=== PATIENT | female | born 1965 | race Hispanic/Latino ===

== ENCOUNTER 2018-10-10 09:58 | Emergency (ER) | payer SELFPAY ==
--- NOTE | 2018-10-10 11:17 | RAD REPORT ---
EXAM DESCRIPTION: CT - Head Brain Wo Cont - 10/10/2018 10:55 am CLINICAL HISTORY: Slurred speech COMPARISON: None. TECHNIQUE: Computed axial tomography of the head was obtained. IV contrast was not requested. All CT scans are performed using dose optimization technique as appropriate and may include automated exposure control or mA/KV adjustment according to patient size. FINDINGS: An intracranial bleed is not seen . The ventricles are normal in caliber. No extra-axial fluid collection is noted. Fluid within the sinuses/ mastoids is not seen. IMPRESSION: No acute intracranial abnormality is seen. If patient's symptoms persist MRI of the bra in would be recommended.
[2018-10-10 11:32] LABS: Absolute Lymphocytes (CBC) 1.3 K/uL (0.7-4.9); Absolute Monocytes 0.4 K/uL (0.1-1.3); Absolute Neutrophil 4.3 K/uL (1.8-8.0); Basophils % 0.7 % (0-1.3); Eosinophils % 1.2 % (0-4.4); Hematocrit 32.3 % (36.0-45.0); Lymphocytes % 21.7 % (15.3-44.8); MPV 9.2 fL (7.6-11.3); Monocytes % 6.6 % (3.3-12.3)
[2018-10-10 11:49] LABS: Potassium 4.7 mmol/L (3.5-5.1)
[2018-10-10] MEDS ORDERED: ENALAPRILAT 1.25 MG/ML VIAL IV ONE ×2 (12:21→14:33)
--- NOTE | 2018-10-10 12:21 | RAD REPORT ---
EXAM DESCRIPTION: RAD - Chest Single View - 10/10/2018 12:15 pm CLINICAL HISTORY: MALAISE Chest pain. COMPARISON: No comparisons FINDINGS: Portable technique limits examination quality. The lungs are grossly clear. The heart is normal in size. No displaced fractures. IMPRESSION: No acute intrathoracic process suspected.
--- NOTE | 2018-10-10 13:54 | EDPHYS ---
Physician Documentation [facility] – [place], [place] Name: Angelic Appiah Age: 53 yrs Sex: Female : 1965 Arrival Date: 10/10/2018 Time: 10:01 Bed 7 Private MD: None, None ED Physician Rex Carr HPI: 10/10 13:15 This 53 yrs old Female presents to ER via Wheelchair with complaints of Facial gs Droop, Slurred Speech. 13:15 Onset: The symptoms/episode began/occurred. gs 13:22 Onset: The symptoms/episode began/occurred 1 hour(s) ago. gs 13:23 Onset: The symptoms/episode began/occurred at 09:45. Associated signs and symptoms: gs Pertinent positives: facial droop and speech difficulty seen by sister, pt states had no symptoms but came to ed anyway. Severity of symptoms: At their worst the symptoms were moderate in the emergency department the symptoms have resolved. The patient has not experienced similar symptoms in the past. Historical: - Allergies: 10:20 No Known Allergies; iw - Home Meds: 10:20 None [Active]; iw - PMHx: 10:20 None; iw - PSHx: 10:20 None; iw - Immunization history:: Adult Immunizations up to date. - Social history:: Smoking status: Patient/guardian denies using tobacco. - Ebola Screening: : No symptoms or risks identified at this time. ROS: 13:23 All other systems are negative. gs Exam: 13:23 Head/Face: Normocephalic, atraumatic. Eyes: Pupils equal round and reactive to light, gs extra-ocular motions intact. Lids and lashes normal. Conjunctiva and sclera are non-icteric and not injected. Cornea within normal limits. Periorbital areas with no swelling, redness, or edema. ENT: Nares patent. No nasal discharge, no septal abnormalities noted. Tympanic membranes are normal and external auditory canals are clear. Oropharynx with no redness, swelling, or masses, exudates, or evidence of obstruction, uvula midline. Mucous membranes moist. Neck: Trachea midline, no thyromegaly or masses palpated, and no cervical lymphadenopathy. Supple, full range of motion without nuchal rigidity, or vertebral point tenderness. No Meningismus. Chest/axilla: Normal chest wall appearance and motion. Nontender with no deformity. No lesions are appreciated. Cardiovascular: Regular rate and rhythm with a normal S1 and S2. No gallops, murmurs, or rubs. Normal PMI, no JVD. No pulse deficits. Respiratory: Lungs have equal breath sounds bilaterally, clear to auscultation and percussion. No rales, rhonchi or wheezes noted. No increased work of breathing, no retractions or nasal flaring. Abdomen/GI: Soft, non-tender, with normal bowel sounds. No distension or tympany. No guarding or rebound. No evidence of tenderness throughout. Back: No spinal tenderness. No costovertebral tenderness. Full range of motion. Skin: Warm, dry with normal turgor. Normal color with no rashes, no lesions, and no evidence of cellulitis. MS/ Extremity: Pulses equal, no cyanosis. Neurovascular intact. Full, normal range of motion. Neuro: Awake and alert, GCS 15, oriented to person, place, time, and situation. Cranial nerves II-XII grossly intact. Motor strength 5/5 in all extremities. Sensory grossly intact. Cerebellar exam normal. Normal gait. 13:23 Constitutional: The patient appears alert, awake. 13:23 ECG was reviewed by the Attending Physician. Vital Signs: 10:10 BP 205 / 94; Pulse 72; Resp 16; Temp 97.8; Pulse Ox 100% on R/A; Weight 76.2 kg; Height hb 5 ft. 4 in. (162.56 cm); Pain 0/10; 11:30 BP 243 / 101; Pulse 86; Resp 15; Pulse Ox 97% on R/A; hb 12:30 BP 195 / 98; Pulse 79; Resp 16; Pulse Ox 100% on R/A; hb 13:15 BP 174 / 107; Pulse 57; Resp 16; Pulse Ox 100% on R/A; hb 14:00 BP 196 / 77 LA (/reg); Pulse 57; Pulse Ox 100% on R/A; hb 14:15 BP 202 / 88; mg2 14:47 BP 175 / 58; Pulse 55; Resp 18; Temp 98.5; Pulse Ox 100% on R/A; Pain 0/10; mg2 10:10 Body Mass Index 28.84 (76.20 kg, 162.56 cm) hb NIH Stroke Scale Scores: 10:20 NIHSS Score: 0 iw 13:23 NIHSS Score: 0 gs MDM: 10:34 Patient medically screened. 13:46 Data reviewed: vital signs, nurses notes. Counseling: I had a detailed discussion with gs the patient and/or guardian regarding: the historical points, exam findings, and any diagnostic results supporting the discharge/admit diagnosis. Counseling: I had a detailed discussion with the patient and/or guardian regarding: the presence of at least one elevated blood pressure reading (>120/80) during this emergency department visit. Special discussion: I have referred the patient to see his PCP for further evaluation of high blood pressure. ED course: no tpa nih 0, pt doesn't want hospitalization will discharge meds htn dm. 10/10 10:14 Order name: Glucose, Ancillary Testing; Complete Time: 10:35 EDMS 10/10 10:38 Order name: CBC with Diff; Complete Time: 11:41 10/10 10:38 Order name: Basic Metabolic Panel; Complete Time: 12:49 10/10 11:46 Order name: Troponin (emerg Dept Use Only) 10/10 12:42 Order name: Troponin (Emerg Dept Use Only); Complete Time: 12:49 EDMS 10/10 14:27 Order name: Urine Dipstick--Ancillary (enter results) 10/10 10:38 Order name: CT Head Brain wo Cont; Complete Time: 11:41 10/10 11:46 Order name: XRAY CXR (1 view) 10/10 11:46 Order name: EKG; Complete Time: 11:48 10/10 12:22 Order name: RAD; Complete Time: 12:49 EDNE 10/10 14:30 Order name: Urine Dipstick-Ancillary EDNE 10/10 14:34 Order name: Glucose, Ancillary Testing EDNE 10/10 11:46 Order name: EKG - Nurse/Tech; Complete Time: 12:19 EC:23 Rate is 52 beats/min. Rhythm is regular. LA interval is normal. QRS interval is normal. gs T waves are Normal. No ST changes noted. Clinical impression: NSR w/ Non-specific ST/T Changes. Interpreted by me. Administered Medications: 12:15 Drug: Enalaprilat 1.25 mg Route: IV; Rate: 1.25 calculated rate; Site: right forearm; hb 12:22 Follow up: Response: No adverse reaction; IV Status: Completed infusion hb 14:29 Drug: Enalaprilat 1.25 mg Route: IV; Rate: calculated rate; Site: right wrist; mg2 14:35 Follow up: Response: No adverse reaction; IV Status: Completed infusion hb Point of Care Testing: Blood Glucose: 10:12 Blood Glucose: 332 mg/dL; hb 14:03 Blood Glucose: 244 mg/dL; mg2 Ranges: Critical Glucose Levels:Adult <50 mg/dl or >400 mg/dl <40 mg/dl or >180 mg/dl Disposition: 10/10/18 13:53 Discharged to Home. Impression: Transient cerebral ischemic attack, unspecified, Essential (primary) hypertension, Hyperglycemia, unspecified. - Condition is Stable. - Discharge Instructions: Hyperglycemia, Hypertension, Transient Ischemic Attack, Blood Glucose Monitoring, Adult. - Prescriptions for Metformin 500 mg Oral Tablet - take 1 tablet by ORAL route once daily for 7 days Then take 1 tablet with morning meals AND evening meals; 21 tablet. Lisinopril 5 mg Oral Tablet - take 1 tablet by ORAL route once daily; 15 tablet. - Medication Reconciliation Form, Thank You Letter, Antibiotic Education, Prescription Opioid Use form. - Follow up: Private Physician; When: 1 - 2 days; Reason: Re-evaluation by your physician. Follow up: Harris Guadalupe DO; When: 2 - 3 days; Reason: Re-evaluation by your physician. Follow up: Jesus Velazco MD; When: 2 - 3 days; Reason: Re-evaluation by your physician. NIH Stroke Scale - NIH Stroke Score Date: 10/10/2018 Time: 10:20 Total Score = 0 1a. Level of Consciousness (LOC) - 0(Alert) 1b. Level of Consciousness (LOC) (Year \T\ Age) - 0(Both) 1c. LOC Commands (Open \T\ Closes Eyes/Interdisciplinary Professor) - 0(Both) 2. Best Gaze (Lateral Gaze Paresis) - 0(Normal) 3. Visual Field Loss - 0(No visual loss) 4. Facial Palsy - 0(Normal) 5a. Left Arm: Motor (10-second hold) - 0(No drift) 5b. Right Arm: Motor (10-second hold) - 0(No drift) 6a. Left Leg: Motor (5-second hold - always test supine) - 0(No drift) 6b. Right Leg: Motor (5-second hold - always test supine) - 0(No drift) 7. Limb Ataxia (finger/nose \T\ heel/ureña - test with eyes open) - 0(Absent) 8. Sensory Loss (pinprick arms/legs/face) - 0(Normal) 9. Best Language: Aphasia (description/naming/reading) - 0(No aphasia) 10. Dysarthria (speech clarity - read or repeat words) - 0(Normal) 11. Extinction and Inattention (visual/tactile/auditory/spatial/personal) - 0(No abnormality) Initials: NIH Stroke Scale - NIH Stroke Score Date: 10/10/2018 Time: 13:23 Total Score = 0 1a. Level of Consciousness (LOC) - 0(Alert) 1b. Level of Consciousness (LOC) (Year \T\ Age) - 0(Both) 1c. LOC Commands (Open \T\ Closes Eyes/Interdisciplinary Professor) - 0(Both) 2. Best Gaze (Lateral Gaze Paresis) - 0(Normal) 3. Visual Field Loss - 0(No visual loss) 4. Facial Palsy - 0(Normal) 5a. Left Arm: Motor (10-second hold) - 0(No drift) 5b. Right Arm: Motor (10-second hold) - 0(No drift) 6a. Left Leg: Motor (5-second hold - always test supine) - 0(No drift) 6b. Right Leg: Motor (5-second hold - always test supine) - 0(No drift) 7. Limb Ataxia (finger/nose \T\ heel/ureña - test with eyes open) - 0(Absent) 8. Sensory Loss (pinprick arms/legs/face) - 0(Normal) 9. Best Language: Aphasia (description/naming/reading) - 0(No aphasia) 10. Dysarthria (speech clarity - read or repeat words) - 0(Normal) 11. Extinction and Inattention (visual/tactile/auditory/spatial/personal) - 0(No abnormality) Initials: Signatures: Dispatcher [employer] Viji Rodríguez RN RN Sharlene Shah RN RN hb Starr, Gregory, MD MD Lopez Douglas RN RN mg2 Corrections: (The following items were deleted from the chart) 13:58 13:53 10/10/2018 13:53 Discharged to Home. Impression: Transient cerebral gs ischemic attack, unspecified; Essential (primary) hypertension; Hyperglycemia, unspecified. Condition is Stable. Forms are Medication Reconciliation Form, Thank You Letter, Antibiotic Education, Prescription Opioid Use. Follow up: Private Physician; When: 1 - 2 days; Reason: Re-evaluation by your physician. Follow up: Harris Guadalupe; When: 2 - 3 days; Reason: Re-evaluation by your physician. gs 15:02 13:58 10/10/2018 13:53 Discharged to Home. Impression: Transient cerebral iw ischemic attack, unspecified; Essential (primary) hypertension; Hyperglycemia, unspecified. Condition is Stable. Discharge Instructions: Hyperglycemia, Hypertension, Transient Ischemic Attack, Blood Glucose Monitoring, Adult. Prescriptions for Metformin 500 mg Oral Tablet - take 1 tablet by ORAL route once daily for 7 days Then take 1 tablet with morning meals AND evening meals; 21 tablet, Lisinopril 5 mg Oral Tablet - take 1 tablet by ORAL route once daily; 15 tablet. and Forms are Medication Reconciliation Form, Thank You Letter, Antibiotic Education, Prescription Opioid Use. Follow up: Private Physician; When: 1 - 2 days; Reason: Re-evaluation by your physician. Follow up: Harris Guadalupe; When: 2 - 3 days; Reason: Re-evaluation by your physician. Follow up: Jesus Velazco; When: 2 - 3 days; Reason: Re-evaluation by your physician. gs
--- NOTE | 2018-10-10 13:54 | ER ---
Nurse's Notes [facility] Name: Angelic Appiah Age: 53 yrs Sex: Female : 1965 Arrival Date: 10/10/2018 Time: 10:01 Bed 7 Private MD: None, None Diagnosis: Transient cerebral ischemic attack, unspecified;Essential (primary) hypertension;Hyperglycemia, unspecified Presentation: 10/10 10:06 Presenting complaint: sister reports pt had an episode of left sided facial drooping iw that started around and lasted til about 0945, pt also was slurring her words, sister told pt to smile and the left side of her face did not move, pt denies weakness or numbness/tingling. symptoms have completely resolved, pt states she did not feel any difference in her face during the episode. Transition of care: patient was not received from another setting of care. No acute neurological deficit is noted. Pre-hospital glucose is not applicable to this patient. Onset of symptoms was October 10, 2018. Risk Assessment: Do you want to hurt yourself or someone else? Patient reports no desire to harm self or others. Initial Sepsis Screen: Does the patient meet any 2 criteria? No. Patient's initial sepsis screen is negative. Does the patient have a suspected source of infection? No. Patient's initial sepsis screen is negative. Care prior to arrival: None. 10:06 Method Of Arrival: Wheelchair iw 10:06 Acuity: SOLITARIO 2 iw Historical: - Allergies: 10:20 No Known Allergies; iw - Home Meds: 10:20 None [Active]; iw - PMHx: 10:20 None; iw - PSHx: 10:20 None; iw - Immunization history:: Adult Immunizations up to date. - Social history:: Smoking status: Patient/guardian denies using tobacco. - Ebola Screening: : No symptoms or risks identified at this time. Screenin:15 Abuse screen: Denies threats or abuse. Denies injuries from another. Nutritional hb screening: No deficits noted. Tuberculosis screening: No symptoms or risk factors identified. Fall Risk None identified. Assessment: 10:20 VAN Scoring: Arm Drift: Patients demonstrates NO arm weakness. Patient is VAN Negative. iw 10:25 General: Appears in no apparent distress. Behavior is calm, cooperative. Pain: Denies hb pain. Neuro: Level of Consciousness is awake, alert, obeys commands, Oriented to person, place, time, situation. Cardiovascular: Capillary refill < 3 seconds Patient's skin is warm and dry. Respiratory: Airway is patent Respiratory effort is even, unlabored, Respiratory pattern is regular, symmetrical, Breath sounds are clear bilaterally. GI: No signs and/or symptoms were reported involving the gastrointestinal system. : No signs and/or symptoms were reported regarding the genitourinary system. EENT: No signs and/or symptoms were reported regarding the EENT system. Derm: Skin is intact, is healthy with good turgor, Skin is pink, warm \T\ dry. Musculoskeletal: No signs and/or symptoms reported regarding the musculoskeletal system. 11:30 Reassessment: Patient appears in no apparent distress at this time. Patient and/or hb family updated on plan of care and expected duration. Pain level reassessed. Patient is alert, oriented x 3, equal unlabored respirations, skin warm/dry/pink. 12:30 Reassessment: Patient appears in no apparent distress at this time. Patient and/or hb family updated on plan of care and expected duration. Pain level reassessed. Patient is alert, oriented x 3, equal unlabored respirations, skin warm/dry/pink. Patient denies pain at this time. 13:30 Reassessment: Patient appears in no apparent distress at this time. No changes from hb previously documented assessment. Patient and/or family updated on plan of care and expected duration. Pain level reassessed. Patient is alert, oriented x 3, equal unlabored respirations, skin warm/dry/pink. 14:30 Reassessment: Patient appears in no apparent distress at this time. No changes from hb previously documented assessment. Patient and/or family updated on plan of care and expected duration. Pain level reassessed. Patient is alert, oriented x 3, equal unlabored respirations, skin warm/dry/pink. Vital Signs: 10:10 BP 205 / 94; Pulse 72; Resp 16; Temp 97.8; Pulse Ox 100% on R/A; Weight 76.2 kg; Height hb 5 ft. 4 in. (162.56 cm); Pain 0/10; 11:30 BP 243 / 101; Pulse 86; Resp 15; Pulse Ox 97% on R/A; hb 12:30 BP 195 / 98; Pulse 79; Resp 16; Pulse Ox 100% on R/A; hb 13:15 BP 174 / 107; Pulse 57; Resp 16; Pulse Ox 100% on R/A; hb 14:00 BP 196 / 77 LA (/reg); Pulse 57; Pulse Ox 100% on R/A; hb 14:15 BP 202 / 88; mg2 14:47 BP 175 / 58; Pulse 55; Resp 18; Temp 98.5; Pulse Ox 100% on R/A; Pain 0/10; mg2 10:10 Body Mass Index 28.84 (76.20 kg, 162.56 cm) hb NIH Stroke Scale Scores: 10:20 NIHSS Score: 0 iw 13:23 NIHSS Score: 0 gs ED Course: 10:01 Patient arrived in ED. mr 10:01 None, None is Private Physician. mr 10:08 Rex Carr MD is Attending Physician. gs 10:14 Arm band placed on. hb 10:15 Patient has correct armband on for positive identification. Placed in gown. Bed in low hb position. Call light in reach. Side rails up X 1. 10:20 Triage completed. iw 10:51 Sharlene Shah, RN is Primary Nurse. hb 10:55 CT Head Brain wo Cont In Process Unspecified. EDMS 11:15 Initial lab(s) drawn, by me, sent to lab. Inserted saline lock: 22 gauge in right dh3 wrist, using aseptic technique. Blood collected. 12:15 X-ray completed. Portable x-ray completed in exam room. Patient tolerated procedure mh1 well. 12:28 EKG done, by emergency medical tech. reviewed by Rex Carr MD. sm3 13:52 Harris Guadalupe DO is Referral Physician. gs 13:58 Jesus Velazco MD is Referral Physician. gs 14:45 No provider procedures requiring assistance completed. IV discontinued, intact, hb bleeding controlled, No redness/swelling at site. Pressure dressing applied. Administered Medications: 12:15 Drug: Enalaprilat 1.25 mg Route: IV; Rate: 1.25 calculated rate; Site: right forearm; hb 12:22 Follow up: Response: No adverse reaction; IV Status: Completed infusion hb 14:29 Drug: Enalaprilat 1.25 mg Route: IV; Rate: calculated rate; Site: right wrist; mg2 14:35 Follow up: Response: No adverse reaction; IV Status: Completed infusion hb Point of Care Testing: Blood Glucose: 10:12 Blood Glucose: 332 mg/dL; hb 14:03 Blood Glucose: 244 mg/dL; mg2 Ranges: Outcome: 13:53 Discharge ordered by . gs 14:45 Discharged to home ambulatory, with family. hb 14:45 Condition: stable 14:45 Discharge instructions given to patient, Instructed on discharge instructions, follow up and referral plans. medication usage, Demonstrated understanding of instructions, follow-up care, medications. 15:02 Patient left the ED. NIH Stroke Scale - NIH Stroke Score Date: 10/10/2018 Time: 10:20 Total Score = 0 1a. Level of Consciousness (LOC) - 0(Alert) 1b. Level of Consciousness (LOC) (Year \T\ Age) - 0(Both) 1c. LOC Commands (Open \T\ Closes Eyes/Doughmaker) - 0(Both) 2. Best Gaze (Lateral Gaze Paresis) - 0(Normal) 3. Visual Field Loss - 0(No visual loss) 4. Facial Palsy - 0(Normal) 5a. Left Arm: Motor (10-second hold) - 0(No drift) 5b. Right Arm: Motor (10-second hold) - 0(No drift) 6a. Left Leg: Motor (5-second hold - always test supine) - 0(No drift) 6b. Right Leg: Motor (5-second hold - always test supine) - 0(No drift) 7. Limb Ataxia (finger/nose \T\ heel/ureña - test with eyes open) - 0(Absent) 8. Sensory Loss (pinprick arms/legs/face) - 0(Normal) 9. Best Language: Aphasia (description/naming/reading) - 0(No aphasia) 10. Dysarthria (speech clarity - read or repeat words) - 0(Normal) 11. Extinction and Inattention (visual/tactile/auditory/spatial/personal) - 0(No abnormality) Initials: NIH Stroke Scale - NIH Stroke Score Date: 10/10/2018 Time: 13:23 Total Score = 0 1a. Level of Consciousness (LOC) - 0(Alert) 1b. Level of Consciousness (LOC) (Year \T\ Age) - 0(Both) 1c. LOC Commands (Open \T\ Closes Eyes/Doughmaker) - 0(Both) 2. Best Gaze (Lateral Gaze Paresis) - 0(Normal) 3. Visual Field Loss - 0(No visual loss) 4. Facial Palsy - 0(Normal) 5a. Left Arm: Motor (10-second hold) - 0(No drift) 5b. Right Arm: Motor (10-second hold) - 0(No drift) 6a. Left Leg: Motor (5-second hold - always test supine) - 0(No drift) 6b. Right Leg: Motor (5-second hold - always test supine) - 0(No drift) 7. Limb Ataxia (finger/nose \T\ heel/ureña - test with eyes open) - 0(Absent) 8. Sensory Loss (pinprick arms/legs/face) - 0(Normal) 9. Best Language: Aphasia (description/naming/reading) - 0(No aphasia) 10. Dysarthria (speech clarity - read or repeat words) - 0(Normal) 11. Extinction and Inattention (visual/tactile/auditory/spatial/personal) - 0(No abnormality) Initials: Signatures: Dispatcher [employer] [facility] Sheila Thomas Martha 1 Viji Montero RN RN Sharlene Shah RN RN hb Herrera, Deanna 3 Rex Carr MD MD Lopez Douglas RN RN [facility] [place] Sima Jennings 3
[2018-10-10 14:30] LABS: Urine Blood 1+ (NEG); Urine Glucose 2+ (NEG); Urine Protein 3+ (NEG)
--- NOTE | 2018-10-10 15:02 | EKG ---
Test Date: 2018-10-10 Test Time: 12:11:31 Aircraft Motor Mechanic: BENJI MEASUREMENT RESULTS: Intervals: Rate: 52 KS: 158 QRSD: 82 QT: 438 QTc: 407 [place]: P: 36 KS: 158 QRS: 0 T: 58 INTERPRETIVE STATEMENTS: Sinus bradycardia Otherwise normal ECG No previous ECG available for comparison Electronically Signed On 10-10-18 15:01:45 CDT by Vijay Moore
== END 2018-10-10 15:02 | disposition home or self-care (01) ==
LOC: ER 09:58
DX: G45.9 Transient cerebral ischemic attack, unspecified (principal); I10 Essential (primary) hypertension; E78.5 Hyperlipidemia, unspecified
CPT/HCPCS: 36415; 70450; 71045; 80048; 81003; 82962; 84484; 85025; 93005; 99284

== ENCOUNTER 2018-10-11 16:39 | Emergency (ER) | payer SELFPAY ==
[2018-10-11 17:16] LABS: Protime INR 1.03
--- NOTE | 2018-10-11 17:16 | EDPHYS ---
Physician Documentation [facility] Name: Angelic Appiah Age: 53 yrs Sex: Female : 1965 Arrival Date: 10/11/2018 Time: 16:40 Bed 7 Private MD: None, None ED Physician Hudson Ha HPI: 10/11 17:09 This 53 yrs old Female presents to ER via Wheelchair with complaints of mitch Slurred Speech. 17:09 The patient presents to the emergency department with weakness of the left upper mitch extremity, left lower extremity, left side of the face, that is moderate. Onset: The symptoms/episode began/occurred today, between 10am and 1pm , unknown. Context: occurred at home, occurred while the patient was at rest. Associated signs and symptoms: The patient has no apparent associated signs or symptoms. Severity of symptoms: At their worst the symptoms were mild moderate in the emergency department the symptoms are unchanged. Patient's baseline: Neuro: alert and fully oriented. Current symptoms: dysphasia, paralysis or paresis, of the face, left arm and left leg, that is mild. The patient has experienced a previous episode, yesterday. EMS MANAGER: 16:44 LMP N/A - Post-menopause tw2 Historical: - Allergies: 16:46 No Known Allergies; tw2 - Home Meds: 17:47 None [Active]; sg - PMHx: 17:47 None; sg - PSHx: 16:46 None; tw2 - Immunization history:: Adult Immunizations. - Social history:: Smoking status: . - Ebola Screening: : Patient denies travel to an Ebola-affected area in the 21 days before illness onset. - Family history:: not pertinent. ROS: 17:09 Constitutional: Negative for fever, chills, and weight loss, Eyes: Negative for injury, mitch pain, redness, and discharge, ENT: Negative for injury, pain, and discharge, Neck: Negative for injury, pain, and swelling, Cardiovascular: Negative for chest pain, palpitations, and edema, Respiratory: Negative for shortness of breath, cough, wheezing, and pleuritic chest pain, Abdomen/GI: Negative for abdominal pain, nausea, vomiting, diarrhea, and constipation, Back: Negative for injury and pain, : Negative for injury, bleeding, discharge, and swelling, MS/Extremity: Negative for injury and deformity, Skin: Negative for injury, rash, and discoloration, Psych: Negative for depression, anxiety, suicide ideation, homicidal ideation, and hallucinations, Allergy/Immunology: Negative for hives, rash, and allergies, Endocrine: Negative for neck swelling, polydipsia, polyuria, polyphagia, and marked weight changes, Hematologic/Lymphatic: Negative for swollen nodes, abnormal bleeding, and unusual bruising. 17:09 Neuro: Positive for gait disturbance, speech changes, weakness, of the face, left arm and left leg. Exam: 17:09 Constitutional: This is a well developed, well nourished patient who is awake, alert, mitch and in no acute distress. Eyes: Pupils equal round and reactive to light, extra-ocular motions intact. Lids and lashes normal. Conjunctiva and sclera are non-icteric and not injected. Cornea within normal limits. Periorbital areas with no swelling, redness, or edema. ENT: Nares patent. No nasal discharge, no septal abnormalities noted. Tympanic membranes are normal and external auditory canals are clear. Oropharynx with no redness, swelling, or masses, exudates, or evidence of obstruction, uvula midline. Mucous membranes moist. Neck: Trachea midline, no thyromegaly or masses palpated, and no cervical lymphadenopathy. Supple, full range of motion without nuchal rigidity, or vertebral point tenderness. No Meningismus. Chest/axilla: Normal chest wall appearance and motion. Nontender with no deformity. No lesions are appreciated. Cardiovascular: Regular rate and rhythm with a normal S1 and S2. No gallops, murmurs, or rubs. Normal PMI, no JVD. No pulse deficits. Respiratory: Lungs have equal breath sounds bilaterally, clear to auscultation and percussion. No rales, rhonchi or wheezes noted. No increased work of breathing, no retractions or nasal flaring. Abdomen/GI: Soft, non-tender, with normal bowel sounds. No distension or tympany. No guarding or rebound. No evidence of tenderness throughout. Back: No spinal tenderness. No costovertebral tenderness. Full range of motion. Skin: Warm, dry with normal turgor. Normal color with no rashes, no lesions, and no evidence of cellulitis. MS/ Extremity: Pulses equal, no cyanosis. Neurovascular intact. Full, normal range of motion. 17:09 Head/face: Noted is left face weak, forehead spared. 17:09 Musculoskeletal/extremity: ROM: limited active range of motion, in the left arm and left leg, Circulation is intact in all extremities. Pulses: the left arm and left leg numbness, DVT Exam: No signs of deep vein thrombosis. no pain, no swelling, no tenderness, negative Homans' sign noted on exam, no appreciated bluish discoloration, no erythema, no increased warmth. Vital Signs: 16:44 BP 150 / 70; Pulse 77; Resp 17; Temp 97.9(TE); Pulse Ox 99% on R/A; Weight 70.31 kg tw2 (R); Pain 0/10; 20:10 BP 176 / 81; Pulse 71; Resp 18; Pulse Ox 98% on R/A; ea 21:45 BP 159 / 71; Pulse 63; Resp 18; Temp 98; Pulse Ox 98% ; ea NIH Stroke Scale Scores: 17:19 NIHSS Score: 5 iw 17:35 NIHSS Score: 9 mitch 20:10 NIHSS Score: 7 ea 21:45 NIHSS Score: 7 ea MDM: 17:00 Patient medically screened. mitch 17:38 Data reviewed: vital signs, nurses notes, lab test result(s), EKG, radiologic studies, mitch CT scan, MRI, plain films. 18:34 ED course: no a tpa candidate, greater marissa 4.5 hours, large infarct on ct, sub acute, mitch symptoms began day prior. 10/11 16:53 Order name: Basic Metabolic Panel; Complete Time: 17:44 10/11 16:53 Order name: CBC with Diff; Complete Time: 17:44 10/11 16:53 Order name: LFT's; Complete Time: 17:44 10/11 16:53 Order name: Magnesium; Complete Time: 17:44 10/11 16:53 Order name: NT PRO-BNP; Complete Time: 17:44 10/11 16:53 Order name: PT-INR; Complete Time: 17:44 10/11 16:53 Order name: Troponin (emerg Dept Use Only); Complete Time: 17:44 10/11 16:53 Order name: XRAY Chest (1 view) 10/11 16:53 Order name: CT Stroke Brain w/o Contrast; Complete Time: 17:44 iw 10/11 17:02 Order name: Sed Rate; Complete Time: 18:33 mitch 10/11 17:02 Order name: CRP; Complete Time: 17:44 mitch 10/11 18:22 Order name: Brain Wo Cont EDMS 10/11 16:53 Order name: EKG; Complete Time: 16:55 10/11 16:53 Order name: Cardiac monitoring; Complete Time: 17:09 10/11 16:53 Order name: EKG - Nurse/Tech; Complete Time: 19:57 iw 10/11 16:53 Order name: IV Saline Lock; Complete Time: 17:09 iw 10/11 16:53 Order name: Labs collected and sent; Complete Time: 17:09 10/11 16:53 Order name: O2 Per Protocol; Complete Time: 17:55 iw 10/11 16:53 Order name: O2 Sat Monitoring; Complete Time: 17:55 iw Administered Medications: 19:12 Not Given (failed swallow screening): Aspirin Chewable Tablet 324 mg PO once; 81 mg sg tablets x 4 19:45 Drug: NS 0.9% 1000 ml Route: IV; Rate: 1 bolus; Site: right antecubital; ea 21:55 Follow up: Response: No adverse reaction; IV Status: Completed infusion; IV Intake: ea 1000ml 19:45 Drug: foLIC Acid 1 mg Route: IVPB; Site: right antecubital; ea 20:22 Follow up: Response: No adverse reaction; IV Status: Completed infusion ea Disposition: 10/11/18 17:[address] [facility]. Diagnosis are Cerebral infarction - acute,subacute, Essential (primary) hypertension, Type 2 diabetes mellitus. - Reason for transfer: Higher level of care. - Accepting physician is to [facility], neuro icu. - Condition is Serious. - Problem is new. - Symptoms are unchanged. NIH Stroke Scale - NIH Stroke Score Date: 10/11/2018 Time: 17:19 Total Score = 5 1a. Level of Consciousness (LOC) - 0(Alert) 1b. Level of Consciousness (LOC) (Year \T\ Age) - 0(Both) 1c. LOC Commands (Open \T\ Closes Eyes/Information Systems Consultant) - 0(Both) 2. Best Gaze (Lateral Gaze Paresis) - 0(Normal) 3. Visual Field Loss - 0(No visual loss) 4. Facial Palsy - 1(Minor Paralysis) 5a. Left Arm: Motor (10-second hold) - 1(Drift) 5b. Right Arm: Motor (10-second hold) - 0(No drift) 6a. Left Leg: Motor (5-second hold - always test supine) - 1(Drift) 6b. Right Leg: Motor (5-second hold - always test supine) - 0(No drift) 7. Limb Ataxia (finger/nose \T\ heel/ureña - test with eyes open) - 0(Absent) 8. Sensory Loss (pinprick arms/legs/face) - 1(Mild to moderate loss) 9. Best Language: Aphasia (description/naming/reading) - 0(No aphasia) 10. Dysarthria (speech clarity - read or repeat words) - 1(Mild to Moderate) 11. Extinction and Inattention (visual/tactile/auditory/spatial/personal) - 0(No abnormality) Initials: NIH Stroke Scale - NIH Stroke Score Date: 10/11/2018 Time: 17:35 Total Score = 9 1a. Level of Consciousness (LOC) - 0(Alert) 1b. Level of Consciousness (LOC) (Year \T\ Age) - 0(Both) 1c. LOC Commands (Open \T\ Closes Eyes/Information Systems Consultant) - 0(Both) 2. Best Gaze (Lateral Gaze Paresis) - 0(Normal) 3. Visual Field Loss - 0(No visual loss) 4. Facial Palsy - 1(Minor Paralysis) 5a. Left Arm: Motor (10-second hold) - 2(Drift, some effort against gravity) 5b. Right Arm: Motor (10-second hold) - 0(No drift) 6a. Left Leg: Motor (5-second hold - always test supine) - 1(Drift) 6b. Right Leg: Motor (5-second hold - always test supine) - 0(No drift) 7. Limb Ataxia (finger/nose \T\ heel/ureña - test with eyes open) - 2(Present in two limbs) 8. Sensory Loss (pinprick arms/legs/face) - 1(Mild to moderate loss) 9. Best Language: Aphasia (description/naming/reading) - 1(Mild to moderate aphasia) 10. Dysarthria (speech clarity - read or repeat words) - 1(Mild to Moderate) 11. Extinction and Inattention (visual/tactile/auditory/spatial/personal) - 0(No abnormality) Initials: mitch NIH Stroke Scale - NIH Stroke Score Date: 10/11/2018 Time: 20:10 Total Score = 7 1a. Level of Consciousness (LOC) - 0(Alert) 1b. Level of Consciousness (LOC) (Year \T\ Age) - 0(Both) 1c. LOC Commands (Open \T\ Closes Eyes/Information Systems Consultant) - 0(Both) 2. Best Gaze (Lateral Gaze Paresis) - 0(Normal) 3. Visual Field Loss - 0(No visual loss) 4. Facial Palsy - 0(Normal) 5a. Left Arm: Motor (10-second hold) - 2(Drift, some effort against gravity) 5b. Right Arm: Motor (10-second hold) - 0(No drift) 6a. Left Leg: Motor (5-second hold - always test supine) - 1(Drift) 6b. Right Leg: Motor (5-second hold - always test supine) - 0(No drift) 7. Limb Ataxia (finger/nose \T\ heel/ureña - test with eyes open) - 2(Present in two limbs) 8. Sensory Loss (pinprick arms/legs/face) - 1(Mild to moderate loss) 9. Best Language: Aphasia (description/naming/reading) - 0(No aphasia) 10. Dysarthria (speech clarity - read or repeat words) - 1(Mild to Moderate) 11. Extinction and Inattention (visual/tactile/auditory/spatial/personal) - 0(No abnormality) Initials: NIH Stroke Scale - NIH Stroke Score Date: 10/11/2018 Time: 21:45 Total Score = 7 1a. Level of Consciousness (LOC) - 0(Alert) 1b. Level of Consciousness (LOC) (Year \T\ Age) - 0(Both) 1c. LOC Commands (Open \T\ Closes Eyes/Information Systems Consultant) - 0(Both) 2. Best Gaze (Lateral Gaze Paresis) - 0(Normal) 3. Visual Field Loss - 0(No visual loss) 4. Facial Palsy - 0(Normal) 5a. Left Arm: Motor (10-second hold) - 2(Drift, some effort against gravity) 5b. Right Arm: Motor (10-second hold) - 0(No drift) 6a. Left Leg: Motor (5-second hold - always test supine) - 1(Drift) 6b. Right Leg: Motor (5-second hold - always test supine) - 0(No drift) 7. Limb Ataxia (finger/nose \T\ heel/ureña - test with eyes open) - 2(Present in two limbs) 8. Sensory Loss (pinprick arms/legs/face) - 1(Mild to moderate loss) 9. Best Language: Aphasia (description/naming/reading) - 0(No aphasia) 10. Dysarthria (speech clarity - read or repeat words) - 1(Mild to Moderate) 11. Extinction and Inattention (visual/tactile/auditory/spatial/personal) - 0(No abnormality) Initials: ea Signatures: Dispatcher [employer] Mickey Duval, RN RN Hudson Bland MD MD cha Williams, Irene, RN RN iw Wise, Tara, RN RN twYenifer Felipe RN RN ea Corrections: (The following items were deleted from the chart) 17:20 17:16 10/11/2018 17:[address] [facility]. mitch Diagnosis is Cerebral infarction. Reason for transfer: Higher level of care. Accepting physician is to [facility]. Condition is Serious. Problem is new. Symptoms are unchanged. mitch 17:20 17:20 10/11/2018 17:[address] [facility]. mitch Diagnosis is Cerebral infarction; Essential (primary) hypertension; Type 2 diabetes mellitus. Reason for transfer: Higher level of care. Accepting physician is to [facility]. Condition is Serious. Problem is new. Symptoms are unchanged. mitch 18:22 17:04 MR STROKE PROTOCOL+MRI.RAD.BRZ ordered. [facility] EDMS 22:04 17:20 10/11/2018 17:[address] [facility]. ea Diagnosis is Cerebral infarction - acute,subacute; Essential (primary) hypertension; Type 2 diabetes mellitus. Reason for transfer: Higher level of care. Accepting physician is to [facility] icu. Condition is Serious. Problem is new. Symptoms are unchanged. mitch
--- NOTE | 2018-10-11 17:16 | ER ---
Nurse's Notes [facility] Name: Angelic Appiah Age: 53 yrs Sex: Female : 1965 Arrival Date: 10/11/2018 Time: 16:40 Bed 7 Private MD: None, None Diagnosis: Cerebral infarction-acute,subacute;Essential (primary) hypertension;Type 2 diabetes mellitus Presentation: 10/11 16:40 Presenting complaint: sister states i brought her in yesterday because the LEFT side of tw2 her face drooped, her blood pressure was high, and today i tried to get her to hold a glass of tea and now she cant in the LEFT arm, its like she is loosing strength, she has just been saying she is tired and doesn't want to wake up. Transition of care: patient was not received from another setting of care. Onset of symptoms was October 11, 2018. Risk Assessment: Do you want to hurt yourself or someone else? Patient reports no desire to harm self or others. Initial Sepsis Screen: Does the patient meet any 2 criteria? No. Patient's initial sepsis screen is negative. Does the patient have a suspected source of infection? No. Patient's initial sepsis screen is negative. Care prior to arrival: None. 16:40 Method Of Arrival: Wheelchair tw2 16:40 Acuity: SOLITARIO 2 tw2 16:54 The patients blood glucose was checked prior to arriving to the hospital and was found iw to be hyperglycemic. Triage Assessment: 16:46 The onset of the patients symptoms was less than three hours ago. General: Appears in tw2 no apparent distress. Behavior is quiet. Pain: Denies pain. Neuro: Reports weakness in left arm. PHLEBOTOMY LAB ASSISTANT: 16:44 LMP N/A - Post-menopause tw2 Stroke Activation: Symptom onset > 6 hours Physician: Stroke Attending; Name: ; Notified At: ; Arrived At: Physician: Chief Stroke Resident; Name: ; Notified At: ; Arrived At: Physician: Stroke Resident; Name: ; Notified At: ; Arrived At: Physician: ED Attending; Name: ; Notified At: ; Arrived At: Physician: ED Resident; Name: ; Notified At: ; Arrived At: Historical: - Allergies: 16:46 No Known Allergies; tw2 - Home Meds: 17:47 None [Active]; - PMHx: 17:47 None; sg - PSHx: 16:46 None; tw2 - Immunization history:: Adult Immunizations. - Social history:: Smoking status: . - Ebola Screening: : Patient denies travel to an Ebola-affected area in the 21 days before illness onset. - Family history:: not pertinent. Screenin:20 Abuse screen: Denies threats or abuse. Denies injuries from another. Nutritional sg screening: No deficits noted. Tuberculosis screening: No symptoms or risk factors identified. Never had TB. 20:00 Fall Risk IV access (20 points). Gait- Impaired (20 pts.). ea Assessment: 16:45 VAN Scoring: Arm Drift: Severe drift The patient exhibits slurred or garbled speech. tw2 16:55 Reassessment: pt sister states pt had no weakness or facial droop this morning at iw breakfast, pt seemed more sleepy than usual, daughter went and checked on patient at 10 this morning and pt had no weakness, they went and checked on pt again at 1330 and pt had left sided facial droop, had trouble holding her cup of tea, had trouble holding a Q-tip with her left hand. 17:19 Reassessment: Dr. Quintero called results to Anny Yuen, acute/subacute CVA. iw 17:20 General: Appears well groomed, well developed, well nourished, Behavior is cooperative, sg quiet. Neuro: Level of Consciousness is awake, alert, obeys commands, Oriented to person, place, Speech is slurred, Facial droop on left. Cardiovascular: Patient's skin is warm and dry. Respiratory: Airway is patent Respiratory effort is even, unlabored, Respiratory pattern is regular, symmetrical. GI: Abdomen is round non-distended. : No signs and/or symptoms were reported regarding the genitourinary system. EENT: No signs and/or symptoms were reported regarding the EENT system. Derm: Skin is dry, Skin is normal, Skin temperature is warm. Musculoskeletal: Circulation, motion, and sensation intact. Swelling absent. 17:25 The patient has not been NPO before screening. The patient is alert, and able to follow sg commands. The patient exhibits slurred or garbled speech. The patient is exhibiting difficulty speaking. The patient does not exhibit difficulty understanding words. The patient is unable to swallow own secretions without drooling or the need for suction. Bedside swallow screening discontinued. Patient kept NPO until cleared by Speech Therapy or Physician. The patient failed the bedside swallow screening. The patient will be kept NPO until cleared by Speech Therapy or Physician. 17:30 Reassessment: at bedside evaluating pt and updating on POC and the need for sg transfer. 18:14 Reassessment: pt remains in MRI, family updated on POC. iw 18:56 Reassessment: pt remains off the unit in MRI at this time. sg 19:21 Reassessment: Pt remains in MRI, family updated on POC. ea 19:45 General: Appears well groomed, Behavior is cooperative. Neuro: Level of Consciousness ea is awake, alert, obeys commands, Oriented to person, place, situation, Speech is slurred, Facial droop on left. Neuro: Given in report pt had drool noted upon initial arrival. Pt able to swallow own secretions at this time. Cardiovascular: Patient's skin is warm and dry. Respiratory: Airway is patent Respiratory effort is even, unlabored, Respiratory pattern is regular, symmetrical. GI: Abdomen is non-distended. Derm: Skin is dry, Skin is normal, Skin temperature is warm. Musculoskeletal: Circulation, motion, and sensation intact. Swelling. 20:30 Reassessment: Patient and/or family updated on plan of care and expected duration. Pain ea level reassessed. Pt alert and oriented x 3. Denies pain at this time, awaiting for transfer form. 22:00 Reassessment: Patient and/or family updated on plan of care and expected duration. Pain ea level reassessed. [facility] at facility for transfer, Report given to EMS. Pt left via stretcher tolerating well. No s/s of pain discomfort noted at this time. Vital Signs: 16:44 BP 150 / 70; Pulse 77; Resp 17; Temp 97.9(TE); Pulse Ox 99% on R/A; Weight 70.31 kg tw2 (R); Pain 0/10; 20:10 BP 176 / 81; Pulse 71; Resp 18; Pulse Ox 98% on R/A; ea 21:45 BP 159 / 71; Pulse 63; Resp 18; Temp 98; Pulse Ox 98% ; ea NIH Stroke Scale Scores: 17:19 NIHSS Score: 5 iw 17:35 NIHSS Score: 9 mitch 20:10 NIHSS Score: 7 ea 21:45 NIHSS Score: 7 ea ED Course: 16:40 Patient arrived in ED. mr 16:40 None, None is Private Physician. mr 16:44 Triage completed. tw2 16:46 Arm band placed on. tw2 17:00 Hudson Ha MD is Attending Physician. [facility] 17:07 Patient has correct armband on for positive identification. Bed in low position. Call [facility] light in reach. Side rails up X2. Adult w/ patient. Warm blanket given. professional model on. Pulse ox on. NIBP on. 17:07 Initial lab(s) drawn, by ri, sent to lab. Inserted saline lock: 20 gauge in right [facility] antecubital area, using aseptic technique. Blood collected. 17:08 CRP Sent. [facility] 17:08 Sed Rate Sent. [facility] 17:08 Basic Metabolic Panel Sent. [facility] 17:08 CBC with Diff Sent. [facility] 17:08 LFT's Sent. [facility] 17:08 Magnesium Sent. [facility] 17:08 NT PRO-BNP Sent. [facility] 17:08 PT-INR Sent. [facility] 17:08 Troponin (emerg Dept Use Only) Sent. [facility] 17:18 CT Stroke Brain w/o Contrast In Process Unspecified. EDMS 17:20 Radiology exam delayed due to CT STATES THAT THEY WERE TOLD BY GUZMAN TO SKIP XRAY bb2 AND TAKE PT STRAIGHT TO MRI. 17:47 Mickey Atkins, RN is Primary Nurse. sg 18:55 Radiology exam delayed due to PT JUST STILL HASN'T HAD MRI AND DOCTOR WANTS MRI FIRST. wes ERICKSON IN THE ER WAS NOTIFIED. 19:06 Brain Wo Cont In Process Unspecified. EDMS 19:12 Yenifer Deleon, RN is Primary Nurse. ea 19:33 X-ray completed. Patient tolerated procedure well. bb2 19:35 XRAY Chest (1 view) In Process Unspecified. EDMS 21:45 Patient transferred, IV remains in place. ea 21:45 No provider procedures requiring assistance completed. ea Administered Medications: 19:12 Not Given (failed swallow screening): Aspirin Chewable Tablet 324 mg PO once; 81 mg sg tablets x 4 19:45 Drug: NS 0.9% 1000 ml Route: IV; Rate: 1 bolus; Site: right antecubital; ea 21:55 Follow up: Response: No adverse reaction; IV Status: Completed infusion; IV Intake: ea 1000ml 19:45 Drug: foLIC Acid 1 mg Route: IVPB; Site: right antecubital; ea 20:22 Follow up: Response: No adverse reaction; IV Status: Completed infusion ea Intake: 21:55 IV: 1000ml; Total: 1000ml. ea Outcome: 17:16 ER care complete, transfer ordered by MD. meyer 19:00 Instructed on the need for transfer. ea 21:58 Transferred by ground EMS Transfer form completed. ea 21:58 Condition: stable 22:04 Patient left the ED. ea NIH Stroke Scale - NIH Stroke Score Date: 10/11/2018 Time: 17:19 Total Score = 5 1a. Level of Consciousness (LOC) - 0(Alert) 1b. Level of Consciousness (LOC) (Year \T\ Age) - 0(Both) 1c. LOC Commands (Open \T\ Closes Eyes/Claims Service Adjustor) - 0(Both) 2. Best Gaze (Lateral Gaze Paresis) - 0(Normal) 3. Visual Field Loss - 0(No visual loss) 4. Facial Palsy - 1(Minor Paralysis) 5a. Left Arm: Motor (10-second hold) - 1(Drift) 5b. Right Arm: Motor (10-second hold) - 0(No drift) 6a. Left Leg: Motor (5-second hold - always test supine) - 1(Drift) 6b. Right Leg: Motor (5-second hold - always test supine) - 0(No drift) 7. Limb Ataxia (finger/nose \T\ heel/ureña - test with eyes open) - 0(Absent) 8. Sensory Loss (pinprick arms/legs/face) - 1(Mild to moderate loss) 9. Best Language: Aphasia (description/naming/reading) - 0(No aphasia) 10. Dysarthria (speech clarity - read or repeat words) - 1(Mild to Moderate) 11. Extinction and Inattention (visual/tactile/auditory/spatial/personal) - 0(No abnormality) Initials: NIH Stroke Scale - NIH Stroke Score Date: 10/11/2018 Time: 17:35 Total Score = 9 1a. Level of Consciousness (LOC) - 0(Alert) 1b. Level of Consciousness (LOC) (Year \T\ Age) - 0(Both) 1c. LOC Commands (Open \T\ Closes Eyes/Claims Service Adjustor) - 0(Both) 2. Best Gaze (Lateral Gaze Paresis) - 0(Normal) 3. Visual Field Loss - 0(No visual loss) 4. Facial Palsy - 1(Minor Paralysis) 5a. Left Arm: Motor (10-second hold) - 2(Drift, some effort against gravity) 5b. Right Arm: Motor (10-second hold) - 0(No drift) 6a. Left Leg: Motor (5-second hold - always test supine) - 1(Drift) 6b. Right Leg: Motor (5-second hold - always test supine) - 0(No drift) 7. Limb Ataxia (finger/nose \T\ heel/ureña - test with eyes open) - 2(Present in two limbs) 8. Sensory Loss (pinprick arms/legs/face) - 1(Mild to moderate loss) 9. Best Language: Aphasia (description/naming/reading) - 1(Mild to moderate aphasia) 10. Dysarthria (speech clarity - read or repeat words) - 1(Mild to Moderate) 11. Extinction and Inattention (visual/tactile/auditory/spatial/personal) - 0(No abnormality) Initials: [facility] NIH Stroke Scale - NIH Stroke Score Date: 10/11/2018 Time: 20:10 Total Score = 7 1a. Level of Consciousness (LOC) - 0(Alert) 1b. Level of Consciousness (LOC) (Year \T\ Age) - 0(Both) 1c. LOC Commands (Open \T\ Closes Eyes/Claims Service Adjustor) - 0(Both) 2. Best Gaze (Lateral Gaze Paresis) - 0(Normal) 3. Visual Field Loss - 0(No visual loss) 4. Facial Palsy - 0(Normal) 5a. Left Arm: Motor (10-second hold) - 2(Drift, some effort against gravity) 5b. Right Arm: Motor (10-second hold) - 0(No drift) 6a. Left Leg: Motor (5-second hold - always test supine) - 1(Drift) 6b. Right Leg: Motor (5-second hold - always test supine) - 0(No drift) 7. Limb Ataxia (finger/nose \T\ heel/ureña - test with eyes open) - 2(Present in two limbs) 8. Sensory Loss (pinprick arms/legs/face) - 1(Mild to moderate loss) 9. Best Language: Aphasia (description/naming/reading) - 0(No aphasia) 10. Dysarthria (speech clarity - read or repeat words) - 1(Mild to Moderate) 11. Extinction and Inattention (visual/tactile/auditory/spatial/personal) - 0(No abnormality) Initials: isaias NIH Stroke Scale - NIH Stroke Score Date: 10/11/2018 Time: 21:45 Total Score = 7 1a. Level of Consciousness (LOC) - 0(Alert) 1b. Level of Consciousness (LOC) (Year \T\ Age) - 0(Both) 1c. LOC Commands (Open \T\ Closes Eyes/Claims Service Adjustor) - 0(Both) 2. Best Gaze (Lateral Gaze Paresis) - 0(Normal) 3. Visual Field Loss - 0(No visual loss) 4. Facial Palsy - 0(Normal) 5a. Left Arm: Motor (10-second hold) - 2(Drift, some effort against gravity) 5b. Right Arm: Motor (10-second hold) - 0(No drift) 6a. Left Leg: Motor (5-second hold - always test supine) - 1(Drift) 6b. Right Leg: Motor (5-second hold - always test supine) - 0(No drift) 7. Limb Ataxia (finger/nose \T\ heel/ureña - test with eyes open) - 2(Present in two limbs) 8. Sensory Loss (pinprick arms/legs/face) - 1(Mild to moderate loss) 9. Best Language: Aphasia (description/naming/reading) - 0(No aphasia) 10. Dysarthria (speech clarity - read or repeat words) - 1(Mild to Moderate) 11. Extinction and Inattention (visual/tactile/auditory/spatial/personal) - 0(No abnormality) Initials: isaias Signatures: Dispatcher [employer] EDMS Mickey Atkins RN Hudson Hernandez MD MD cha Rivera, Sheila mr Viji Montero, RN Luci Oswald RN RN [facility] Zully Jeffries [facility] Yenifer Deleon RN RN ea Bock, Brittany bbLee Ann Corrections: (The following items were deleted from the chart) 18:58 18:55 Radiology exam delayed due to PT JUST STILL HASN'T HAD MRI AND DOCTOR wes WANTS MRI FIRST. GEORGINA IN THE ER WAS NOTIFIED bb2 20:13 19:45 Neuro: Given in report pt had drool noted upon initial arrival. Pt able ea to swallow own secretions. . ea
[2018-10-11 17:18] LABS: Absolute Lymphocytes (CBC) 1.4 K/uL (0.7-4.9); Absolute Monocytes 0.5 K/uL (0.1-1.3); Absolute Neutrophil 5.1 K/uL (1.8-8.0); Basophils % 0.7 % (0-1.3); Eosinophils % 0.8 % (0-4.4); Lymphocytes % 20.2 % (15.3-44.8); MPV 9.3 fL (7.6-11.3); Monocytes % 6.9 % (3.3-12.3); RBC Red Blood Cell Count 4.34 M/uL (3.86-4.86)
--- NOTE | 2018-10-11 17:25 | RAD REPORT ---
EXAM DESCRIPTION: CT - Ct Stroke Brain Wo Cont - 10/11/2018 5:14 pm CLINICAL HISTORY: WEAKNESS Headache, drowsiness, CVA COMPARISON: Head Brain Wo Cont dated 10/10/2018 TECHNIQUE: All CT scans are performed using dose optimization technique as appropriate and may inclu de automated exposure control or mA/KV adjustment according to patient size. FINDINGS: 3.4 x 2.0 cm area of diminished density is present in the region of the right caudate head adjacent to the right frontal horn compatible with CVA. This is likely acute to subacute in timefram e given that it is new since yesterday's study.No associated hemorrhage seen. Mild mass effect on the right frontal horn noted. No significant midline shift. The paranasal sinuses and mastoids are clear. The calvarium is intact. IMPRESSION: 3.4 x 2.0 cm area of this acute to subacute nonhemorrhagic CVA in the right anterior bas al ganglia. The findings were discussed with ROMELIA Ibrahim on 10/11/2018 at 5:20 p.m. by telephone.
[2018-10-11 17:36] LABS: ALT/SGPT 14 U/L (12-78); AST/SGOT 17 U/L (15-37); Albumin 2.6 g/dL (3.4-5.0); Alkaline Phosphatase 112 U/L (45-117); BUN Blood Urea Nitrogen 31 mg/dL (7-18); Bicarbonate 28 mmol/L (21-32); Bilirubin Direct < 0.1 mg/dL (0-0.2); Bilirubin Total 0.2 mg/dL (0.2-1.0); Glucose Level 261 mg/dL (74-106); Magnesium 2.1 mg/dL (1.8-2.4); NT PRO-BNP 385 pg/mL (<125); Potassium 4.1 mmol/L (3.5-5.1); Protein, Total 7.3 g/dL (6.4-8.2); Sodium Level 141 mmol/L (136-145); Troponin (Emerg Dept Use Only) < 0.02 ng/mL (0.0-0.045)
[2018-10-11] MEDS ORDERED: FOLIC ACID 5 MG/ML VIAL ONE (18:18)
[2018-10-11] MEDS ORDERED: NA CHLORIDE 0.9% 1,000 ML ONE (18:18)
--- NOTE | 2018-10-11 19:34 | RAD REPORT ---
EXAM DESCRIPTION: MRI - Brain Wo Cont - 10/11/2018 7:24 pm CLINICAL HISTORY: TIA;Slurred speech Headache, CVA symptomology COMPARISON: Ct Stroke Brain Wo Cont dated 10/11/2018 TECHNIQUE: Multi-sequence, multiplanar MR imaging of the brain was performed without contrast. FINDINGS: Acute nonhemorrhagic CVA is present in the right anterior basal ganglia involving the caud ate head and adjacent structures, measuring 3.0 x 2.1 cm. A few small or adjacent areas of acute CVA also present in the insular region and right temporal region/right MCA territory. Mild mass effect on the right frontal horn is seen. No midline shift. No hemorrhagic component seen to the infarct. Midline structures are normally formed. Mastoid air cells and paranasal sinuses are clear. IMPRESSION: Acute nonhemorrhagic CVA involving the anterior right basal ganglia and right MCA territ ory as detailed.
--- NOTE | 2018-10-11 19:42 | RAD REPORT ---
EXAM DESCRIPTION: RAD - Chest Single View - 10/11/2018 7:36 pm CLINICAL HISTORY: possible stroke Chest pain. COMPARISON: Chest Single View dated 10/10/2018 FINDINGS: Portable technique limits examination quality. The lungs are grossly clear. The heart is normal in size. No displaced fractures. IMPRESSION: No acute intrathoracic process suspected.
--- NOTE | 2018-10-12 07:39 | EKG ---
Test Date: 2018-10-11 Test Time: 19:44:03 Network Operations Technician: DAGOBERTO MEASUREMENT RESULTS: Intervals: Rate: 71 HI: 158 QRSD: 84 QT: 402 QTc: 436 Gail: P: 15 HI: 158 QRS: -24 T: 41 INTERPRETIVE STATEMENTS: Normal sinus rhythm Normal ECG Compared to ECG 10/10/2018 12:11:31 Sinus bradycardia no longer present Electronically Signed On 10-12-18 07:38:52 CDT by Vijay Moore
== END 2018-10-11 22:04 | disposition short-term general hospital (02) ==
LOC: ER 16:39
DX: I63.9 Cerebral infarction, unspecified (principal); I10 Essential (primary) hypertension; R29.709 NIHSS score 9; E11.9 Type 2 diabetes mellitus without complications
CPT/HCPCS: 36415; 70450; 70551; 71045; 80048; 80076; 83735; 83880; 84484; 85025; 85610; 85652; 86140; 93005; J7030

== ENCOUNTER 2019-05-14 12:45 | Emergency (ER) | payer OTHER, SELFPAY ==
--- OUTSIDE RECORDS SUMMARY | 2019-05-14 12:51 | XMS REPORT | Summary of Care ---
:1965 Author Organization [facility] Address [address] [place] [id number] Care Team Providers Name Role Phone Kathryn Lisa Primary Care Provider Reason for Referral (Routine) Status Reason Specialty Diagnoses / Referred By Contact Referred To Procedures Contact New Request Diagnoses NICOLAS (acute kidney injury) Herpes zoster without complication Deniz Correa Garza-Garcia, Procedures Discharge Follow-up: PCP KATHRYN LISA; 3-5 Days MD Peral[address] [facility] Robert [address] [phone] Phone: Radiology Services (YESENIA) Status Reason Specialty Diagnoses / Referred By Referred To Procedures Contact Contact New Request Diagnostic Diagnoses Abdominal pain, unspecified abdominal location Elevated liver enzymes Kapil Hebert, Radiology Procedures US ABDOMEN COMPLETE US ABDOMEN LIMITED WITH DOPPLER DO [address] [facility] [place] [address] MRI/CAT Scan (STAT) Status Reason Specialty Diagnoses / Referred By Referred To Procedures Contact Contact New Request Diagnostic Diagnoses Abdominal pain, unspecified abdominal location Keith Michel, Radiology Procedures CT ABDOMEN PELVIS WO CONTRAST CT ABDOMEN PELVIS W CONTRAST [address] [place] [address] [address] [place] [address] Radiology Services (STAT) Status Reason Specialty Diagnoses / Referred By Referred To Procedures Contact Contact New Request Diagnostic Diagnoses Abdominal pain, unspecified abdominal location Keith Michel, Radiology Procedures XR CHEST 1 [address]HA [place] [address] [place] [address] [place] [id number] Radiology Services (STAT) Status Reason Specialty Diagnoses / Referred By Referred To Procedures Contact Contact New Request Diagnostic Diagnoses Abdominal pain, unspecified abdominal location Keith Michel, Radiology Procedures XR CHEST 1 MANISHA [place] [address] [place] [address] [place] [id number] Reason for Visit Reason Comments Abdominal Pain Auth/Cert Status Reason Specialty Diagnoses / Referred By Referred To Procedures Contact Contact [facility] [address] [place] [address] [place] [address] Encounter Details Date Type Department Care Team Description 01/16/2019 - Hospital Medicine (NELLY 10C) Keith Michel MD [address] [place] [address] [place] [address] [phone] NICOLAS (acute kidney 01/19/2019 Encounter 712 [facility], Deniz Tomlinson MD [address] [place] [address] Dr. Jones [address] [place] [address] [phone] injury) [place], [place] Liz Oswald MD [address] [place] [address]. [place] [phone] Allergies No Known Allergiesdocumented as of this encounter (statuses as of 01/19/2019) Medications Medication Sig Dispensed Refills Start Date End Date Status metFORMIN 500 mg Take 500 mg 0 Active tablet by mouth 2 (two) times daily with meals. amLODIPine 2.5 mg Take 2.5 mg 0 Active tablet by mouth 2 (two) times daily. aspirin 81 mg Take 81 mg by 0 Active chewable tablet mouth daily. traZODONE 50 mg Take 50 mg by 0 Active tablet mouth at bedtime. gabapentin 100 mg Take 100 mg 0 Active capsule by mouth 2 (two) times daily. ferrous sulfate 325 Take 325 mg 0 Active mg (65 mg iron) by mouth 2 tablet (two) times daily. valACYclovir 1 gram Take 1 tablet 14 tablet 0 01/19/2019 01/26/2019 Active tabletIndications: by mouth 2 NICOLAS (acute kidney (two) times injury), Herpes daily for 7 zoster without days. complication atorvastatin 80 mg Take 80 mg by 0 01/19/2019 Discontinued tablet mouth at bedtime. documented as of this encounter (statuses as of 01/19/2019) Active Problems Problem Noted Date E44.1 Mild protein-calorie malnutrition 01/17/2019 NICOLAS (acute kidney injury) 01/16/2019 documented as of this encounter (statuses as of 01/19/2019) Social History Tobacco Use Types Packs/Day Years Used Date Never Smoker Smokeless Tobacco: Never Used Alcohol Use Drinks/Week oz/Week Comments Not Currently Patient used to drink on social occasions, but has not drank since her stroke in 10/2018 Alcohol Habits Answer Date Recorded How often do you have a drink containing alcohol? Never 01/16/2019 How many drinks containing alcohol do you have on a 3 or 4 01/16/2019 typical day when you are drinking? How often do you have six or more drinks on one Less than monthly 01/16/2019 occasion? Sex Assigned at Date Recorded Not on file Job Start Date Occupation Industry Not on file Not on file Not on file Travel History Travel Start Travel End No recent travel history available. documented as of this encounter Last Filed Vital Signs Vital Sign Reading Time Taken Comments Blood Pressure 126/72 01/19/2019 1:00 PM CDT Pulse 114 01/19/2019 1:00 PM CDT Temperature 37.2 C (99 F) 01/19/2019 1:00 PM CDT Respiratory Rate 18 01/19/2019 1:00 PM CDT Oxygen Saturation 97% 01/19/2019 1:00 PM CDT Inhaled Oxygen Concentration - - Weight 62 kg (136 lb 9.6 oz) 01/19/2019 3:41 AM CDT Height 160 cm (5' 3") 01/16/2019 1:35 PM CDT Body Mass Index 24.2 01/16/2019 1:35 PM CDT documented in this encounter Discharge Summaries Surendra Souza DO - 01/19/2019 1:26 PM CDT [facility] Team Discharge Summary Date of Service: 01/19/2019 ADMIT DATE: 01/16/2019 DISCHARGE DATE: 01/19/2019 ATTENDING MD: Deniz Correa MD RESIDENT MD: Surendra Souza PCP: KATHRYN LISA REASON FOR ADMISSION FINAL DIAGNOSIS: (the reason, after study, for admitting the patient to the hospital) Abdominal pain, NICOLAS SECONDARY DIAGNOSIS: (any diagnosis that, on this admission, required clinical evaluation, therapeutic treatment, diagnostic procedures, extended hospital stay , or additional nursing care/monitoring) Herpes Zoster Dehydration History of HCV HTN HLD T2DM Cholelithiasis Peripheral neuropathy Normocytic anemia SIGNIFICANT LAB/X-RAYS: Lab results: CBC BMP PT/INR WBC (10*3/L) Date Value 01/19/2019 6.25 NA (mmol/L) Date Value 01/19/2019 141 No results found for: PT RBC (10*6/L) Date Value 01/19/2019 3.28 (L) K (mmol/L) Date Value 01/19/2019 4.0 INR (no units) Date Value 01/16/2019 1.0 PLT (10*3/L) Date Value 01/19/2019 221 CALCIUM (mg/dL) Date Value 01/19/2019 9.2 HGB (g/dL) Date Value 01/19/2019 8.3 (L) CL (mmol/L) Date Value 01/19/2019 113 (H) aPTT HCT (%) Date Value 01/19/2019 27.1 (L) BUN (mg/dL) Date Value 01/19/2019 27 (H) APTT Patient (Seconds) Date Value 01/16/2019 38 CREATININE (mg/dL) Date Value 01/19/2019 1.15 (H) GLUCOSE (mg/dL) Date Value 01/19/2019 93 CO2 TOTAL (mmol/L) Date Value 01/19/2019 22 (L) Other lab results: X-ray results: Xr Chest 1 Vw Result Date: 01/16/2019 No acute cardiopulmonary abnormality I, Anamika Carter MD., have reviewed this study and agree with the above report. Ct Abdomen Pelvis Wo Contrast Result Date: 01/16/2019 1. Limited study due to absence of IV contrast. 2. No acute findings are seen in the abdomen and pelvis. No evidence of a neoplastic process is seen in the abdomen and pelvis. 3. A nonspecific nodular density is seen at the umbilicus. Recommend further evaluation with ultrasound to assess for percutaneous biopsy, as clinically indicated. 4. Constipation and diverticulosis with no evidence of diverticulitis. 5. Degenerative changes and posterior disc protrusions, as described above. 6. Anemia. Mild sacroiliitis. Us Abdomen Complete Result Date: 01/16/2019 Cholelithiasis with no evidence of acute cholecystitis. I, Sunitha Sun MD., have reviewed this study and agree with the above report. Radiology study indicated for follow-up? No HOSPITAL COURSE: Angelic Appiah is a 53 year-old F with a PMH of stroke s/p left sided hemiparesis ( 10/2018), T2DM, peripheral neuropathy, HTN, and HLD was admitted for NICOLAS and transaminitis seen routine lab work. Since the patient's stroke in October, she was on aggressive PT and began taking large doses of ibuprofen and was also recently started on an ACEi for blood pressure. Lab findings were also indicative of pre-renal NICOLAS and patient's Cr improved with fluid administration. As for transaminitis, it is likely this may be due to medication side-effect and Lipitor was held on D/C. Serologies revealed HCV positive Ab with negative qPCR . Additionally, a vesicular rash was noted to be on the patient's left side of abdomen, and left back which did not cross midline and appeared to be dermatomal in nature. Swab of the vesicular lesion was positive for VZV. The patient was started on Valtrex 1g BID. Standard precautionsshould be appropriate for treatment of VZV and patient can continue treatment as outpatient. ITEMS FOR FOLLOW UP PROVIDER: (including pending labs/cultures/studies, anticipated problems, etc.) -Needs follow up with PCP for BMP and trend creatinine for kidney function. -Will need to address her LFTs. Lipitor was held on discharge and may be started on another statin with less liver side-effect profile. - Valtrex prescribed for 7 days - Family advised to maintain contact precautions FUNCTIONAL STATUS: wheelchair bound DISCHARGE CONDITION: good COGNITIVE STATUS: cognitively intact DIET: regular ACTIVITY: as tolerated DISCHARGE MEDICATIONS: Current Discharge Medication List START taking these medications Details valACYclovir (VALTREX) 1 g Take 1 g by mouth 2 (two) times daily. Qty: 14 tablet, Refills: 0 Start date: 01/19/2019, End date: 01/26/2019 Associated Diagnoses: NICOLAS (acute kidney injury); Herpes zoster without complication CONTINUE these medications which have NOT CHANGED Details amLODIPine (NORVASC) 2.5 mg Take 2.5 mg by mouth 2 (two) times daily. aspirin 81 mg Take 81 mg by mouth daily. ferrous sulfate 325 mg Take 325 mg by mouth 2 (two) times daily. gabapentin (NEURONTIN) 100 mg Take 100 mg by mouth 2 (two) times daily. metFORMIN (GLUCOPHAGE) 500 mg Take 500 mg by mouth 2 (two) times daily with meals. traZODONE (DESYREL) 50 mg Take 50 mg by mouth at bedtime. STOP taking these medications atorvastatin (LIPITOR) 80 mg Comments: Reason for Stopping: ANTIBIOTICS: Did this patient receive antibiotics during this admission, or is he/sh being discharged with antibiotics? Antiviral Valacyclovir Was the patient given education on antibiotic indication, duration, and adverse effects? Yes COUMADIN: Is the patient being discharged on coumadin? No.. WOUND CARE: none CODE STATUS: full code OXYGEN (is patient being discharged on oxygen): no CORE MEASURES: None VACCINES: 1. Pneumonia Vaccination> 65 years of age or high risk: per PCP 2. Influenza Vaccine >18 years of age: per PCP PATIENT EDUCATION PROVIDED: Diabetes Mellitus and medications DISCHARGE: home self care FOLLOW-UP APPOINTMENT: PLAN FOR READMISSION: No Please call paging services at [phone] to contact [place] with any questions. Surendra Souza D.O. Department of Internal Medicine PGY-2, [facility] Team Doctor's Number: [id number] Associated attestation - Dneiz Correa MD - 01/19/2019 2:53 PM CDTI discussed this patient in detail with Dr. Souza and have examined the patient on 01/19/19. I agree with the resident's note as written. Deniz Correa M.D., 01/19/2019 14:53 Figure Refinisher And Repairer [facility] Department of Internal Medicine documented in this encounter Discharge Instructions AttachmentsThe following attachments cannot be sent through Care Everywhere.Shingles (Herpes Zoster) (Mauritanian)Valacyclovir caplets (Mauritanian) documented in this encounter Progress Notes David Tucker LMSW - 01/18/2019 2:50 PM CDTSocial Work Note Pt has been referred to the care transition team. 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 BUN and Cr initially elevated, but have downtrended since starting fluids. Patient with history of heavy ibuprofen use and recently starting lisinopril for HTN, thus medication induced NICOLAS is high on the differential in addition to pre renal azotemia. Transaminitis continues to be worked up. Patient with history of HCV since teen years, which was not treated. - Continue IVF - Follow up HCV PCR - Re-obtain UA via straight cath (prior sample contaminated) - Continue home meds - Autoimmune workup pending Kapil Laura MD Internal Medicine PGY-1 [facility] Team Pager #: [phone] hmerlin, Tye Wolfe RN - 01/17/2019 12:17 PM CDT Care Management Social Functional Assessment Patient Name: Angelic Appiah Age: [age] year old Sex: female Previous admit date: N/A Current diagnosis and co-morbidities: No admission diagnoses are documented for this encounter. Readmission Questions: Was patient discharged from any acute care hospital within the last 30 days: No Social Functional Assessment: Primary language spoken/preferred: Ugandan Mental Status: Alert & Oriented to Person,Place & Time Information given by: Self Patient's support system: Other;Spouse Name and number of support system: CATHY RAZA(SIS) [phone], Spouse Lb Appiah (no number) Primary Molding Plasterer: Self MPOA: No Living Arrangement: Home: single story Address of living arrangement : [address] [place] [address], ramp at sister's house Persons living in home: Same as support system Baseline functional status- ambulation: Requires minimal to moderate assistance Functional status-baseline personal care: Requires minimal to moderate assistance Baseline functional status- driving: Dependent Baseline functional status- grocery shopping: Dependent Functional status-baseline housekeeping: Dependent Functional status-baseline meal prep: Dependent Current functional status same as prior: Yes Do you have a PCP?: Yes Name of PCP: Kathryn Lisa Home Health Care Agency: No Provider Services: No DME Company: No Equipment: Wheelchair: Manual;Hospital Bed;Shower Chair(glucometer and supplies , bed from [employer], bp cuff) Hemodialysis: No Community resources utilized: [employer] [place] Funding Resources: Self Pay Prescription coverage plan: Self Pay Pharmacy where meds are filled: Other Other pharmacy: [facility] Anticipated services prior to disharge: Consult;Continue Medical Eval;Lab Values ;Reassess prior to discharge;MRI/CT/US Expected mode of discharge transportation: Personal vehicle;Same as support system Additional info required for discharge planning: Pending medical evaluation Recommended discharge plan: Home SFA Complete: Social Functional Assessment complete: Yes Alcohol Use Screening (AUDIT-C) How often do you have a drink containing alcohol?: Never SCORE: 0 Did patient elect to have resources provided: No Role of Care Management explained. TRUNG Bean, RN Paint Line Production Supervisor [email or web address] O:[phone] F:[phone] Kapil Owen MD - 01/17/2019 11:42 AM CDT [facility] Medicine Progress Note Date of Service: 01/17/2019 11:43 Chief Complaint: Abnormal labs 24-HOUR EVENTS: NAEON SUBJECTIVE: Patient doing well this morning. Continues with mild abdominal pain in the RUQ which is non radiating. She says this pain has been present for some time. She also has mild tenderness of the rash present on her back. But otherwise does not have good sensation on the left side of her body. PHYSICAL EXAM: Vitals: 01/16/19 2356 01/17/19 0342 01/17/19 0700 01/17/19 0725 BP: (!) 147/65 120/57 135/61 Pulse: 79 69 84 82 Resp: 18 18 18 17 Temp: 36.8 C (98.2 F) 36.6 C (97.9 F) 36.8 C (98.3 F) TempSrc: Oral Oral Oral SpO2: 97% 98% 96% 98% Weight: Height: No intake or output data in the 24 hours ending 01/17/19 1143 General: alert and oriented x 4 (person, place, date/time and situation); no apparent distress HEENT: EOMI, no scleral icterus Neck: supple, no lymphadenopathy, no bruits, no JVD Lungs: clear to auscultation bilaterally. No wheezes, rales, or rhonchi Cardio: systolic murmur at the left sternal border, no rubs or gallops Abdomen: soft; non-tender; non-distended; normoactive bowel sounds. Nodular area below umbilicus. Extremities: no clubbing, cyanosis, or edema Neuro: left sided weakness upper and lower extremity. Left sided facial weakness. Left side loss of sensation. Skin: superficial vesicular lesions spreading from the lower left back to left flank region LABS/IMAGING - reviewed, pertinent results as below: 5.38>7.3/23.9<184 BMP within normal limits AST 381 < 379 ALT 255 < 276 Alk P 409 < 461 Alpha-1 AT: negative Ceruloplasmin: negative UA: negative for infection Micro: Lesion swab (01/17/19): VZV positive Hepatitis panel: HCV Ab positive HCV PCR: pending ASSESSMENT/PLAN Angelic Appiah is a 53 year old female admitted to the hospital with: Herpes Zoster, localized Patient with vesicular rash present on left back and flank for around 2 weeks. The lesions started out red and draining, but later became more crusted. Patient endorsed a h/o chickenpox but not vaccinated for shingles. Swab of vesicular lesions were VZV positive. No evidence of disseminated disease. - Starting Valtrex 1g TID x 7 days - Cover with Mepilex bandaging - Contact + airbone isolation NICOLAS (no baseline Cr), resolving Patient presented as a transfer due to NICOLAS and other abnormal labs. Euvolemic on exam. However, patient has been using ibuprofen heavily after PT treatments s /p stroke in 10/2018. Additionally, was started on lisinopril recently for HTN. Thus, the patient's NICOLAS likely due to prerenal azotemia due to improvement in BUN and Cr after initiation of IV fluids. However, pursuing autoimmune workup as well, given this acute episode of kidney injury in a middle aged woman. Repeat UA negative for infection. Plan: -PVR Q8h given history of urinary retention -Continue IV fluids Transaminitis Cholelithiasis without acute cholecystitis H/O HCV Patient presented with Alk Phos 461, ALT, 276, AST 379. Levels of salicylates and acetaminophen werewithin normal limits. Serology was obtained with results showing positive HCV Ab, which goes along with patient's history of prior HCV infection, but never treated. Pending autoimmune serology and HCV PCR for further evaluation. Abd US showed cholelithiasis but no evidence of cholecystitis or obstructing stones. -Pending autoimmune serology -Pending HCV PCR HTN Patient currently on amlodipine 2.5mg BID. Will hold lisinopril due to NICOLAS. Plan: -continue amlodipine 2.5mg BID -hold lisinopril due to NICOLAS HLD -continue atorvastatin 80 mg QHS T2DM Peripheral neuropathy Latest A1c 7.1 (01/2019) down from 11.8 (10/2018) - gabapentin 100mg BID - hold metformin - SSI - C/w Reglan, consider discontinuing if patient without nausea or signs of gastroparesis Normocytic Anemia No evidence or signs of GI bleeding. Will continue to monitor. No baseline for comparison. -ferrous sulfate 325 mg BID PAIN: Controlled Tylenol Prophylaxis: DVT- heparin Stress Ulcer: no indication for prophylaxis Code Status: addressed: Full Kapil Laura MD Internal Medicine PGY-1 [facility] Team Pager #: [phone] END OF DAILY PROGRESS NOTE HOSPITAL COURSE Angelic Appiah is a 53 year-old F with a PMH of stroke s/p left sided hemiparesis ( 10/2018), T2DM, peripheral neuropathy, HTN, and HLD was admitted for NICOLAS and transaminitis seen routine lab work. Since the patient's stroke in October, she was on aggressive PT and began taking large doses of ibuprofen and was also recently started on an ACEi for blood pressure. Lab findings were also indicative of pre-renal NICOLAS and patient's Cr improved with fluid administration. As for transaminitis, the patient has a history of HCV untreated. HCV Ab was positive and we are pending results of HCV PCR. Additionally, a vesicular rash was noted to be on the patient's left side of abdomen, and left back which did not crossmidline and appeared to be dermatomal in nature. Swab of the vesicular lesion was positive for VZV. The patient was put on contact/airborne precaution and started on Valtrex 1g TID. Continuing to monitor response to fluids and trending LFTs as well. CURRENT MEDICATIONS - reviewed. Associated attestation - Deniz Correa MD - 01/18/2019 4:19 PM CDTI discussed this patient in detail with Dr. Laura, including the patient?s history , exam findings, assessment and plan. I independently performed relevant portions of history and exam and jointly participated in the decision making process. Please see resident?s note for details. I agree with the resident's note as written. Deniz Correa M.D., 01/18/2019 16:18 Figure Refinisher And Repairer [facility] Department of Internal Medicine documented in this encounter Plan of Treatment Name Type Priority Associated Diagnoses Date/Time MITOCHONDRIAL M2 AB, IGG LAB Routine 01/17/2019 4:27 AM CDT SMOOTH MUSCLE AB,IGG LAB Routine 01/17/2019 4:27 AM CDT W/REFLEX Name Type Priority Associated Diagnoses Order Schedule MITOCHONDRIAL M2 AB, IGG LAB Routine ONCE for 1 Occurrences starting 01/17/2019 until 01/17/2019 ANTI-NUCLEAR ANTIBODY LAB Add-on ONCE for 1 Occurrences SCREEN starting 01/16/2019 until 01/16/2019 SMOOTH MUSCLE AB,IGG LAB Routine ONCE for 1 Occurrences W/REFLEX starting 01/17/2019 until 01/17/2019 BASIC METABOLIC PANEL (NA, LAB Routine EVERY MORNING AT 0400 K, CL, CO2, GLUCOSE, BUN, until discontinued CREATININE, CA) starting 01/18/2019, 2 completed PROFILE / HEMOGRAM LAB Routine EVERY MORNING AT 0400 until discontinued starting 01/18/2019, 2 completed Health Maintenance Due Date Last Done Comments DTaP,Tdap,and Td Vaccines ( - 1985 Tdap) PAP SMEAR 1987 MAMMOGRAM 2006 COLONOSCOPY 2016 Zoster Recombinant Vaccine 2016 (SHINGRIX) (1 of 2) INFLUENZA VACCINE (#1) 2019 PNEUMOCOCCAL 0-64 YEARS COMBINED Aged Out No longer eligible based on SERIES patient's age to complete this topic documented as of this encounter Implants Implanted Type Area Freight Rate Analyst Device Identifier Shelf Expiration Model / Date Serial / Lot Chip In Heart documented as of this encounter Procedures Procedure Name Priority Date/Time Associated Comments Diagnosis POCT GLUCOSE Routine 01/19/2019 12:23 Results for this (AUTOMATED) PM CDT procedure are in the results section. POCT GLUCOSE Routine 01/19/2019 8:50 Results for this (AUTOMATED) AM CDT procedure are in the results section. PROFILE / HEMOGRAM Routine 01/19/2019 4:34 Results for this AM CDT procedure are in the results section. BASIC METABOLIC PANEL Routine 01/19/2019 4:34 Results for this (NA, K, CL, CO2, AM CDT procedure are in GLUCOSE, BUN, the results CREATININE, CA) section. POCT GLUCOSE Routine 01/18/2019 9:46 Results for this (AUTOMATED) PM CDT procedure are in the results section. POCT GLUCOSE Routine 01/18/2019 4:55 Results for this (AUTOMATED) PM CDT procedure are in the results section. POCT GLUCOSE Routine 01/18/2019 12:08 Results for this (AUTOMATED) PM CDT procedure are in the results section. POCT GLUCOSE Routine 01/18/2019 7:22 Results for this (AUTOMATED) AM CDT procedure are in the results section. BASIC METABOLIC PANEL Routine 01/18/2019 6:02 Results for this (NA, K, CL, CO2, AM CDT procedure are in GLUCOSE, BUN, the results CREATININE, CA) section. HEPATIC FUNCTION PANEL Add-on 01/18/2019 6:02 Results for this (64420) AM CDT procedure are in (ALB,T.PRO,BILI the results T,BU/BC,ALT,AST,ALK section. PHOS) PROFILE / HEMOGRAM Routine 01/18/2019 6:01 Results for this AM CDT procedure are in the results section. URINALYSIS Routine 01/18/2019 12:20 Results for this AM CDT procedure are in the results section. OSMOLALITY URINE Routine 01/18/2019 12:20 Results for this AM CDT procedure are in the results section. POCT GLUCOSE Routine 01/17/2019 9:10 Results for this (AUTOMATED) PM CDT procedure are in the results section. POCT GLUCOSE Routine 01/17/2019 6:07 Results for this (AUTOMATED) PM CDT procedure are in the results section. HSV 1&2, VZV BY PCR Routine 01/17/2019 6:03 Results for this PM CDT procedure are in the results section. POCT GLUCOSE Routine 01/17/2019 12:13 Results for this (AUTOMATED) PM CDT procedure are in the results section. POCT GLUCOSE Routine 01/17/2019 8:00 Results for this (AUTOMATED) AM CDT procedure are in the results section. CBC WITH DIFFERENTIAL Routine 01/17/2019 4:27 Results for this AM CDT procedure are in the results section. CBC WITH DIFF Routine 01/17/2019 4:27 Results for this AM CDT procedure are in the results section. BASIC METABOLIC PANEL Routine 01/17/2019 4:27 Results for this (NA, K, CL, CO2, AM CDT procedure are in GLUCOSE, BUN, the results CREATININE, CA) section. ALPHA 1 ANTITRYPSIN Add-on 01/17/2019 4:27 Results for this AM CDT procedure are in the results section. CERULOPLASMIN Add-on 01/17/2019 4:27 Results for this AM CDT procedure are in the results section. MAGNESIUM Routine 01/17/2019 4:27 Results for this AM CDT procedure are in the results section. [id number] Routine 01/17/2019 4:27 Results for this ABS AM CDT procedure are in the results section. US ABDOMEN COMPLETE YESENIA 01/16/2019 11:11 Abdominal pain, Results for this PM CDT unspecified procedure are in abdominal location the results Elevated liver section. enzymes EXTRA TUBE LAV Routine 01/16/2019 10:14 PM CDT FREE T3 Add-on 01/16/2019 10:14 Results for this PM CDT procedure are in the results section. BASIC METABOLIC PANEL YESENIA 01/16/2019 10:14 Results for this (NA, K, CL, CO2, PM CDT procedure are in GLUCOSE, BUN, the results CREATININE, CA) section. HEPATIC FUNCTION PANEL YESENIA 01/16/2019 10:14 Results for this (43107) PM CDT procedure are in (ALB,T.PRO,BILI the results T,BU/BC,ALT,AST,ALK section. PHOS) FERRITIN SERUM Add-on 01/16/2019 10:14 Results for this PM CDT procedure are in the results section. PHOSPHORUS Routine 01/16/2019 10:14 Results for this PM CDT procedure are in the results section. POCT GLUCOSE Routine 01/16/2019 9:47 Results for this (AUTOMATED) PM CDT procedure are in the results section. HCV BY PCR STAT 01/16/2019 4:21 Abdominal pain, Results for this PM CDT unspecified procedure are in abdominal location the results Acute kidney section. injury Anemia, unspecified type Elevated liver enzymes Metabolic acidosis HEPATITIS B CORE STAT 01/16/2019 4:21 Abdominal pain, Results for this ANTIBODY IGM PM CDT unspecified procedure are in abdominal location the results Acute kidney section. injury Anemia, unspecified type Elevated liver enzymes Metabolic acidosis HEPATITIS A VIRUS STAT 01/16/2019 4:21 Abdominal pain, Results for this ANTIBODY IGM PM CDT unspecified procedure are in abdominal location the results Acute kidney section. injury Anemia, unspecified type Elevated liver enzymes Metabolic acidosis HCV ANTIBODY STAT 01/16/2019 4:21 Abdominal pain, Results for this PM CDT unspecified procedure are in abdominal location the results Acute kidney section. injury Anemia, unspecified type Elevated liver enzymes Metabolic acidosis HEPATITIS B SURFACE STAT 01/16/2019 4:21 Abdominal pain, Results for this ANTIBODY PM CDT unspecified procedure are in abdominal location the results Acute kidney section. injury Anemia, unspecified type Elevated liver enzymes Metabolic acidosis SALICYLATE Add-on 01/16/2019 4:21 Results for this PM CDT procedure are in the results section. ACETAMINOPHEN STAT 01/16/2019 4:21 Abdominal pain, Results for this PM CDT unspecified procedure are in abdominal location the results Acute kidney section. injury Anemia, unspecified type Elevated liver enzymes Metabolic acidosis Unexplained weight loss CT ABDOMEN PELVIS WO STAT 01/16/2019 3:40 Abdominal pain, Results for this CONTRAST PM CDT unspecified procedure are in abdominal location the results section. LACTIC ACID WHOLE STAT 01/16/2019 3:11 Abdominal pain, Results for this BLOOD PM CDT unspecified procedure are in abdominal location the results Acute kidney section. injury Anemia, unspecified type Elevated liver enzymes ACUTE CARE VENOUS STAT 01/16/2019 3:11 Abdominal pain, Results for this BLOOD GAS PM CDT unspecified procedure are in abdominal location the results Acute kidney section. injury Anemia, unspecified type Elevated liver enzymes XR CHEST 1 VW STAT 01/16/2019 2:46 Abdominal pain, Results for this PM CDT unspecified procedure are in abdominal location the results section. ADC / LCC - DRUG STAT Add-On 01/16/2019 2:23 Abdominal pain, Results for this SCREEN TRIAGE PM CDT unspecified procedure are in abdominal location the results Acute kidney section. injury Anemia, unspecified type Elevated liver enzymes Metabolic acidosis Unexplained weight loss SODIUM, URINE RANDOM Add-on 01/16/2019 2:23 Results for this PM CDT procedure are in the results section. CREATININE, URINE Add-on 01/16/2019 2:23 Results for this RANDOM PM CDT procedure are in the results section. URINALYSIS STAT 01/16/2019 2:23 Abdominal pain, Results for this PM CDT unspecified procedure are in abdominal location the results section. EKG-12 LEAD Routine 01/16/2019 2:00 PM CDT CBC WITH DIFFERENTIAL STAT 01/16/2019 2:00 Abdominal pain, Results for this PM CDT unspecified procedure are in abdominal location the results section. ACTIVATED PARTIAL STAT 01/16/2019 2:00 Abdominal pain, Results for this THRMPLAS YANIV PM CDT unspecified procedure are in abdominal location the results section. PROTHROMBIN TIME / INR STAT 01/16/2019 2:00 Abdominal pain, Results for this PM CDT unspecified procedure are in abdominal location the results section. CBC WITH DIFF Routine 01/16/2019 2:00 Abdominal pain, Results for this PM CDT unspecified procedure are in abdominal location the results section. BASIC METABOLIC PANEL STAT 01/16/2019 2:00 Abdominal pain, Results for this (NA, K, CL, CO2, PM CDT unspecified procedure are in GLUCOSE, BUN, abdominal location the results CREATININE, CA) section. HEPATIC FUNCTION PANEL STAT 01/16/2019 2:00 Abdominal pain, Results for this (08668) PM CDT unspecified procedure are in (ALB,T.PRO,BILI abdominal location the results T,BU/BC,ALT,AST,ALK section. PHOS) THYROID STIMULATING STAT Add-On 01/16/2019 2:00 Abdominal pain, Results for this HORMONE PM CDT unspecified procedure are in abdominal location the results section. FREE T4 STAT 01/16/2019 2:00 Abdominal pain, Results for this PM CDT unspecified procedure are in abdominal location the results section. TROPONIN I STAT 01/16/2019 2:00 Abdominal pain, Results for this PM CDT unspecified procedure are in abdominal location the results section. LIPASE STAT 01/16/2019 2:00 Abdominal pain, Results for this PM CDT unspecified procedure are in abdominal location the results section. CREATINE KINASE STAT Add-On 01/16/2019 2:00 Abdominal pain, Results for this PM CDT unspecified procedure are in abdominal location the results section. EKG-12 LEAD STAT 01/16/2019 1:57 PM CDT NOTICE OF PRIVACY Routine 01/16/2019 1:23 PRACTICES PM CDT CONSENT/REFUSAL FOR Routine 01/16/2019 1:23 DIAGNOSIS AND PM CDT TREATMENT AGREEMENTS Routine 01/16/2019 12:01 AUTHORIZATIONS AND AM CDT IRREVOCABLE ASSIGNMENTS (FORM 2001) documented in this encounter Results POCT GLUCOSE (AUTOMATED) (01/19/2019 12:23 PM CDT) POCT GLU 155 (H) 70 - 110 mg/dL [facility] Specimen Blood Performing Organization Address City/[facility] Phone Number [facility] CLIA: [id number], [address] [place] [address] [phone] [facility] POCT GLUCOSE (AUTOMATED) (01/19/2019 8:50 AM CDT) POCT GLU 99 70 - 110 mg/dL [facility] Specimen Blood Performing Organization Address City/[facility]/Zipcode Phone Number [facility] CLIA: [id number], [address] [place] [phone] [facility] PROFILE / HEMOGRAM (01/19/2019 4:34 AM CDT) WBC 6.25 4.30 - 11.10 [facility] 10*3/L SERVICES RBC 3.28 (L) 3.93 - 5.25 [facility] 10*6/L SERVICES HGB 8.3 (L) 11.6 - 15.0 g/dL [facility] HCT 27.1 (L) 35.7 - 45.2 % [facility] MCH 25.3 (L) 25.9 - 32.8 pg [facility] MCV 82.6 80.6 - 95.5 fL [facility] MCHC 30.6 (L) 31.6 - 35.1 g/dL [facility] PLT 221 166 - 358 10*3/L [facility] MPV 11.4 9.5 - 12.9 fL [facility] RDW-CV 17.9 (H) 12.0 - 15.5 % [facility] RDW-SD 53.6 (H) 39.0 - 49.9 fL [facility] NRBC x10^3 <0.01 10*3/L [facility] NRBC/100 WBC 0.0 0.0 - 10.0 /100 [facility] WBCs SERVICES IPF % 1.3 - 7.7 % [facility] Specimen Blood - HAND, RIGHT Performing Organization Address City/State/Zipcode Phone Number [facility] CLIA: [id number], [address] [place] [phone] [facility] BASIC METABOLIC PANEL (NA, K, CL, CO2, GLUCOSE, BUN, CREATININE, CA) (2018 4:34 AM CDT) NA 141 135 - 145 [facility] mmol/L SERVICES K 4.0 3.5 - 5.0 [facility] mmol/L SERVICES CL 113 (H) 98 - 108 mmol/L [facility] CO2 TOTAL 22 (L) 23 - 31 mmol/L [facility] AGAP 6 2 - 16 [facility] BUN 27 (H) 7 - 23 mg/dL [facility] GLUCOSE 93 70 - 110 mg/dL [facility] CREATININE 1.15 (H) 0.50 - 1.04 [facility] mg/dL SERVICES CALCIUM 9.2 8.6 - 10.6 [facility] mg/dL SERVICES eGFR Calculation 49.6 mL/min/1.73m2 [facility] (Non- SERVICES Citizen Of [place]) eGFR Calculation 60.1 mL/min/1.73m2 [facility] () SERVICES Specimen Blood - HAND, RIGHT Narrative Performed At Association of Glomerular Filtration Rate (GFR) and Staging [facility] SERVICES of Kidney Disease* + + + + | GFR (mL/min/1.73 m2)| With Kidney Damage|Without Kidney Damage + + + + |>90|Stage one| Normal + + + + |60-89|Stage two| Decreased GFR + + + + |30-59|Stage three| Stage three + + + + |15-29|Stage four | Stage four + + + + |<15 (or dialysis)|Stage five | Stage five + + + + *Each stage assumes the associated GFR level has been in effect for at least three months.Stages 1 to 5, with or without kidney disease, indicate chronic kidney disease. Notes: Determination of stages one and two (with eGFR >59mL/min/1.73 m2) requires estimation of kidney damage for at least three months as defined by structural or functional abnormalities of the kidney, manifested by either: Pathological abnormalities or Markers of kidney damage (including abnormalities in the composition of the blood or urine or abnormalities in imaging tests). Performing Organization Address [facility] [place] Phone Number [facility] CLIA: [id number], [address] [place] [address] [facility] POCT GLUCOSE (AUTOMATED) (01/18/2019 9:46 PM CDT) POCT GLU 105 70 - 110 mg/dL [facility] Specimen Blood Performing Organization Address [facility] [place] Phone Number [facility] CLIA: [id number], [address] [place] [address] [facility] POCT GLUCOSE (AUTOMATED) (01/18/2019 4:55 PM CDT) POCT GLU 193 (H) 70 - 110 mg/dL [facility] Specimen Blood Performing Organization Address [facility] [place] Phone Number [facility] CLIA: [id number], [address] [place] [phone] [facility] POCT GLUCOSE (AUTOMATED) (01/18/2019 12:08 PM CDT) POCT GLU 214 (H) 70 - 110 mg/dL [facility] Specimen Blood Performing Organization Address [facility] [place] Phone Number [facility] CLIA: [id number], [address] [place] [address] [phone] [facility] POCT GLUCOSE (AUTOMATED) (01/18/2019 7:22 AM CDT) Pathologist [facility] POCT GLU 85 70 - 110 mg/dL [facility] Specimen Blood Performing Organization Address [facility] Centercooh Phone Number [facility] CLIA: [id number], [address] [place] [phone] [facility] HEPATIC FUNCTION PANEL (79990) (ALB,T.PRO,BILI T,BU/BC,ALT,AST,ALK PHOS) (2018 6:02 AM CDT) Pathologist [facility] TOTAL BILI 0.3 0.1 - 1.1 mg/dL [facility] BILI UNCON 0.0 (L) 0.1 - 1.1 mg/dL [facility] BILI CONJ 0.0 0.0 - 0.3 mg/dL [facility] T PROTEIN 6.0 (L) 6.3 - 8.2 g/dL [facility] ALBUMIN 2.9 (L) 3.5 - 5.0 g/dL [facility] ALK PHOS 409 (H) 34 - 122 U/L [facility] ALT(SGPT) 255 (H) 9 - 51 U/L [facility] AST(SGOT) 381 (H) 13 - 40 U/L [facility] Specimen Blood - LINE, VENOUS Performing Organization Address [facility] Phone Number [facility] CLIA: [id number], [address] [place] [phone] [facility] BASIC METABOLIC PANEL (NA, K, CL, CO2, GLUCOSE, BUN, CREATININE, CA) (2018 6:02 AM CDT) Pathologist [facility] NA 142 135 - 145 [facility] mmol/L SERVICES K 4.1 3.5 - 5.0 [facility] mmol/L SERVICES CL 116 (H) 98 - 108 mmol/L [facility] CO2 TOTAL 20 (L) 23 - 31 mmol/L [facility] AGAP 6 2 - 16 [facility] BUN 36 (H) 7 - 23 mg/dL [facility] GLUCOSE 84 70 - 110 mg/dL [facility] CREATININE 0.97 0.50 - 1.04 [facility] mg/dL SERVICES CALCIUM 9.0 8.6 - 10.6 [facility] mg/dL SERVICES eGFR Calculation 60.3 mL/min/1.73m2 [facility] (Non- SERVICES Citizen Of [place]) eGFR Calculation 73.1 mL/min/1.73m2 [facility] () SERVICES Specimen Blood - LINE, VENOUS Narrative Performed At [facility] [place] [facility] Glomerular Filtration Rate (GFR) and Staging [facility] SERVICES of Kidney Disease* + + + + | GFR (mL/min/1.73 m2)| With Kidney Damage|Without Kidney Damage + + + + |>90|Stage one| Normal + + + + |60-89|Stage two| Decreased GFR + + + + |30-59|Stage three| Stage three + + + + |15-29|Stage four | Stage four + + + + |<15 (or dialysis)|Stage five | Stage five + + + + *Each stage assumes the associated GFR level has been in effect for at least three months.Stages 1 to 5, with or without kidney disease, indicate chronic kidney disease. Notes: Determination of stages one and two (with eGFR >59mL/min/1.73 m2) requires estimation of kidney damage for at least three months as defined by structural or functional abnormalities of the kidney, manifested by either: Pathological abnormalities or Markers of kidney damage (including abnormalities in the composition of the blood or urine or abnormalities in imaging tests). Performing Organization Address City/State/Zipcode Phone Number [facility] CLIA: [id number], [address] [place] [phone] [facility] PROFILE / HEMOGRAM (01/18/2019 6:01 AM CDT) WBC 5.38 4.30 - 11.10 [facility] 10*3/L SERVICES RBC 2.83 (L) 3.93 - 5.25 [facility] 10*6/L SERVICES HGB 7.3 (L) 11.6 - 15.0 g/dL [facility] HCT 23.9 (L) 35.7 - 45.2 % [facility] MCH 25.8 (L) 25.9 - 32.8 pg [facility] MCV 84.5 80.6 - 95.5 fL [facility] MCHC 30.5 (L) 31.6 - 35.1 g/dL [facility] PLT 184 166 - 358 10*3/L [facility] SERVICES MPV 11.4 9.5 - 12.9 fL [facility] RDW-CV 18.1 (H) 12.0 - 15.5 % [facility] RDW-SD 55.8 (H) 39.0 - 49.9 fL [facility] NRBC x10^3 <0.01 10*3/L [facility] NRBC/100 WBC 0.0 0.0 - 10.0 /100 [facility] WBCs SERVICES IPF % 1.3 - 7.7 % [facility] Specimen Blood - LINE, VENOUS Performing Organization Address City/State/Zipcode Phone Number [facility] CLIA: [id number], [address] [place], [place] [phone] [facility] URINALYSIS (01/18/2019 12:20 AM CDT) APPEARANCE Clear Clear [facility] COLOR Straw (A) Yellow [facility] PH 5.0 4.8 - 8.0 [facility] SP GRAVITY 1.009 1.003 - 1.035 [facility] GLU U QUAL Normal Normal [facility] BLOOD Trace (A) Negative [facility] KETONES 25 mg/dL (A) Negative [facility] PROTEIN 100 mg/dL (A) Negative [facility] UROBILIN Normal Normal [facility] BILIRUBIN Negative Negative [facility] NITRITE Negative Negative [facility] LE[place] SHANAE 25/uL (A) Negative [facility] RBC/HPF 1 0 - 3 HPF [facility] WBC/HPF 3 0 - 5 HPF [facility] BACTERIA Few (A) Negative [facility] SQ EPITH 1 <=2 HPF [facility] ASCORBIC ACID Negative [facility] Specimen Urine - URINE, CLEAN CATCH Performing Organization Address City/State/Zipcode Phone Number [facility] CLIA: [id number], [address] [place], [place] [phone] [facility] OSMOLALITY URINE (01/18/2019 12:20 AM CDT) OSMO U 360 50-1,100 mOsm/kg [facility] Specimen Urine - URINE, CLEAN CATCH Performing Organization Address [facility] Phone Number [facility] CLIA: [id number], [address] [place] [address] [facility] POCT GLUCOSE (AUTOMATED) (01/17/2019 9:10 PM CDT) POCT GLU 144 (H) 70 - 110 mg/dL [facility] Specimen Blood Performing Organization Address City/[facility] Phone Number [facility] CLIA: [id number], [address] [place] [phone] [facility] POCT GLUCOSE (AUTOMATED) (01/17/2019 6:07 PM CDT) POCT GLU 134 (H) 70 - 110 mg/dL [facility] Specimen Blood Performing Organization Address [facility] [place] Phone Number [facility] CLIA: [id number], [address] [place] [address] [phone] [facility] HSV 1&2, VZV BY PCR (01/17/2019 6:03 PM CDT) Herpes simplex virus Negative Negative [facility] type 1 Nucleic Acid SERVICES Herpes simplex virus Negative Negative [facility] type 2 Nucleic Acid SERVICES Varicella zoster DETECTED (A) Negative [facility] virus Nucleic Acid SERVICES Specimen Swab - BACK Performing Organization Address [facility] [place] Phone Number [facility] CLIA: [id number], [address] [place] [address] [facility] POCT GLUCOSE (AUTOMATED) (01/17/2019 12:13 PM CDT) POCT GLU 103 70 - 110 mg/dL [facility] Specimen Blood Performing Organization Address [facility] [place] Phone Number [facility] CLIA: [id number], [address] [place] [address] [phone] [facility] POCT GLUCOSE (AUTOMATED) (01/17/2019 8:00 AM CDT) POCT GLU 105 70 - 110 mg/dL [facility] Specimen Blood Performing Organization Address City/State/Zipcode Phone Number [facility] CLIA: [id number], [address] [place] [address] [facility] CBC WITH DIFFERENTIAL (01/17/2019 4:27 AM CDT) WBC 5.38 4.30 - 11.10 [facility] 10*3/L SERVICES RBC 3.08 (L) 3.93 - 5.25 [facility] 10*6/L SERVICES HGB 8.0 (L) 11.6 - 15.0 [facility] g/dL SERVICES HCT 26.0 (L) 35.7 - 45.2 % [facility] SERVICES MCV 84.4 80.6 - 95.5 fL [facility] SERVICES MCH 26.0 25.9 - 32.8 pg [facility] MCHC 30.8 (L) 31.6 - 35.1 [facility] g/dL SERVICES RDW-SD 56.4 (H) 39.0 - 49.9 fL [facility] RDW-CV 18.2 (H) 12.0 - 15.5 % [facility] PLT 196 166 - 358 [facility] 10*3/L SERVICES MPV 11.8 9.5 - 12.9 fL [facility] SERVICES NRBC/100 WBC 0.0 0.0 - 10.0 /100 [facility] WBCs SERVICES NRBC x10^3 <0.01 10*3/L [facility] GRAN MAT (NEUT) % 62.3 % [facility] IMM GRAN % 0.20 % [facility] LYMPH % 23.0 % [facility] MONO % 11.5 % [facility] EOS % 2.4 % [facility] BASO % 0.6 % [facility] GRAN MAT x10^3(ANC) 3.35 1.88 - 7.09 [facility] 10*3/uL SERVICES IMM GRAN x10^3 <0.03 0.00 - 0.06 [facility] 10*3/uL SERVICES LYMPH x10^3 1.24 (L) 1.32 - 3.29 [facility] 10*3/uL SERVICES MONO x10^3 0.62 0.33 - 0.92 [facility] 10*3/uL SERVICES EOS x10^3 0.13 0.03 - 0.39 [facility] 10*3/uL SERVICES BASO x10^3 0.03 0.01 - 0.07 [facility] 10*3/uL SERVICES Specimen Blood - HAND, RIGHT Performing Organization Address City/[facility]/Zipcode Phone Number [facility] CLIA: [id number], [address] [place], [place] [address] [phone] [facility] [id number] ABS (01/17/2019 4:27 AM CDT) [place]-Ajurnw-Adeia <1:20 <1:20 [facility] some Abs, IgG by Comment: IFA INTERPRETIVE INFORMATION:Jxadt-Uznzse-Rxdzygqgv Abs, IgG Liver-Kidney Microsome IgG antibody (anti-LKM), as detected by indirect immunofluorescent antibody (IFA) techniques, may be observed in patients with autoimmune hepatitis type 2 (AIH-2), AIH-2 associated with autoimmune wmqktsyaoqiwyvpckw-mqtsqrbtoic-jdxmcqkxkd dystrophy (APECED), viral hepatitis C or D, and some forms of drug-induced hepatitis. This IFA does not differentiate among the four types of LKM antibodies (LKM-1, LKM-2, LKM-3, and a fourth type that recognizes CY and CY antigens). Of these, anti-LKM-1 (cytochrome [id number]) IgG antibodies are considered specific for AIH-2. Test developed and characteristics determined by [facility]. See Compliance Statement D: [facility]CS Performed by [facility], [address], [place] [id number] [email or web address], Esau Campo MD, Lab. Director Specimen Blood - HAND, RIGHT Performing Organization Address [facility]/Zipcode Phone Number [facility] [address] [place] [phone] CERULOPLASMIN (01/17/2019 4:27 AM CDT) CERULO 40 25 - 63 mg/dL [facility] Specimen Blood - HAND, RIGHT Performing Organization Address City/[facility]/Zipcode Phone Number [facility] CLIA: [id number], [address] [place] [phone] [facility] ALPHA 1 ANTITRYPSIN (01/17/2019 4:27 AM CDT) Anti-Trypsin 161 83 - 199 mg/dL [facility] Specimen Blood - HAND, RIGHT Performing Organization Address City/State/Zipcode Phone Number [facility] CLIA: [id number], [address] [place] [phone] [facility] Magnesium Serum (01/17/2019 4:27 AM CDT) MAGNESIUM 1.9 1.7 - 2.4 mg/dL [facility] Specimen Blood - HAND, RIGHT Performing Organization Address [facility]/Zipcode Phone Number [facility] CLIA: [id number], [address] [place] [address] [phone] [facility] Basic Metabolic Panel (NA, K, CL, CO2, GLUCOSE, BUN, CREATININE, CA) (2018 4:27 AM CDT) NA 144 135 - 145 [facility] mmol/L SERVICES K 4.3 3.5 - 5.0 [facility] mmol/L SERVICES CL 119 (H) 98 - 108 mmol/L [facility] CO2 TOTAL 17 (L) 23 - 31 mmol/L [facility] AGAP 8 2 - 16 [facility] BUN 61 (H) 7 - 23 mg/dL [facility] GLUCOSE 92 70 - 110 mg/dL [facility] CREATININE 1.40 (H) 0.50 - 1.04 [facility] mg/dL SERVICES CALCIUM 9.1 8.6 - 10.6 [facility] mg/dL SERVICES eGFR Calculation 39.5 mL/min/1.73m2 [facility] (Non- SERVICES Citizen Of [place]) eGFR Calculation 47.9 mL/min/1.73m2 [facility] () SERVICES Specimen Blood - HAND, RIGHT Narrative Performed At Association of Glomerular Filtration Rate (GFR) and Staging [facility] of Kidney Disease* + + + + | GFR (mL/min/1.73 m2)| With Kidney Damage|Without Kidney Damage + + + + |>90|Stage one| Normal + + + + |60-89|Stage two| Decreased GFR + + + + |30-59|Stage three| Stage three + + + + |15-29|Stage four | Stage four + + + + |<15 (or dialysis)|Stage five | Stage five + + + + *Each stage assumes the associated GFR level has been in effect for at least three months.Stages 1 to 5, with or without kidney disease, indicate chronic kidney disease. Notes: Determination of stages one and two (with eGFR >59mL/min/1.73 m2) requires estimation of kidney damage for at least three months as defined by structural or functional abnormalities of the kidney, manifested by either: Pathological abnormalities or Markers of kidney damage (including abnormalities in the composition of the blood or urine or abnormalities in imaging tests). Performing Organization Address City/State/Zipcode Phone Number [facility] CLIA: [id number], [address] [place] [address] [facility] US ABDOMEN COMPLETE (01/16/2019 11:11 PM CDT) Specimen Impressions Performed At PACS/VR/DOSE Cholelithiasis with no evidence of acute cholecystitis. Dariela Flynn MD., have reviewed this study and agree with the above report. Narrative Performed At ABDOMINAL ULTRASOUND, COMPLETE PACS/VR/DOSE HISTORY: elevated LFTs . COMPARISON: 01/16/2019 CT abdomen pelvis. FINDINGS: LIVER: Normal in size at 15.2 cm. Normal echogenicity, echotexture, and contour No focal hepatic lesion.Normal hepatopetalflow within the main portal vein at 33.7 cm/s. GALLBLADDER: The gallbladder is filled with stones. No pericholecystic fluid, or gallbladder distention. No sonographic Nugent's sign. The common bile duct measures 3 mm. PANCREAS: The visualized portion of the pancreas are unremarkable. KIDNEYS: The kidneys are normal in size, contour, and echotexture. The right kidney measures 10.6 x 4.9 x 4.5 cm, and the left kidney measures 10 x 4.6 x 4.1 cm. No hydronephrosis. No ascites. Procedure Note [facility], Radiant Results Inft User - 01/16/2019 11:25 PM CDT ABDOMINAL ULTRASOUND, COMPLETE HISTORY: elevated LFTs . COMPARISON: 01/16/2019 CT abdomen pelvis. FINDINGS: LIVER: Normal in size at 15.2 cm. Normal echogenicity, echotexture, and contour No focal hepatic lesion. Normal hepatopetal flow within the main portal vein at 33.7 cm/s. GALLBLADDER: The gallbladder is filled with stones. No pericholecystic fluid, or gallbladder distention. No sonographic Nugent's sign. The common bile duct measures 3 mm. PANCREAS: The visualized portion of the pancreas are unremarkable. KIDNEYS: The kidneys are normal in size, contour, and echotexture. The right kidney measures 10.6 x 4.9 x 4.5 cm, and the left kidney measures 10 x 4.6 x 4.1 cm. No hydronephrosis. No ascites. IMPRESSION Cholelithiasis with no evidence of acute cholecystitis. I, Sunitha Sun MD., have reviewed this study and agree with the above report. Performing Organization Address [facility] [place] Phone Number PACS/VR/DOSE EXTRA TUBE LAV (01/16/2019 10:14 PM CDT) Specimen Blood Performing Organization Address [facility] [place] Phone Number [facility] CLIA: [id number], [address] [place] [address] [phone] [facility] FERRITIN SERUM (01/16/2019 10:14 PM CDT) FERRITIN 141.0 11.0 - 264.0 ng/mL [facility] Specimen Blood - HAND, RIGHT Narrative Performed At Biotin has been reported to cause a negative bias, interpret [facility] results relative to patient's use of biotin. Performing Organization Address [facility] [place] Phone Number [facility] CLIA: [id number], [address] [place] [address] [facility] FREE T3 (01/16/2019 10:14 PM CDT) FREE T3 2.74 (L) 2.77 - 5.27 pg/mL [facility] Specimen Blood - HAND, RIGHT Performing Organization Address [facility] [place] Phone Number [facility] CLIA: [id number], [address] [place] [address] [phone] [facility] Phosphorus Serum (01/16/2019 10:14 PM CDT) PHOSPHORUS 3.8 2.5 - 5.0 mg/dL [facility] Specimen Blood - HAND, RIGHT Performing Organization Address [facility] Phone Number [facility] CLIA: [id number], [address] [place] [address] [phone] [facility] HEPATIC FUNCTION PANEL ([id number]) (ALB,T.PRO,BILI T,BU/BC,ALT,AST,ALK PHOS) (2018 10:14 PM CDT) TOTAL BILI 0.4 0.1 - 1.1 mg/dL [facility] BILI UNCON 0.0 (L) 0.1 - 1.1 mg/dL [facility] BILI CONJ 0.0 0.0 - 0.3 mg/dL [facility] T PROTEIN 6.9 6.3 - 8.2 g/dL [facility] ALBUMIN 3.5 3.5 - 5.0 g/dL [facility] ALK PHOS 461 (H) 34 - 122 U/L [facility] ALT(SGPT) 276 (H) 9 - 51 U/L [facility] AST(SGOT) 379 (H) 13 - 40 U/L [facility] Specimen Blood - HAND, RIGHT Performing Organization Address [facility] Cent[facility]ode Phone Number [facility] CLIA: [id number], [address] [place] [address] [phone] [facility] BASIC METABOLIC PANEL (NA, K, CL, CO2, GLUCOSE, BUN, CREATININE, CA) (2018 10:14 PM CDT) NA 143 135 - 145 [facility] mmol/L SERVICES K 4.7 3.5 - 5.0 [facility] mmol/L SERVICES CL 116 (H) 98 - 108 mmol/L [facility] CO2 TOTAL 18 (L) 23 - 31 mmol/L [facility] AGAP 9 2 - 16 [facility] BUN 66 (H) 7 - 23 mg/dL [facility] GLUCOSE 111 (H) 70 - 110 mg/dL [facility] CREATININE 1.48 (H) 0.50 - 1.04 [facility] mg/dL SERVICES CALCIUM 9.3 8.6 - 10.6 [facility] mg/dL SERVICES eGFR Calculation 37.0 mL/min/1.73m2 [facility] (Non- SERVICES Citizen Of [place]) eGFR Calculation 44.9 mL/min/1.73m2 [facility] () SERVICES Specimen Blood - HAND, RIGHT Narrative Performed At Association of Glomerular Filtration Rate (GFR) and Staging [facility] of Kidney Disease* + + + + | GFR (mL/min/1.73 m2)| With Kidney Damage|Without Kidney Damage + + + + |>90|Stage one| Normal + + + + |60-89|Stage two| Decreased GFR + + + + |30-59|Stage three| Stage three + + + + |15-29|Stage four | Stage four + + + + |<15 (or dialysis)|Stage five | Stage five + + + + *Each stage assumes the associated GFR level has been in effect for at least three months.Stages 1 to 5, with or without kidney disease, indicate chronic kidney disease. Notes: Determination of stages one and two (with eGFR >59mL/min/1.73 m2) requires estimation of kidney damage for at least three months as defined by structural or functional abnormalities of the kidney, manifested by either: Pathological abnormalities or Markers of kidney damage (including abnormalities in the composition of the blood or urine or abnormalities in imaging tests). Performing Organization Address City/State/Zipcode Phone Number [facility] CLIA: [id number], [address] [place] [phone] [facility] POCT GLUCOSE (AUTOMATED) (01/16/2019 9:47 PM CDT) POCT GLU 110 70 - 110 mg/dL [facility] Specimen Blood Performing Organization Address City/[facility]/Zipcode Phone Number [facility] CLIA: [id number], [address] [place] [phone] [facility] HCV BY PCR (01/16/2019 4:21 PM CDT) HCV by Real-Time Not Detected Not detected [facility] PCR IU/mL SERVICES Specimen Blood - ARM, RIGHT Narrative Performed At HCV-PCR was performed using a sample reflexed from HCV [facility] antibody test. We recommend to redraw another blood sample to confirm the test result. Zephyr m2000 RealTime HCV reverse electrical instrumentation technician-polymerase chain reaction (RT-PCR) assay is used. It is FDA approved for the quantitation of HCV in plasma and serum samples for HCV-infected individuals. The FDA approved dynamic range of this test is 12 IU/mL to 100,000,000 IU/mL (1.08-8.00 Log IU/mL). Assay results are reported in IU/mL. . Result Interpretation: Not Detected: Target not detected (not the same as negative), <12 IU/mL: Detected (but not quantifiable) 12-100,000,000 IU/mL, >100,000,000 IU/mL: >upper limit of quantification. Performing Organization Address City/[facility] Cent[facility]ode Phone Number [facility] CLIA: [id number], [address] [place] [address] [phone] [facility] SALICYLATE (01/16/2019 4:21 PM CDT) SALICYLATE 10 mg/L [facility] Specimen Blood - ARM, RIGHT Narrative Performed At Therapeutic Range: [facility] Analgesic and Antipyretic Use 20-100 mg/L Anti-Inflammatory Use 100-250 mg/L Toxic Range: Greater than 300 mg/L Performing Organization Address [facility] Centercooh Phone Number [facility] CLIA: [id number], [address] [place] [address] ACETAMINOPHEN (01/16/2019 4:21 PM CDT) ACETAMINOP <10.0 (L) 10.0 - 30.0 ug/mL [facility] Specimen Blood - ARM, RIGHT Narrative Performed At Toxic: Greater than 200 ug/mL @ 4 hour post [facility] ingestion or greater than 50 ug/mL @ 12 hour post ingestion Performing Organization Address [facility] Centerco[facility] Phone Number [facility] CLIA: [id number], [address] [place] [address] HCV ANTIBODY (01/16/2019 4:21 PM CDT) HCV Ab POSITIVE [facility] HCV Semi-Quantitative 9.15 [facility] Specimen Blood - ARM, RIGHT Narrative Performed At Positive for HCV antibody with a high signal to cutoff ratio [facility] (s/c).Supplementary test for Hepatitis C Virus RNA Real-Time PCR is recommended if clinically indicated.If any questions, please contact Clinical Chemistry Director workforce management consultant at [phone]. Performing Organization Address City/State/[facility] Centercode Phone Number [facility] CLIA: [id number], [address] [place] [phone] [facility] HEPATITIS B SURFACE ANTIBODY (01/16/2019 4:21 PM CDT) HBsAB Negative [facility] HBsAb 0.00 mIU/mL [facility] Semi-Quantitative SERVICES Specimen Blood - ARM, RIGHT Narrative Performed At Interpretation:Hepatitis B Surface Antibody [facility] Negative - Patient is considered to be not immune to infection with HBV. Positive - Anti-HBs detected at greater than or equal to 12 mIU/mL.Patient is considered to be immune to infection with HBV. Performing Organization Address [facility] Phone Number [facility] CLIA: [id number], [address] [place] [address] [facility] HEPATITIS B CORE ANTIBODY IGM (01/16/2019 4:21 PM CDT) HBCM NEGATIVE [facility] HBCM Semi-Quantitative 0.02 [facility] Specimen Blood - ARM, RIGHT Narrative Performed At Biotin has been reported to cause a negative bias, interpret [facility] results relative to patient's use of biotin. Performing Organization Address [facility] Phone Number [facility] CLIA: [id number], [address] [place] [address] [phone] [facility] HEPATITIS A VIRUS ANTIBODY IGM (01/16/2019 4:21 PM CDT) HAVAb IgM NEGATIVE [facility] HAVM Semi-Quantitative 0.01 [facility] Specimen Blood - ARM, RIGHT Narrative Performed At HAVAb IgM Interpretative Information: [facility] Reactive greater than or equal to 1.2 Biotin has been reported to cause a negative bias, interpret results relative to patient's use of biotin. Performing Organization Address [facility] Cent[facility]ode Phone Number [facility] CLIA: [id number], [address] [place] [address] [phone] [facility] CT ABDOMEN PELVIS WO CONTRAST (01/16/2019 3:40 PM CDT) Specimen Impressions Performed At PACS/VR/DOSE 1.Limited study due to absence of IV contrast. 2.No acute findings are seen in the abdomen and pelvis. No evidence of a neoplastic process is seen in the abdomen and pelvis. 3.A nonspecific nodular density is seen at the umbilicus. Recommend further evaluation with ultrasound to assess for percutaneous biopsy, as clinically indicated. 4.Constipation and diverticulosis with no evidence of diverticulitis. 5.Degenerative changes and posterior disc protrusions, as described above. 6.Anemia. Mild sacroiliitis. Narrative Performed At * * * * * * * * ORIGINAL REPORT * * * * * * * * PACS/VR/DOSE EXAM: CT ABDOMEN AND PELVIS WITHOUT CONTRAST HISTORY: 53-year-old female with unintended weight loss. COMPARISON: None. DOSE: Total exam DLP 411 mGy-cm TECHNIQUE AND FINDINGS: Contiguous axial imaging was performed without contrast. Coronal and sagittal reconstructions were obtained. FINDINGS: The visualized lungs are clear. There is no evidence of pleural or pericardial effusion. A device is seen in the subcutaneous anterior chest wall (3:7). Mitral valvular calcifications. Limited evaluation of the solid organs in the absence of IV contrast. The liver, gallbladder, spleen, pancreas and the adrenals appear normal. No evidence of hydronephrosis, nephrolithiasis, or focal renal lesions are seen. Atherosclerotic calcifications are seen in the abdominal aorta and its branches. The aortic wall is slightly hyperdense than the mediastinal blood pool suggesting anemia. A nodular density seen at the umbilicus measuring approximately 1.4 cm (3:101), nonspecific. No evidence of free fluid, air, or lymphadenopathy is seen. No dilated bowel loops are seen. A large amount of stool is seen in the colon and the rectum. Extensive diverticulosis of the descending and sigmoid colon with no evidence of diverticulitis. A normal appendix is seen in the right lower quadrant. The urinary bladder appears normal. The uterus and adnexa are within normal limits. Mild sacroiliitis. No suspicious lytic or blastic lesions are seen. Mild degenerative changes are seen in the spine. Posterior midline disc protrusion and indentation of the thecal sac at levels L4-L5 and L5-S1 (7:70). Procedure Note [facility], Radiant Results Inft User - 01/16/2019 3:56 PM CDT * * * * * * * * ORIGINAL REPORT * * * * * * * * EXAM: CT ABDOMEN AND PELVIS WITHOUT CONTRAST HISTORY: 53-year-old female with unintended weight loss. COMPARISON: None. DOSE: Total exam DLP 411 mGy-cm TECHNIQUE AND FINDINGS: Contiguous axial imaging was performed without contrast. Coronal and sagittal reconstructions were obtained. FINDINGS: The visualized lungs are clear. There is no evidence of pleural or pericardial effusion. A device is seen in the subcutaneous anterior chest wall (3:7). Mitral valvular calcifications. Limited evaluation of the solid organs in the absence of IV contrast. The liver, gallbladder, spleen, pancreas and the adrenals appear normal. No evidence of hydronephrosis, nephrolithiasis, or focal renal lesions are seen. Atherosclerotic calcifications are seen in the abdominal aorta and its branches. The aortic wall is slightly hyperdense than the mediastinal blood pool suggesting anemia. A nodular density seen at the umbilicus measuring approximately 1.4 cm (3:101), nonspecific. No evidence of free fluid, air, or lymphadenopathy is seen. No dilated bowel loops are seen. A large amount of stool is seen in the colon and the rectum. Extensive diverticulosis of the descending and sigmoid colon with no evidence of diverticulitis. A normal appendix is seen in the right lower quadrant. The urinary bladder appears normal. The uterus and adnexa are within normal limits. Mild sacroiliitis. No suspicious lytic or blastic lesions are seen. Mild degenerative changes are seen in the spine. Posterior midline disc protrusion and indentation of the thecal sac at levels L4-L5 and L5-S1 (7:70). IMPRESSION 1. Limited study due to absence of IV contrast. 2. No acute findings are seen in the abdomen and pelvis. No evidence of a neoplastic process is seen in the abdomen and pelvis. 3. A nonspecific nodular density is seen at the umbilicus. Recommend further evaluation with ultrasound to assess for percutaneous biopsy, as clinically indicated. 4. Constipation and diverticulosis with no evidence of diverticulitis. 5. Degenerative changes and posterior disc protrusions, as described above. 6. Anemia. Mild sacroiliitis. Performing Organization Address City/State/Zipcode Phone Number PACS/VR/DOSE Lactic Acid Whole Blood (01/16/2019 3:11 PM CDT) LACTIC ACID 2.13 0.50 - 2.20 mmol/L [facility] Specimen Blood - ARM, RIGHT Performing Organization Address City/State/Zipcode Phone Number [facility] CLIA: [id number], [address] [place] [address] ACUTE CARE VENOUS BLOOD GAS (01/16/2019 3:11 PM CDT) PH 7.29 (L) 7.32 - 7.42 [facility] PCO2 JOSE 37 (L) 41 - 51 mmHg [facility] PO2 JOSE 34 25 - 40 mmHg [facility] HCO3 JOSE 17 (L) 24 - 28 mEq/L [facility] AC VBE(BEAKER) -8.5 mEq/L [facility] Specimen Blood - ARM, RIGHT Performing Organization Address City/[facility]ode Phone Number [facility] CLIA: [id number], [address] [place] [address] XR CHEST 1 VW (01/16/2019 2:46 PM CDT) Specimen Impressions Performed At PACS/VR/DOSE No acute cardiopulmonary abnormality I, MD Fina., have reviewed this study and agree with the above report. Narrative Performed At * * * * * * * * ORIGINAL REPORT * * * * * * * * PACS/VR/DOSE EXAM: XR CHEST 1 VW HISTORY: 53 years-old; Female; unexplained weight loss COMPARISON: None FINDINGS: The lungs are clear with no focal consolidation. There is no pleural effusion or pneumothorax. The cardiomediastinal silhouette is normal. A loop recorder is superimposing over the heart . No acute osseous structure abnormality. Procedure Note [facility], Radiant Results Inft User - 01/16/2019 3:30 PM CDT * * * * * * * * ORIGINAL REPORT * * * * * * * * EXAM: XR CHEST 1 VW HISTORY: 53 years-old; Female; unexplained weight loss COMPARISON: None FINDINGS: The lungs are clear with no focal consolidation. There is no pleural effusion or pneumothorax. The cardiomediastinal silhouette is normal. A loop recorder is superimposing over the heart . No acute osseous structure abnormality. IMPRESSION No acute cardiopulmonary abnormality IAnamika MD., have reviewed this study and agree with the above report. Performing Organization Address City/State/Zipcode Phone Number PACS/VR/DOSE CREATININE, URINE RANDOM (01/16/2019 2:23 PM CDT) CREAT U 84.5 mg/dL [facility] Specimen Urine - URINE, CLEAN CATCH Performing Organization Address [facility] [place] Phone Number [facility] CLIA: [id number], [address] [place], [place] [address] LAB[address]AT[address] SODIUM, URINE RANDOM (01/16/2019 2:23 PM CDT) NA URINE 63 mmol/L [facility] Specimen Urine - URINE, CLEAN CATCH Performing Organization Address [facility] [place] Phone Number [facility] CLIA: [id number], [address] [place] [address] ADC / LCC - DRUG SCREEN TRIAGE (01/16/2019 2:23 PM CDT) BENZO U Negative Negative [facility] JAMES U Negative Negative [facility] AMPHET Negative Negative [facility] THC Negative Negative [facility] METHADONE Negative Negative [facility] Meth U Negative Negative [facility] OPIATES Negative Negative [facility] Cocaine Metabolite Negative Negative [facility] PROPOXY Negative Negative [facility] Tric U Negative Negative [facility] PCP Negative Negative [facility] OXYCOD Negative Negative [facility] Specimen Urine - URINE, CLEAN CATCH Narrative Performed At Urine Drug Cutoff Ranges [facility] Benzodiazepines: 150 ng/mL Barbiturates: 200 ng/mL Amphetamine: 500 ng/mL Cannabinoids: 50ng/mL Methadone: 200 ng/mL Methamphetamine: 500 ng/mL Opiates: 100 ng/mL or 2000 ng/mL Cocaine: 150 ng/mL Propoxyphene:300 ng/mL Tricyclics:300 ng/mL Oxycodone: 100 ng/mL PCP: 25ng/mL The results are to be used only for medical (i.e., treatment) purposes. Unconfirmed screening results must not be used for non-medical purposes (e.g., employment testing, legal testing). Performing Organization Address [facility] [place] Phone Number [facility] CLIA: [id number], [address] [place] [address] Urinalysis (01/16/2019 2:23 PM CDT) APPEARANCE Slightly Cloudy (A) Clear [facility] COLOR Yellow Yellow [facility] PH 6.0 4.8 - 8.0 [facility] SP GRAVITY 1.020 1.003 - 1.030 [facility] GLU U QUAL Negative Negative [facility] BLOOD Trace (A) Negative [facility] KETONES Negative Negative [facility] PROTEIN 100 mg/dL (A) Negative [facility] UROBILIN 0.2 mg/dL 0-1.0 mg/dL [facility] BILIRUBIN Negative Negative [facility] NITRITE Negative Negative [facility] LEUK SHANAE Negative Negative [facility] RBC/HPF 10 (H) 0 - 3 HPF [facility] WBC/HPF 20 (H) 0 - 5 HPF [facility] BACTERIA Many (A) Negative [facility] MUCOUS Marked (A) Negative LPF [facility] SQ EPITH 30 HPF [facility] FINE GRAN 2 (H) <=1 LPF [facility] Specimen Urine - URINE, CLEAN CATCH Performing Organization Address [facility] Phone Number [facility] CLIA: [id number], [address] [place] [address] CREATINE KINASE (01/16/2019 2:00 PM CDT) CK 31 (L) 33 - 194 U/L [facility] Specimen Blood - ARM, RIGHT Performing Organization Address [facility] Phone Number [facility] CLIA: [id number], [address] [place] [address] THYROID STIMULATING HORMONE (01/16/2019 2:00 PM CDT) TSH 0.05 (L) 0.45 - 4.70 mIU/L [facility] Specimen Blood - ARM, RIGHT Performing Organization Address [facility] Phone Number [facility] CLIA: [id number], [address] [place] [address] FREE T4 (01/16/2019 2:00 PM CDT) FREE T4 1.89 0.78 - 2.20 ng/dL [facility] Specimen Blood Performing Organization Address City/State/Zipcode Phone Number [facility] CLIA: [id number], [address] [place] [address] CBC WITH DIFFERENTIAL (01/16/2019 2:00 PM CDT) WBC 8.77 4.30 - 11.10 [facility] 10*3/L [facility] RBC 3.64 (L) 3.93 - 5.25 [facility] 10*6/L [facility] HGB 9.3 (L) 11.6 - 15.0 [facility] g/dL [facility] HCT 31.2 (L) 35.7 - 45.2 % [facility] MCV 85.7 80.6 - 95.5 [facility] LABORATORY MCH 25.5 (L) 25.9 - 32.8 [facility] pg [facility] MCHC 29.8 (L) 31.6 - 35.1 [facility] g/dL [facility] RDW-SD 55.6 (H) 39.0 - 49.9 [facility] LABOR[facility]ORY RDW-CV 18.0 (H) 12.0 - 15.5 % [facility] PLT 225 166 - 358 [facility] 10*3/L [facility] MPV 12.6 9.5 - 12.9 fL [facility] IPF % 5.9Comment: Platelet 1.3 - 7.7 % [facility] count measured by HOSPITAL fluorescence method. LABORATORY NRBC/100 WBC 0.0 0.0 - 10.0 [facility] /100 WBCs [facility] NRBC x10^3 <0.01 10*3/L [facility] GRAN MAT (NEUT) % 75.8 % [facility] IMM GRAN % 0.30 % [facility] LYMPH % 13.0 % [facility] MONO % 9.0 % [facility] EOS % 1.3 % [facility] BASO % 0.6 % [facility] GRAN MAT 6.65 1.88 - 7.09 [facility] x10^3(ANC) 10*3/uL HOSPITAL LABORATORY IMM GRAN x10^3 0.03 0.00 - 0.06 [facility] 10*3/uL HOSPITAL LABORATORY LYMPH x10^3 1.14 (L) 1.32 - 3.29 [facility] 10*3/uL [facility] MONO x10^3 0.79 0.33 - 0.92 [facility] 10*3/uL HOSPITAL LABORATORY EOS x10^3 0.11 0.03 - 0.39 [facility] 10*3/uL [facility] BASO x10^3 0.05 0.01 - 0.07 [facility] 10*3/uL [facility] Specimen Blood - ARM, RIGHT Performing Organization Address City/[facility] Phone Number [facility] CLIA: [id number], [address] [place], [place] [address] LABORATORY [address] Prothrombin Time (PT) / INR (01/16/2019 2:00 PM CDT) [facility] PROTIME PATIENT 12.5 12.0 - 14.7 [facility] LABORATORY INR 1.0Comment: Normal [facility] INR <1.1; Warfarin [facility] Therapeutic range LABORATORY 2.0 to 3.0 or 2.5 to 3.5, depending upon the indications. Specimen Blood - ARM, RIGHT Performing Organization Address [facility] Phone Number [facility] CLIA: [id number], [address] [place], [place] [address] [address] aPTT (01/16/2019 2:00 PM CDT) [facility] APTT Patient 38 23 - 38 Seconds [facility] Specimen Blood - ARM, RIGHT Narrative Performed At The [facility] patient population mean normal value [facility] for aPTT is 30 seconds. Performing Organization Address [facility] Phone Number [facility] CLIA: [id number], [address] [place] [place] [address] [address] Troponin I (01/16/2019 2:00 PM CDT) [facility] TROPONIN I 0.008 <=0.034 ng/mL [facility] Specimen Blood - ARM, RIGHT Narrative Performed At Equal or Less than 0.034 ng/ml---Normal [facility] Note: Cardiac troponin begins to rise 3-4 hours after the onset of ischemia. Repeat in 4-6 hours if the sample was drawn within 3-4 hours of the onset of the symptom and found normal. Between 0.035 and 0.120 ng/mL--- Borderline. Questionable myocardial injury or necrosis Note: Serial measurement may be necessary to confirm or exclude the diagnosis of myocardial injury or necrosis; Clinical correlation (symptoms, EKGs, imaging studies, and others) required; Repeat in 4-6 hours if clinically indicated. Equal or Higher than 0.121 ng/mL---Abnormal. Myocardial Injury or Necrosis Likely Biotin has been reported to cause a negative bias, interpret results relative to patient's use of biotin. Performing Organization Address [facility] Phone Number [facility] CLIA: [id number], [address] [place], [place] [address] LABORATORY Hospital [facility] Lipase Serum (01/16/2019 2:00 PM CDT) LIPASE 423 (H) 0 - 220 U/L [facility] Specimen Blood - ARM, RIGHT Performing Organization Address [facility] [place] Phone Number [facility] CLIA: [id number], [address] [place], [place] [address] LABORATORY Hospital [facility] Hepatic Function Panel (ALB, T.PRO, BILI T, BU/BC, ALT, AST, ALK PHOS) (2018 2:00 PM CDT) TOTAL BILI 0.5 0.1 - 1.1 mg/dL [facility] BILI UNCON 0.2 0.1 - 1.1 mg/dL [facility] BILI CONJ 0.0 0.0 - 0.3 mg/dL [facility] T PROTEIN 8.0 6.3 - 8.2 g/dL [facility] ALBUMIN 4.1 3.5 - 5.0 g/dL [facility] ALK PHOS 629 (H) 34 - 122 U/L [facility] ALT(SGPT) 320 (H) 9 - 51 U/L [facility] AST(SGOT) 486 (H) 13 - 40 U/L [facility] Specimen Blood - ARM, RIGHT Performing Organization Address [facility] [place] Phone Number [facility] CLIA: [id number], [address] [place] [address] Basic Metabolic Panel (NA, K, CL, CO2, GLUCOSE, BUN, CREATININE, CA) (2018 2:00 PM CDT) NA 147 (H) 135 - 145 [facility] mmol/L [facility] K 4.8 3.5 - 5.0 [facility] mmol/L [facility] CL 114 (H) 98 - 108 mmol/L [facility] CO2 TOTAL 19 (L) 23 - 31 mmol/L [facility] AGAP 14 2 - 16 [facility] BUN 80 (H) 7 - 23 mg/dL [facility] [place] GLUCOSE 192 (H) 70 - 110 mg/dL [facility] [place] CREATININE 1.91 (H) 0.50 - 1.04 [facility] mg/dL [facility] CALCIUM 9.7 8.6 - 10.6 [facility] mg/dL [facility] eGFR Calculation 27.6 mL/min/1.73m2 [facility] ([facility] LABORATORY Citizen Of [place]) eGFR Calculation 33.4 mL/min/1.73m2 [facility] () [facility] Specimen Blood - ARM, RIGHT Narrative Performed At Association of Glomerular Filtration Rate (GFR) [facility] and Staging of Kidney Disease* + + +- + | GFR (mL/min/1.73 m2)| With Kidney Damage|Without Kidney Damage + + +- + |>90| Stage one| Normal + + +- + |60-89|S tage two| Decreased GFR + + +- + |30-59|S tage three| Stage three + + +- + |15-29|S tage four | Stage four + + +- + |<15 (or dialysis)|Stage five | Stage five + + +- + *Each stage assumes the associated GFR level has been in effect for at least three months.Stages 1 to 5, with or without kidney disease, indicate chronic kidney disease. Notes: Determination of stages one and two (with eGFR >59mL/min/1.73 m2) requires estimation of kidney damage for at least three months as defined by structural or functional abnormalities of the kidney, manifested by either: Pathological abnormalities or Markers of kidney damage (including abnormalities in the composition of the blood or urine or abnormalities in imaging tests). Performing Organization Address City/State/Zipcode Phone Number [facility] CLIA: [id number], [address] [place] [address] documented in this encounter Visit Diagnoses Diagnosis NICOLAS (acute kidney injury) - Primary Acute kidney failure, unspecified Abdominal pain, unspecified abdominal location Acute kidney injury Acute kidney failure, unspecified Anemia, unspecified type Elevated liver enzymes Nonspecific elevation of levels of transaminase or lactic acid dehydrogenase ( LDH) Metabolic acidosis Acidosis Unexplained weight loss Loss of weight Herpes zoster without complication E44.1 Mild protein-calorie malnutrition Malnutrition of mild degree documented in this encounter Administered Medications Medication Order MAR Action Action Date Dose Rate Site acetaminophen (TYLENOL) tablet Given 01/19/2019 3:31 PM CDT 650 mg 650 mg 650 mg, Oral, Q6HPRN, Starting Wed01/16/19 at 2030, Until Discontinued, Routine, Pain (scale 1-3) Given 01/18/2019 8:12 PM CDT 650 mg Given 01/18/2019 2:59 PM CDT 650 mg amLODIPine (NORVASC) tablet 2.5 mg Given 01/19/2019 8:51 AM CDT 2.5 mg 2.5 mg, Oral, BID, First dose on Wed01/17/19 at 0800, Until Discontinued, Routine Given 01/18/2019 9:28 PM CDT 2.5 mg Given 01/18/2019 7:53 AM CDT 2.5 mg aspirin chewable tablet 81 mg Given 01/19/2019 8:51 AM CDT 81 mg 81 mg, Oral, DAILY, First dose on Wed01/17/19 at 0900, Until Discontinued, Routine Given 01/18/2019 7:53 AM CDT 81 mg Given 01/17/2019 7:56 AM CDT 81 mg ferrous sulfate tablet 325 mg Given 01/19/2019 8:51 AM CDT 325 mg 325 mg, Oral, BID, First dose on Wed01/17/19 at 0800, Until Discontinued, Routine Given 01/18/2019 8:12 PM CDT 325 mg Given 01/18/2019 7:53 AM CDT 325 mg gabapentin (NEURONTIN) capsule 100 mg Given 01/19/2019 8:51 AM CDT 100 mg 100 mg, Oral, BID, First dose on Wed01/17/19 at 0800, Until Discontinued, Routine Given 01/18/2019 8:12 PM CDT 100 mg Given 01/18/2019 7:53 AM CDT 100 mg heparin injection 5,000 Units Given 01/19/2019 8:51 AM CDT 5,000 Units Abdomen-SC 5,000 Units, Subcutaneous, Q12H, First dose on Wed01/17/19 at 0800, Until Discontinued, Routine Given 01/18/2019 8:14 PM CDT 5,000 Units Abdomen-SC Given 01/17/2019 9:18 PM CDT 5,000 Units Abdomen-SC metoclopramide HCl (REGLAN) tablet 5 mg Given 01/19/2019 12:46 PM CDT 5 mg 5 mg, Oral, AC, First dose on Wed01/17/19 at 0730, Until Discontinued, Routine Given 01/19/2019 8:51 AM CDT 5 mg Given 01/18/2019 5:39 PM CDT 5 mg NaCl 0.9% (NS) IV infusion 1,000 New Bag 01/19/2019 2:22 PM CDT 1,000 mL 125 mL/hr mL at 125 mL/hr, IV Infusion, CONTINUOUS, Starting Deja 01/19/19 at 0930, Until Discontinued, Routine Sliding Scale Insulin - Aspart Given 01/18/2019 5:39 PM 1 Units Left Upper (NOVOLOG) + Fsbg Testing CDT Arm-SC Subcutaneous, TID MEALS+HS, First dose on Wed01/16/19 at 2100, Until Discontinued, Routine Given 01/18/2019 12:11 PM CDT 1 Units Right Upper Arm-SC traZODONE (DESYREL) tablet 50 mg Given 01/18/2019 8:12 PM CDT 50 mg 50 mg, Oral, QHS, First dose on Wed01/16/19 at 2100, Until Discontinued, Routine Given 01/17/2019 8:54 PM CDT 50 mg Given 01/16/2019 11:55 PM CDT 50 mg valACYclovir (VALTREX) tablet 1 g Given 01/19/2019 12:46 PM CDT 1 g 1 g (1,000 mg), Oral, Q8H, 21 doses, First dose on Wed01/18/19 at 1430, Last dose on Wed01/25/19 at 0600, YESENIA Given 01/19/2019 6:15 AM CDT 1 g Given 01/18/2019 10:01 PM CDT 1 g Medication Order MAR Action Action Date Dose Rate Site atorvastatin (LIPITOR) tablet 80 Given 01/18/2019 8:12 PM CDT 80 mg mg 80 mg, Oral, QHS, First dose on Wed01/16/19 at 2100, Until Discontinued, Routine Given 01/17/2019 8:54 PM CDT 80 mg Given 01/16/2019 9:59 PM CDT 80 mg NaCl 0.9% (NS) bolus infusion New Bag 01/16/2019 3:11 PM CDT 1,000 mL 999 mL/hr 1,000 mL at 999 mL/hr, 1,000 mL, IV Infusion, ONCE, 1 dose, Wed01/16/19 at 1600, STAT NaCl 0.9% (NS) bolus infusion 500 New Bag 01/19/2019 12:46 PM CDT 500 mL 999 mL/hr mL at 999 mL/hr, 500 mL, IV Piggyback, ONCE, 1 dose, Deja 01/19/19 at 0930, STAT NaCl 0.9% (NS) IV infusion 1,000 New Bag 01/16/2019 10:02 PM CDT 1,000 mL 100 mL/hr mL at 100 mL/hr, IV Infusion, ONCE, 1 dose, Wed01/16/19 at 2130, Routine NaCl 0.9% (NS) IV infusion 1,000 New Bag 01/17/2019 12:22 PM CDT 1,000 mL 125 mL/hr mL at 125 mL/hr, IV Infusion, ONCE, 1 dose, 01/17/19 at 1315, Routine documented in this encounter Insurance Payer Benefit Plan / Subscriber ID Effective Phone Address Type Group Dates MEDICAID MEDICAID SSI PENDING [id number] [place] [address] [phone] [id number] (Work) documented as of this encounter
--- OUTSIDE RECORDS SUMMARY | 2019-05-14 12:51 | XMS REPORT ---
:1965 [facility] [address] [place] [address] Care Team Providers Name Role Phone BOBBY THOMPSON Unavailable Unavailable BRITTNEY BAH Unavailable Unavailable Problems This patient has no known problems. Allergies, Adverse Reactions, Alerts This patient has no known allergies or adverse reactions. Medications This patient has no known medications. Results Test Description Test Time Test Comments Text Results Atomic Results Result Comments POCT-GLUCOSE METER 2018-10-25 13:00:00 Test Item Value Reference Range Comments POC-GLUCOSE METER (BEAKER) (test 198 mg/dL 70-110 TESTED AT [address] vywu=6235) [place] [id number] POCT-GLUCOSE [id number] 07:36:00 Test Item Value Reference Range Comments POC-GLUCOSE METER (BEAKER) 133 mg/dL 70-110 TESTED AT [address] (test altu=6101) [place] [id number] BASIC METABOLIC [id number] 04:58:00 Test Item Value Reference Range Comments SODIUM (BEAKER) (test 144 meq/L 136-145 ckkb=496) POTASSIUM (BEAKER) (test 4.1 meq/L 3.5-5.1 flcr=633) CHLORIDE (BEAKER) (test 112 meq/L 98-107 ojph=547) CO2 (BEAKER) (test 25 meq/L 22-29 mojb=648) BLOOD UREA NITROGEN 15 mg/dL 7-21 (BEAKER) (test nevz=931) CREATININE (BEAKER) (test 0.70 mg/dL 0.57-1.25 kjrq=340) GLUCOSE RANDOM (BEAKER) 149 mg/dL 70-105 (test cgtb=584) CALCIUM (BEAKER) (test 9.2 mg/dL 8.4-10.2 njnr=039) EGFR (BEAKER) (test 88 mL/min/1.73 sq m ESTIMATED GFR IS NOT rqjo=4302) ACCURATE CREATININE CLEARANCE IN PREDICTING GLOMERULAR FILTRATION RATE. ESTIMATED GFR IS NOT APPLICABLE FOR DIALYSIS PATIENTS. CBC W/PLT COUNT & AUTO [id number] 04:35:00 Test Item Value Reference Range Comments WHITE BLOOD CELL COUNT (BEAKER) (test meaw=985) 7.9 K/ L 3.5-10.5 RED BLOOD CELL COUNT (BEAKER) (test rgxs=424) 3.88 M/ L 3.93-5.22 HEMOGLOBIN (BEAKER) (test nksl=042) 9.1 GM/DL 11.2-15.7 HEMATOCRIT (BEAKER) (test kizz=341) 30.5 % 34.1-44.9 MEAN CORPUSCULAR VOLUME (BEAKER) (test vazc=989) 78.6 fL 79.4-94.8 MEAN CORPUSCULAR HEMOGLOBIN (BEAKER) (test 23.5 pg 25.6-32.2 bjfj=892) MEAN CORPUSCULAR HEMOGLOBIN CONC (BEAKER) (test 29.8 GM/DL 32.2-35.5 cewb=076) RED CELL DISTRIBUTION WIDTH (BEAKER) (test 17.9 % 11.7-14.4 zhtq=621) PLATELET COUNT (BEAKER) (test grrw=087) 292 K/CU MM 150-450 MEAN PLATELET VOLUME (BEAKER) (test uunh=985) 11.3 fL 9.4-12.3 NUCLEATED RED BLOOD CELLS (BEAKER) (test 0 /100 WBC 0-0 hgbu=678) NEUTROPHILS RELATIVE PERCENT (BEAKER) (test 67 % khkp=996) LYMPHOCYTES RELATIVE PERCENT (BEAKER) (test 22 % pezr=832) MONOCYTES RELATIVE PERCENT (BEAKER) (test 8 % epnm=148) EOSINOPHILS RELATIVE PERCENT (BEAKER) (test 3 % riwu=713) BASOPHILS RELATIVE PERCENT (BEAKER) (test 1 % lrpa=167) NEUTROPHILS ABSOLUTE COUNT (BEAKER) (test 5.26 K/ L 1.56-6.13 bplu=230) LYMPHOCYTES ABSOLUTE COUNT (BEAKER) (test 1.71 K/ L 1.18-3.74 mnlu=873) MONOCYTES ABSOLUTE COUNT (BEAKER) (test 0.60 K/ L 0.24-0.36 nlaj=787) EOSINOPHILS ABSOLUTE COUNT (BEAKER) (test 0.22 K/ L 0.04-0.36 mjnt=146) BASOPHILS ABSOLUTE COUNT (BEAKER) (test 0.04 K/ L 0.01-0.08 goms=963) IMMATURE GRANULOCYTES-RELATIVE PERCENT (BEAKER) 1 % 0-1 (test mayr=2024) POCT-GLUCOSE [id number] 23:01:00 Test Item Value Reference Range Comments POC-GLUCOSE METER (BEAKER) 197 mg/dL 70-110 TESTED AT [address] (test khfs=6263) [place] [id number] POCT-GLUCOSE [id number] 18:54:00 Test Item Value Reference Range Comments POC-GLUCOSE METER (BEAKER) 259 mg/dL 70-110 TESTED AT [address] (test nndq=4859) [place] [address] POCT-GLUCOSE [id number] 14:53:00 Test Item Value Reference Range Comments POC-GLUCOSE METER (BEAKER) 126 mg/dL 70-110 TESTED AT [address] (test szgs=1396) [place] [id number] POCT-GLUCOSE [id number] 07:40:00 Test Item Value Reference Range Comments POC-GLUCOSE METER (BEAKER) 139 mg/dL 70-110 TESTED AT [address] (test mffi=2354) [place] [id number] BASIC METABOLIC [id number] 04:52:00 Test Item Value Reference Range Comments SODIUM (BEAKER) (test 145 meq/L 136-145 pzge=913) POTASSIUM (BEAKER) (test 4.2 meq/L 3.5-5.1 prpv=143) CHLORIDE (BEAKER) (test 111 meq/L 98-107 ptjo=811) CO2 (BEAKER) (test 26 meq/L 22-29 kktd=667) BLOOD UREA NITROGEN 26 mg/dL 7-21 (BEAKER) (test yzov=572) CREATININE (BEAKER) (test 0.79 mg/dL 0.57-1.25 yvis=876) GLUCOSE RANDOM (BEAKER) 134 mg/dL 70-105 (test xggr=136) CALCIUM (BEAKER) (test 9.3 mg/dL 8.4-10.2 bfws=365) EGFR (BEAKER) (test 76 mL/min/1.73 sq m ESTIMATED GFR IS NOT ecdt=6553) ACCURATE CREATININE CLEARANCE IN PREDICTING GLOMERULAR FILTRATION RATE. ESTIMATED GFR IS NOT APPLICABLE FOR DIALYSIS PATIENTS. CBC W/PLT COUNT & AUTO [id number] 04:23:00 Test Item Value Reference Range Comments WHITE BLOOD CELL COUNT (BEAKER) (test rhgj=398) 7.0 K/ L 3.5-10.5 RED BLOOD CELL COUNT (BEAKER) (test vreu=576) 3.87 M/ L 3.93-5.22 HEMOGLOBIN (BEAKER) (test xzoc=669) 9.4 GM/DL 11.2-15.7 HEMATOCRIT (BEAKER) (test bczs=191) 31.2 % 34.1-44.9 MEAN CORPUSCULAR VOLUME (BEAKER) (test xsqk=812) 80.6 fL 79.4-94.8 MEAN CORPUSCULAR HEMOGLOBIN (BEAKER) (test 24.3 pg 25.6-32.2 fhnt=809) MEAN CORPUSCULAR HEMOGLOBIN CONC (BEAKER) (test 30.1 GM/DL 32.2-35.5 ponp=687) RED CELL DISTRIBUTION WIDTH (BEAKER) (test 17.9 % 11.7-14.4 wsbw=691) PLATELET COUNT (BEAKER) (test bhzw=233) 281 K/CU MM 150-450 MEAN PLATELET VOLUME (BEAKER) (test ssjc=979) 11.3 fL 9.4-12.3 NUCLEATED RED BLOOD CELLS (BEAKER) (test 0 /100 WBC 0-0 gwwi=205) NEUTROPHILS RELATIVE PERCENT (BEAKER) (test 62 % jgwy=317) LYMPHOCYTES RELATIVE PERCENT (BEAKER) (test 23 % cizp=921) MONOCYTES RELATIVE PERCENT (BEAKER) (test 10 % djlu=107) EOSINOPHILS RELATIVE PERCENT (BEAKER) (test 4 % bbiq=324) BASOPHILS RELATIVE PERCENT (BEAKER) (test 0 % ywch=202) NEUTROPHILS ABSOLUTE COUNT (BEAKER) (test 4.33 K/ L 1.56-6.13 zupf=196) LYMPHOCYTES ABSOLUTE COUNT (BEAKER) (test 1.61 K/ L 1.18-3.74 bosx=397) MONOCYTES ABSOLUTE COUNT (BEAKER) (test 0.71 K/ L 0.24-0.36 fecj=551) EOSINOPHILS ABSOLUTE COUNT (BEAKER) (test 0.26 K/ L 0.04-0.36 ztmh=029) BASOPHILS ABSOLUTE COUNT (BEAKER) (test 0.03 K/ L 0.01-0.08 sldg=693) IMMATURE GRANULOCYTES-RELATIVE PERCENT (BEAKER) 0 % 0-1 (test qqqt=1467) POCT-GLUCOSE [id number] 22:08:00 Test Item Value Reference Range Comments POC-GLUCOSE METER (BEAKER) 187 mg/dL 70-110 TESTED AT [address] (test uutg=5010) [place] [address] POCT-GLUCOSE [id number] 18:33:00 Test Item Value Reference Range Comments POC-GLUCOSE METER (BEAKER) 201 mg/dL 70-110 TESTED AT [address] (test fqqa=0715) [place] [address] TROPONIN [id number] 17:45:00 Test Item Value Reference Range Comments TROPONIN I (BEAKER) (test oyeq=963) < ng/mL 0.00-0.03 Troponin I (TnI) levels must be interpreted in the context of the presenting symptoms and the clinical findings. Elevated TnI levels indicate myocardial damage, but are not specific for ischemic heart disease. Elevated TnI levels are seen in patients with other cardiac conditions (including myocarditis and congestive heart failure), and slight TnI elevations occur in patients with other conditions, including sepsis, renal failure, acidosis, acute neurological disease, and persistent tachyarrhythmia.CT, BRAIN, WITHOUT [id number] 16 :49:00FINAL REPORT CT, BRAIN, WITHOUT CONTRAST CLINICAL INDICATION: stroke COMPARISON: 14 hours prior TECHNIQUE: Noncontrast axial CT imaging of the brain and skull. DOSE REDUCTION:Dose modulation, iterative reconstruction, and/or weight-based adjustment of the mA/kV was utilized to reduce the radiation dose to as low as reasonably achievable. FINDINGS:Evolving large right MCA territory infarction with associated edema and effacement of the right lateral ventricle without zohra midline shift. Hyperattenuation in the cortical sulci representing either petechial hemorrhage or pseudosubarachnoid hemorrhage. No new infarct has developed. Osseous structures are stable. IMPRESSION:Evolving right MCA infarct with petechial hemorrhaging versus pseudosubarachnoid hemorrhage involving the cortical sulci. Mass effect effacing the right lateral ventricle without herniation. Signed: JR Kelly, Ochoa KANGeport Verified Date/Time: 10/23/2018 16:49:13 Reading Location: [facility] C0[facility] Neuro Reading Room POCT-GLUCOSE [id number] 11:57:00 Test Item Value Reference Range Comments POC-GLUCOSE METER (BEAKER) 146 mg/dL 70-110 TESTED AT [address] (test cwaj=7378) [place] [address] TROPONIN [id number] 10:26:00 Test Item Value Reference Range Comments TROPONIN I (BEAKER) (test bdqm=656) 0.02 ng/mL 0.00-0.03 Troponin I (TnI) levels must be interpreted in the context of the presenting symptoms and the clinical findings. Elevated TnI levels indicate myocardial damage, but are not specific for ischemic heart disease. Elevated TnI levels are seen in patients with other cardiac conditions (including myocarditis and congestive heart failure), and slight TnI elevations occur in patients with other conditions, including sepsis, renal failure, acidosis, acute neurological disease, and persistent tachyarrhythmia.[id number] 09:56:00 Test Item Value Reference Range Comments PHOSPHORUS (BEAKER) (test kjev=748) 4.6 mg/dL 2.3-4.7 [id number] 09:56:00 Test Item Value Reference Range Comments MAGNESIUM (BEAKER) (test pwid=212) 1.7 mg/dL 1.6-2.6 POCT-GLUCOSE [id number] 05:34:00 Test Item Value Reference Range Comments POC-GLUCOSE METER (BEAKER) 116 mg/dL 70-110 TESTED AT [address] (test mvcw=4130) [place] [address] BASIC METABOLIC [id number] 04:23:00 Test Item Value Reference Range Comments SODIUM (BEAKER) (test 140 meq/L 136-145 aisd=239) POTASSIUM (BEAKER) (test 3.9 meq/L 3.5-5.1 ohrq=747) CHLORIDE (BEAKER) (test 105 meq/L 98-107 bbgw=547) CO2 (BEAKER) (test 26 meq/L 22-29 yfvf=260) BLOOD UREA NITROGEN 39 mg/dL 7-21 (BEAKER) (test tkdq=161) CREATININE (BEAKER) (test 0.89 mg/dL 0.57-1.25 sbyk=850) GLUCOSE RANDOM (BEAKER) 110 mg/dL 70-105 (test fapl=875) CALCIUM (BEAKER) (test 8.8 mg/dL 8.4-10.2 sall=923) EGFR (BEAKER) (test 67 mL/min/1.73 sq m ESTIMATED GFR IS NOT uexg=9186) ACCURATE CREATININE CLEARANCE IN PREDICTING GLOMERULAR FILTRATION RATE. ESTIMATED GFR IS NOT APPLICABLE FOR DIALYSIS PATIENTS. PROTHROMBIN [id number] 04:14:00 Test Item Value Reference Range Comments PROTIME (BEAKER) (test hyuj=331) 12.8 seconds 11.9-14.2 INR (BEAKER) (test jvcf=581) 1.0 <=5.9 Effective 10/05/2018: PT Reference Range ChangeNew: 11.9-14.2 Previous: 11.7- 14.7RECOMMENDED COUMADIN/WARFARIN INR THERAPY RANGESSTANDARD DOSE: 2.0-3.0 Includes: PROPHYLAXIS for venous thrombosis, systemic embolization; TREATMENT for venous thrombosis and/or pulmonary embolus.HIGH RISK: Target INR is2.5-3.5 for patients wiht mechanical heart valves.CBC W/PLT COUNT & AUTO [id number] 04:05:00 Test Item Value Reference Range Comments WHITE BLOOD CELL COUNT (BEAKER) (test folj=457) 7.8 K/ L 3.5-10.5 RED BLOOD CELL COUNT (BEAKER) (test chgd=145) 3.87 M/ L 3.93-5.22 HEMOGLOBIN (BEAKER) (test xwsj=347) 9.1 GM/DL 11.2-15.7 HEMATOCRIT (BEAKER) (test kcmd=299) 31.4 % 34.1-44.9 MEAN CORPUSCULAR VOLUME (BEAKER) (test blyf=490) 81.1 fL 79.4-94.8 MEAN CORPUSCULAR HEMOGLOBIN (BEAKER) (test 23.5 pg 25.6-32.2 jljh=135) MEAN CORPUSCULAR HEMOGLOBIN CONC (BEAKER) (test 29.0 GM/DL 32.2-35.5 cdsf=467) RED CELL DISTRIBUTION WIDTH (BEAKER) (test 18.2 % 11.7-14.4 hxwb=759) PLATELET COUNT (BEAKER) (test yvlo=785) 285 K/CU MM 150-450 MEAN PLATELET VOLUME (BEAKER) (test wjlr=851) 11.8 fL 9.4-12.3 NUCLEATED RED BLOOD CELLS (BEAKER) (test 0 /100 WBC 0-0 aoxw=115) NEUTROPHILS RELATIVE PERCENT (BEAKER) (test 71 % oqpd=407) LYMPHOCYTES RELATIVE PERCENT (BEAKER) (test 18 % rkyf=790) MONOCYTES RELATIVE PERCENT (BEAKER) (test 8 % ncrj=759) EOSINOPHILS RELATIVE PERCENT (BEAKER) (test 3 % cscw=981) BASOPHILS RELATIVE PERCENT (BEAKER) (test 0 % tyxg=988) NEUTROPHILS ABSOLUTE COUNT (BEAKER) (test 5.52 K/ L 1.56-6.13 nwkt=694) LYMPHOCYTES ABSOLUTE COUNT (BEAKER) (test 1.40 K/ L 1.18-3.74 iogm=300) MONOCYTES ABSOLUTE COUNT (BEAKER) (test 0.61 K/ L 0.24-0.36 fmsz=890) EOSINOPHILS ABSOLUTE COUNT (BEAKER) (test 0.23 K/ L 0.04-0.36 fpun=026) BASOPHILS ABSOLUTE COUNT (BEAKER) (test 0.03 K/ L 0.01-0.08 mybs=453) IMMATURE GRANULOCYTES-RELATIVE PERCENT (BEAKER) 0 % 0-1 (test atgt=4017) CT, CTANGIO [id number] 02:46:00FINAL REPORT CT, CTANGIO BRAIN, CT, CAROTID, ANGIO INDICATION: stroke COMPARISON: CT head of the same date TECHNIQUE:Rapid acquisition spiral images were obtained between the aortic arch and the cranial vertex during intravenous contrast infusion to reconstruct axial images andangiographic 3D maximum intensity projections (MIP) . 3-D volumetric reformatted images were created at a dedicated workstation. Stenosis evaluation reported in compliance with NASCET criteria. DOSE REDUCTION : Dose modulation, iterative reconstruction, and/or weight-based adjustment of the mA/kV was utilized to reduce the radiation dose to as low as reasonably achievable. FINDINGS: CTA BRAIN:Internal carotid arteries: Petrous, cavernous and supraclinoid portions patent. Middle cerebral arteries: Right MCA, M1 segment focal occlusion with distal reconstitution attributed to adjacent collaterals. The distal right MCA branches are attenuated in caliber throughout the edematous portions of the right cerebral hemisphere. Left MCA distal M1 segment mild stenosis present.Anterior cerebral arteries: Patent. Intact A- comm.Basilar system: Patent vertebrobasilar system.Posterior cerebral arteries: Patent beyond the quadrigeminal segments.Venous opacification: Major dural sinuses unremarkable for bolus timing.Additional findings: None. CTA NECK: Common carotid arteries: The common carotid arteries are normal in size. Bifurcations: No flow-limiting stenosis. Cervical internal carotid arteries: No flow limiting stenosis.Vertebral arteries: Codominant. No origin stenosis.Arch anatomy: Normal variant. Nonvascular findings:Osseous structures: No acute osseous abnormality. Intact calvarium and skull base. Poor dentition.Cervical soft tissues: Multinodular thyromegaly with dominant 3.8 cm isthmic nodule.Lungapices: No apical consolidation or pneumothorax. IMPRESSION:Interval enlargement of right MCA territory acute infarct with worsening right cerebral edema. Right MCA, M1 segment, focal occlusion with distal reconstitution. Distal right MCA branches are attenuated in caliber in the region of cerebral edema. Multinodular thyromegaly with dominant 3.8 cm nodule for which ultrasound characterization is recommended. Signed: Nicanor Coates MDReport Verified Date/Time: 10/23/2018 02:46:45 [facility], CAROTID, [id number] 02: 46:00FINAL REPORT CT, CTANGIO BRAIN, CT, CAROTID, ANGIO INDICATION: stroke COMPARISON: CT head of the same date TECHNIQUE:Rapid acquisition spiral images were obtained between the aortic arch and the cranial vertex during intravenous contrast infusion to reconstruct axial images andangiographic 3D maximum intensity projections (MIP). 3-D volumetric reformatted images were created at a dedicated workstation. Stenosis evaluation reported in compliance with NASCET criteria. DOSE REDUCTION: Dose modulation, iterative reconstruction, and/or weight-based adjustment of the mA/ kV was utilized to reduce the radiation dose to as low as reasonably achievable. FINDINGS: CTA BRAIN:Internal carotid arteries: Petrous, cavernous and supraclinoid portions patent. Middle cerebral arteries: Right MCA, M1 segment focal occlusion with distal reconstitution attributed to adjacent collaterals. The distal right MCA branches are attenuated in caliber throughout the edematous portions of the right cerebral hemisphere. Left MCA distal M1 segment mild stenosis present.Anterior cerebral arteries: Patent. Intact A- comm.Basilar system: Patent vertebrobasilar system.Posterior cerebral arteries: Patent beyond the quadrigeminal segments.Venous opacification: Major dural sinuses unremarkable for bolus timing.Additional findings: None. CTA NECK: Common carotid arteries: The common carotid arteries are normal in size. Bifurcations: No flow-limiting stenosis. Cervical internal carotid arteries: No flow limiting stenosis.Vertebral arteries: Codominant. No origin stenosis.Arch anatomy: Normal variant. Nonvascular findings:Osseous structures: No acute osseous abnormality. Intact calvarium and skull base. Poor dentition.Cervical soft tissues: Multinodular thyromegaly with dominant 3.8 cm isthmic nodule.Lungapices: No apical consolidation or pneumothorax. IMPRESSION:Interval enlargement of right MCA territory acute infarct with worsening right cerebral edema. Right MCA, M1 segment, focal occlusion with distal reconstitution. Distal right MCA branches are attenuated in caliber in the region of cerebral edema. Multinodular thyromegaly with dominant 3.8 cm nodule for which ultrasound characterization is recommended. Signed: Nicanor Coates MDRgrzegorzort Verified Date/Time: 10/23/2018 02:46:45 RAD, CHEST, 1 VIEW, NON [id number] 02:10:00Reason for exam:->facial droopShould this be performed at the bedside?->YesFINAL REPORT EXAMINATION: AP PORTABLE CHEST RADIOGRAPH CLINICAL INDICATION: Facial droop IMPRESSION: No comparison studies are available. No evidence of focal lung consolidation,pulmonary edema or pleural effusion. The heart size is borderline enlarged for this projection. Mediastinal contours are sharp and smooth. No evidence of an acute osseous abnormality or pneumothorax. Signed: Ngoc May Verified Date/Time: 10/23/2018 02:10:47 Reading Location: [address] [facility] [id number] 01:46:00 Test Item Value Reference Range Comments TROPONIN I (BEAKER) (test zblp=198) 0.01 ng/mL 0.00-0.03 Troponin I (TnI) levels must be interpreted in the context of the presenting symptoms and the clinical findings. Elevated TnI levels indicate myocardial damage, but are not specific for ischemic heart disease. Elevated TnI levels are seen in patients with other cardiac conditions (including myocarditis and congestive heart failure), and slight TnI elevations occur in patients with other conditions, including sepsis, renal failure, acidosis, acute neurological disease, and persistent tachyarrhythmia.BASIC METABOLIC [id number] 01:40:00 Test Item Value Reference Range Comments SODIUM (BEAKER) (test 141 meq/L 136-145 ylss=588) POTASSIUM (BEAKER) (test 4.0 meq/L 3.5-5.1 lqfw=158) CHLORIDE (BEAKER) (test 106 meq/L 98-107 bkqz=047) CO2 (BEAKER) (test 25 meq/L 22-29 xwoz=386) BLOOD UREA NITROGEN 39 mg/dL 7-21 (BEAKER) (test ocjb=286) CREATININE (BEAKER) (test 0.89 mg/dL 0.57-1.25 btlc=392) GLUCOSE RANDOM (BEAKER) 100 mg/dL 70-105 (test bttn=996) CALCIUM (BEAKER) (test 8.8 mg/dL 8.4-10.2 iisn=968) EGFR (BEAKER) (test 67 mL/min/1.73 sq m ESTIMATED GFR IS NOT ssxh=2473) ACCURATE CREATININE CLEARANCE IN PREDICTING GLOMERULAR FILTRATION RATE. ESTIMATED GFR IS NOT APPLICABLE FOR DIALYSIS PATIENTS. CREATINE KINASE (CK)2018-10-23 01:40:00 Test Item Value Reference Range Comments CREATINE KINASE TOTAL (BEAKER) (test rwyc=975) 69 U/L 29-200 [id number] 01:30:00 Test Item Value Reference Range Comments PROTIME (BEAKER) (test pypw=151) 12.9 seconds 11.9-14.2 INR (BEAKER) (test kqdn=363) 1.0 <=5.9 PARTIAL THROMBOPLASTIN TIME (BEAKER) (test 24.0 seconds 22.5-36.0 uvwd=179) Effective 10/05/2018: PT Reference Range ChangeNew: 11.9-14.2 Previous: 11.7- 14.7RECOMMENDED COUMADIN/WARFARIN INR THERAPY RANGESSTANDARD DOSE: 2.0-3.0 Includes: PROPHYLAXIS for venous thrombosis, systemic embolization; TREATMENT for venous thrombosis and/or pulmonary embolus.HIGH RISK: Target INR is2.5-3.5 for patients wiht mechanical heart valves.CBC W/PLT COUNT & AUTO [id number] 00:58:00 Test Item Value Reference Range Comments WHITE BLOOD CELL COUNT (BEAKER) (test ijmk=862) 9.9 K/ L 3.5-10.5 RED BLOOD CELL COUNT (BEAKER) (test cxlw=978) 3.95 M/ L 3.93-5.22 HEMOGLOBIN (BEAKER) (test xuot=869) 9.5 GM/DL 11.2-15.7 HEMATOCRIT (BEAKER) (test yueo=481) 32.0 % 34.1-44.9 MEAN CORPUSCULAR VOLUME (BEAKER) (test rnbx=180) 81.0 fL 79.4-94.8 MEAN CORPUSCULAR HEMOGLOBIN (BEAKER) (test 24.1 pg 25.6-32.2 mstx=561) MEAN CORPUSCULAR HEMOGLOBIN CONC (BEAKER) (test 29.7 GM/DL 32.2-35.5 zzqx=455) RED CELL DISTRIBUTION WIDTH (BEAKER) (test 18.3 % 11.7-14.4 vanx=835) PLATELET COUNT (BEAKER) (test jwbv=549) 293 K/CU MM 150-450 MEAN PLATELET VOLUME (BEAKER) (test ozcb=473) 11.1 fL 9.4-12.3 NUCLEATED RED BLOOD CELLS (BEAKER) (test 0 /100 WBC 0-0 uhmi=354) NEUTROPHILS RELATIVE PERCENT (BEAKER) (test 71 % ornz=471) LYMPHOCYTES RELATIVE PERCENT (BEAKER) (test 18 % tdlj=452) MONOCYTES RELATIVE PERCENT (BEAKER) (test 8 % krvs=108) EOSINOPHILS RELATIVE PERCENT (BEAKER) (test 3 % krvt=443) BASOPHILS RELATIVE PERCENT (BEAKER) (test 0 % ckff=610) NEUTROPHILS ABSOLUTE COUNT (BEAKER) (test 7.01 K/ L 1.56-6.13 yqkq=720) LYMPHOCYTES ABSOLUTE COUNT (BEAKER) (test 1.77 K/ L 1.18-3.74 nucg=560) MONOCYTES ABSOLUTE COUNT (BEAKER) (test 0.83 K/ L 0.24-0.36 deuk=657) EOSINOPHILS ABSOLUTE COUNT (BEAKER) (test 0.26 K/ L 0.04-0.36 smgj=774) BASOPHILS ABSOLUTE COUNT (BEAKER) (test 0.03 K/ L 0.01-0.08 uptb=246) IMMATURE GRANULOCYTES-RELATIVE PERCENT (BEAKER) 0 % 0-1 (test ggkv=0313) CT, BRAIN/STROKE [id number] 00:47:00Reason for exam:->stroke like symptomsIs the patient ?->NoWhat is the patient's sedation requirement?->No SedationFINAL REPORT CT, BRAIN/ STROKE PROTOCOL CLINICAL INDICATION: Facial muscle weakness/paralysisstroke like symptoms COMPARISON: MRI October 12, 2018. TECHNIQUE: Noncontrast axial CT imaging of the brain and skull. Coronal axial sagittal reformats obtained. DOSE REDUCTION: Dose modulation, iterative reconstruction, and/or weight-based adjustment of the mA/kV was utilized to reduce the radiation dose to as low as reasonably achievable. FINDINGS:Cerebral parenchyma: Right MCA territory cerebral edema with well-demarcated margins has significantly increased in size since the prior examination, with estimated involvement of greater than one half the right MCA territory. There are areas of fine petechial cortical hemorrhage but no zohra hemorrhagic transformation. No acute intracranial hemorrhage. Left cerebral hemisphere is unremarkable..Midline structures: New right to left midlineshift of 4 mm with compression of right lateral ventricle.Cerebellum and brainstem: Normal.Ventricles: Partial compression of the right ventricle. No hydrocephalus.Extra-axial spaces: Unremarkable. Calvarium and skull base: Intact.Paranasal sinuses and mastoid air cells: Visible chambers are clear.Orbital contents: Included portions unremarkable. Additional findings: None. IMPRESSION: Interval expansion of the right MCA territory acute cerebral infarction as compared to October 12, 2018 exam. Progressive right cerebral edema with new leftward subfalcine herniation, 4 mm right to left midline shift. Nofrank hemorrhagic transformation. There is minimal cortical petechial hemorrhage within the right MCA territory. The findings were discussed with Dr. Thompson,10/23/2018 12:41 AM. Signed: Nicanor Coates MDReport Verified Date/Time: 10/23/2018 00:47:39 BETA-2 GLYCOPROTEIN [id number] 10:49:00 Test Item Value Reference Range Comments B2 GLYCOPROTEIN AUTOVERIFICATION Refer to individual COMPONENT (test mdcq=6361) B2-Glycoprotein IgG, IgM and IgA results. POCT-GLUCOSE [id number] 07:54:00 Test Item Value Reference Range Comments POC-GLUCOSE METER (BEAKER) 226 mg/dL 70-110 TESTED AT [facility] [address] [facility] (test iddy=7988) [facility] [id number] 05:33:00 Test Item Value Reference Range Comments PHOSPHORUS (BEAKER) (test jaoj=807) 3.8 mg/dL 2.3-4.7 [id number] 05:33:00 Test Item Value Reference Range Comments MAGNESIUM (BEAKER) (test loci=894) 1.7 mg/dL 1.6-2.6 BASIC METABOLIC [id number] 05:33:00 Test Item Value Reference Range Comments SODIUM (BEAKER) (test 140 meq/L 136-145 ybqq=357) POTASSIUM (BEAKER) (test 3.8 meq/L 3.5-5.1 keob=825) CHLORIDE (BEAKER) (test 103 meq/L 98-107 qyxl=204) CO2 (BEAKER) (test 29 meq/L 22-29 zgfn=091) BLOOD UREA NITROGEN 34 mg/dL 7-21 (BEAKER) (test ovnc=928) CREATININE (BEAKER) (test 0.83 mg/dL 0.57-1.25 abmp=274) GLUCOSE RANDOM (BEAKER) 184 mg/dL 70-105 (test sxyf=385) CALCIUM (BEAKER) (test 9.0 mg/dL 8.4-10.2 icwu=179) EGFR (BEAKER) (test 72 mL/min/1.73 sq m ESTIMATED GFR IS NOT xkto=6911) ACCURATE CREATININE CLEARANCE IN PREDICTING GLOMERULAR FILTRATION RATE. ESTIMATED GFR IS NOT APPLICABLE FOR DIALYSIS PATIENTS. CBC W/PLT COUNT & AUTO [id number] 05:13:00 Test Item Value Reference Range Comments WHITE BLOOD CELL COUNT (BEAKER) (test aoje=231) 9.6 K/ L 3.5-10.5 RED BLOOD CELL COUNT (BEAKER) (test ydpm=395) 4.18 M/ L 3.93-5.22 HEMOGLOBIN (BEAKER) (test yfrl=765) 9.8 GM/DL 11.2-15.7 HEMATOCRIT (BEAKER) (test hkyj=304) 33.1 % 34.1-44.9 MEAN CORPUSCULAR VOLUME (BEAKER) (test sgus=065) 79.2 fL 79.4-94.8 MEAN CORPUSCULAR HEMOGLOBIN (BEAKER) (test 23.4 pg 25.6-32.2 gtdg=505) MEAN CORPUSCULAR HEMOGLOBIN CONC (BEAKER) (test 29.6 GM/DL 32.2-35.5 hjsj=732) RED CELL DISTRIBUTION WIDTH (BEAKER) (test 18.5 % 11.7-14.4 jiuu=211) PLATELET COUNT (BEAKER) (test nano=877) 290 K/CU MM 150-450 MEAN PLATELET VOLUME (BEAKER) (test tesa=769) 11.2 fL 9.4-12.3 NUCLEATED RED BLOOD CELLS (BEAKER) (test 0 /100 WBC 0-0 iviu=133) NEUTROPHILS RELATIVE PERCENT (BEAKER) (test 77 % yrdg=128) LYMPHOCYTES RELATIVE PERCENT (BEAKER) (test 12 % ddpg=199) MONOCYTES RELATIVE PERCENT (BEAKER) (test 9 % obhr=089) EOSINOPHILS RELATIVE PERCENT (BEAKER) (test 2 % krie=980) BASOPHILS RELATIVE PERCENT (BEAKER) (test 0 % ulpm=793) NEUTROPHILS ABSOLUTE COUNT (BEAKER) (test 7.38 K/ L 1.56-6.13 iegk=335) LYMPHOCYTES ABSOLUTE COUNT (BEAKER) (test 1.15 K/ L 1.18-3.74 ijks=019) MONOCYTES ABSOLUTE COUNT (BEAKER) (test 0.90 K/ L 0.24-0.36 eakk=949) EOSINOPHILS ABSOLUTE COUNT (BEAKER) (test 0.14 K/ L 0.04-0.36 uzin=192) BASOPHILS ABSOLUTE COUNT (BEAKER) (test 0.02 K/ L 0.01-0.08 hepr=031) IMMATURE GRANULOCYTES-RELATIVE PERCENT (BEAKER) 0 % 0-1 (test csjd=7864) POCT-GLUCOSE [id number] 21:03:00 Test Item Value Reference Range Comments POC-GLUCOSE METER (BEAKER) 310 mg/dL 70-110 Notified MARCELLE [place]/TESTED AT [facility] (test gcyi=4667) [address] [place] [address] POCT-GLUCOSE [id number] 13:50:00 Test Item Value Reference Range Comments POC-GLUCOSE METER (BEAKER) 241 mg/dL 70-110 TESTED AT [address] (test fomo=2080) [facility] [address] POCT-GLUCOSE [id number] 09:35:00 Test Item Value Reference Range Comments POC-GLUCOSE METER (BEAKER) 234 mg/dL 70-110 TESTED AT [address] (test xejs=3456) [facility] [address] [id number] 06:19:00 Test Item Value Reference Range Comments PHOSPHORUS (BEAKER) (test ndzy=314) 3.6 mg/dL 2.3-4.7 [id number] 06:19:00 Test Item Value Reference Range Comments MAGNESIUM (BEAKER) (test ijjf=703) 1.8 mg/dL 1.6-2.6 BASIC METABOLIC [id number] 06:19:00 Test Item Value Reference Range Comments SODIUM (BEAKER) (test 142 meq/L 136-145 gpxy=973) POTASSIUM (BEAKER) (test 4.1 meq/L 3.5-5.1 ppuk=770) CHLORIDE (BEAKER) (test 104 meq/L 98-107 sjsq=101) CO2 (BEAKER) (test 30 meq/L 22-29 flko=486) BLOOD UREA NITROGEN 30 mg/dL 7-21 (BEAKER) (test llsd=594) CREATININE (BEAKER) (test 0.82 mg/dL 0.57-1.25 aaac=011) GLUCOSE RANDOM (BEAKER) 207 mg/dL 70-105 (test rple=773) CALCIUM (BEAKER) (test 9.6 mg/dL 8.4-10.2 lwdz=131) EGFR (BEAKER) (test 73 mL/min/1.73 sq m ESTIMATED GFR IS NOT ayha=7056) ACCURATE CREATININE CLEARANCE IN PREDICTING GLOMERULAR FILTRATION RATE. ESTIMATED GFR IS NOT APPLICABLE FOR DIALYSIS PATIENTS. CBC W/PLT COUNT & AUTO [id number] 06:14:00 Test Item Value Reference Range Comments WHITE BLOOD CELL COUNT (BEAKER) (test kmsm=627) 8.9 K/ L 3.5-10.5 RED BLOOD CELL COUNT (BEAKER) (test afzg=902) 4.42 M/ L 3.93-5.22 HEMOGLOBIN (BEAKER) (test trkw=580) 10.5 GM/DL 11.2-15.7 HEMATOCRIT (BEAKER) (test zgfl=656) 35.4 % 34.1-44.9 MEAN CORPUSCULAR VOLUME (BEAKER) (test dsfp=934) 80.1 fL 79.4-94.8 MEAN CORPUSCULAR HEMOGLOBIN (BEAKER) (test 23.8 pg 25.6-32.2 sozr=013) MEAN CORPUSCULAR HEMOGLOBIN CONC (BEAKER) (test 29.7 GM/DL 32.2-35.5 eyrz=042) RED CELL DISTRIBUTION WIDTH (BEAKER) (test 18.3 % 11.7-14.4 jlzb=332) PLATELET COUNT (BEAKER) (test wxwn=407) 284 K/CU MM 150-450 MEAN PLATELET VOLUME (BEAKER) (test kcju=831) 11.8 fL 9.4-12.3 NUCLEATED RED BLOOD CELLS (BEAKER) (test 0 /100 WBC 0-0 brwl=381) NEUTROPHILS RELATIVE PERCENT (BEAKER) (test 77 % ntvd=830) LYMPHOCYTES RELATIVE PERCENT (BEAKER) (test 13 % knxh=327) MONOCYTES RELATIVE PERCENT (BEAKER) (test 8 % bwbz=888) EOSINOPHILS RELATIVE PERCENT (BEAKER) (test 2 % qxhm=886) BASOPHILS RELATIVE PERCENT (BEAKER) (test 0 % fhmt=168) NEUTROPHILS ABSOLUTE COUNT (BEAKER) (test 6.84 K/ L 1.56-6.13 xmgf=019) LYMPHOCYTES ABSOLUTE COUNT (BEAKER) (test 1.12 K/ L 1.18-3.74 teng=719) MONOCYTES ABSOLUTE COUNT (BEAKER) (test 0.70 K/ L 0.24-0.36 owap=008) EOSINOPHILS ABSOLUTE COUNT (BEAKER) (test 0.18 K/ L 0.04-0.36 fgyf=645) BASOPHILS ABSOLUTE COUNT (BEAKER) (test 0.03 K/ L 0.01-0.08 zqao=905) IMMATURE GRANULOCYTES-RELATIVE PERCENT (BEAKER) 0 % 0-1 (test qrqh=7423) POCT-GLUCOSE [id number] 17:28:00 Test Item Value Reference Range Comments POC-GLUCOSE METER (BEAKER) 184 mg/dL 70-110 TESTED AT [address] (test ndcy=8877) [facility] [address] POCT-GLUCOSE [id number] 13:37:00 Test Item Value Reference Range Comments POC-GLUCOSE METER (BEAKER) 198 mg/dL 70-110 TESTED AT [address] (test isxq=0911) [facility] [address] POCT-GLUCOSE [id number] 10:09:00 Test Item Value Reference Range Comments POC-GLUCOSE METER (BEAKER) 236 mg/dL 70-110 TESTED AT [address] (test lyss=3803) [facility] [address] POCT-GLUCOSE [id number] 08:51:00 Test Item Value Reference Range Comments POC-GLUCOSE METER (BEAKER) 222 mg/dL 70-110 TESTED AT [address] (test mhyt=4516) [facility] [address] [id number] 08:33:00 Test Item Value Reference Range Comments PHOSPHORUS (BEAKER) (test ysqn=634) 4.3 mg/dL 2.3-4.7 [id number] 08:33:00 Test Item Value Reference Range Comments MAGNESIUM (BEAKER) (test dkpl=199) 1.9 mg/dL 1.6-2.6 BASIC METABOLIC [id number] 08:33:00 Test Item Value Reference Range Comments SODIUM (BEAKER) (test 138 meq/L 136-145 mbvo=864) POTASSIUM (BEAKER) (test 3.8 meq/L 3.5-5.1 ngem=583) CHLORIDE (BEAKER) (test 101 meq/L 98-107 ymxu=974) CO2 (BEAKER) (test 31 meq/L 22-29 scqs=981) BLOOD UREA NITROGEN 26 mg/dL 7-21 (BEAKER) (test isaj=561) CREATININE (BEAKER) (test 0.88 mg/dL 0.57-1.25 bwmf=632) GLUCOSE RANDOM (BEAKER) 201 mg/dL 70-105 (test kilc=505) CALCIUM (BEAKER) (test 9.1 mg/dL 8.4-10.2 cvsk=525) EGFR (BEAKER) (test 67 mL/min/1.73 sq m ESTIMATED GFR IS NOT xngn=8337) ACCURATE CREATININE CLEARANCE IN PREDICTING GLOMERULAR FILTRATION RATE. ESTIMATED GFR IS NOT APPLICABLE FOR DIALYSIS PATIENTS. CBC W/PLT COUNT & AUTO [id number] 05:44:00 Test Item Value Reference Range Comments WHITE BLOOD CELL COUNT (BEAKER) (test tpnt=773) 6.3 K/ L 3.5-10.5 RED BLOOD CELL COUNT (BEAKER) (test kwih=110) 4.52 M/ L 3.93-5.22 HEMOGLOBIN (BEAKER) (test qvkr=188) 10.5 GM/DL 11.2-15.7 HEMATOCRIT (BEAKER) (test pfme=074) 36.3 % 34.1-44.9 MEAN CORPUSCULAR VOLUME (BEAKER) (test nxlv=735) 80.3 fL 79.4-94.8 MEAN CORPUSCULAR HEMOGLOBIN (BEAKER) (test 23.2 pg 25.6-32.2 dflj=581) MEAN CORPUSCULAR HEMOGLOBIN CONC (BEAKER) (test 28.9 GM/DL 32.2-35.5 lvii=272) RED CELL DISTRIBUTION WIDTH (BEAKER) (test 18.4 % 11.7-14.4 toak=527) PLATELET COUNT (BEAKER) (test hnmu=924) 253 K/CU MM 150-450 MEAN PLATELET VOLUME (BEAKER) (test vqvv=467) 11.2 fL 9.4-12.3 NUCLEATED RED BLOOD CELLS (BEAKER) (test 0 /100 WBC 0-0 btup=453) NEUTROPHILS RELATIVE PERCENT (BEAKER) (test 66 % bxzx=317) LYMPHOCYTES RELATIVE PERCENT (BEAKER) (test 21 % yphh=307) MONOCYTES RELATIVE PERCENT (BEAKER) (test 10 % wgrn=270) EOSINOPHILS RELATIVE PERCENT (BEAKER) (test 2 % atto=935) BASOPHILS RELATIVE PERCENT (BEAKER) (test 0 % tski=797) NEUTROPHILS ABSOLUTE COUNT (BEAKER) (test 4.21 K/ L 1.56-6.13 lfmg=248) LYMPHOCYTES ABSOLUTE COUNT (BEAKER) (test 1.33 K/ L 1.18-3.74 lcdy=133) MONOCYTES ABSOLUTE COUNT (BEAKER) (test 0.61 K/ L 0.24-0.36 svlx=316) EOSINOPHILS ABSOLUTE COUNT (BEAKER) (test 0.15 K/ L 0.04-0.36 ncgz=873) BASOPHILS ABSOLUTE COUNT (BEAKER) (test 0.02 K/ L 0.01-0.08 yvfz=684) IMMATURE GRANULOCYTES-RELATIVE PERCENT (BEAKER) 0 % 0-1 (test jjqz=0127) POCT-GLUCOSE [id number] 21:40:00 Test Item Value Reference Range Comments POC-GLUCOSE METER (BEAKER) 232 mg/dL 70-110 TESTED AT [address] (test lqlc=2767) [facility] [address] POCT-GLUCOSE [id number] 17:51:00 Test Item Value Reference Range Comments POC-GLUCOSE METER (BEAKER) 287 mg/dL 70-110 TESTED AT [address] (test ijvb=8488) [facility] [address] POCT-GLUCOSE [id number] 12:25:00 Test Item Value Reference Range Comments POC-GLUCOSE METER (BEAKER) 214 mg/dL 70-110 TESTED AT [address] (test ntiq=7475) [facility] [address] POCT-GLUCOSE [id number] 08:39:00 Test Item Value Reference Range Comments POC-GLUCOSE METER (BEAKER) 213 mg/dL 70-110 TESTED AT [address] (test jwpy=6665) [facility] [address] BASIC METABOLIC [id number] 08:05:00 Test Item Value Reference Range Comments SODIUM (BEAKER) (test 142 meq/L 136-145 nqlf=315) POTASSIUM (BEAKER) (test 4.1 meq/L 3.5-5.1 doez=183) CHLORIDE (BEAKER) (test 105 meq/L 98-107 qjyf=402) CO2 (BEAKER) (test 29 meq/L 22-29 xtem=738) BLOOD UREA NITROGEN 22 mg/dL 7-21 (BEAKER) (test gmvj=778) CREATININE (BEAKER) (test 0.78 mg/dL 0.57-1.25 ozkw=500) GLUCOSE RANDOM (BEAKER) 170 mg/dL 70-105 (test puhq=210) CALCIUM (BEAKER) (test 8.8 mg/dL 8.4-10.2 rsih=223) EGFR (BEAKER) (test 78 mL/min/1.73 sq m ESTIMATED GFR IS NOT pwwu=3818) ACCURATE CREATININE CLEARANCE IN PREDICTING GLOMERULAR FILTRATION RATE. ESTIMATED GFR IS NOT APPLICABLE FOR DIALYSIS PATIENTS. [id number] 07:11:00 Test Item Value Reference Range Comments PHOSPHORUS (BEAKER) (test pjiw=986) 4.4 mg/dL 2.3-4.7 [id number] 07:11:00 Test Item Value Reference Range Comments MAGNESIUM (BEAKER) (test wapp=627) 1.7 mg/dL 1.6-2.6 CBC W/PLT COUNT & AUTO [id number] 06:29:00 Test Item Value Reference Range Comments WHITE BLOOD CELL COUNT (BEAKER) (test ohmu=879) 6.8 K/ L 3.5-10.5 RED BLOOD CELL COUNT (BEAKER) (test xzgo=825) 4.42 M/ L 3.93-5.22 HEMOGLOBIN (BEAKER) (test hqng=342) 10.4 GM/DL 11.2-15.7 HEMATOCRIT (BEAKER) (test eyzq=614) 35.4 % 34.1-44.9 MEAN CORPUSCULAR VOLUME (BEAKER) (test sgvx=098) 80.1 fL 79.4-94.8 MEAN CORPUSCULAR HEMOGLOBIN (BEAKER) (test 23.5 pg 25.6-32.2 uetx=746) MEAN CORPUSCULAR HEMOGLOBIN CONC (BEAKER) (test 29.4 GM/DL 32.2-35.5 evav=419) RED CELL DISTRIBUTION WIDTH (BEAKER) (test 18.4 % 11.7-14.4 bcee=910) PLATELET COUNT (BEAKER) (test uofk=428) 238 K/CU MM 150-450 MEAN PLATELET VOLUME (BEAKER) (test cqfm=636) 12.0 fL 9.4-12.3 NUCLEATED RED BLOOD CELLS (BEAKER) (test 0 /100 WBC 0-0 vpkx=006) NEUTROPHILS RELATIVE PERCENT (BEAKER) (test 68 % nfof=864) LYMPHOCYTES RELATIVE PERCENT (BEAKER) (test 20 % advg=875) MONOCYTES RELATIVE PERCENT (BEAKER) (test 9 % kqbb=226) EOSINOPHILS RELATIVE PERCENT (BEAKER) (test 2 % ezqq=661) BASOPHILS RELATIVE PERCENT (BEAKER) (test 0 % udxq=446) NEUTROPHILS ABSOLUTE COUNT (BEAKER) (test 4.62 K/ L 1.56-6.13 skkv=151) LYMPHOCYTES ABSOLUTE COUNT (BEAKER) (test 1.35 K/ L 1.18-3.74 cywy=200) MONOCYTES ABSOLUTE COUNT (BEAKER) (test 0.64 K/ L 0.24-0.36 qmzl=298) EOSINOPHILS ABSOLUTE COUNT (BEAKER) (test 0.15 K/ L 0.04-0.36 kkrc=055) BASOPHILS ABSOLUTE COUNT (BEAKER) (test 0.02 K/ L 0.01-0.08 xtgx=990) IMMATURE GRANULOCYTES-RELATIVE PERCENT (BEAKER) 0 % 0-1 (test dlwd=0691) POCT-GLUCOSE [id number] 21:14:00 Test Item Value Reference Range Comments POC-GLUCOSE METER (BEAKER) 272 mg/dL 70-110 TESTED AT [address] (test iffs=4178) [place] [address] POCT-GLUCOSE [id number] 17:14:00 Test Item Value Reference Range Comments POC-GLUCOSE METER (BEAKER) 261 mg/dL 70-110 TESTED AT [address] (test zoby=4957) [place] [address] POCT-GLUCOSE [id number] 12:12:00 Test Item Value Reference Range Comments POC-GLUCOSE METER (BEAKER) 220 mg/dL 70-110 TESTED AT [address] (test cadb=1359) [place] [address] POCT-GLUCOSE [id number] 08:40:00 Test Item Value Reference Range Comments POC-GLUCOSE METER (BEAKER) 196 mg/dL 70-110 TESTED AT [address] (test ixqz=0216) [place] [address] [id number] 06:37:00 Test Item Value Reference Range Comments MAGNESIUM (BEAKER) (test 1.8 mg/dL 1.6-2.6 Specimen slightly hemolyzed rbhv=151) [id number] 06:37:00 Test Item Value Reference Range Comments PHOSPHORUS (BEAKER) (test 4.1 mg/dL 2.3-4.7 Specimen slightly hemolyzed yjrn=162) BASIC METABOLIC [id number] 06:37:00 Test Item Value Reference Range Comments SODIUM (BEAKER) (test 141 meq/L 136-145 fbmw=839) POTASSIUM (BEAKER) (test 4.3 meq/L 3.5-5.1 Specimen slightly tzye=807) hemolyzed CHLORIDE (BEAKER) (test 108 meq/L 98-107 cjyr=368) CO2 (BEAKER) (test 25 meq/L 22-29 pqip=125) BLOOD UREA NITROGEN 19 mg/dL 7-21 (BEAKER) (test xrih=530) CREATININE (BEAKER) (test 0.72 mg/dL 0.57-1.25 Specimen slightly xqpk=056) hemolyzed GLUCOSE RANDOM (BEAKER) 184 mg/dL 70-105 (test qegs=807) CALCIUM (BEAKER) (test 8.8 mg/dL 8.4-10.2 kbsf=973) EGFR (BEAKER) (test 85 mL/min/1.73 sq m ESTIMATED GFR IS NOT moia=5888) ACCURATE CREATININE CLEARANCE IN PREDICTING GLOMERULAR FILTRATION RATE. ESTIMATED GFR IS NOT APPLICABLE FOR DIALYSIS PATIENTS. CBC W/PLT COUNT & AUTO [id number] 05:54:00 Test Item Value Reference Range Comments WHITE BLOOD CELL COUNT (BEAKER) (test sbvb=413) 6.6 K/ L 3.5-10.5 RED BLOOD CELL COUNT (BEAKER) (test ldzl=570) 4.07 M/ L 3.93-5.22 HEMOGLOBIN (BEAKER) (test vobb=472) 9.7 GM/DL 11.2-15.7 HEMATOCRIT (BEAKER) (test yykw=903) 32.0 % 34.1-44.9 MEAN CORPUSCULAR VOLUME (BEAKER) (test zmvm=766) 78.6 fL 79.4-94.8 MEAN CORPUSCULAR HEMOGLOBIN (BEAKER) (test 23.8 pg 25.6-32.2 hzqu=734) MEAN CORPUSCULAR HEMOGLOBIN CONC (BEAKER) (test 30.3 GM/DL 32.2-35.5 uqni=412) RED CELL DISTRIBUTION WIDTH (BEAKER) (test 18.2 % 11.7-14.4 fepn=963) PLATELET COUNT (BEAKER) (test bnyb=384) 238 K/CU MM 150-450 MEAN PLATELET VOLUME (BEAKER) (test xfgj=386) 11.5 fL 9.4-12.3 NUCLEATED RED BLOOD CELLS (BEAKER) (test 0 /100 WBC 0-0 lbju=967) NEUTROPHILS RELATIVE PERCENT (BEAKER) (test 70 % hknb=501) LYMPHOCYTES RELATIVE PERCENT (BEAKER) (test 18 % muwz=687) MONOCYTES RELATIVE PERCENT (BEAKER) (test 9 % zvhv=130) EOSINOPHILS RELATIVE PERCENT (BEAKER) (test 2 % nhee=910) BASOPHILS RELATIVE PERCENT (BEAKER) (test 0 % ihmc=153) NEUTROPHILS ABSOLUTE COUNT (BEAKER) (test 4.58 K/ L 1.56-6.13 mtym=710) LYMPHOCYTES ABSOLUTE COUNT (BEAKER) (test 1.18 K/ L 1.18-3.74 dgct=659) MONOCYTES ABSOLUTE COUNT (BEAKER) (test 0.58 K/ L 0.24-0.36 aysi=939) EOSINOPHILS ABSOLUTE COUNT (BEAKER) (test 0.16 K/ L 0.04-0.36 jrpo=054) BASOPHILS ABSOLUTE COUNT (BEAKER) (test 0.02 K/ L 0.01-0.08 vthb=042) IMMATURE GRANULOCYTES-RELATIVE PERCENT (BEAKER) 1 % 0-1 (test tngl=2153) POCT-GLUCOSE [id number] 21:11:00 Test Item Value Reference Range Comments POC-GLUCOSE METER (BEAKER) 212 mg/dL 70-110 TESTED AT [address] (test oaov=1816) [facility] [address] POCT-GLUCOSE [id number] 18:23:00 Test Item Value Reference Range Comments POC-GLUCOSE METER (BEAKER) 250 mg/dL 70-110 TESTED AT [address] (test uqba=0506) [facility] [address] POCT-GLUCOSE [id number] 11:14:00 Test Item Value Reference Range Comments POC-GLUCOSE METER (BEAKER) 145 mg/dL 70-110 TESTED AT [address] (test mgkk=7705) [facility] [address] POCT-GLUCOSE [id number] 08:38:00 Test Item Value Reference Range Comments POC-GLUCOSE METER (BEAKER) 157 mg/dL 70-110 TESTED AT [address] (test frwu=8627) [facility] [address] [id number] 05:53:00 Test Item Value Reference Range Comments PHOSPHORUS (BEAKER) (test szeh=439) 3.6 mg/dL 2.3-4.7 [id number] 05:53:00 Test Item Value Reference Range Comments MAGNESIUM (BEAKER) (test prbq=036) 1.8 mg/dL 1.6-2.6 BASIC METABOLIC [id number] 05:53:00 Test Item Value Reference Range Comments SODIUM (BEAKER) (test 142 meq/L 136-145 penn=600) POTASSIUM (BEAKER) (test 4.0 meq/L 3.5-5.1 pufu=149) CHLORIDE (BEAKER) (test 108 meq/L 98-107 nujm=562) CO2 (BEAKER) (test 25 meq/L 22-29 tklt=316) BLOOD UREA NITROGEN 18 mg/dL 7-21 (BEAKER) (test rwzj=057) CREATININE (BEAKER) (test 0.76 mg/dL 0.57-1.25 wwew=670) GLUCOSE RANDOM (BEAKER) 139 mg/dL 70-105 (test fvmy=446) CALCIUM (BEAKER) (test 8.9 mg/dL 8.4-10.2 aiuf=623) EGFR (BEAKER) (test 80 mL/min/1.73 sq m ESTIMATED GFR IS NOT bfvp=4454) ACCURATE CREATININE CLEARANCE IN PREDICTING GLOMERULAR FILTRATION RATE. ESTIMATED GFR IS NOT APPLICABLE FOR DIALYSIS PATIENTS. CBC W/PLT COUNT & AUTO [id number] 05:51:00 Test Item Value Reference Range Comments WHITE BLOOD CELL COUNT (BEAKER) (test dklc=426) 6.8 K/ L 3.5-10.5 RED BLOOD CELL COUNT (BEAKER) (test olyh=636) 4.05 M/ L 3.93-5.22 HEMOGLOBIN (BEAKER) (test bhrh=310) 9.4 GM/DL 11.2-15.7 HEMATOCRIT (BEAKER) (test weos=688) 31.4 % 34.1-44.9 MEAN CORPUSCULAR VOLUME (BEAKER) (test lyct=371) 77.5 fL 79.4-94.8 MEAN CORPUSCULAR HEMOGLOBIN (BEAKER) (test 23.2 pg 25.6-32.2 alxf=683) MEAN CORPUSCULAR HEMOGLOBIN CONC (BEAKER) (test 29.9 GM/DL 32.2-35.5 dstg=654) RED CELL DISTRIBUTION WIDTH (BEAKER) (test 18.1 % 11.7-14.4 hemd=601) PLATELET COUNT (BEAKER) (test tslh=460) 245 K/CU MM 150-450 MEAN PLATELET VOLUME (BEAKER) (test weov=369) 10.9 fL 9.4-12.3 NUCLEATED RED BLOOD CELLS (BEAKER) (test 0 /100 WBC 0-0 oxho=994) NEUTROPHILS RELATIVE PERCENT (BEAKER) (test 68 % opqv=878) LYMPHOCYTES RELATIVE PERCENT (BEAKER) (test 21 % sudq=370) MONOCYTES RELATIVE PERCENT (BEAKER) (test 8 % zyxr=415) EOSINOPHILS RELATIVE PERCENT (BEAKER) (test 2 % upvz=539) BASOPHILS RELATIVE PERCENT (BEAKER) (test 0 % jaxe=443) NEUTROPHILS ABSOLUTE COUNT (BEAKER) (test 4.67 K/ L 1.56-6.13 xewn=854) LYMPHOCYTES ABSOLUTE COUNT (BEAKER) (test 1.43 K/ L 1.18-3.74 ldqz=136) MONOCYTES ABSOLUTE COUNT (BEAKER) (test 0.55 K/ L 0.24-0.36 wxee=064) EOSINOPHILS ABSOLUTE COUNT (BEAKER) (test 0.13 K/ L 0.04-0.36 olgk=748) BASOPHILS ABSOLUTE COUNT (BEAKER) (test 0.03 K/ L 0.01-0.08 exca=080) IMMATURE GRANULOCYTES-RELATIVE PERCENT (BEAKER) 0 % 0-1 (test wkow=0890) POCT-GLUCOSE [id number] 21:57:00 Test Item Value Reference Range Comments POC-GLUCOSE METER (BEAKER) 207 mg/dL 70-110 TESTED AT [address] (test hixq=3705) [facility] [address] POCT-GLUCOSE [id number] 19:01:00 Test Item Value Reference Range Comments POC-GLUCOSE METER (BEAKER) 286 mg/dL 70-110 TESTED AT [address] (test abrw=1120) [facility] [address] LUPUS ANTICOAGULANT SCREEN WITH REFLEX TO [id number] 14:56:00 Test Item Value Reference Range Comments DRVV SCREEN RATIO (BEAKER) 1.11 <1.20 (test nwuw=6243) DRVV INTERPRETATION (BEAKER) Prolonged lupus sensitive PTT (test edqs=9788) (PTT-La) DRVV INTERPRETATION (BEAKER) Positive Hexagonal (test hnir=15675) Phospholipid DRVV INTERPRETATION (BEAKER) Positive screen for Lupus (test fsvk=44042) Anticoagulant. Suggest repeat testing in 12 weeks and when patient not receiving anticoagulant therapy. PROTIME (BEAKER) (test 13.7 seconds 11.9-14.2 ugcm=616) INR (BEAKER) (test qeos=421) 1.1 <=5.9 PARTIAL THROMBOPLASTIN TIME 35.9 seconds 22.5-36.0 (BEAKER) (test nhjr=964) PTT-LA (BEAKER) (test 43.7 32.0-41.8 inyy=[id number]) FPQS-OIWADJWQSVC-509 (BEAKER) Sumit Vega M.D. (test jeyz=9556) (electonic signature) HEXAGONAL [id number] 14:47:00 Test Item Value Reference Range Comments HEXAGONAL PHOSPHOLIPID (BEAKER) (test dupj=1511) Positive POCT-GLUCOSE [id number] 12:23:00 Test Item Value Reference Range Comments POC-GLUCOSE METER (BEAKER) 245 mg/dL 70-110 TESTED AT [address] (test nzpz=5863) [facility] [address] FACTOR 8 [id number] 11:27:00 Test Item Value Reference Range Comments FACTOR VIII ACTIVITY (BEAKER) (test iyvl=696) 324.0 % 45.0-150.0 POCT-GLUCOSE [id number] 08:30:00 Test Item Value Reference Range Comments POC-GLUCOSE METER (BEAKER) 166 mg/dL 70-110 TESTED AT [address] (test eaie=4676) [place] [id number] 06:51:00 Test Item Value Reference Range Comments PHOSPHORUS (BEAKER) (test zmug=358) 4.6 mg/dL 2.3-4.7 [id number] 06:51:00 Test Item Value Reference Range Comments MAGNESIUM (BEAKER) (test idrc=748) 2.1 mg/dL 1.6-2.6 BASIC METABOLIC [id number] 06:51:00 Test Item Value Reference Range Comments SODIUM (BEAKER) (test 141 meq/L 136-145 sisu=677) POTASSIUM (BEAKER) (test 3.7 meq/L 3.5-5.1 kewr=255) CHLORIDE (BEAKER) (test 109 meq/L 98-107 vgsk=888) CO2 (BEAKER) (test 26 meq/L 22-29 qfvb=178) BLOOD UREA NITROGEN 22 mg/dL 7-21 (BEAKER) (test asix=057) CREATININE (BEAKER) (test 0.85 mg/dL 0.57-1.25 zkwd=102) GLUCOSE RANDOM (BEAKER) 168 mg/dL 70-105 (test lgvb=742) CALCIUM (BEAKER) (test 8.7 mg/dL 8.4-10.2 unce=113) EGFR (BEAKER) (test 70 mL/min/1.73 sq m ESTIMATED GFR IS NOT hcpw=0530) ACCURATE CREATININE CLEARANCE IN PREDICTING GLOMERULAR FILTRATION RATE. ESTIMATED GFR IS NOT APPLICABLE FOR DIALYSIS PATIENTS. CBC W/PLT COUNT & AUTO [id number] 06:32:00 Test Item Value Reference Range Comments WHITE BLOOD CELL COUNT (BEAKER) (test vfnc=511) 6.7 K/ L 3.5-10.5 RED BLOOD CELL COUNT (BEAKER) (test pvvo=481) 3.94 M/ L 3.93-5.22 HEMOGLOBIN (BEAKER) (test etww=294) 9.3 GM/DL 11.2-15.7 HEMATOCRIT (BEAKER) (test byty=497) 30.7 % 34.1-44.9 MEAN CORPUSCULAR VOLUME (BEAKER) (test fjtp=082) 77.9 fL 79.4-94.8 MEAN CORPUSCULAR HEMOGLOBIN (BEAKER) (test 23.6 pg 25.6-32.2 lklz=787) MEAN CORPUSCULAR HEMOGLOBIN CONC (BEAKER) (test 30.3 GM/DL 32.2-35.5 aafe=854) RED CELL DISTRIBUTION WIDTH (BEAKER) (test 17.9 % 11.7-14.4 jnvs=425) PLATELET COUNT (BEAKER) (test agfa=381) 252 K/CU MM 150-450 MEAN PLATELET VOLUME (BEAKER) (test whtf=476) 11.1 fL 9.4-12.3 NUCLEATED RED BLOOD CELLS (BEAKER) (test 0 /100 WBC 0-0 jgvn=466) NEUTROPHILS RELATIVE PERCENT (BEAKER) (test 66 % gksn=374) LYMPHOCYTES RELATIVE PERCENT (BEAKER) (test 23 % mdgx=163) MONOCYTES RELATIVE PERCENT (BEAKER) (test 8 % vzut=199) EOSINOPHILS RELATIVE PERCENT (BEAKER) (test 2 % qyco=066) BASOPHILS RELATIVE PERCENT (BEAKER) (test 1 % unjb=008) NEUTROPHILS ABSOLUTE COUNT (BEAKER) (test 4.40 K/ L 1.56-6.13 mzex=489) LYMPHOCYTES ABSOLUTE COUNT (BEAKER) (test 1.54 K/ L 1.18-3.74 qasr=707) MONOCYTES ABSOLUTE COUNT (BEAKER) (test 0.55 K/ L 0.24-0.36 zpeo=755) EOSINOPHILS ABSOLUTE COUNT (BEAKER) (test 0.11 K/ L 0.04-0.36 nrlq=808) BASOPHILS ABSOLUTE COUNT (BEAKER) (test 0.03 K/ L 0.01-0.08 hfps=209) IMMATURE GRANULOCYTES-RELATIVE PERCENT (BEAKER) 1 % 0-1 (test tuox=2650) POCT-GLUCOSE [id number] 06:22:00 Test Item Value Reference Range Comments POC-GLUCOSE METER (BEAKER) 173 mg/dL 70-110 TESTED AT [facility] [address] [address] (test iweq=2139) [facility] [address] [id number] 13:55:00 Test Item Value Reference Range Comments RPR SCREEN (BEAKER) (test yodx=893) Nonreactive Nonreactive PROTEIN C [id number] 12:17:00 Test Item Value Reference Range Comments PROTEIN C ACTIVITY (BEAKER) (test knls=965) 104.0 % 70.0-130.0 CARDIOLIPIN ANTIBODIES, IGG AND [id number] 12:00:00 Test Item Value Reference Range Comments ANTICARDIOLIPIN IGG ANTIBODY (BEAKER) (test 108.2 GPL <20.0 jnpx=537) ANTICARDIOLIPIN IGM ANTIBODY (BEAKER) (test 1.8 MPL <20.0 iuea=790) Anticardiolipin IgG Result Interpretation: <20.0 GPL Normal>/=20.0 GPL PositiveAnticardiolipin IgM Result Interpretation: <20.0 MPL Normal>/= 20.0 MPL PositiveANTITHROMBIN [id number] 10:54:00 Test Item Value Reference Range Comments ANTITHROMBIN III ACTIVITY (BEAKER) (test jnep=245) 124.0 % 80.0-120.0 POCT-GLUCOSE [id number] 06:23:00 Test Item Value Reference Range Comments POC-GLUCOSE METER (BEAKER) 164 mg/dL 70-110 TESTED AT [facility] [address] [facility] (test nxok=5384) [facility] [address] [id number] 05:44:00 Test Item Value Reference Range Comments PHOSPHORUS (BEAKER) (test ytzr=195) 4.1 mg/dL 2.3-4.7 [id number] 05:44:00 Test Item Value Reference Range Comments MAGNESIUM (BEAKER) (test bpda=349) 1.6 mg/dL 1.6-2.6 BASIC METABOLIC [id number] 05:44:00 Test Item Value Reference Range Comments SODIUM (BEAKER) (test 141 meq/L 136-145 wahr=507) POTASSIUM (BEAKER) (test 3.9 meq/L 3.5-5.1 clib=851) CHLORIDE (BEAKER) (test 109 meq/L 98-107 julk=599) CO2 (BEAKER) (test 23 meq/L 22-29 tquq=394) BLOOD UREA NITROGEN 16 mg/dL 7-21 (BEAKER) (test mfbm=494) CREATININE (BEAKER) (test 0.78 mg/dL 0.57-1.25 dpvo=861) GLUCOSE RANDOM (BEAKER) 177 mg/dL 70-105 (test cjjk=923) CALCIUM (BEAKER) (test 8.7 mg/dL 8.4-10.2 erzz=298) EGFR (BEAKER) (test 78 mL/min/1.73 sq m ESTIMATED GFR IS NOT wuzj=1558) ACCURATE CREATININE CLEARANCE IN PREDICTING GLOMERULAR FILTRATION RATE. ESTIMATED GFR IS NOT APPLICABLE FOR DIALYSIS PATIENTS. CBC W/PLT COUNT & AUTO [id number] 04:34:00 Test Item Value Reference Range Comments WHITE BLOOD CELL COUNT (BEAKER) (test wwyh=768) 7.0 K/ L 3.5-10.5 RED BLOOD CELL COUNT (BEAKER) (test zesc=331) 3.99 M/ L 3.93-5.22 HEMOGLOBIN (BEAKER) (test xqsv=842) 9.3 GM/DL 11.2-15.7 HEMATOCRIT (BEAKER) (test bshr=406) 31.5 % 34.1-44.9 MEAN CORPUSCULAR VOLUME (BEAKER) (test seag=288) 78.9 fL 79.4-94.8 MEAN CORPUSCULAR HEMOGLOBIN (BEAKER) (test 23.3 pg 25.6-32.2 fuef=074) MEAN CORPUSCULAR HEMOGLOBIN CONC (BEAKER) (test 29.5 GM/DL 32.2-35.5 qgww=467) RED CELL DISTRIBUTION WIDTH (BEAKER) (test 17.8 % 11.7-14.4 pukf=818) PLATELET COUNT (BEAKER) (test uzle=358) 259 K/CU MM 150-450 MEAN PLATELET VOLUME (BEAKER) (test xvaz=914) 11.4 fL 9.4-12.3 NUCLEATED RED BLOOD CELLS (BEAKER) (test 0 /100 WBC 0-0 kspk=169) NEUTROPHILS RELATIVE PERCENT (BEAKER) (test 68 % xpgf=290) LYMPHOCYTES RELATIVE PERCENT (BEAKER) (test 22 % btzc=250) MONOCYTES RELATIVE PERCENT (BEAKER) (test 9 % jgyv=264) EOSINOPHILS RELATIVE PERCENT (BEAKER) (test 1 % iqtu=591) BASOPHILS RELATIVE PERCENT (BEAKER) (test 0 % tzwy=602) NEUTROPHILS ABSOLUTE COUNT (BEAKER) (test 4.74 K/ L 1.56-6.13 lsds=060) LYMPHOCYTES ABSOLUTE COUNT (BEAKER) (test 1.52 K/ L 1.18-3.74 cifh=123) MONOCYTES ABSOLUTE COUNT (BEAKER) (test 0.61 K/ L 0.24-0.36 vcwb=279) EOSINOPHILS ABSOLUTE COUNT (BEAKER) (test 0.07 K/ L 0.04-0.36 phtj=644) BASOPHILS ABSOLUTE COUNT (BEAKER) (test 0.03 K/ L 0.01-0.08 gowf=804) IMMATURE GRANULOCYTES-RELATIVE PERCENT (BEAKER) 1 % 0-1 (test pvqf=2740) POCT-GLUCOSE [id number] 23:58:00 Test Item Value Reference Range Comments POC-GLUCOSE METER (BEAKER) 180 mg/dL 70-110 [facility]ED AT [facility] [address] [facility] (test zdrw=2233) [facility] [address] T4, [id number] 18:22:00 Test Item Value Reference Range Comments FREE T4 (BEAKER) (test aoom=012) 1.03 ng/dL 0.70-1.48 VITAMIN [id number] 15:25:00 Test Item Value Reference Range Comments VITAMIN B12 (BEAKER) (test hjfq=939) < pg/mL 213-816 TSH/FREE T4 IF [id number] 15:25:00 Test Item Value Reference Range Comments THYROID STIMULATING HORMONE (BEAKER) (test 0.20 uIU/mL 0.35-4.94 svds=963) [id number] 15:25:00 Test Item Value Reference Range Comments HOMOCYSTEINE (BEAKER) (test lffd=681) 37.7 umol/L 5.1-15.4 TROPONIN [id number] 14:59:00 Test Item Value Reference Range Comments TROPONIN I (BEAKER) (test nofm=248) 0.02 ng/mL 0.00-0.03 Troponin I (TnI) levels must be interpreted in the context of the presenting symptoms and the clinical findings. Elevated TnI levels indicate myocardial damage, but are not specific for ischemic heart disease. Elevated TnI levels are seen in patients with other cardiac conditions (including myocarditis and congestive heart failure), and slight TnI elevations occur in patients with other conditions, including sepsis, renal failure, acidosis, acute neurological disease, and persistent tachyarrhythmia.IRON, TIBC, % SAT. (WITHOUT FERRITIN) 2018-10-12 14:56:00 Test Item Value Reference Range Comments IRON (BEAKER) (test jovu=530) 33.0 ug/dL 40.0-160.0 TOTAL IRON BINDING CAPACITY (BEAKER) (test 290 ug/dL 250-450 crpa=384) IRON % SATURATION (2) (BEAKER) (test pzim=3571) 11 % 20-55 POCT-GLUCOSE [id number] 12:45:00 Test Item Value Reference Range Comments POC-GLUCOSE METER (BEAKER) 215 mg/dL 70-110 TESTED AT [address] (test kwdp=6253) [facility] [address] MR, BRAIN, WITHOUT [id number] 12:22:00Reason for exam:->Ischemic Stroke EvaluationFINAL REPORT MRI Brain without contrast Clinical History: Stroke Technique: MRI of the brain utilizing axial T2, FLAIR, GRE, DWI; sagittal and coronal T1-weighted images. Comparisons: CT 10/12/2018 Findings: Acute infarction of the right corpus striatum is again seen with additional small acute infarcts of the right external capsule, right frontal operculum and right temporal occipital lobes. There is no acute hemorrhage. Ischemic edema narrows right lateral ventricle. There is mild generalized sulcal prominence without hydrocephalus or midline shift. There are no extra- axial fluid collections. The craniocervical junction is preserved. The major intracranial flow-voids appear patent. IMPRESSION: Acute infarction in the right-sided corpus striatum, internal capsule, frontal operculum, and temporal occipital lobes. No hemorrhage. Signed: Gilma Nogueiraort Verified Date/ Time: 10/12/2018 12:22:38 Reading Location: [address] Neuro Reading Room HEMOGLOBIN [id number] 08:24:00 Test Item Value Reference Range Comments HEMOGLOBIN A1C ([employer]) (test szst=451) 11.8 % 4.3-6.1 POCT-GLUCOSE [id number] 06:12:00 Test Item Value Reference Range Comments POC-GLUCOSE METER ([employer]) 271 mg/dL 70-110 TESTED AT [address] (test mslk=4861) [facility] [address] TROPONIN [id number] 05:12:00 Test Item Value Reference Range Comments TROPONIN I ([employer]) (test djdi=954) 0.01 ng/mL 0.00-0.03 Troponin I (TnI) levels must be interpreted in the context of the presenting symptoms and the clinical findings. Elevated TnI levels indicate myocardial damage, but are not specific for ischemic heart disease. Elevated TnI levels are seen in patients with other cardiac conditions (including myocarditis and congestive heart failure), and slight TnI elevations occur in patients with other conditions, including sepsis, renal failure, acidosis, acute neurological disease, and persistent tachyarrhythmia.[id number] 05:07:00 Test Item Value Reference Range Comments PHOSPHORUS (BEAKER) (test vlpo=601) 3.6 mg/dL 2.3-4.7 [id number] 05:07:00 Test Item Value Reference Range Comments MAGNESIUM (BEAKER) (test dmri=162) 1.5 mg/dL 1.6-2.6 FastingBASIC METABOLIC [id number] 05:07:00 Test Item Value Reference Range Comments SODIUM (BEAKER) (test 138 meq/L 136-145 dvky=987) POTASSIUM (BEAKER) (test 3.9 meq/L 3.5-5.1 dact=676) CHLORIDE (BEAKER) (test 104 meq/L 98-107 solc=989) CO2 (BEAKER) (test 24 meq/L 22-29 yvxm=057) BLOOD UREA NITROGEN 22 mg/dL 7-21 (BEAKER) (test zjdc=291) CREATININE (BEAKER) (test 0.81 mg/dL 0.57-1.25 wwus=827) GLUCOSE RANDOM (BEAKER) 277 mg/dL 70-105 (test hfwd=154) CALCIUM (BEAKER) (test 9.2 mg/dL 8.4-10.2 bmlm=114) EGFR (BEAKER) (test 74 mL/min/1.73 sq m ESTIMATED GFR IS NOT dnoq=8694) ACCURATE CREATININE CLEARANCE IN PREDICTING GLOMERULAR FILTRATION RATE. ESTIMATED GFR IS NOT APPLICABLE FOR DIALYSIS PATIENTS. FastingLIPID [id number] 05:07:00 Test Item Value Reference Range Comments TRIGLYCERIDES (BEAKER) (test gtcc=493) 277 mg/dL CHOLESTEROL (BEAKER) (test jjse=417) 284 mg/dL HDL CHOLESTEROL (BEAKER) (test sjql=525) 42 mg/dL LDL CHOLESTEROL CALCULATED (BEAKER) (test 187 mg/dL mhmo=132) Triglyceride Reference Range: Low Risk <150 Borderline 150- 199 High Risk 200-499 Very High Risk >=500Cholesterol Reference Range: Low Risk <200 Borderline 200-239 High Risk > 240HDL Cholesterol Reference Range: Low Risk >=60 High Risk <40LDL Cholesterol Reference Range: Optimal <100 Near Optimal 100-129 Borderline 130-159 High 160-189 Very High >=190 FastingHEPATIC FUNCTION [id number] 05:07:00 Test Item Value Reference Range Comments TOTAL PROTEIN (BEAKER) (test vuny=796) 7.1 gm/dL 6.0-8.3 ALBUMIN (BEAKER) (test vchb=9728) 3.3 g/dL 3.5-5.0 BILIRUBIN TOTAL (BEAKER) (test qbos=599) 0.2 mg/dL 0.2-1.2 BILIRUBIN DIRECT (BEAKER) (test csgk=887) 0.1 mg/dL 0.1-0.5 ALKALINE PHOSPHATASE (BEAKER) (test mtub=860) 108 U/L 40-150 AST (SGOT) (BEAKER) (test vhqc=023) 15 U/L 5-34 ALT (SGPT) (BEAKER) (test exga=470) 10 U/L 6-55 FastingCBC W/PLT COUNT & AUTO [id number] 04:52:00 Test Item Value Reference Range Comments WHITE BLOOD CELL COUNT (BEAKER) (test izpr=131) 8.3 K/ L 3.5-10.5 RED BLOOD CELL COUNT (BEAKER) (test ojco=727) 4.29 M/ L 3.93-5.22 HEMOGLOBIN (BEAKER) (test ufdy=814) 10.0 GM/DL 11.2-15.7 HEMATOCRIT (BEAKER) (test zwjt=838) 32.8 % 34.1-44.9 MEAN CORPUSCULAR VOLUME (BEAKER) (test yyfz=345) 76.5 fL 79.4-94.8 MEAN CORPUSCULAR HEMOGLOBIN (BEAKER) (test 23.3 pg 25.6-32.2 zffa=778) MEAN CORPUSCULAR HEMOGLOBIN CONC (BEAKER) (test 30.5 GM/DL 32.2-35.5 sibg=671) RED CELL DISTRIBUTION WIDTH (BEAKER) (test 17.4 % 11.7-14.4 writ=258) PLATELET COUNT (BEAKER) (test veau=758) 273 K/CU MM 150-450 MEAN PLATELET VOLUME (BEAKER) (test oect=549) 11.1 fL 9.4-12.3 NUCLEATED RED BLOOD CELLS (BEAKER) (test 0 /100 WBC 0-0 zkuk=698) NEUTROPHILS RELATIVE PERCENT (BEAKER) (test 77 % ryee=781) LYMPHOCYTES RELATIVE PERCENT (BEAKER) (test 16 % hebv=532) MONOCYTES RELATIVE PERCENT (BEAKER) (test 6 % uwwt=137) EOSINOPHILS RELATIVE PERCENT (BEAKER) (test 1 % nqnr=698) BASOPHILS RELATIVE PERCENT (BEAKER) (test 0 % okom=429) NEUTROPHILS ABSOLUTE COUNT (BEAKER) (test 6.42 K/ L 1.56-6.13 zrru=853) LYMPHOCYTES ABSOLUTE COUNT (BEAKER) (test 1.30 K/ L 1.18-3.74 jrew=125) MONOCYTES ABSOLUTE COUNT (BEAKER) (test 0.47 K/ L 0.24-0.36 klpy=373) EOSINOPHILS ABSOLUTE COUNT (BEAKER) (test 0.04 K/ L 0.04-0.36 qahe=279) BASOPHILS ABSOLUTE COUNT (BEAKER) (test 0.02 K/ L 0.01-0.08 yets=530) IMMATURE GRANULOCYTES-RELATIVE PERCENT (BEAKER) 1 % 0-1 (test bsfq=1486) CT, CTANGIO [id number] 03:50:00FINAL REPORT CT, CAROTID, ANGIO, CT, CTANGIO BRAINCTA HEAD AND NECK INDICATION: Stroke COMPARISON: CT head of the same date TECHNIQUE:Rapid acquisition spiral images were obtained between the aortic arch and the cranial vertex during intravenous contrast infusion to reconstruct axial images and angiographic 3D maximum intensity projections (MIP). 3-D volumetric reformatted images were created at a dedicated workstation.Stenosis evaluation reported in compliance with NASCET criteria. DOSE REDUCTION: Dose modulation, iterative reconstruction, and/or weight-based adjustment ofthe mA/kV was utilized to reduce the radiation dose to as low as reasonably achievable. FINDINGS: CTA BRAIN:Internal carotid arteries: Petrous, cavernous and supraclinoid portions patent. Middle cerebral arteries: Focal occlusion right MCA, M1 segment with reconstitution distally and surrounding collaterals. Left MCA is patent.Anterior cerebral arteries: Distal left NEEL focal moderate to severe stenosis which remains patent distally. Otherwise ACAs are patent. Intact A-comm.Basilar system: Patent vertebrobasilar system.Posterior cerebral arteries:Patent beyond the quadrigeminal segments.Venous opacification: Major dural sinuses unremarkable for bolus timing.Additional findings: Right basal ganglia acute ischemic infarct. CTA NECK:Common carotid arteries: The common carotid arteries are normal insize. Bifurcations: No flow-limiting stenosis. Cervical internal carotid arteries: No flow limitingstenosis.Vertebral arteries: Codominant. No origin stenosis.Arch anatomy: Conventional. Nonvascular findings:Osseous structures: No acute osseous abnormality. Intact calvarium and skull base.Cervical soft tissues: No adenopathy. Patent aerodigestive tract. Multinodular thyroid goiter with each lobe measuring approximately 6.5 cm and dominant isthmus nodule measures 3.8 cm, which alternatively may represent confluent nodules.Lung apices: No apical consolidation or pneumothorax. IMPRESSION:Right MCA, M1 segment, acute thrombus, resulting in severe focal stenosis. Collaterals contribute to distal reconstitution of the right MCA. Multinodular thyroid goiter with dominant 3.8 cm nodule. Thyroid ultrasound characterization recommended. Major cervical arteries are patent. Preliminary findings discussed with the patient's care provider, Dr. Pittman, on 10/12/2018 3: 21 AM. Signed: Nicanor Coates MDReport Verified Date/Time: 10/12/2018 03:50: 41 Y [facility], CAROTID, [id number] 03:50:00FINAL REPORT CT, CAROTID, ANGIO, CT, CTANGIO BRAINCTA HEAD AND NECK INDICATION: Stroke COMPARISON: CT head of the same date TECHNIQUE:Rapid acquisition spiral images were obtained between the aortic arch and the cranial vertex during intravenous contrast infusion to reconstruct axial images and angiographic 3D maximum intensity projections (MIP). 3-D volumetric reformatted images were created at a dedicated workstation.Stenosis evaluation reported in compliance with NASCET criteria. DOSE REDUCTION: Dose modulation, iterative reconstruction, and/or weight-based adjustment ofthe mA/kV was utilized to reduce the radiation dose to as low as reasonably achievable. FINDINGS: CTA BRAIN:Internal carotid arteries: Petrous, cavernous and supraclinoid portions patent. Middle cerebral arteries: Focal occlusion right MCA, M1 segment with reconstitution distally and surrounding collaterals. Left MCA is patent.Anterior cerebral arteries: Distal left NEEL focal moderate to severe stenosis which remains patent distally. Otherwise ACAs are patent. Intact A-comm.Basilar system: Patent vertebrobasilar system.Posterior cerebral arteries:Patent beyond the quadrigeminal segments.Venous opacification: Major dural sinuses unremarkable for bolus timing.Additional findings: Right basal ganglia acute ischemic infarct. CTA NECK:Common carotid arteries: The common carotid arteries are normal insize. Bifurcations: No flow-limiting stenosis. Cervical internal carotid arteries: No flow limitingstenosis.Vertebral arteries: Codominant. No origin stenosis.Arch anatomy: Conventional. Nonvascular findings:Osseous structures: No acute osseous abnormality. Intact calvarium and skull base.Cervical soft tissues: No adenopathy. Patent aerodigestive tract. Multinodular thyroid goiter with each lobe measuring approximately 6.5 cm and dominant isthmus nodule measures 3.8 cm, which alternatively may represent confluent nodules.Lung apices: No apical consolidation or pneumothorax. IMPRESSION:Right MCA, M1 segment, acute thrombus, resulting in severe focal stenosis. Collaterals contribute to distal reconstitution of the right MCA. Multinodular thyroid goiter with dominant 3.8 cm nodule. Thyroid ultrasound characterization recommended. Major cervical arteries are patent. Preliminary findings discussed with the patient's care provider, Dr. Pittman, on 10/12/2018 3: 21 AM. Signed: Nicanor Coates MDReport Verified Date/Time: 10/12/2018 03:50: 41 Y [facility], BRAIN/STROKE [id number] 03:21:00FINAL REPORT CT, BRAIN/STROKE PROTOCOL CLINICAL INDICATION: Stroke COMPARISON: None TECHNIQUE: Noncontrast axial CT imaging of the brain and skull. Coronal axial sagittal reformats obtained. DOSE REDUCTION: Dose modulation, iterative reconstruction, and/or weight-based adjustment of the mA/kV was utilized to reduce the radiation dose to as low as reasonably achievable. FINDINGS:Cerebral parenchyma: Acute ischemic infarct involving the right corpus striatum , 3.3 x 2.9 x 2.4 cm, with edema and well-demarcated margins. There is mass effect partially compressing the right frontal horn. No acute intracranial hemorrhage. No significant midline shift.Midline structures: Normallypositioned.Cerebellum and brainstem: Normal.Ventricles: Normal volume.Extra-axial spaces: Unremarkable. Calvarium and skull base: Intact.Paranasal sinuses and mastoid air cells: Visible chambers are clear.Orbital contents: Included portions unremarkable. Additional findings: None. IMPRESSION:Right corpus striatum acute ischemic infarct. Regional edema with mild compression of the right lateral ventricle without midline shift. The findings were discussed with Dr. Pittman, stroke team,10/12/2018 3:12 AM. Signed: Nicanor Coates MDReport Verified Date/Time: 10/12/2018 03:21:47 POCT-GLUCOSE [id number] 02: 34:00 Test Item Value Reference Range Comments POC-GLUCOSE METER (BEAKER) 267 mg/dL 70-110 TESTED AT [facility] [address] [facility] (test xrst=2014) [facility] [address]
--- OUTSIDE RECORDS SUMMARY | 2019-05-14 12:52 | XMS REPORT | Summary of Care ---
:1965 Author Organization [facility] Address [address] [place] [address] Care Team Providers Name Role Phone Kathryn Gauthier Primary Care Provider Reason for Visit Reason Comments Transition Of Care Encounter Details Date Type Department Care Team Description 01/20/2019 [facility] [address] [place] [id number] Allergies No Known Allergiesdocumented as of this encounter (statuses as of 01/20/2019) Medications Medication Sig Dispensed Refills Start Date End Date Status metFORMIN 500 mg Take 500 mg by 0 Active tablet mouth 2 (two) times daily with meals. amLODIPine 2.5 mg Take 2.5 mg by 0 Active tablet mouth 2 (two) times daily. aspirin 81 mg chewable Take 81 mg by 0 Active tablet mouth daily. traZODONE 50 mg tablet Take 50 mg by 0 Active mouth at bedtime. gabapentin 100 mg Take 100 mg by 0 Active capsule mouth 2 (two) times daily. ferrous sulfate 325 mg Take 325 mg by 0 Active (65 mg iron) tablet mouth 2 (two) times daily. valACYclovir 1 gram Take 1 tablet by 14 tablet 0 01/19/2019 01/26/2019 Active tabletIndications: NICOLAS mouth 2 (two) (acute kidney injury), times daily for Herpes zoster without 7 days. complication documented as of this encounter (statuses as of 01/20/2019) Active Problems Problem Noted Date E44.1 Mild protein-calorie malnutrition 01/17/2019 NICOLAS (acute kidney injury) 01/16/2019 documented as of this encounter (statuses as of 01/20/2019) Social History Tobacco Use Types Packs/Day Years [...] of this encounter Last Filed Vital Signs Not on filedocumented in this encounter Plan of Treatment Health Maintenance Due Date Last Done Comments DTaP,Tdap,and Td Vaccines (1 - 1985 Tdap) PAP SMEAR 1987 MAMMOGRAM 2006 COLONOSCOPY 2016 Zoster Recombinant Vaccine 2016 (SHINGRIX) (1 of 2) INFLUENZA VACCINE (#1) 2019 PNEUMOCOCCAL 0-64 YEARS COMBINED Aged Out No longer eligible based on SERIES patient's age to complete this topic documented as of this encounter Implants Implanted Type Area Chief Procurement Officer Device Identifier Shelf Expiration Model / Date Serial / Lot Chip In Heart documented as of this encounter Results Not on filedocumented in this encounter Insurance Payer Benefit Plan / Subscriber ID Effective Phone Address Type Group Dates MEDICAID MEDICAID SSI PENDING 2019-Prese [address] [place] [address] Pending [place] [address] documented as of this encounter
--- OUTSIDE RECORDS SUMMARY | 2019-05-14 12:52 | XMS REPORT | Summary of Care ---
:1965 Author Organization [address] [address] Care Team Providers Name Role Phone Kathryn Gauthier Primary Care Provider Reason for Visit Reason Comments Referral/consult [facility]P referral Encounter Details Date Type Department Care Team Description 01/23/2019 Patient Outreach [facility] Sheila Feliciano RN Referral/consult [address] (P referral) [place], [place] [id number] Allergies No Known Allergiesdocumented as of this encounter (statuses as of 01/23/2019) Medications Medication Sig Dispensed Refills Start Date [...] as of this encounter (statuses as of 01/23/2019) Active Problems Problem Noted Date E44.1 Mild protein-calorie malnutrition 01/17/2019 NICOLAS (acute kidney injury) 01/16/2019 documented as of this encounter (statuses as of 01/23/2019) Social History Tobacco Use Types Packs/Day Years [...] Signs Not on filedocumented in this encounter Progress Notes Sheila Feliciano RN - 01/23/2019 12:23 PM CDTCHP Referral: [facility]P CM left VM re: CHP referral to assist patient with obtaining a PCP to help monitor her NICOLAS. CM will call back at another time. TRUNG Mccartney, RN, [facility] Outpatient Disability AttorneyGeneral [facility]Dor[facility] O: [phone] M: [phone] documented in this encounter Plan of Treatment Health [...] of this encounter Implants Implanted Type Area Cassandra Developer Device Identifier Shelf Expiration Model / Date Serial / Lot Chip In Heart documented as of this encounter Results Not on filedocumented in this encounter Insurance Payer Benefit Plan / Subscriber ID Effective Phone Address Type Group Dates MEDICAID MEDICAID SSI PENDING 2019-[address]ending [place] [address] documented as of this encounter
[2019-05-14 13:32] LABS: Basophils % 0.6 % (0-1.3); Hematocrit 28.6 % (36.0-45.0); Lymphocytes % 14.2 % (15.3-44.8); MPV 9.6 fL (7.6-11.3); RBC Red Blood Cell Count 3.33 M/uL (3.86-4.86)
--- NOTE | 2019-05-14 13:32 | RAD REPORT ---
EXAM DESCRIPTION: CT - Head Brain Wo Cont - 05/14/2019 1:22 pm CLINICAL HISTORY: ams Headache, drowsiness, history of CVA COMPARISON: Ct Stroke Brain Wo Cont dated 10/11/2018; Head Brain Wo Cont dated 10/10/2018; Brain Wo Cont dated 10/11/2018 TECHNIQUE: All CT scans are performed using dose optimization technique as appropriate and may inclu de automated exposure control or mA/KV adjustment according to patient size. FINDINGS: No intracranial hemorrhage, hydrocephalus or extra-axial fluid collection.Large area of gl iosis is seen in the right cerebral hemisphere compatible with prior infarction. No midline shift solange dent. The paranasal sinuses and mastoids are clear. The calvarium is intact. IMPRESSION: Large area of old infarction right cerebral hemisphere noted. No acute bleed or midline shift. If there is continued clinical concern for acute CVA, MR imaging of the brain would be recommended.
[2019-05-14 13:47] LABS: ALT/SGPT 31 U/L (12-78); AST/SGOT 24 U/L (15-37); Alkaline Phosphatase 167 U/L (45-117); BUN Blood Urea Nitrogen 24 mg/dL (7-18); Bicarbonate 27 mmol/L (21-32); Bilirubin Direct < 0.1 mg/dL (0-0.2); Bilirubin Total 0.2 mg/dL (0.2-1.0); Glucose Level 175 mg/dL (74-106); Magnesium 1.9 mg/dL (1.8-2.4); NT PRO-BNP 248 pg/mL (<125); Protein, Total 7.1 g/dL (6.4-8.2); Sodium Level 145 mmol/L (136-145); Troponin (Emerg Dept Use Only) < 0.02 ng/mL (0.0-0.045)
--- NOTE | 2019-05-14 14:00 | RAD REPORT ---
EXAM DESCRIPTION: RAD - Chest Single View - 05/14/2019 1:49 pm CLINICAL HISTORY: ams Chest pain. COMPARISON: Chest Single View dated 10/11/2018; Chest Single View dated 10/10/2018 FINDINGS: Portable technique limits examination quality. The lungs are grossly clear. The heart is normal in size. No displaced fractures. IMPRESSION: No acute intrathoracic process suspected.
--- NOTE | 2019-05-14 15:30 | EDPHYS ---
Physician Documentation [facility] Name: Angelic Appiah Age: 54 yrs Sex: Female : 1965 Arrival Date: 05/14/2019 Time: 12:49 Bed 13 Private MD: ED Physician Hudson Ha HPI: 05/14 13:51 This 54 yrs old Female presents to ER via EMS with complaints of Altered jr8 Mental Status. 13:51 The patient presents with decreased responsiveness. Onset: The symptoms/episode jr8 began/occurred acutely, today. Possible causes: unknown. Associated signs and symptoms: The patient has no apparent associated signs or symptoms. Current symptoms: In the emergency department the patient's symptoms have resolved, the patient is alert and fully oriented, has normal speech, has normal responsiveness, has no confusion. Patient's baseline: Neuro: alert and fully oriented, Motor: left-sided weakness, Ambulation: walks with assist only, Speech: normal. The patient has not experienced similar symptoms in the past. The patient has not recently seen a physician. Family stated that patient had two large strokes in October of this past year. Stated that she has been doing well recovering but still with deficits. Stated that they went to wake her up this morning and could not arouse her. Stated that they called EMS at that time. Now alert and acting appropriate. Stated that she is back to baseline. Denies recent illness or change in medications. Denies seizure history. Patient stated that she feels completely normal at this time . 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 - Social history:: Smoking status: Patient/guardian denies using tobacco. - Ebola Screening: : No symptoms or risks identified at this time. ROS: 13:51 Eyes: Negative for injury, pain, redness, and discharge, ENT: Negative for injury, jr8 pain, and discharge, Neck: Negative for injury, pain, and swelling, Cardiovascular: Negative for chest pain, palpitations, and edema, Respiratory: Negative for shortness of breath, cough, wheezing, and pleuritic chest pain, Abdomen/GI: Negative for abdominal pain, nausea, vomiting, diarrhea, and constipation, Back: Negative for injury and pain, MS/Extremity: Negative for injury and deformity, Skin: Negative for injury, rash, and discoloration. 13:51 Neuro: Positive for altered mental status. Exam: 13:51 Eyes: Pupils equal round and reactive to light, extra-ocular motions intact. Lids and jr8 lashes normal. Conjunctiva and sclera are non-icteric and not injected. Cornea within normal limits. Periorbital areas with no swelling, redness, or edema. ENT: Nares patent. No nasal discharge, no septal abnormalities noted. Tympanic membranes are normal and external auditory canals are clear. Oropharynx with no redness, swelling, or masses, exudates, or evidence of obstruction, uvula midline. Mucous membranes moist. Neck: Trachea midline, no thyromegaly or masses palpated, and no cervical lymphadenopathy. Supple, full range of motion without nuchal rigidity, or vertebral point tenderness. No Meningismus. Cardiovascular: Regular rate and rhythm with a normal S1 and S2. No gallops, murmurs, or rubs. Normal PMI, no JVD. No pulse deficits. Respiratory: Lungs have equal breath sounds bilaterally, clear to auscultation and percussion. No rales, rhonchi or wheezes noted. No increased work of breathing, no retractions or nasal flaring. Abdomen/GI: Soft, non-tender, with normal bowel sounds. No distension or tympany. No guarding or rebound. No evidence of tenderness throughout. Back: No spinal tenderness. No costovertebral tenderness. Full range of motion. Skin: Warm, dry with normal turgor. Normal color with no rashes, no lesions, and no evidence of cellulitis. MS/ Extremity: Pulses equal, no cyanosis. Neurovascular intact 13:51 Neuro: Orientation: to person, place \T\ time. Mentation: is normal, Memory: is normal, immediate memory is intact, recent memory is intact, remote memory is intact, Cranial nerves: CN I not tested, CN II- XII are normal as tested, visual mccann are intact. extraocular movements are intact, Facial palsy and sensory deficits are absent. Nystagmus is absent. Speech is clear and appropriate. Tongue strength is normal, Motor: unable to move left arm which is baseline. Weakness in left leg but can move it. Again baseline. Right side with normal strength and motion , Sensation: numbness, of the left arm, baseline for patient , seizure activity, is not displayed by the patient, Abnormal movements: there are no abnormal movements. Vital Signs: 12:55 BP 190 / 92; Pulse 98; Resp 17; Temp 98.7; Pulse Ox 96% ; Weight 68.04 kg; bp 13:45 BP 155 / 85; Pulse 106; Resp 19 S; Pulse Ox 100% on R/A; Pain 0/10; jl7 14:49 BP 142 / 72; Pulse 82; Resp 17 S; Pulse Ox 97% on R/A; jl7 15:30 BP 141 / 80; Pulse 81; Resp 14 S; Pulse Ox 97% on R/A; jl7 MDM: 12:52 Patient medically screened. jr8 15:27 Data reviewed: vital signs, nurses notes, lab test result(s), EKG, radiologic studies, jr8 CT scan, plain films. Data interpreted: Pulse oximetry: on room air is 97 %. Interpretation: normal. Counseling: I had a detailed discussion with the patient and/or guardian regarding: the historical points, exam findings, and any diagnostic results supporting the discharge/admit diagnosis, lab results, radiology results, the need for outpatient follow up, a neurologist, to return to the emergency department if symptoms worsen or persist or if there are any questions or concerns that arise at home. ED course: Patient remains stable and at baseline. No acute findings on labs, imaging, or ecg. Will send home to f/u with neurology and PCP. Close return precautions given to patient and family. Both agree and ready to go home. 05/14 13:04 Order name: Basic Metabolic Panel; Complete Time: 13:48 05/14 13:04 Order name: CBC with Diff; Complete Time: 13:48 05/14 13:04 Order name: LFT's; Complete Time: 13:48 05/14 13:04 Order name: Magnesium; Complete Time: 13:48 05/14 13:04 Order name: NT PRO-BNP; Complete Time: 13:48 05/14 13:04 Order name: PT-INR; Complete Time: 13:48 05/14 13:04 Order name: Troponin (emerg Dept Use Only); Complete Time: 13:48 05/14 13:04 Order name: XRAY Chest (1 view); Complete Time: 14:05 05/14 13:04 Order name: EKG; Complete Time: 13:06 05/14 13:04 Order name: Cardiac monitoring; Complete Time: 13:27 05/14 13:04 Order name: EKG - Nurse/Tech; Complete Time: 14:45 05/14 13:04 Order name: IV Saline Lock; Complete Time: 13: 05/14 13:04 Order name: CT Head Brain wo Cont; Complete Time: 13:48 05/14 13:09 Order name: Glucose, Ancillary Testing; Complete Time: 13:14 [facility] 05/14 13:04 Order name: Labs collected and sent; Complete Time: 13: 05/14 13:04 Order name: O2 Per Protocol; Complete Time: 13: 05/14 13:04 Order name: O2 Sat Monitoring; Complete Time: : Administered Medications: No medications were administered Disposition: 05/15 07:32 Co-signature as Attending Physician, Hudson Ha MD I agree with the assessment and mitch plan of care. Disposition: 05/14/19 15:29 Discharged to Home. Impression: Altered mental status, unspecified. - Condition is Stable. - Discharge Instructions: Confusion, Blood Glucose Monitoring, Adult. - Medication Reconciliation Form, Thank You Letter, Antibiotic Education, Prescription Opioid Use form. - Follow up: Private Physician; When: 1 - 2 days; Reason: Recheck today's complaints, Continuance of care, Re-evaluation by your physician. - Problem is new. - Symptoms have improved. Signatures: Dispatcher [employer] Hudson Hagen MD MD cha Roszak, Josh, PA PA jr8 Shakila Delgado RN RN jl7 Ashkan Castro RN RN bp Corrections: (The following items were deleted from the chart) 05/14 16:27 15:29 05/14/2019 15:29 Discharged to Home. Impression: Altered mental status, jl7 unspecified. Condition is Stable. Forms are Medication Reconciliation Form, Thank You Letter, Antibiotic Education, Prescription Opioid Use. Follow up: Private Physician; When: 1 - 2 days; Reason: Recheck today's complaints, Continuance of care, Re-evaluation by your physician. Problem is new. Symptoms have improved. jr8
--- NOTE | 2019-05-14 15:30 | ER ---
Nurse's Notes [facility] Name: Angelic Appiah Age: 54 yrs Sex: Female : 1965 Arrival Date: 05/14/2019 Time: 12:49 Bed 13 Private MD: Diagnosis: Altered mental status, unspecified Presentation: 05/14 12:51 Presenting complaint: EMS states: LAST SEEN NORMAL AT 2230, WOKEN AT 1130 WITH bp DECREASED LEVEL OF CONSCIOUSNESS AND NON-VERBAL. PER FAMILY, PT NOW BACK TO BASELINE. Transition of care: patient was not received from another setting of care. Onset of symptoms is unknown. Risk Assessment: Do you want to hurt yourself or someone else? Patient reports no desire to harm self or others. Initial Sepsis Screen: Does the patient meet any 2 criteria? No. Patient's initial sepsis screen is negative. Does the patient have a suspected source of infection? No. Patient's initial sepsis screen is negative. Care prior to arrival: IV initiated. 20 GA, in the left antecubital area, Glucose check: 195. 12:51 Method Of Arrival: EMS: [facility] bp 12:51 Acuity: SOLITARIO 2 bp Triage Assessment: 12:55 General: Appears in no apparent distress. comfortable, Behavior is cooperative, bp anxious. Pain: Denies pain. EENT: No deficits noted. Neuro: Level of Consciousness is awake, obeys commands, Oriented to person, time, PER FAMILY, PT AT BASELINE. Cardiovascular: Rhythm is Dialysis shunt:. Respiratory: No deficits noted. GI: No deficits noted. : No signs and/or symptoms were reported regarding the genitourinary system. Derm: No deficits noted. Musculoskeletal: No deficits noted. 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 - Social history:: Smoking status: Patient/guardian denies using tobacco. - Ebola Screening: : No symptoms or risks identified at this time. Screenin:59 Abuse screen: Denies threats or abuse. Denies injuries from another. Nutritional bp screening: No deficits noted. Tuberculosis screening: No symptoms or risk factors identified. Fall Risk None identified. 13:20 The patient has not been NPO before screening. The patient is currently on the jl7 following diet: Regular The patient is alert, able to follow commands. The patient does not exhibit slurred or garbled speech The patient is not exhibiting difficulty speaking. The patient does not exhibit difficulty understanding words. The patient is able to swallow own secretions with no drooling or need for suction. Patient tolerated one teaspoon of water. No drooling, immediate coughing, gurgling, or clearing of the throat was noted. The patient tolerated 90mL of water. No drooling, immediate coughing, gurgling, or clearing of the throat was noted. The patient passed the bedside swallow screening. Oral medications may be given as ordered. Contact Physician for further diet orders. Provider notified of bedside swallow screening results: Niles LEÓN. Assessment: 12:55 General: SEE TRIAGE NOTE. bp 14:00 Reassessment: Patient appears in no apparent distress at this time. No changes from jl7 previously documented assessment. Patient and/or family updated on plan of care and expected duration. Pain level reassessed. Patient is alert, oriented x 3, equal unlabored respirations, skin warm/dry/pink. Family remains at bedside. 15:00 Reassessment: Patient appears in no apparent distress at this time. No changes from jl7 previously documented assessment. Patient and/or family updated on plan of care and expected duration. Pain level reassessed. Patient is alert, oriented x 3, equal unlabored respirations, skin warm/dry/pink. Patient states feeling better. 15:40 Reassessment: Pt will be discharged once family returns with transportation. jl7 Vital Signs: 12:55 BP 190 / 92; Pulse 98; Resp 17; Temp 98.7; Pulse Ox 96% ; Weight 68.04 kg; bp 13:45 BP 155 / 85; Pulse 106; Resp 19 S; Pulse Ox 100% on R/A; Pain 0/10; jl7 14:49 BP 142 / 72; Pulse 82; Resp 17 S; Pulse Ox 97% on R/A; jl7 15:30 BP 141 / 80; Pulse 81; Resp 14 S; Pulse Ox 97% on R/A; jl7 ED Course: 12:49 Patient arrived in ED. bp 12:52 Niles Owens PA is PHCP. jr8 12:52 Hudson Ha MD is Attending Physician. jr8 12:53 Triage completed. bp 12:55 Arm band placed on. bp 12:59 Patient has correct armband on for positive identification. Placed in gown. Bed in low bp position. Call light in reach. Side rails up X2. 12:59 Maintain EMS IV. Dressing intact. Good blood return noted. Site clean \T\ dry. Gauge \T\ bp site: 20 GAUGE LEFT AC. 13:05 Shakila Delgado, RN is Primary Nurse. jl7 13:20 quality assurance monitor chassis on. Pulse ox on. NIBP on. Warm blanket given. jl7 13:21 pt blood sugar upon arrival 164 MARCELLE Jhaveri notified. kj1 13:22 CT completed. Patient tolerated procedure well. Patient moved back from CT. mw3 13:22 CT Head Brain wo Cont In Process Unspecified. EDMS 13:28 Initial lab(s) drawn, by mo, sent to lab. Inserted saline lock: 22 gauge in right hand, jlNancie using aseptic technique. Blood collected. 13:48 XRAY Chest (1 view) In Process Unspecified. EDMS 16:27 No provider procedures requiring assistance completed. IV discontinued, intact, jl7 bleeding controlled, No redness/swelling at site. Pressure dressing applied. Administered Medications: No medications were administered Outcome: 15:29 Discharge ordered by . jr8 16:27 Discharged to home via wheelchair, with family. jl7 16:27 Condition: stable 16:27 Discharge instructions given to patient, family, Instructed on discharge instructions, follow up and referral plans. Demonstrated understanding of instructions, follow-up care. 16:27 Patient left the ED. jl7 Signatures: Dispatcher [employer] EDMS Niles Owens PA PA jrShakila Teran, RN RN jl7 Ashkan Castro RN RN Olga Castaneda mw3 Laura Bentley kj1
[2019-05-14 16:48] VITALS: TEMP 98.7
[2019-05-14 16:51] VITALS: O2SAT 97
[2019-05-14 16:53] VITALS: BP 141/80
--- NOTE | 2019-05-16 16:43 | EKG ---
Test Date: 2018-05-14 Test Time: 13:35:54 Leadlighter: TIGRE MEASUREMENT RESULTS: Intervals: Rate: 100 NC: 168 QRSD: 76 QT: 360 QTc: 464 [place]: P: 65 NC: 168 QRS: 25 T: 59 INTERPRETIVE STATEMENTS: Normal sinus rhythm Normal ECG Cardioserver Error - Incorrect date on EKG This EKG was performed on 05-14-2019 No previous ECG available for comparison Electronically Signed On 05-16-19 16:41:12 HARNESS WORKER by Hiro Ferguson
== END 2019-05-14 16:27 | disposition home or self-care (01) ==
LOC: ER 12:45
DX: R41.82 Altered mental status, unspecified (principal); I10 Essential (primary) hypertension; E11.9 Type 2 diabetes mellitus without complications; Z86.73 Personal history of transient ischemic attack (TIA), and cerebral infarction without residual deficits
CPT/HCPCS: 36415; 70450; 71045; 80048; 80076; 82947; 83735; 83880; 84484; 85025; 85610; 93005; 99285

== ENCOUNTER 2020-01-04 18:10 | Observation (INO) | payer OTHER ==
--- NOTE | 2020-01-04 18:42 | RAD REPORT ---
EXAM DESCRIPTION: CT - Head Brain Wo Cont - 01/04/2020 6:24 pm CLINICAL HISTORY: possible seizure Headache, drowsiness, seizure COMPARISON: Head Brain Wo Cont dated 05/14/2019; Ct Stroke Brain Wo Cont dated 10/11/2018; Brain Wo Cont dated 10/11/2018 TECHNIQUE: All CT scans are performed using dose optimization technique as appropriate and may inclu de automated exposure control or mA/KV adjustment according to patient size. FINDINGS: No intracranial hemorrhage, hydrocephalus or extra-axial fluid collection.Large area of gl iosis in the right cerebral hemisphere noted, unchanged, compatible with prior infarct. No midline sh ift. The paranasal sinuses and mastoids are clear. The calvarium is intact. IMPRESSION: No acute intracranial abnormality. Extensive old infarct changes right cerebral hemisphere.
[2020-01-04] MEDS ORDERED: NA CHLORIDE 0.9% 1,000 ML ONE (18:49)
[2020-01-04 18:50] LABS: Absolute Lymphocytes (CBC) 2.3 K/uL (0.7-4.9); Basophils % 0.8 % (0-1.3); Hematocrit 33.2 % (36.0-45.0); Lymphocytes % 25.4 % (15.3-44.8); MPV 10.8 fL (7.6-11.3); RBC Red Blood Cell Count 3.97 M/uL (3.86-4.86)
[2020-01-04] MEDS ORDERED: levETIRAcetam 1,000 MG in NA CHLORIDE 0.9% 100 ML IV ONE (19:00)
[2020-01-04 19:05] LABS: BUN Blood Urea Nitrogen 23 mg/dL (7-18); Bicarbonate 21 mmol/L (21-32); Glucose Level 185 mg/dL (74-106); Sodium Level 142 mmol/L (136-145); Troponin (Emerg Dept Use Only) < 0.02 ng/mL (0.0-0.045)
[2020-01-04 19:06] LABS: Protime INR 0.97
[2020-01-04] MEDS ORDERED: LEVETIRACETAM 500 MG/5 ML VIAL IV ONE (19:22)
[2020-01-04] MEDS ORDERED: NA CHLORIDE 0.9% 100 ML IV ONE (19:22)
[2020-01-04 19:55] LABS: Urine Amorphous Sediment 2+ /HPF (NONE SEEN); Urine Bacteria 20-50 /HPF (<20); Urine Culture Reflex Order REFLEXED; Urine Mucus 2+ /HPF (NONE SEEN)
[2020-01-04 19:56] LABS: Urine Blood 2+ (NEG); Urine Glucose NEGATIVE (NEG); Urine Protein 3+ (NEG); Urine Specific Gravity 1.025 (1.005-1.030)
[2020-01-04] MEDS ORDERED: CEFTRIAXONE/SWI 1gm 1 GM/10 ML SYR ONE (20:19)
--- NOTE | 2020-01-04 20:59 | EDPHYS ---
Physician Documentation [facility] Name: Angelic Appiah Age: 54 yrs Sex: Female : 1965 Arrival Date: 01/04/2020 Time: 18:12 Bed 5 Private MD: ED Physician Cuong Herman HPI: 01/03 18:27 This 54 yrs old Female presents to ER via EMS with complaints of Seizure. rn 18:27 The patient presents after having a single isolated seizure. Character of seizure(s): rn Loss of consciousness: it is not known if the patient experienced loss of consciousness, Motor activity: generalized, Incontinence: none, Apnea: the patient did not experience apnea, Circulation: the patient did not experience evidence of pulse disturbance. Seizure onset: just prior to arrival. Associated injury: The patient did not suffer any apparent associated injury. The patient has not experienced similar symptoms in the past. Per EMS, patient was being transferred from wheelchair to bed, began to shake all over, head thrown back, unknown duration, no hx of seizures, when EMS arrived, was foaming at mouth and noticed blood, cut on tongue. Improving mental status. Told by family that has had large CVA in past with residual left sided paralysis and dysphasia.. 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 - Social history:: Smoking status: Patient denies any tobacco usage or history of. - Family history:: not pertinent. - Hospitalizations: : No recent hospitalization is reported. ROS: 18:27 Constitutional: Negative for fever, chills, and weight loss, Eyes: Negative for injury, rn pain, redness, and discharge, Cardiovascular: Negative for chest pain, palpitations, and edema, Respiratory: Negative for shortness of breath, cough, wheezing, and pleuritic chest pain, Abdomen/GI: Negative for abdominal pain, nausea, vomiting, diarrhea, and constipation, MS/Extremity: Negative for injury and deformity, Skin: Negative for injury, rash, and discoloration, Neuro: Negative for headache, weakness, numbness, tingling Exam: 18:27 Constitutional: This is a well developed, well nourished patient who is awake, alert, rn and in no acute distress. Head/Face: Normocephalic, atraumatic. Eyes: Pupils equal round and reactive to light, extra-ocular motions intact. Lids and lashes normal. Conjunctiva and sclera are non-icteric and not injected. Cornea within normal limits. Periorbital areas with no swelling, redness, or edema. Cardiovascular: Tachycardic, regular Respiratory: No increased work of breathing, no retractions or nasal flaring. Abdomen/GI: soft, non-tender Skin: Warm, dry MS/ Extremity: Pulses equal, no cyanosis. Neurovascular intact. Full, normal range of motion. Equal circumference. Neuro: Awake and alert, GCS 15, oriented to person and place, + baseline left sided paralysis, + left sided facial droop upper and lower face. + mild dysarthria. Vital Signs: 18:12 BP 147 / 80; Pulse 120; Resp 18; Temp 97.6; Pulse Ox 98% ; bp 19:46 BP 105 / 57; Pulse 82; Resp 16; Temp 98.5(O); Pulse Ox 99% on R/A; iw 20:54 BP 119 / 62; Pulse 77; Resp 18; Pulse Ox 100% on R/A; mg2 21:24 BP 110 / 60; Pulse 68; Resp 18; Pulse Ox 96% on R/A; mg2 22:06 BP 120 / 58; Pulse 81; Resp 18; Pulse Ox 97% on R/A; ea Center Coma Score: 18:14 Eye Response: spontaneous(4). Verbal Response: confused(4). Motor Response: obeys bp commands(6). Total: 14. MDM: 18:14 Patient medically screened. rn 18:27 Differential diagnosis: cerebral vascular accident, cardiac arrhythmia, seizure. Data rn reviewed: vital signs, nurses notes. 18:54 ED course: Pt feels back to baseline, relieved when told results of ct head. rn 20:16 Physician consultation: Jesus Velazco MD was called at 20:17, regarding admission, snw consult. 20:17 Physician consultation: Clay LEÓN was called at 20:18, was contacted at snw 20:18, regarding admission, to the medical/surgical unit. 01/03 18:24 Order name: CBC with Diff; Complete Time: 18:57 rn 01/03 18:24 Order name: Basic Metabolic Panel; Complete Time: 19:26 rn 01/03 18:24 Order name: Protime (+inr); Complete Time: 19:26 rn 01/03 18:24 Order name: Ptt, Activated; Complete Time: 19:26 01/03 18:24 Order name: Troponin (emerg Dept Use Only); Complete Time: 19:26 01/03 18:24 Order name: Urine Microscopic Only; Complete Time: 19:58 rn 01/03 18:24 Order name: Procalcitonin; Complete Time: 19:26 01/03 18:25 Order name: Ketone, Serum; Complete Time: 19:26 rn 01/03 19:28 Order name: Urine Dipstick--Ancillary (enter results); Complete Time: 19:58 [facility] 01/03 19:56 Order name: Urine Culture [facility] 01/03 22:42 Order name: Basic Metabolic Panel [facility] 01/03 22:42 Order name: Basic Metabolic Panel [facility] 01/03 22:42 Order name: CBC with Automated Diff [facility] 01/03 22:42 Order name: CBC with Automated Diff [facility] 01/03 18:16 Order name: CT Head Brain wo Cont; Complete Time: 18:53 rn 01/03 18:24 Order name: IV Start; Complete Time: 18:25 rn 01/03 18:24 Order name: EKG; Complete Time: 18:25 rn 01/03 18:24 Order name: EKG - Nurse/Tech; Complete Time: 18:48 rn 01/03 18:24 Order name: Urine Dipstick-Ancillary (obtain specimen); Complete Time: 19:26 rn 01/03 18:24 Order name: Glucose Level; Complete Time: 18:48 rn 01/03 19:27 Order name: Recheck VS; Complete Time: 19:49 snw 01/03 22:42 Order name: CONS Physician Consult [facility] 01/03 22:42 Order name: Consistent Carb (ADA) 1800 Saleem ED[facility] 01/03 22:42 Order name: Magnesium [facility] 01/03 22:42 Order name: Magnesium ED[facility] Administered Medications: 18:40 Drug: NS 0.9% 1000 ml Route: IV; Rate: 1000 ml; Site: right wrist; bp 19:50 Follow up: Response: No adverse reaction; IV Status: Completed infusion; IV Intake: ea 1000ml 19:15 Drug: Keppra 1000 mg Route: IV; Rate: calculated rate; Site: right hand; mg2 21:24 Follow up: Response: No adverse reaction; IV Status: Completed infusion; IV Intake: mg2 100ml 20:12 Drug: Rocephin 1 grams Route: IV; Rate: calculated rate; Site: right wrist; ea 20:35 Follow up: Response: No adverse reaction; IV Status: Completed infusion ea 21:24 Follow up: Response: No adverse reaction; IV Status: Completed infusion mg2 Disposition: 01/04/20 20:59 Hospitalization ordered by Darrel Herman for Observation. Preliminary diagnosis are Seizure, Urinary tract infection, site not specified. - Bed requested for Telemetry/MedSurg (observation). - Status is Observation. mg2 - Condition is Stable. - Problem is new. - Symptoms are unchanged. Addendum: 01/08/2020 07:12 Co-signature as Attending Physician, Cuong Herman MD. r n Signatures: Dispatcher [employer] [facility] Aide Watts RN RN mw Waters, Shelly, SECURITY CONTROL CENTER OPERATOR-C SECURITY CONTROL CENTER OPERATOR-Csnw Cuong Herman MD MD rn Antunez, Elena, RN RN ea Peltier, Brian, RN RN bp Gardose, Michele, RN RN mg2 Corrections: (The following items were deleted from the chart) 01/03 20:59 20:59 Hospitalization Ordered by Darrel Herman MD for Observation. Preliminary snw diagnosis is Seizure. Bed requested for Telemetry/MedSurg (observation). Status is Observation. Condition is Stable. Problem is new. Symptoms are unchanged. snw 21:09 20:59 01/04/2020 20:59 Hospitalization Ordered by Darrel Herman MD for Observation. Preliminary diagnosis is Seizure; Urinary tract infection, site not specified. Bed requested for Telemetry/MedSurg (observation). Status is Observation. Condition is Stable. Problem is new. Symptoms are unchanged. snw 23:04 21:09 01/04/2020 20:59 Hospitalization Ordered by Darrel Herman MD for Observation. mg2 Preliminary diagnosis is Seizure; Urinary tract infection, site not specified. Bed requested for Telemetry/MedSurg (observation). Status is Observation. Condition is Stable. Problem is new. Symptoms are unchanged. mw
--- NOTE | 2020-01-04 20:59 | ER ---
Nurse's Notes [facility] Name: Angelic Appiah Age: 54 yrs Sex: Female : 1965 Arrival Date: 01/04/2020 Time: 18:12 Bed 5 Private MD: Diagnosis: Seizure;Urinary tract infection, site not specified Presentation: 01/03 18:12 Chief complaint: EMS states: WITNESSED SZ AT HOME. Coronavirus screen: At this time, bp the client does not indicate any symptoms associated with coronavirus-19. Ebola Screen: No symptoms or risks identified at this time. Initial Sepsis Screen: Does the patient meet any 2 criteria? HR > 90 bpm. No. Patient's initial sepsis screen is negative. Does the patient have a suspected source of infection? No. Patient's initial sepsis screen is negative. Risk Assessment: Do you want to hurt yourself or someone else? Patient reports no desire to harm self or others. Onset of symptoms is unknown. Care prior to arrival: IV initiated. 20 GA, in the right wrist, Glucose check: 215. 18:12 Method Of Arrival: EMS: [facility] bp 18:12 Acuity: SOLITARIO 2 bp Triage Assessment: 18:14 General: Appears in no apparent distress. comfortable, Behavior is flat. Pain: Denies bp pain. EENT: No deficits noted. Neuro: Level of Consciousness is obeys commands, confused, lethargic, Oriented to person, place. Cardiovascular: Rhythm is sinus tachycardia. Respiratory: No deficits noted. GI: No signs and/or symptoms were reported involving the gastrointestinal system. : No signs and/or symptoms were reported regarding the genitourinary system. Derm: No deficits noted. Musculoskeletal: No deficits noted. PSYCHOLOGICAL OPERATIONS SPECIALIST: 21:46 LMP N/A - Post-menopause mg2 Historical: - Allergies: 18:14 No Known Allergies; bp - Home Meds: 18:50 aspirin 81 mg Oral chew 1 tab once daily [Active]; Iron CR Oral 65 mg twice a day bp [Active]; atorvastatin 40 mg oral tab 1 tab once daily [Active]; metformin 1,000 mg Oral tab 1 tab 2 times per day [Active]; amlodipine 10 mg oral tab 1 tab once daily [Active]; gabapentin 100 mg Oral cap 1 caps 3 times per day [Active]; - PMHx: 18:14 CVA; LEFT SIDED DEFICITS; Diabetes - NIDDM; Hypertension; bp - Immunization history:: Adult Immunizations unknown. - Social history:: Smoking status: Patient denies any tobacco usage or history of. - Family history:: not pertinent. - Hospitalizations: : No recent hospitalization is reported. Screenin:15 Abuse screen: Denies threats or abuse. Denies injuries from another. Nutritional bp screening: No deficits noted. Tuberculosis screening: No symptoms or risk factors identified. 18:15 Fall Risk No fall in past 12 months (0 pts). Secondary diagnosis (15 points) seizures, bp IV access (20 points). Ambulatory Aid- None/Bed Rest/Nurse Assist (0 pts). Gait- Normal/Bed Rest/Wheelchair (0 pts) Mental Status- Overestimates/Forgets Limitations (15 pts.). Total Hartley Fall Scale indicates High Risk Score (45 or more points). Fall prevention measures have been instituted. Side Rails Up X 2 Placed Close to Nursing Station Frequent Obs/Assessments Occuring As available patient and family educated on Fall Prevention Program and Strategies. Assessment: 18:15 General: SEE TRIAGE NOTE. bp 20:13 General: Appears in no apparent distress. Behavior is appropriate for age, Reports ea states she just feels a little tired. Pain: Denies pain. Neuro: Level of Consciousness is awake, alert, obeys commands, Oriented to person, place, situation. Cardiovascular: Patient's skin is warm and dry. Respiratory: Airway is patent Respiratory effort is even, unlabored, Respiratory pattern is regular, symmetrical. Derm: Skin is dry, Skin is normal, Skin temperature is warm. 20:54 Reassessment: Patient appears in no apparent distress at this time. Patient and/or mg2 family updated on plan of care and expected duration. Pain level reassessed. Patient is alert, oriented x 3, equal unlabored respirations, skin warm/dry/pink. 21:56 Reassessment: Patient and/or family updated on plan of care and expected duration. Pain ea level reassessed. Patient is alert, oriented x 3, equal unlabored respirations, skin warm/dry/pink. Awaiting on admission orders. Vital Signs: 18:12 BP 147 / 80; Pulse 120; Resp 18; Temp 97.6; Pulse Ox 98% ; bp 19:46 BP 105 / 57; Pulse 82; Resp 16; Temp 98.5(O); Pulse Ox 99% on R/A; iw 20:54 BP 119 / 62; Pulse 77; Resp 18; Pulse Ox 100% on R/A; mg2 21:24 BP 110 / 60; Pulse 68; Resp 18; Pulse Ox 96% on R/A; mg2 22:06 BP 120 / 58; Pulse 81; Resp 18; Pulse Ox 97% on R/A; ea Gray Coma Score: 18:14 Eye Response: spontaneous(4). Verbal Response: confused(4). Motor Response: obeys bp commands(6). Total: 14. ED Course: 18:12 Patient arrived in ED. bp 18:13 Triage completed. bp 18:14 Cuong Herman MD is Attending Physician. rn 18:14 Arm band placed on. bp 18:15 Patient has correct armband on for positive identification. Bed in low position. Call bp light in reach. Side rails up X2. Seizure precautions initiated. barrel ribs solderer on. Pulse ox on. NIBP on. 18:15 Maintain EMS IV. Dressing intact. Good blood return noted. Site clean \T\ dry. Gauge \T\ bp site: 20 GAUGE R WRIST. 18:24 Ashkan Castro, RN is Primary Nurse. bp 18:24 CT Head Brain wo Cont In Process Unspecified. EDMS 19:26 Anny Mayorga FNP-C is PHCP. snw 20:57 Darrel Herman MD is Hospitalizing Provider. snw 21:25 No provider procedures requiring assistance completed. Patient admitted, IV remains in mg2 place. Administered Medications: 18:40 Drug: NS 0.9% 1000 ml Route: IV; Rate: 1000 ml; Site: right wrist; bp 19:50 Follow up: Response: No adverse reaction; IV Status: Completed infusion; IV Intake: ea 1000ml 19:15 Drug: Keppra 1000 mg Route: IV; Rate: calculated rate; Site: right hand; mg2 21:24 Follow up: Response: No adverse reaction; IV Status: Completed infusion; IV Intake: mg2 100ml 20:12 Drug: Rocephin 1 grams Route: IV; Rate: calculated rate; Site: right wrist; ea 20:35 Follow up: Response: No adverse reaction; IV Status: Completed infusion ea 21:24 Follow up: Response: No adverse reaction; IV Status: Completed infusion mg2 Intake: 19:50 IV: 1000ml; Total: 1000ml. ea 21:24 IV: 100ml; Total: 1100ml. mg2 Outcome: 20:59 Decision to Hospitalize by Provider. snw 21:45 Admitted to Med/surg accompanied by oscar, via stretcher, room 217, Report called to melissa Quiroz RN 21:45 Condition: good 21:45 Instructed on the need for admit, Demonstrated understanding of instructions. 23:04 Patient left the ED. mg2 Addendum: 01/08/2020 10:58 Addendum: COVID-19 Result: Negative result given to RN to notify pt. Notified pt of i w negative COVID 19 swab results. Pt advised that even with a negative test result they should remain in isolation until symptom free for 3 days without medication. Pt also advised to return to the ED for worsening symptoms. Signatures: Dispatcher [employer] EDMS Anny Mayorga, PHARMACY SALES ASSISTANT-C PHARMACY SALES ASSISTANT-Csnw Viji Montero RN RN iw Nieto, Roman, MD MD rn Antunez, Elena, RN RN ea Peltier, Brian, RN RN bp Gardose, Michele, RN RN mg2 Corrections: (The following items were deleted from the chart) 01/03 19:48 19:46 Pulse 82bpm; Resp 16bpm; Pulse Ox 99% RA; Temp 98.5F Oral; [facility] 19:49 19:46 Pulse 82bpm; Resp 16bpm; Pulse Ox 99% RA; Temp 98.5F Oral; [facility]
--- NOTE | 2020-01-04 22:49 | P.HP ---
Certification for Inpatient Patient admitted to: Observation With expected LOS: <2 Midnights Patient will require the following post-hospital care: None Practitioner: I am a practitioner with admitting privileges, knowledge of patient current condition, hospital course, and medical plan of care. Services: Services provided to patient in accordance with Admission requirements found in Title 42 Section 412.3 of the Code of Federal Regulations <Clay Boyer - Last Filed: 01/04/20 22:44> Patient History Date of Service: 01/04/20 Reason for admission: Seizure/UTI History of Present Illness: 54-year-old female with past medical history of CVA with left-sided deficit, type 2 diabetes mellitus and hypertension presents to the emergency room brought by EMS with complaints of seizure. Patient states that it was a single episode and isolated. Patient does not know if she lost consciousness or not. It was witness by family members who were with are at the time. Denies injury. Denies hitting head or. Per EMS report patient was foaming at the mouth and noticed of blood from cot tongue. In the emergency room patient is much better after a 1000 mg dose of Keppra. She is alert and oriented x3. Has not had another seizure since. Patient has left-sided paralysis and dysphagia from a CVA in the past. CT of the head shows an old infarct on the right side but no new acute pathology. On exam patient is alert and oriented x3. She is not in distress. She is pleasant and cooperative. Neurology was consulted Dr Velazco. Patient was also noted to have a urinary tract infection. UA positive for nitrites and leukocyte esterase with a white cells of 10-20. Patient be placed in observation and further evaluate. - Past Medical/Surgical History Has patient received pneumonia vaccine in the past: No Diabetic: Yes -: Type 2 diabetes mellitus -: CVA with left-sided deficit -: Essential hypertension -: None Psychosocial/ Personal History: Lives at home with family - Family History Family History: Reviewed- Non-Contributory - Social History Smoking Status: Never smoker Alcohol use: No CD- Drugs: No Caffeine use: No Place of Residence: Home <Clay Boyer - Last Filed: 01/04/20 22:44> Date of Service: 01/06/20 <Darrel Herman - Last Filed: 01/06/20 21:54> Allergies No Known Allergies Allergy (Verified 01/04/20 23:39) Review of Systems General: As per HPI Eyes: As per HPI ENT: Unremarkable Respiratory: Unremarkable Cardiovascular: Unremarkable Gastrointestinal: Unremarkable Genitourinary: Dysuria, As per HPI (Left side) Musculoskeletal: As per HPI Integumentary: Unremarkable Neurological: Weakness (Left side), As per HPI Lymphatics: Unremarkable <Clay Boyer - Last Filed: 01/04/20 22:44> Physical Examination - Vital Signs Temperature: 97.5 F Blood Pressure: 110/60 Pulse: 68 Respirations: 18 Pulse Ox (%): 96 (RA) - Physical Exam General: Alert, In no apparent distress, Oriented x3 HEENT: Atraumatic, Normocephalic, PERRLA, Mucous membr. moist/pink Neck: Supple, Other (Trachea midline) Respiratory: Clear to auscultation bilaterally, Normal air movement Cardiovascular: Normal pulses, Normal S1 S2 Capillary refill: <2 Seconds Gastrointestinal: Normal bowel sounds, Soft and benign, Non-distended Musculoskeletal: No swelling, No contractures, No erythema, No tenderness Integumentary: No breakdown, No significant lesion, No tenderness/swelling, No erythema Neurological: Other (Left-sided paralysis and weakness), Abnormal gait, Abnormal strength - Studies Laboratory Data (last 24 hrs) 01/04/20 18:30: PT 11.4, INR 0.97, APTT 40.3 H 01/04/20 18:30: Sodium 142, Potassium 4.0, BUN 23 H, Creatinine 1.16, Glucose 185 H 01/04/20 18:30: WBC 9.2, Hgb 10.8 L, Hct 33.2 L, Plt Count 176 <Clay Boyer - Last Filed: 01/04/20 22:44> Assessment and Plan - Plan Impression: Seizure: History of CVA with left-sided deficit: Urinary tract infection: Type 2 diabetes mellitus: Essential hypertension: Plan: Seizure: Occurred earlier today with only 1 episode. Neurology consulted- . Patient may require MRI of the brain to rule out new stroke. EEG ordered. Continuous telemetry. Was given 1000 mg loading dose of Keppra in the ED. History of CVA with left-sided deficit: At baseline. CT of the head shows old infarct on the right brain. Resume all medications once verified. Urinary tract infection: Noted to have a significant urinary tract infection. Was started on IV Rocephin. Could be the trigger for the seizure patient had earlier today. Monitor vitals and daily labs. Type 2 diabetes mellitus: Will place patient on moderate sliding scale insulin. Accu-Cheks a.c. HS. Diabetic diet. Monitor blood glucose. Essential hypertension: Will resume all medications once verified. Monitor blood pressure. Discharge Plan: Home Plan to discharge in: 48 Hours - Advance Directives Does patient have a Living Will: No Does patient have a Durable POA for Healthcare: No - Code Status/Comfort Care Code Status Assessed: Yes Time Spent Managing Pts Care (In Minutes): 55 <Clay Boyer - Last Filed: 01/04/20 22:44> Physician Review Additional Text: Care plan reviewed with Clay Boyer, and I agree with plan noted above. <Darrel Herman - Last Filed: 01/06/20 21:54>
[2020-01-04 23:40] VITALS: BMI 19.8
[2020-01-05] MEDS: HEPARIN 5000 UNIT/ML 1 ML VIAL SQ SCH ×2 (00:26→09:55)
[2020-01-05] MEDS: NA CHLORIDE 0.9% 1,000 ML IV SCH ×2 (00:27→09:50)
[2020-01-05] MEDS: ACETAMINOPHEN 500 MG TAB PO PRN ×2 (02:01→15:31)
[2020-01-05 06:03] LABS: Absolute Lymphocytes (CBC) 1.8 K/uL (0.7-4.9); Hematocrit 26.5 % (36.0-45.0); Lymphocytes % 23.7 % (15.3-44.8); MPV 9.7 fL (7.6-11.3); RBC Red Blood Cell Count 3.15 M/uL (3.86-4.86)
[2020-01-05 06:34] LABS: Magnesium 1.8 mg/dL (1.8-2.4); Potassium 3.5 mmol/L (3.5-5.1)
[2020-01-05] MEDS: INSULIN -REGULAR HUMAN 50 UNIT/0.5 ML ML SQ SCH ×3 (07:30→16:43)
--- NOTE | 2020-01-05 07:54 | EKG ---
Test Date: 2020-01-04 Test Time: 18:45:30 Retail Shift Supervisor: BP MEASUREMENT RESULTS: Intervals: Rate: 97 MO: 150 QRSD: 86 QT: 376 QTc: 477 Clarita: P: 38 MO: 150 QRS: -7 T: 71 INTERPRETIVE STATEMENTS: Normal sinus rhythm Normal ECG Compared to ECG 05/14/2019 13:35:54 No significant changes Electronically Signed On 01-05-20 07:53:15 CDT by iHro Ferguson
[2020-01-05] MEDS ORDERED: PNEUMOCOCCAL VACCINE 0.5 ML IMVAC ONE (08:00)
[2020-01-05] MEDS ORDERED: MAGNESIUM SULFATE 1 gm IVPB 1 GM/100 ML BAG IV ONE (09:00)
[2020-01-05] MEDS ORDERED: CEFTRIAXONE/SWI 1gm 1 GM/10 ML SYR IV SCH (09:00)
[2020-01-05] MEDS ORDERED: POTASSIUM CL SA 10 MEQ TAB PO ONE (09:00)
[2020-01-05] MEDS ORDERED: CEFTRIAXONE 1 GM/NS 50 ML 1 GM/50 ML BAG IV SCH (09:00)
[2020-01-05 16:18] VITALS: BP 132/67; TEMP 96.9
--- NOTE | 2020-01-05 21:32 | P.DS ---
Admission Date: 01/04/20 Discharge Date: 01/06/20 Disposition: ROUTINE DISCHARGE Discharge Condition: GOOD Reason for Admission: Seizure/UTI Consultations: Neurology - Dr. Velazco Procedures: CT - Head Brain Wo Cont - 01/04/2020 6:24 pm IMPRESSION: No acute intracranial abnormality. Extensive old infarct changes right cerebral hemisphere. Problem List Seizure: History of CVA with left-sided deficit: Urinary tract infection: Type 2 diabetes mellitus: Essential hypertension: Brief History of Present Illness: 54-year-old female with past medical history of CVA with left-sided deficit, type 2 diabetes mellitus and hypertension presents to the emergency room brought by EMS with complaints of seizure. Patient states that it was a single episode and isolated. Patient does not know if she lost consciousness or not. It was witness by family members who were with are at the time. Denies injury. Denies hitting head or. Per EMS report patient was foaming at the mouth and noticed of blood from cot tongue. In the emergency room patient is much better after a 1000 mg dose of Keppra. She is alert and oriented x3. Has not had another seizure since. Patient has left-sided paralysis and dysphagia from a CVA in the past. CT of the head shows an old infarct on the right side but no new acute pathology. On exam patient is alert and oriented x3. She is not in distress. She is pleasant and cooperative. Neurology was consulted Dr Velazco. Patient was also noted to have a urinary tract infection. UA positive for nitrites and leukocyte esterase with a white cells of 10-20. Patient be placed in observation and further evaluate. Hospital Course: Patient was admitted for further evaluation. She was loaded on Keppra with 1000mg in the ED and then placed on 250mg twice daily per Neurology's recommendations. She reported feeling well and back to baseline the day after a dmission. She was discharged home on Keppra and to f/u with Dr. Velazco as an outpatient. Of note, her UA in the ED was suggestive of a UTI and was given Rocephin, however patient's was asymptomatic and urine culture preliminary showed <10k CFU mixed elvira. Patient was not discharged home on any further antibiotics. Vital Signs/Physical Exam: Temp Pulse Resp BP Pulse Ox 96.9 F 56 17 132/67 97 01/05/20 16:00 01/05/20 16:00 01/05/20 16:00 01/05/20 16:00 01/05/20 16:00 General: Alert, In no apparent distress HEENT: Atraumatic, PERRLA, EOMI Neck: Supple, JVD not distended Respiratory: Clear to auscultation bilaterally, Normal air movement Cardiovascular: Regular rate/rhythm, Normal S1 S2 Gastrointestinal: Normal bowel sounds, No tenderness Musculoskeletal: No tenderness Integumentary: No rashes Neurological: Normal speech, Normal affect, Abnormal strength (chronic Left sided weakness (upper & lower extremity)) Laboratory Data at Discharge: WBC 7.4 K/uL (4.3-10.9) D 01/05/20 05:44 Hgb 8.6 g/dL (12.0-15.0) L 01/05/20 05:44 Hct 26.5 % (36.0-45.0) L D 01/05/20 05:44 Plt Count 214 K/uL (152-406) D 01/05/20 05:44 PT 11.4 SECONDS (9.5-12.5) 01/04/20 18:30 INR 0.97 01/04/20 18:30 APTT 40.3 SECONDS (24.3-36.9) H 01/04/20 18:30 Sodium 146 mmol/L (136-145) H 01/05/20 05:44 Potassium 3.5 mmol/L (3.5-5.1) 01/05/20 05:44 BUN 19 mg/dL (7-18) H 01/05/20 05:44 Creatinine 0.71 mg/dL (0.55-1.3) 01/05/20 05:44 Glucose 103 mg/dL (74-106) 01/05/20 05:44 Magnesium 1.8 mg/dL (1.8-2.4) 01/05/20 05:44 Home Medications: Ferosul 325 mg PO BID 01/05/20 Levetiracetam [Keppra] 250 mg PO BID 30 Days #60 tablet 01/05/20 RX: Amlodipine [Norvasc*] 1 tab PO DAILY 01/05/20 RX: Aspirin [Children's Aspirin] 1 tab PO DAILY 01/05/20 RX: Atorvastatin Calcium [Lipitor] 1 tab PO BEDTIME 01/05/20 RX: Cyanocobalamin (Vitamin B-12) [Vitamin B-12] 1 cap PO DAILY 01/05/20 RX: Ergocalciferol (Vitamin D2) [Vitamin D 50,000 Unit Cap] 1 cap PO SEECOM RX: Metformin HCl 1 tab PO BID 01/05/20 New Medications: Levetiracetam [Keppra] 250 mg PO BID 30 Days #60 tablet Patient Discharge Instructions: follow up with neurology (Dr. Velazco) within 1-2 weeks. follow up with PCP within 1 week. continue physical therapy. no driving Diet: Regular Activity: Ad tia Followup: Jesus Velazco MD [ASSOCIATE-ACTIVE - CAN ADMIT] - Time spent managing pt's care (in minutes): 45
--- NOTE | 2020-01-05 21:59 | CON ---
Reason For Consultation: Consultation called because of seizures. History Of Present Illness: Ms. Appiah is a 54-year-old patient with hypertension, diabetes mellitus type 2, and a stroke occurring October of 2018 that impacted her right cerebral hemisphere measuring 3.4 x 2 cm. The stroke produced a dense left arm much more than leg paresis, spared her speech and swal lowing and face. The patient began having episodes of seizure-like activity for perhaps a few months , however, not treated or recognized as seizures. The hospital note does indicate that she has had o ne isolated seizure and the patient does not have recall of the episode, but told that she did have t he apparent shaking. There was foaming of the mouth and there was also blood clot found in the mouth . At the time of arrival to the [facility] she was out of the event. She was loaded on Kep pra, given a 1000 mg, and then placed on 250 mg twice daily. Her head CT scan showed extensive old l arge infarct in the right cerebral hemisphere without acute ischemic or hemorrhagic findings. Her bl ood work showed slight anemia, hemoglobin 8.6, normal white blood cell count. Chemistries show gluco se ranged from 87 to 177, sodium slightly elevated to 146, and calcium was slightly low at 8.2 with n ormal magnesium at 1.8. She had a negative procalcitonin of 0.1. Her toxicology screen did show octavio tone being negative. Urinalysis showed bacteria with positive nitrites, trace esterase, 3+, protein. She does have a urinary tract infection. Urine cultures pending and she is COVID-19 negative. Past Medical History: As indicated with the stroke, essential hypertension, diabetes mellitus type 2 . Family History: Noncontributory. Social History: No alcohol, tobacco, or IV drug use. Allergies: NO KNOWN DRUG ALLERGIES. Medications: She is receiving Rocephin for urinary tract infection and IV fluids along with magnesiu m replacement. She did have Keppra orally 250 mg twice daily to go home on. Physical Examination: Vital Signs: Blood pressure 132/67, pulse 56, respiratory rate 17, temperature 97.9, oxygen saturati on 97% on room air. Weight 115 pounds, height 5 feet 4 inches, BMI 19.8. General: Ms. Appiah is resting in bed. She is normocephalic, atraumatic. Sclerae anicteric. Oropha rynx is pink and moist. Neck: Supple. Chest: Clear. Heart: Regular. Extremities: No edema or cyanosis. Neurologic: Again, alert and oriented to person, place, and situation. She follows all commands krystal ropriately. Cranial nerve examination reveals subtle left face decreased in terms of nasolabial fold with great excursions and otherwise symmetric and normal labial, lingual, and guttural sounds. Inta ct sensation in the face bilaterally. Motor examination, she has 0/5 in the left upper extremity pro ximally and distally, on the right side 5/5; on the left lower extremity, she has 3+ to 4-/5 proximal ly and distally compared to the right side 5/5. Sensory exam, she has dysesthesia and abnormal sensa tions in the left compared to the right upper and lower extremity. Coordination unable to assess bec ause of complete weakness in the left upper extremity and coordination shows dysmetria in the left lo wer extremity on heel to ureña. Her reflexes are hyperreflexic in the left upper compared to the righ t upper extremity and left lower compared to the right lower extremity. Gait, she with moderate assi stance has been ambulating with physical therapy, which she is an outpatient twice weekly, using a ca ne in the right hand. Assessment: Ms. 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 She should be on Keppra at least 250 mg twice daily. She may have the medicat ion dosage increased to 500 mg twice daily depending on the events. She should continue with medicat ion for stroke risk reduction including aspirin, Plavix, high-dose statin, and folic acid 1 mg daily. Rest of management of blood sugars and hypertension. After discharge, she may follow up with Dr. Velazco in clinic 1 month later. KAYLEE/MARQUISE Voice ID: [id number] Report ID: [id number]
[2020-01-09 06:56] VITALS: O2SAT 97
== END 2020-01-05 18:41 | disposition home or self-care (01) ==
LOC: ER 18:10 → 2ND 22:45
PROVIDERS: ADMIT Hospitalist; ATTEND Hospitalist
DX: R56.9 Unspecified convulsions (principal); N39.0 Urinary tract infection, site not specified; E11.9 Type 2 diabetes mellitus without complications; I10 Essential (primary) hypertension; I69.391 Dysphagia following cerebral infarction; I69.354 Hemiplegia and hemiparesis following cerebral infarction affecting left non-dominant side; R13.10 Dysphagia, unspecified; Z20.828 Contact with and (suspected) exposure to other viral communicable diseases; Z79.82 Long term (current) use of aspirin; Z79.02 Long term (current) use of antithrombotics/antiplatelets; Z79.84 Long term (current) use of oral hypoglycemic drugs; Z79.899 Other long term (current) drug therapy
CPT/HCPCS: 93005; 87088; 85025 ×2; 87086; 80048 ×2; 36415; 82010; 83735; 85610; 82947 ×4; 85730; 84484; 84145; 70450; 99285; U0002; J1644 ×2; J3475; J1953; J0696 ×2; J7030 ×3; G0378 ×2; 81003; 81015

== ENCOUNTER 2023-04-03 23:58 | Emergency (ER) | payer OTHER ==
--- OUTSIDE RECORDS SUMMARY | 2023-04-04 00:11 | XMS REPORT | Continuity of Care Document ---
:1965 Author Organization [facility] t Address [address] [place] [address] [place] [id number] Care Team Providers Name Role Phone SIDDHARTHA LISA Primary Care Physician Unavailable NEERAJ MONTERO Attending Clinician Unavailable Efrain Ackerman DO Attending Clinician NADEEN MACEDO Attending Clinician Unavailable Nadeen Ochoa Attending Clinician Unknown, Attending Attending Clinician Unavailable DANYEL HOPPER Attending Clinician Unavailable Pinky Ray MD Attending Clinician [phone] PINKY RAY Attending Clinician Unavailable Doctor Unassigned, [facility] Attending Clinician Unavailable 1, [facility] Attending Clinician Unavailable Gracie Qiu RN Attending Clinician Unavailable Danyel Hopper MD Attending Clinician Neeraj Montero MD Attending Clinician EFRAIN ACKERMAN Attending Clinician Unavailable Julien Franco MD Attending Clinician Lab, Ang - Db Attending Clinician Unavailable JULIEN FRANCO Attending Clinician Unavailable JULIEN FRANCO Attending Clinician Unavailable ABRIL CHAVEZ Attending Clinician Unavailable Abril Chavez MD Attending Clinician LORENZA COELLO Attending Clinician Unavailable BOBBY TSANG Attending Clinician Unavailable BRITTNEY BAH Attending Clinician Unavailable PINKY RAY Admitting Clinician Unavailable DANYEL HOPPER Admitting Clinician Unavailable NEERAJ MONTERO Admitting Clinician Unavailable LORENZA COELLO Admitting Clinician Unavailable TYLER CARNEY Admitting Clinician Unavailable BRITTNEY BAH Admitting Clinician Unavailable Payers Payer Name Policy Type Policy Number Effective Date Expiration Date S jose MEDICARE PART A [id number] 2021 \\T\\ B 00:00:00 [place]ID [place] [id number] 2022 00:00:00 [facility] [id number] 2020 PLUS 00:00:00 Problems Condition Condition Condition Status Onset Resolution Last Treating Co mments Source Name Details Category Date Date Treatment Clinician Date Encounter Encounter Disease Active Overview: Univers for loop for loop 10-09 [place]att[place] ity of recorder recorder 00:00: g of this Florentin as at end of at end of note Medi chitra battery battery might be Branch life life different from the original. Added automatic ally from request for surgery [id number] Valvular Valvular Disease Active Unive rs heart heart 2-23 ity of disease disease 00:00: [place] 00 Medical Branch History of History of Disease Active U nivers arterial arterial 2-23 ity of ischemic ischemic 00:00: [place] stroke stroke 00 Medical Branch Essential Essential Disease Active Uni vers hypertensi hypertensi 2-23 it y of on on 00:00: [place] 00 Medical Branch Status Status Disease Active Univers post post 2-23 [place] implantabl implantabl Br anch e loop e loop recorder recorder 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 9-10 it y of royce crane 00:00: [place] malnutriti malnutriti 00 Me dical on on Branch NICOLAS (acute NICOLAS (acute Disease Active U nivers kidney kidney 9-09 ity of injury) injury) 00:00: [place] 00 Medical Branch CVA CVA Disease Recurre [facility] (cerebral (cerebral nce 6-05 [facility] vascular vascular 00:00: Medica l accident) accident) 00 Cent er Allergies, Adverse Reactions, Alerts Allergy Allergy Status Severity Reaction(s) Onset Inactive Treating Comm ents Source Name Type Date Date Clinician NO KNOWN Drug Active Univers ALLERGIE Class ity of S [facility] Social History Social Habit Start Date Stop Date Quantity Comments Source Sexual orientation [facility] Gender identity Universit y of [facility] Tobacco use and 2022-12-24 2022-12-24 Smokeless Universit y of exposure 00:00:00 00:00:00 tobacco non-user [facility] dical Branch Alcohol intake 2022-12-24 2022-12-24 Ex-drinker University of 00:00:00 00:00:00 (finding) [facility] Exposure to 2022-09-14 2022-09-24 Not sure [facility] SARS-CoV-2 (event) 00:00:00 11:10:00 [facility] History of Social 2022-09-24 2022-09-24 Univers ity of function 00:00:00 00:00:00 [place] [facility] History [facility] 2019-01-17 2019-01-17 1 University o f Alcohol Frequency 00:00:00 00:00:00 [place] M edical Branch History [facility] 2019-01-17 2019-01-17 2 University o f Alcohol Std Drinks 00:00:00 00:00:00 [place] [facility] History [facility] 2019-01-17 2019-01-17 2 University o f Alcohol Binge 00:00:00 00:00:00 [place] [facility] al [facility] Alcohol Comment 2019-01-16 2019-01-16 Patient used to [facility] of 00:00:00 00:00:00 drink on social [place] Med ical occasions, but Branch has not drank since her stroke in 10/2018 Sex Ass[birth year] [facility] 00:00:00 00:00:00 [facility] Smoking Status Start Date Stop Date Source Never smoked tobacco [facility] Medications Ordered Filled Start Stop Current Ordering Indication Dosage Frequency Signature Comments Components Source Medication Medication Date Date Medication? Clinician (SIG) Name Name lidocaine 2022- ONCE INTRA U nivers 1% (PF) 11-09 PROCEDURE, ity o f (XYLOCAINE) 13:28: 13:45 [place] injection 38 :07 on [facility] 11/09/22 at Branch 0828, Until [facility] 11/09/22 at 0845, Routine, CV Intraproce dure ceFAZolin 2022-0 2022- No ONCE INTRA U nivers (ANCEF) [id number] PROCEDURE, ity o f injection 13:07: 13:45 Starting Florentin as 37 :07 on [facility] 11/09/22 at Branch 0807, Until [facility] 11/09/22 at 0845, YESENIA, CV Intraproce dure metFORMIN 2022-0 Yes 500mg Take 500 Uni vers 500 mg 7-03 mg by ity of tablet 09:33: mouth 2 [place] [address] ([facility]) Medical times Branch daily with meals. amLODIPine 2022-0 Yes 2.5mg Take 2.5 Un latisha 2.5 mg 7-03 mg by ity of tablet 09:33: mouth 2 [place] [address] ([facility]) Medical times Branch daily. aspirin 81 2022-0 Yes 81mg Take 81 mg U nivers mg chewable 7-03 by mouth ity of tablet 09:33: daily. [address] Branch ferrous 2022-0 Yes 325mg Take 325 Unive rs sulfate 325 7-03 mg by ity of mg (65 mg 09:33: mouth 2 [place] iron) 13 (two) Medical tablet times Branch daily. atorvastati 2022-0 Yes 40mg Take 40 mg Univers n 40 mg 7-03 by mouth ity of tablet 09:33: at [place] [address] bedtime. Medical Branch metFORMIN 2022-0 Yes 500mg Take 500 Uni vers 500 mg 7-03 mg by ity of tablet 09:33: mouth 2 [place] [address] ([facility]) Medical times Branch daily with meals. amLODIPine 3-0 Yes 2.5mg Take 2.5 Un latisha 2.5 mg 7-03 mg by ity of tablet 09:33: mouth 2 [place] [address] ([facility]) Medical times Branch daily. aspirin 81 2022-0 Yes 81mg Take 81 mg U nivers mg chewable 7-03 by mouth ity of tablet 09:33: daily. [address] Branch ferrous 3-0 Yes 325mg Take 325 Unive rs sulfate 325 7-03 mg by ity of mg (65 mg 09:33: mouth 2 [place] iron) 13 (two) Medical tablet times Branch daily. atorvastati 3-0 Yes 40mg Take 40 mg Univers n 40 mg 7-03 by mouth ity of tablet 09:33: at [place] [address] bedtime. Medical Branch metFORMIN 3-0 Yes 500mg Take 500 Uni vers 500 mg 7-03 mg by ity of tablet 09:33: mouth 2 [place] [address] (two) Medical times Branch daily with meals. amLODIPine 2023-0 Yes 2.5mg Take 2.5 Un latisha 2.5 mg 7-03 mg by ity of tablet 09:33: mouth 2 [place] [address] (two) Medical times Branch daily. aspirin 81 3-0 Yes 81mg Take 81 mg U nivers mg chewable 7-03 by mouth ity of tablet 09:33: daily. [place] [address] Medical Branch ferrous 3-0 Yes 325mg Take 325 Unive rs sulfate 325 7-03 mg by ity of mg (65 mg 09:33: mouth 2 [place] iron) 13 (two) Medical tablet times Branch daily. atorvastati 3-0 Yes 40mg Take 40 mg Univers n 40 mg 7-03 by mouth ity of tablet 09:33: at [place] [address] bedtime. Medical Branch metFORMIN 3-0 Yes 500mg Take 500 Uni vers 500 mg 7-03 mg by ity of tablet 09:33: mouth 2 [place] [address] (two) Medical times Branch daily with meals. amLODIPine 3-0 Yes 2.5mg Take 2.5 Un latisha 2.5 mg 7-03 mg by ity of tablet 09:33: mouth 2 [place] [address] (two) Medical times Branch daily. aspirin 81 3-0 Yes 81mg Take 81 mg U nivers mg chewable 7-03 by mouth ity of tablet 09:33: daily. [place] [address] Medical Branch ferrous 3-0 Yes 325mg Take 325 Unive rs sulfate 325 7-03 mg by ity of mg (65 mg 09:33: mouth 2 [place] iron) 13 (two) Medical tablet times Branch daily. atorvastati 2023-0 Yes 40mg Take 40 mg Univers n 40 mg 7-03 by mouth ity of tablet 09:33: at [place] [address] bedtime. Medical Branch metFORMIN 2023-0 Yes 500mg Take 500 Uni vers 500 mg 7-03 mg by ity of tablet 09:33: mouth 2 [place] [address] (two) Medical times Branch daily with meals. amLODIPine 3-0 Yes 2.5mg Take 2.5 Un latisha 2.5 mg 7-03 mg by ity of tablet 09:33: mouth 2 [place] [address] (two) Medical times Branch daily. aspirin 81 3-0 Yes 81mg Take 81 mg U nivers mg chewable 7-03 by mouth ity of tablet 09:33: daily. [place] [address] Medical Branch ferrous 2023-0 Yes 325mg Take 325 Unive rs sulfate 325 7-03 mg by ity of mg (65 mg 09:33: mouth 2 [place] iron) 13 (two) Medical tablet times Branch daily. atorvastati 3-0 Yes 40mg Take 40 mg Univers n 40 mg 7-03 by mouth ity of tablet 09:33: at [place] [address] bedtime. Medical Branch metFORMIN 3-0 Yes 500mg Take 500 Uni vers 500 mg 7-03 mg by ity of tablet 09:33: mouth 2 [place] [address] (two) Medical times Branch daily with meals. amLODIPine 3-0 Yes 2.5mg Take 2.5 Un latisha 2.5 mg 7-03 mg by ity of tablet 09:33: mouth 2 [place] [address] ([facility]) Medical times Branch daily. aspirin 81 2022-0 Yes 81mg Take 81 mg U nivers mg chewable 7-03 by mouth ity of tablet 09:33: daily. [place] [address] Medical Branch ferrous 3-0 Yes 325mg Take 325 Unive rs sulfate 325 7-03 mg by ity of mg (65 mg 09:33: mouth 2 [place] iron) 13 (two) Medical tablet times Branch daily. atorvastati 3-0 Yes 40mg Take 40 mg Univers n 40 mg 7-03 by mouth ity of tablet 09:33: at [place] [address] bedtime. Medical Branch metFORMIN 3-0 Yes 500mg Take 500 Uni vers 500 mg 7-03 mg by ity of tablet 09:33: mouth 2 [place] [address] ([facility]) Medical times Branch daily with meals. amLODIPine 2023-0 Yes 2.5mg Take 2.5 Un latisha 2.5 mg 7-03 mg by ity of tablet 09:33: mouth 2 [place] [address] (two) Medical times Branch daily. aspirin 81 3-0 Yes 81mg Take 81 mg U nivers mg chewable 7-03 by mouth ity of tablet 09:33: daily. [place] [address] Medical Branch ferrous 2023-0 Yes 325mg Take 325 Unive rs sulfate 325 7-03 mg by ity of mg (65 mg 09:33: mouth 2 [place] iron) 13 (two) Medical tablet times Branch daily. atorvastati 0 Yes 40mg Take 40 mg Univers n 40 mg 7-03 by mouth ity of tablet 09:33: at [place] [address] bedtime. Medical Branch metFORMIN 0 Yes 500mg Take 500 Uni vers 500 mg 7-03 mg by ity of tablet 09:33: mouth 2 [place] [address] (two) Medical times Branch daily with meals. amLODIPine Yes 2.5mg Take 2.5 Un latisha 2.5 mg 7-03 mg by ity of tablet 09:33: mouth 2 [place] [address] (two) Medical times Branch daily. aspirin 81 0 Yes 81mg Take 81 mg U nivers mg chewable 7-03 by mouth ity of tablet 09:33: daily. [place] [address] Medical Branch ferrous Yes 325mg Take 325 Unive rs sulfate 325 7-03 mg by ity of mg (65 mg 09:33: mouth 2 [facility]) 13 (two) Medical tablet times Branch daily. atorvastati Yes 40mg Take 40 mg Univers n 40 mg 7-03 by mouth ity of tablet 09:33: at [place] [address] bedtime. Medical Branch LEVETIRACET 0 No AM 750MG 8-15 TAB 00:00: 00 LEVETIRACET 2021-0 No AM 750MG 8-15 TAB 00:00: 00 Dose 2021-0 No 500 Unknown 12-18 00:00: 00 &lt 2021-0 No 750 12-18 00:00: 00 &lt 2021-0 No 500 12-18 00:00: 00 Dose 2021-0 No 750 Unknown 12-18 00:00: 00 Dose 2021-0 No Unknown 12-18 00:00: 00 Dose 2021-0 No Unknown 12-18 00:00: 00 Dose 2021-0 No 500 Unknown 12-18 00:00: 00 &lt 2021-0 No 750 12-18 00:00: 00 &lt 2021-0 No 500 8 00:00: 00 Dose 2021-0 No 750 Unknown 12-18 00:00: 00 Dose 2022-0 No Unknown 8 00:00: 00 Dose 2022-0 No Unknown 8-11 00:00: 00 levETIRAcet 2022-0 Yes 500mg Take 1 Uni vers am 500 mg 8-10 tablet by ity o f tablet 00:00: mouth in [place] [address] the Medical morning Branch and 1 tablet in the evening. levETIRAcet 2022-0 Yes 500mg Take 1 Uni vers am 500 mg 8-10 tablet by ity o f tablet 00:00: mouth in [place] 00 the Medical morning Branch and 1 tablet in the evening. levETIRAcet 2022-0 Yes 500mg Take 1 Uni vers am 500 mg 8-10 tablet by ity o f tablet 00:00: mouth in [place] 00 the Medical morning Branch and 1 tablet in the evening. levETIRAcet 2022-0 Yes 500mg Take 1 Uni vers am 500 mg 8-10 tablet by ity o f tablet 00:00: mouth in [place] [address] the Medical morning Branch and 1 tablet in the evening. levETIRAcet 2022-0 Yes 500mg Take 1 Uni vers am 500 mg 8-10 tablet by ity o f tablet 00:00: mouth in [place] [address] the Medical morning Branch and 1 tablet in the evening. levETIRAcet 2022-0 Yes 500mg Take 1 Uni vers am 500 mg 8-10 tablet by ity o f tablet 00:00: mouth in [place] [address] the Medical morning Branch and 1 tablet in the evening. levETIRAcet 2022-0 Yes 500mg Take 1 Uni vers am 500 mg 8-10 tablet by ity o f tablet 00:00: mouth in [place] the Medical morning Branch and 1 tablet in the evening. levETIRAcet 2022-0 Yes 500mg Take 1 Uni vers am 500 mg 8-10 tablet by ity o f tablet 00:00: mouth in [place] [address] the Medical morning Branch and 1 tablet in the evening. levETIRAcet 2022-0 Yes 500mg Take 1 Uni vers am 500 mg 8-10 tablet by ity o f tablet 00:00: mouth in [place] [address] the Medical morning Branch and 1 tablet in the evening. levETIRAcet 2022-0 Yes 500mg Take 1 Uni vers am 500 mg 8-10 tablet by ity o f tablet 00:00: mouth in [place] [address] the Medical morning Branch and 1 tablet in the evening. levETIRAcet 2022-0 Yes 500mg Take 1 Uni vers am 500 mg 8-10 tablet by ity o f tablet 00:00: mouth in [place] 00 the Medical morning Branch and 1 tablet in the evening. levETIRAcet 2022-0 Yes 500mg Take 1 Uni vers am 500 mg 8-10 tablet by ity o f tablet 00:00: mouth in [place] 00 the Medical morning Branch and 1 tablet in the evening. levETIRAcet 2022-0 Yes 500mg Take 1 Uni vers am 500 mg 8-10 tablet by ity o f tablet 00:00: mouth in [place] 00 the Medical morning Branch and 1 tablet in the evening. levETIRAcet 2022-0 Yes 500mg Take 1 Uni vers am 500 mg 8-10 tablet by ity o f tablet 00:00: mouth in [place] 00 the Medical morning Branch and 1 tablet in the evening. levETIRAcet 2022-0 Yes 500mg Take 1 Uni vers am 500 mg 8-10 tablet by ity o f tablet 00:00: mouth in [place] 00 the Medical morning Branch and 1 tablet in the evening. levETIRAcet 2022-0 Yes 500mg Take 1 Uni vers am 500 mg 8-10 tablet by ity o f tablet 00:00: mouth in [place] 00 the Medical morning Branch and 1 tablet in the evening. levETIRAcet 2022-0 Yes 500mg Take 1 Uni vers am 500 mg 8-10 tablet by ity o f tablet 00:00: mouth in [place] 00 the Medical morning Branch and 1 tablet in the evening. levETIRAcet 2022-0 Yes 500mg Take 1 Uni vers am 500 mg 8-10 tablet by ity o f tablet 00:00: mouth in [place] 00 the Medical morning Branch and 1 tablet in the evening. levETIRAcet 2022-0 Yes 500mg Take 1 Uni vers am 500 mg 8-10 tablet by ity o f tablet 00:00: mouth in [place] 00 the Medical morning Branch and 1 tablet in the evening. levETIRAcet 2022-0 Yes 500mg Take 1 Uni vers am 500 mg 8-10 tablet by ity o f tablet 00:00: mouth in [place] 00 the Medical morning Branch and 1 tablet in the evening. levETIRAcet 2022-0 Yes 500mg Take 1 Uni vers am 500 mg 8-10 tablet by ity o f tablet 00:00: mouth in [place] 00 [facility] morning Branch and 1 tablet in the evening. levETIRAcet 2-0 Yes 500mg Take 1 Uni vers am 500 mg 8-10 tablet by ity o f tablet 00:00: mouth in [place] 00 [facility] morning [place] and 1 tablet in the evening. Dose 2022-0 No 10 Unknown 8 00:00: 00 &lt 2022-0 No 500 8- 00:00: 00 &lt 2022-0 No 750 8- 00:00: 00 Dose 2022-0 No 10 Unknown 8 00:00: 00 &lt 2022-0 No 500 8 00:00: 00 &lt 2022-0 No 750 8 00:00: 00 Dose 2022-0 No Unknown 8 00:00: 00 &lt 2022-0 No 40 8- 00:00: 00 Dose 2022-0 No Unknown 8 00:00: 00 &lt 2022-0 No 40 8 00:00: 00 Dose 2022-0 No Unknown 8 00:00: 00 Dose 2022-0 No Unknown 8 00:00: 00 levETIRAcet 2-0 Yes [id number] 750mg Take 1 Univers am 750 mg 12-09 tablet by ity o f tablet 00:00: mouth in [place] 00 [facility] and 1 tablet in the evening. levETIRAcet 2-0 2022- No [id number] 750mg Take 1 Univers am 750 mg 8 08-10 tablet by ity of tablet 00:00: 00:00 mouth in [place] 00 :00 [facility] and 1 tablet in the evening. &lt 2022-0 No 750 8 00:00: 00 &lt 2022-0 No 750 12-08 00:00: 00 Dose 2-0 No Unknown 12-05 00:00: 00 Dose 2022-0 No 10 Unknown 12-05 00:00: 00 Dose 2022-0 No Unknown 12-05 00:00: 00 Dose 2022-0 No 10 Unknown 12-05 00:00: 00 levetiracet 2-0 No 1mg am 250 mg - tablet 00:00: 00 &lt 2022-0 No 10 12-04 00:00: 00 RINSE MOUTH 2022-0 No WITH ONE - CAPFUL 00:00: TWICE A DAY 00 (DO NOT SWALLOW) &lt 2022-0 No 750 7 00:00: 00 &lt 2022-0 No 500 12-04 00:00: 00 RINSE MOUTH 2022-0 No WITH ONE 12-04 CAPFUL 00:00: TWICE A DAY 00 (DO NOT SWALLOW) Dose 2022-0 No 10 Unknown 12-04 00:00: 00 levetiracet 2022-0 No 1mg am 250 mg 12-04 tablet 00:00: 00 &lt 2022-0 No 10 12-04 00:00: 00 RINSE MOUTH 2022-0 No WITH ONE 12-04 CAPFUL 00:00: TWICE A DAY 00 (DO NOT SWALLOW) &lt 2022-0 No 750 12-04 00:00: 00 &lt 2022-0 No 500 12-04 00:00: 00 RINSE MOUTH 2022-0 No WITH ONE 12-04 CAPFUL 00:00: TWICE A DAY 00 (DO NOT SWALLOW) Dose 2022-0 No 10 Unknown 12-04 00:00: 00 &lt 2022-0 No 750 7 00:00: 00 &lt 2022-0 No 750 7 00:00: 00 &lt 2022-0 No 6- 00:00: 00 &lt 2022-0 No 6-23 00:00: 00 amlodipine 2022-0 No 1mg 10 mg 4-12 tablet 00:00: 00 Dose 2022-0 No Unknown 4-12 00:00: 00 amlodipine 2022-0 No 1mg 10 mg 4-12 tablet 00:00: 00 Dose 2022-0 No Unknown 4-12 00:00: 00 atorvastati 2022-0 No 1mg n 40 mg 3-31 tablet 00:00: 00 atorvastati 2022-0 No 1mg n 40 mg 3-31 tablet 00:00: 00 amlodipine 2022-0 No 1mg 10 mg 3-15 tablet 00:00: 00 amlodipine 2022-0 No 1mg 10 mg 3-15 tablet 00:00: 00 Dose 2022-0 No Unknown 3-11 00:00: 00 Dose 2022-0 No Unknown 3-11 00:00: 00 Dose 2021-0 No Unknown 3-11 00:00: 00 Dose 2021-0 No Unknown 3-11 00:00: 00 Dose 2021-0 No Unknown 3-11 00:00: 00 Dose 2021-0 No Unknown 3-11 00:00: 00 Dose 2021-0 No Unknown 3-11 00:00: 00 Dose 2021-0 No Unknown 3-11 00:00: 00 Dose 2020-1 No Unknown 1-23 00:00: 00 Dose 2020-1 No Unknown 1-23 00:00: 00 mupirocin 2 2020-0 No 1% % topical 9-28 ointment 00:00: 00 Dose 2020-0 No Unknown 9-28 00:00: 00 cephalexin 2020-0 No 2mg 500 mg 9-28 capsule 00:00: 00 mupirocin 2 2020-0 No 1% % topical 9-28 ointment 00:00: 00 Dose 2020-0 No Unknown 9-28 00:00: 00 cephalexin 2020-0 No 2mg 500 mg 9-28 capsule 00:00: 00 Dose 2020-0 No Unknown 9 00:00: 00 Dose 2020-0 No Unknown 927 00:00: 00 Dose 2020-0 No Unknown 8- 00:00: 00 metformin 2020-0 No 1mg 500 mg 8-26 tablet 00:00: 00 atorvastati 2020-0 No 1mg n 40 mg 8-26 tablet 00:00: 00 ferrous 2020-0 No 1(65 mg sulfate 325 8-26 iron) mg (65 mg 00:00: iron) 00 tablet Dose 2020-0 No Unknown 8-26 00:00: 00 metformin 2020-0 No 1mg 500 mg 8-26 tablet 00:00: 00 atorvastati 2020-0 No 1mg n 40 mg 8-26 tablet 00:00: 00 ferrous 2020-0 No 1(65 mg sulfate 325 8-26 iron) mg (65 mg 00:00: iron) 00 tablet metFORMIN 2020-0 Yes 500mg Take 500 Uni vers 500 mg 7-20 mg by ity of tablet 14:11: mouth 2 [place] 29 (two) Medical times Branch daily with meals. amLODIPine 0 Yes 2.5mg Take 2.5 Un latisha 2.5 mg 7-20 mg by ity of tablet 14:11: mouth 2 [place] [address] (two) Medical times Branch daily. aspirin 81 2020-0 Yes 81mg Take 81 mg U nivers mg chewable 7-20 by mouth ity of tablet 14:11: daily. [place] [address] Medical Branch ferrous 2020-0 Yes 325mg Take 325 Unive rs sulfate 325 7-20 mg by ity of mg (65 mg 14:11: mouth 2 [place] iron) 29 (two) Medical tablet times Branch daily. atorvastati 0 Yes 40mg Take 40 mg Univers n 40 mg 7-20 by mouth ity of tablet 14:11: at [place] [address] bedtime. Medical Branch metFORMIN 0 Yes 500mg Take 500 Uni vers 500 mg 7-20 mg by ity of tablet 14:11: mouth 2 [place] [address] (two) Medical times Branch daily with meals. amLODIPine Yes 2.5mg Take 2.5 Un latisha 2.5 mg 7-20 mg by ity of tablet 14:11: mouth 2 [place] [address] (two) Medical times Branch daily. aspirin 81 0 Yes 81mg Take 81 mg U nivers mg chewable 7-20 by mouth ity of tablet 14:11: daily. [place] [address] Medical Branch ferrous 0 Yes 325mg Take 325 Unive rs sulfate 325 7-20 mg by ity of mg (65 mg 14:11: mouth 2 [place] iron) 29 (two) Medical tablet times Branch daily. atorvastati 0 Yes 40mg Take 40 mg Univers n 40 mg 7-20 by mouth ity of tablet 14:11: at [place] [address] bedtime. Medical Branch metFORMIN 2020-0 Yes 500mg Take 500 Uni vers 500 mg 7-20 mg by ity of tablet 14:11: mouth 2 [place] [address] (two) Medical times Branch daily with meals. amLODIPine 2020-0 Yes 2.5mg Take 2.5 Un latisha 2.5 mg 7-20 mg by ity of tablet 14:11: mouth 2 [place] [address] (two) Medical times Branch daily. aspirin 81 2020-0 Yes 81mg Take 81 mg U nivers mg chewable 7-20 by mouth ity of tablet 14:11: daily. [place] [address] Medical Branch ferrous 2021-0 Yes 325mg Take 325 Unive rs sulfate 325 7-20 mg by ity of mg (65 mg 14:11: mouth 2 [place] iron) 29 (two) Medical tablet times Branch daily. atorvastati 2020-0 Yes 40mg Take 40 mg Univers n 40 mg 7-20 by mouth ity of tablet 14:11: at [place] [address] bedtime. Medical Branch metFORMIN 2020-0 Yes 500mg Take 500 Uni vers 500 mg 7-20 mg by ity of tablet 14:11: mouth 2 [place] [address] (two) Medical times Branch daily with meals. amLODIPine 2020-0 Yes 2.5mg Take 2.5 Un latisha 2.5 mg 7-20 mg by ity of tablet 14:11: mouth 2 [place] [address] (two) Medical times Branch daily. aspirin 81 2020-0 Yes 81mg Take 81 mg U nivers mg chewable 7-20 by mouth ity of tablet 14:11: daily. [place] [address] Medical Branch ferrous 2020-0 Yes 325mg Take 325 Unive rs sulfate 325 7-20 mg by ity of mg (65 mg 14:11: mouth 2 [place] iron) 29 (two) Medical tablet times Branch daily. atorvastati 2020-0 Yes 40mg Take 40 mg Univers n 40 mg 7-20 by mouth ity of tablet 14:11: at [place] [address] bedtime. Medical Branch metFORMIN 0 Yes 500mg Take 500 Uni vers 500 mg 7-20 mg by ity of tablet 14:11: mouth 2 [place] [address] (two) Medical times Branch daily with meals. amLODIPine 2020-0 Yes 2.5mg Take 2.5 Un latisha 2.5 mg 7-20 mg by ity of tablet 14:11: mouth 2 [place] [address] (two) Medical times Branch daily. aspirin 81 2020-0 Yes 81mg Take 81 mg U nivers mg chewable 7-20 by mouth ity of tablet 14:11: daily. [place] [address] Medical Branch ferrous 2020-0 Yes 325mg Take 325 Unive rs sulfate 325 7-20 mg by ity of mg (65 mg 14:11: mouth 2 [place] iron) 29 (two) Medical tablet times Branch daily. atorvastati 2020-0 Yes 40mg Take 40 mg Univers n 40 mg 7-20 by mouth ity of tablet 14:11: at [place] [address] bedtime. Medical Branch metFORMIN 2021-0 Yes 500mg Take 500 Uni vers 500 mg 7-20 mg by ity of tablet 14:11: mouth 2 [place] [address] (two) Medical times Branch daily with meals. amLODIPine 0 Yes 2.5mg Take 2.5 Un latisha 2.5 mg 7-20 mg by ity of tablet 14:11: mouth 2 [place] [address] (two) Medical times Branch daily. aspirin 81 2020-0 Yes 81mg Take 81 mg U nivers mg chewable 7-20 by mouth ity of tablet 14:11: daily. [place] [address] Medical Branch ferrous 0 Yes 325mg Take 325 Unive rs sulfate 325 7-20 mg by ity of mg (65 mg 14:11: mouth 2 [place] iron) 29 (two) Medical tablet times Branch daily. atorvastati 0 Yes 40mg Take 40 mg Univers n 40 mg 7-20 by mouth ity of tablet 14:11: at [place] [address] bedtime. Medical Branch metFORMIN Yes 500mg Take 500 Uni vers 500 mg 7-20 mg by ity of tablet 14:11: mouth 2 [place] [address] (two) Medical times Branch daily with meals. amLODIPine 0 Yes 2.5mg Take 2.5 Un latisha 2.5 mg 7-20 mg by ity of tablet 14:11: mouth 2 [place] [address] (two) Medical times Branch daily. aspirin 81 0 Yes 81mg Take 81 mg U nivers mg chewable 7-20 by mouth ity of tablet 14:11: daily. [place] [address] Medical Branch ferrous 0 Yes 325mg Take 325 Unive rs sulfate 325 7-20 mg by ity of mg (65 mg 14:11: mouth 2 [place] iron) 29 (two) Medical tablet times Branch daily. atorvastati 0 Yes 40mg Take 40 mg Univers n 40 mg 7-20 by mouth ity of tablet 14:11: at [place] [address] bedtime. Medical Branch metFORMIN 0 Yes 500mg Take 500 Uni vers 500 mg 7-20 mg by ity of tablet 14:11: mouth 2 [place] [address] (two) Medical times Branch daily with meals. amLODIPine 0 Yes 2.5mg Take 2.5 Un latisha 2.5 mg 7-20 mg by ity of tablet 14:11: mouth 2 [place] [address] (two) Medical times Branch daily. aspirin 81 2020-0 Yes 81mg Take 81 mg U nivers mg chewable 7-20 by mouth ity of tablet 14:11: daily. [place] [address] Medical Branch ferrous 2020-0 Yes 325mg Take 325 Unive rs sulfate 325 7-20 mg by ity of mg (65 mg 14:11: mouth 2 [place] iron) 29 (two) Medical tablet times Branch daily. atorvastati 2020-0 Yes 40mg Take 40 mg Univers n 40 mg 7-20 by mouth ity of tablet 14:11: at [place] [address] bedtime. Medical Branch metFORMIN 0 Yes 500mg Take 500 Uni vers 500 mg 7-20 mg by ity of tablet 14:11: mouth 2 [place] [address] (two) Medical times Branch daily with meals. amLODIPine 2020-0 Yes 2.5mg Take 2.5 Un latisha 2.5 mg 7-20 mg by ity of tablet 14:11: mouth 2 [place] [address] (two) Medical times Branch daily. aspirin 81 2020-0 Yes 81mg Take 81 mg U nivers mg chewable 7-20 by mouth ity of tablet 14:11: daily. [place] [address] Medical Branch ferrous 2020-0 Yes 325mg Take 325 Unive rs sulfate 325 7-20 mg by ity of mg (65 mg 14:11: mouth 2 [place] iron) 29 (two) Medical tablet times Branch daily. atorvastati 2020-0 Yes 40mg Take 40 mg Univers n 40 mg 7-20 by mouth ity of tablet 14:11: at [place] [address] bedtime. Medical Branch metFORMIN 2020-0 Yes 500mg Take 500 Uni vers 500 mg 7-20 mg by ity of tablet 14:11: mouth 2 [place] [address] (two) Medical times Branch daily with meals. amLODIPine 2020-0 Yes 2.5mg Take 2.5 Un latisha 2.5 mg 7-20 mg by ity of tablet 14:11: mouth 2 [place] [address] (two) Medical times Branch daily. aspirin 81 2020-0 Yes 81mg Take 81 mg U nivers mg chewable 7-20 by mouth ity of tablet 14:11: daily. [place] [address] Medical Branch ferrous 2020-0 Yes 325mg Take 325 Unive rs sulfate 325 7-20 mg by ity of mg (65 mg 14:11: mouth 2 [place] iron) 29 (two) Medical tablet times Branch daily. atorvastati 2020-0 Yes 40mg Take 40 mg Univers n 40 mg 7-20 by mouth ity of tablet 14:11: at [place] [address] bedtime. Medical Branch metFORMIN 2020-0 Yes 500mg Take 500 Uni vers 500 mg 7-20 mg by ity of tablet 14:11: mouth 2 [place] [address] (two) Medical times Branch daily with meals. amLODIPine 2020-0 Yes 2.5mg Take 2.5 Un latisha 2.5 mg 7-20 mg by ity of tablet 14:11: mouth 2 [place] [address] (two) Medical times Branch daily. aspirin 81 2020-0 Yes 81mg Take 81 mg U nivers mg chewable 7-20 by mouth ity of tablet 14:11: daily. [place] [address] Medical Branch ferrous 2020-0 Yes 325mg Take 325 Unive rs sulfate 325 7-20 mg by ity of mg (65 mg 14:11: mouth 2 [place] iron) 29 (two) Medical tablet times Branch daily. atorvastati 2020-0 Yes 40mg Take 40 mg Univers n 40 mg 7-20 by mouth ity of tablet 14:11: at [place] [address] bedtime. Medical Branch metFORMIN 0 Yes 500mg Take 500 Uni vers 500 mg 7-20 mg by ity of tablet 14:11: mouth 2 [place] [address] (two) Medical times Branch daily with meals. amLODIPine 0 Yes 2.5mg Take 2.5 Un latisha 2.5 mg 7-20 mg by ity of tablet 14:11: mouth 2 [place] [address] (two) Medical times Branch daily. aspirin 81 2020-0 Yes 81mg Take 81 mg U nivers mg chewable 7-20 by mouth ity of tablet 14:11: daily. [place] [address] Medical Branch ferrous 2020-0 Yes 325mg Take 325 Unive rs sulfate 325 7-20 mg by ity of mg (65 mg 14:11: mouth 2 [place] iron) (two) Medical tablet times Branch daily. atorvastati 2020-0 Yes 40mg Take 40 mg Univers n 40 mg 7-20 by mouth ity of tablet 14:11: at [place] [address] bedtime. Medical Branch metFORMIN 2020-0 Yes 500mg Take 500 Uni vers 500 mg 7-20 mg by ity of tablet 14:11: mouth 2 [place] [address] (two) Medical times Branch daily with meals. amLODIPine 2020-0 Yes 2.5mg Take 2.5 Un latisha 2.5 mg 7-20 mg by ity of tablet 14:11: mouth 2 [place] [address] (two) Medical times Branch daily. aspirin 81 2020-0 Yes 81mg Take 81 mg U nivers mg chewable 7-20 by mouth ity of tablet 14:11: daily. [place] [address] Medical Branch ferrous 2020-0 Yes 325mg Take 325 Unive rs sulfate 325 7-20 mg by ity of mg (65 mg 14:11: mouth 2 [place] iron) 29 (two) Medical tablet times Branch daily. atorvastati 2020-0 Yes 40mg Take 40 mg Univers n 40 mg 7-20 by mouth ity of tablet 14:11: at [place] [address] bedtime. Medical Branch metFORMIN 2020-0 Yes 500mg Take 500 Uni vers 500 mg 7-20 mg by ity of tablet 14:11: mouth 2 [place] [address] (two) Medical times Branch daily with meals. amLODIPine 2020-0 Yes 2.5mg Take 2.5 Un latisha 2.5 mg 7-20 mg by ity of tablet 14:11: mouth 2 [place] [address] (two) Medical times Branch daily. aspirin 81 2020-0 Yes 81mg Take 81 mg U nivers mg chewable 7-20 by mouth ity of tablet 14:11: daily. [place] [address] Medical Branch ferrous 2020-0 Yes 325mg Take 325 Unive rs sulfate 325 7-20 mg by ity of mg (65 mg 14:11: mouth 2 [place] iron) 29 (two) Medical tablet times Branch daily. atorvastati 2020-0 Yes 40mg Take 40 mg Univers n 40 mg 7-20 by mouth ity of tablet 14:11: at [place] [address] bedtime. Medical Branch metFORMIN 2020-0 Yes 500mg Take 500 Uni vers 500 mg 7-20 mg by ity of tablet 14:11: mouth 2 [place] [address] (two) Medical times Branch daily with meals. amLODIPine 2021-0 Yes 2.5mg Take 2.5 Un latisha 2.5 mg 7-20 mg by ity of tablet 14:11: mouth 2 [place] [address] (two) Medical times Branch daily. aspirin 81 2020-0 Yes 81mg Take 81 mg U nivers mg chewable 7-20 by mouth ity of tablet 14:11: daily. [place] 29 [facility] Branch ferrous 1-0 Yes 325mg Take 325 Unive rs sulfate 325 7-20 mg by ity of mg (65 mg 14:11: mouth 2 [place] iron) 29 (two) Medical tablet times Branch daily. atorvastati 2020-0 Yes 40mg Take 40 mg Univers n 40 mg 7-20 by mouth ity of tablet 14:11: at [place] 29 bedtime. Medical Branch Ciprodex 2020-0 No 4% 0.3 %-0.1 % 5-24 ear 00:00: drops,suspe 00 nsion prednisone 2020-0 No 1mg 10 mg 5-24 tablet 00:00: 00 amoxicillin 2020-0 No 1mg 500 mg 5-24 capsule 00:00: 00 Ciprodex 2020-0 No 4% 0.3 %-0.1 % 5-24 ear 00:00: drops,suspe 00 nsion prednisone 2020-0 No 1mg 10 mg 5-24 tablet 00:00: 00 amoxicillin 2020-0 No 1mg 500 mg 5-24 capsule 00:00: 00 gabapentin 2021-0 No 1mg 100 mg 4-07 capsule 00:00: 00 gabapentin 2021-0 No 1mg 100 mg 4-07 capsule 00:00: 00 amlodipine 2020-0 No 1mg 10 mg 3-09 tablet 00:00: 00 Dose 1-0 No Unknown 3-09 00:00: 00 atorvastati 2020-0 No 1mg n 40 mg 3-09 tablet 00:00: 00 ferrous 2020-0 No 1(65 mg sulfate 325 3-09 iron) mg (65 mg 00:00: iron) 00 tablet amlodipine 2020-0 No 1mg 10 mg 3-09 tablet 00:00: 00 Dose 2021-0 No Unknown 3-09 00:00: 00 atorvastati 2020-0 No 1mg n 40 mg 3-09 tablet 00:00: 00 ferrous 1-0 No 1(65 mg sulfate 325 3-09 iron) mg (65 mg 00:00: iron) 00 tablet amlodipine 2019-1 No 1mg 10 mg 2-23 tablet 00:00: 00 atorvastati 2019-1 No 1mg n 40 mg 2-23 tablet 00:00: 00 ferrous 2019-1 No 1(65 mg sulfate 325 2-23 iron) mg (65 mg 00:00: iron) 00 tablet cholecalcif 2019- No 1(50,00 gold 2-23 0 unit) (vitamin 00:00: D3) 1,250 00 mcg (50,000 unit) capsule amlodipine 2019-1 No 1mg 10 mg 2-23 tablet 00:00: 00 atorvastati 2019- No 1mg n 40 mg 2-23 tablet 00:00: 00 ferrous 2019- No 1(65 mg sulfate 325 2-23 iron) mg (65 mg 00:00: iron) 00 tablet cholecalcif 2019- No 1(50,00 gold 2-23 0 unit) (vitamin 00:00: D3) 1,250 00 mcg (50,000 unit) capsule amlodipine 2019-05 No 1mg 10 mg 1-06 tablet 00:00: 00 cholecalcif 2019- No 1(50,00 gold 1-06 0 unit) (vitamin 00:00: D3) 1,250 00 mcg (50,000 unit) capsule amlodipine 2019-05 No 1mg 10 mg 1-06 tablet 00:00: 00 cholecalcif 2019- No 1(50,00 gold 1-06 0 unit) (vitamin 00:00: D3) 1,250 00 mcg (50,000 unit) capsule atorvastati 2019-05 No 1mg n 40 mg 0-08 tablet 00:00: 00 ferrous 2019-1 No 1(65 mg sulfate 325 0-08 iron) mg (65 mg 00:00: iron) 00 tablet atorvastati 2019- No 1mg n 40 mg 0-08 tablet 00:00: 00 ferrous 2019-1 No 1(65 mg sulfate 325 0-08 iron) mg (65 mg 00:00: iron) 00 tablet amlodipine 2019-0 No 1mg 10 mg 9-24 tablet 00:00: 00 cholecalcif 2020-0 No 1(50,00 gold 9-24 0 unit) (vitamin 00:00: D3) 1,250 00 mcg (50,000 unit) capsule amlodipine 2019-0 No 1mg 10 mg 9-24 tablet 00:00: 00 cholecalcif 2019-0 No 1(50,00 gold 9-24 0 unit) (vitamin 00:00: D3) 1,250 00 mcg (50,000 unit) capsule Dose 2020-0 No Unknown 9- 00:00: 00 Dose 2020-0 No Unknown 9- 00:00: 00 Dose 2020-0 No Unknown 8-25 00:00: 00 Dose 2020-0 No Unknown 8-25 00:00: 00 atorvastati 2020-0 No 1mg n 40 mg 7-10 tablet 00:00: 00 cholecalcif 2020-0 No 1(50,00 gold 7-10 0 unit) (vitamin 00:00: D3) 1,250 00 mcg (50,000 unit) capsule atorvastati 2020-0 No 1mg n 40 mg 7-10 tablet 00:00: 00 cholecalcif 2020-0 No 1(50,00 gold 7-10 0 unit) (vitamin 00:00: D3) 1,250 00 mcg (50,000 unit) capsule ferrous 2020-0 No 1(65 mg sulfate 325 7-01 iron) mg (65 mg 00:00: iron) 00 tablet gabapentin 2020-0 No 1mg 100 mg 7-01 capsule 00:00: 00 ferrous 2020-0 No 1(65 mg sulfate 325 7-01 iron) mg (65 mg 00:00: iron) 00 tablet gabapentin 2020-0 No 1mg 100 mg 7-01 capsule 00:00: 00 amlodipine 2020-0 No 1mg 10 mg 6-25 tablet 00:00: 00 amlodipine 2020-0 No 1mg 10 mg 6-25 tablet 00:00: 00 amlodipine 2020-0 No 1mg 5 mg tablet 6-24 00:00: 00 amlodipine 2020-0 No 1mg 5 mg tablet 6-24 00:00: 00 amlodipine 2020-0 No 1mg 5 mg tablet 6-23 00:00: 00 gabapentin 2020-0 No 1mg 100 mg 6-23 capsule 00:00: 00 amlodipine 2020-0 No 1mg 5 mg tablet 6-23 00:00: 00 gabapentin 2020-0 No 1mg 100 mg 6-23 capsule 00:00: 00 ferrous 2020-0 No 1(65 mg sulfate 325 4-20 iron) mg (65 mg 00:00: iron) 00 tablet gabapentin 2020-0 No 1mg 100 mg 4-20 capsule 00:00: 00 ferrous 2020-0 No 1(65 mg sulfate 325 4-20 iron) mg (65 mg 00:00: iron) 00 tablet gabapentin 2020-0 No 1mg 100 mg 4-20 capsule 00:00: 00 amlodipine 2020-0 No 1mg 5 mg tablet 3-19 00:00: 00 amlodipine 2020-0 No 1mg 5 mg tablet 3-19 00:00: 00 amlodipine 2020-0 No 1mg 2.5 mg 2-20 tablet 00:00: 00 amlodipine 2020-0 No 1mg 2.5 mg 2-20 tablet 00:00: 00 gabapentin 2020-0 No 1mg 100 mg 2-18 capsule 00:00: 00 gabapentin 2020-0 No 1mg 100 mg 2-18 capsule 00:00: 00 amlodipine 2020-0 No 1mg 2.5 mg 1-27 tablet 00:00: 00 amlodipine 2020-0 No 1mg 2.5 mg 1-27 tablet 00:00: 00 ferrous 2020-0 No 1(65 mg sulfate 325 1-24 iron) mg (65 mg 00:00: iron) 00 tablet ferrous 2020-0 No 1(65 mg sulfate 325 1-24 iron) mg (65 mg 00:00: iron) 00 tablet gabapentin 2020-0 No 1mg 100 mg 1-14 capsule 00:00: 00 gabapentin 2020-0 No 1mg 100 mg 1-14 capsule 00:00: 00 metformin 2019-1 No 1mg 1,000 mg 2-17 tablet 00:00: 00 amlodipine 2019-1 No 1mg 2.5 mg 2-17 tablet 00:00: 00 gabapentin 2019-1 No 1mg 100 mg 2-17 capsule 00:00: 00 metformin 2019-1 No 1mg 1,000 mg 2-17 tablet 00:00: 00 amlodipine 2019-1 No 1mg 2.5 mg 2-17 tablet 00:00: 00 gabapentin 2019-1 No 1mg 100 mg 2-17 capsule 00:00: 00 loratadine 2019-1 No 1mg 10 mg 2-05 tablet 00:00: 00 trazodone 2019-1 No 1mg 50 mg 2-05 tablet 00:00: 00 loratadine 2019-1 No 1mg 10 mg 2-05 tablet 00:00: 00 trazodone 2019-1 No 1mg 50 mg 2-05 tablet 00:00: 00 lisinopril 2019-1 No 1mg 10 0-24 mg-hydrochl 00:00: orothiazide 00 12.5 mg tablet metformin 2019- No 1mg 1,000 mg 0-24 tablet 00:00: 00 amlodipine 2018-1 No 1mg 2.5 mg 0-24 tablet 00:00: 00 ferrous 2019-1 No 1(65 mg sulfate 325 0-24 iron) mg (65 mg 00:00: iron) 00 tablet gabapentin 2018- No 1mg 100 mg 0-24 capsule 00:00: 00 lisinopril 2018-1 No 1mg 10 0-24 mg-hydrochl 00:00: orothiazide 00 12.5 mg tablet metformin 2018- No 1mg 1,000 mg 0-24 tablet 00:00: 00 amlodipine 2018-1 No 1mg 2.5 mg 0-24 tablet 00:00: 00 ferrous 2018-1 No 1(65 mg sulfate 325 0-24 iron) mg (65 mg 00:00: iron) 00 tablet gabapentin 2018- No 1mg 100 mg 0-24 capsule 00:00: 00 amlodipine 2018-0 No 1mg 2.5 mg 9-24 tablet 00:00: 00 ferrous 2018-0 No 1(65 mg sulfate 325 9-24 iron) mg (65 mg 00:00: iron) 00 tablet gabapentin 2018-0 No 1mg 100 mg 9-24 capsule 00:00: 00 amlodipine 2018-0 No 1mg 2.5 mg 9-24 tablet 00:00: 00 ferrous 2018-0 No 1(65 mg sulfate 325 9-24 iron) mg (65 mg 00:00: iron) 00 tablet gabapentin 2018-0 No 1mg 100 mg 9-24 capsule 00:00: 00 mupirocin 2 2019-0 No 1% % topical 9-05 ointment 00:00: 00 dicyclomine 2019-0 No 5mg 20 mg 9-05 tablet 00:00: 00 mupirocin 2 2019-0 No 1% % topical 9-05 ointment 00:00: 00 dicyclomine 2019-0 No 5mg 20 mg 9-05 tablet 00:00: 00 lisinopril 2018-0 No 1mg 10 8-27 mg-hydrochl 00:00: orothiazide 00 12.5 mg tablet lisinopril 2018-0 No 1mg 10 8-27 mg-hydrochl 00:00: orothiazide 00 12.5 mg tablet trazodone 2019-0 No 1mg 50 mg 8-20 tablet 00:00: 00 trazodone 2019-0 No 1mg 50 mg 8-20 tablet 00:00: 00 amlodipine 2019-0 No 1mg 2.5 mg 8-16 tablet 00:00: 00 amlodipine 2019-0 No 1mg 2.5 mg 8-16 tablet 00:00: 00 lisinopril 2019-0 No 1mg 10 7-29 mg-hydrochl 00:00: orothiazide 00 12.5 mg tablet lisinopril 2019-0 No 1mg 10 7-29 mg-hydrochl 00:00: orothiazide 00 12.5 mg tablet lisinopril 2019-0 No 1mg 30 mg 7-18 tablet 00:00: 00 gabapentin 2019-0 No 1mg 100 mg 7-18 capsule 00:00: 00 lisinopril 2019-0 No 1mg 30 mg 7-18 tablet 00:00: 00 gabapentin 2019-0 No 1mg 100 mg 7-18 capsule 00:00: 00 trazodone 2019-0 No 1mg 50 mg 6-20 tablet 00:00: 00 trazodone 2019-0 No 1mg 50 mg 6-20 tablet 00:00: 00 glipizide 5 2019-0 No 1mg mg tablet 6-14 00:00: 00 glipizide 5 2019-0 No 1mg mg tablet 6-14 00:00: 00 blood sugar 2019-0 Yes Se [facility] (FREESTYLE 00:00: ns. Medical INSULINX 00 Center TEST STRIPS) Strp lancets 2019-0 Yes Use [facility] ns[facility] lancets 2019-0 Yes [facility] ns[facility] 00 Center blood sugar 2019-0 Yes Se [facility] (FREESTYLE 00:00: ns. Medical INSULINX 00 Center TEST STRIPS) Strp lancets 2019-0 Yes Use [facility]: ns. [facility] 00 Center blood sugar 2019-0 Yes Se [facility]13 [facility] (FREESTYLE 00:00: ns. Medical INSULINX 00 Center TEST STRIPS) Strp lancets 2019-0 Yes Use [facility]: ns. [facility] 00 Center blood sugar 2019-0 Yes Se [facility]13 [facility] (FREESTYLE 00:00: ns. Medical INSULINX 00 Center TEST STRIPS) Strp lancets 2019-0 Yes Use [facility] 00:[facility]: ns. Medical 00 Center blood sugar 2019-0 Yes Se per [facility]13 [facility] (FREESTYLE 00:00: ns. Medical INSULINX 00 Center TEST STRIPS) Strp lancets 2019-0 Yes Use [facility] 00:[facility]: ns. Medical 00 Center blood sugar 2019-0 Yes Se per [facility] 6[facility]13 [facility] (FREESTYLE 00:00: ns. Medical INSULINX 00 Center TEST STRIPS) Strp lancets 2019-0 Yes Use [facility] 00:[facility]: ns. Medical 00 Center blood sugar 2019-0 Yes Se per [facility] 6[facility]13 [facility] (FREESTYLE 00:00: ns. Medical INSULINX 00 Center TEST STRIPS) Strp lancets 2019-0 Yes Use [facility] 00:[facility]: ns. Medical 00 Center blood sugar 2019-0 Yes Se per [facility] 6[facility]13 [facility] (FREESTYLE 00:00: ns. Medical INSULINX 00 Center TEST STRIPS) Strp lancets 2019-0 Yes Use [facility] 00[facility]: ns. Medical 00 Center blood sugar 2019-0 Yes Se per [facility] 6[facility]13 [facility] (FREESTYLE 00:00: ns. Medical INSULINX 00 Center TEST STRIPS) Strp lancets 2019-0 Yes Use [facility] 00:[facility]: ns. Medical 00 Center blood sugar 2019-0 Yes Se per [facility] 6[facility]13 [facility] (FREESTYLE 00:00: ns. Medical INSULINX 00 Center TEST STRIPS) Strp aspirin 81 2019-0 No 1mg mg chewable 6-04 tablet 00:00: 00 aspirin 81 2019-0 No 1mg mg chewable 6-04 tablet 00:00: 00 lisinopril 2019-0 No 1mg 20 mg 6-04 tablet 00:00: 00 metformin 2019-0 No 1mg 1,000 mg 6-04 tablet 00:00: 00 atorvastati 2019-0 No 1mg n 80 mg 6-04 tablet 00:00: 00 ferrous 2019-0 No 1(65 mg sulfate 325 6-04 iron) mg (65 mg 00:00: iron) 00 tablet lisinopril 2019-0 No 1mg 20 mg 6-04 tablet 00:00: 00 metformin 2019-0 No 1mg 1,000 mg 6-04 tablet 00:00: 00 atorvastati 2019-0 No 1mg n 80 mg 6-04 tablet 00:00: 00 ferrous 2019-0 No 1(65 mg sulfate 325 6-04 iron) mg (65 mg 00:00: iron) 00 tablet Vital Signs Vital Name Observation Time Observation Value Comments Source Systolic blood 2022-12-24 22:19:00 133 mm[Hg] Univer sity [facility] Diastolic blood 2022-12-24 22:19:00 73 mm[Hg] Unive [facility] Heart rate 2022-12-24 22:19:00 68 /min [facility] Respiratory rate 2022-12-24 22:19:00 18 /min [facility] Oxygen saturation in 2022-12-24 22:19:00 98 /min [facility] Arterial blood by [facility] Pulse oximetry Branch Body temperature 2022-12-24 19:45:00 37.5 Sammi [facility] Body weight 2022-12-24 19:45:00 52.164 kg [facility] BMI 2022-12-24 19:45:00 19.74 kg/m2 [facility] Systolic blood 2022-12-24 19:07:00 138 mm[Hg] Univer sity [facility] Diastolic blood 2022-12-24 19:07:00 76 [facility]Hg[facility]-24 19:07:00 110 /min [facility] Body temperature 2022-12-24 19:07:00 36.78 Sammi [facility] Respiratory rate 2022-12-24 19:07:00 16 /min [facility] Body weight 2022-12-24 19:07:00 52.164 kg [facility] BMI 2022-12-24 19:07:00 19.74 kg/m2 [facility] [place] [facility] Oxygen saturation in 2022-12-24 19:07:00 99 /min [facility] Arterial blood by [facility] chitra Pulse oximetry Branch Systolic blood 2022-11-09 14:10:00 136 mm[Hg] Univer [facility]ity [facility] [place] [facility] Diastolic blood 2022-11-09 14:10:00 62 mm[Hg] Unive rsity of [facility] [place] [facility] Respiratory rate 2022-11-09 14:10:00 15 /min [facility] [place] [facility] Oxygen saturation in 2022-11-09 14:10:00 100 /min [facility] Arterial blood by [facility] Pulse oximetry Branch Body height 2022-11-09 12:49:00 162.6 cm [facility] [place] [facility] Body weight 2022-11-09 12:49:00 53.071 kg [facility] BMI 2022-11-09 12:49:00 20.08 kg/m2 [facility] [place] [facility] Systolic blood 2022-11-09 14:10:00 136 mm[Hg] Univer [facility]ity [facility] [place] [facility] Diastolic blood 2022-11-09 14:10:00 62 mm[Hg] Unive rsity of [facility] [place] [facility] Respiratory rate 2022-11-09 14:10:00 15 /min [facility] [place] [facility] Oxygen saturation in 2022-11-09 14:10:00 100 /min [facility] Arterial blood by [facility] Pulse oximetry Branch Body height 2022-11-09 12:49:00 162.6 cm [facility] [place] [facility] Body weight 2022-11-09 12:49:00 53.071 kg [facility] BMI 2022-11-09 12:49:00 20.08 kg/m2 [facility] [place] [facility] Systolic blood 2022-06-22 15:46:00 127 mm[Hg] [facility]iver [facility]ity [facility] [place] [facility] Diastolic blood 2022-06-22 15:46:00 58 mm[Hg] Unive rsity [facility] [place] [facility] Heart rate 2022-06-22 15:46:00 63 /min [facility] [place] [facility] Body temperature 2022-06-22 15:46:00 36.56 Sammi [facility] [place] [facility] Body height 2022-06-22 15:46:00 162.6 cm [facility] [place] [facility] Body weight 2022-06-22 15:46:00 54.159 kg [facility] [place] [facility] BMI 2022-06-22 15:46:00 20.49 kg/m2 [facility] [place] [facility] Oxygen saturation in 2022-06-22 15:46:00 99 /min [facility] Arterial blood by [place] [employer] [facility] chitra Pulse oximetry Branch Systolic blood 2022-04-07 17:50:00 148 mm[Hg] Univer [facility]ity [facility] [place] [facility] [place] Diastolic blood 2022-04-07 17:50:00 71 mm[Hg] Unive [facility]ity [facility] [place] [facility] Heart rate 2022-04-07 17:50:00 77 /min [facility] [place] [facility] Body temperature 2022-04-07 17:50:00 36 Sammi [facility] [place] [facility] [place] Respiratory rate 2022-04-07 17:50:00 18 /min [facility] [place] [facility] Body weight 2022-04-07 17:50:00 52.617 kg [facility] [place] [facility] BMI 2022-04-07 17:50:00 19.91 kg/m2 [facility] [place] [facility] Oxygen saturation in 2022-04-07 17:50:00 99 /min [facility] Arterial blood by [facility] chitra Pulse oximetry Branch BP Systolic 2022-04-07 09:36:00 148 mm[Hg] BP Diastolic 2022-04-07 09:36:00 85 mm[Hg] Weight Measured 2022-04-07 09:36:00 116.60 pounds Height Measured 2022-04-07 09:36:00 62.00 inches Body Temperature 2022-04-07 09:36:00 Heart Rate 2022-04-07 09:36:00 74.00 /min Respiratory Rate 2022-04-07 09:36:00 BP Systolic 2021-08-30 13:46:00 159 mm[Hg] BP Diastolic 2021-08-30 13:46:00 89 mm[Hg] Weight Measured 2021-08-30 13:46:00 117.00 pounds Height Measured 2021-08-30 13:46:00 62.00 inches Body Temperature 2021-08-30 13:46:00 98.40 degrees Heart Rate 2021-08-30 13:46:00 111.00 /min Respiratory Rate 2021-08-30 13:46:00 21.00 /min BP Systolic 2021-08-19 13:33:00 127 mm[Hg] BP Diastolic 2021-08-19 13:33:00 83 mm[Hg] Weight Measured 2021-08-19 13:33:00 118.20 pounds Height Measured 2021-08-19 13:33:00 62.00 inches Body Temperature 2021-08-19 13:33:00 98.30 degrees Heart Rate 2021-08-19 13:33:00 89.00 /min Respiratory Rate 2021-08-19 13:33:00 BP Systolic 2021-04-01 14:29:00 147 mm[Hg] BP Diastolic 2021-04-01 14:29:00 69 mm[Hg] Weight Measured 2021-04-01 14:29:00 120.00 pounds Height Measured 2021-04-01 14:29:00 62.00 inches Body Temperature 2021-04-01 14:29:00 97.80 degrees Heart Rate 2021-04-01 14:29:00 82.00 /min Respiratory Rate 2021-04-01 14:29:00 16.00 /min BP Systolic 2021-04-01 13:51:00 147 mm[Hg] BP Diastolic 2021-04-01 13:51:00 69 mm[Hg] Weight Measured 2021-04-01 13:51:00 120.00 pounds Height Measured 2021-04-01 13:51:00 62.00 inches Body Temperature 2021-04-01 13:51:00 97.80 degrees Heart Rate 2021-04-01 13:51:00 82.00 /min Respiratory Rate 2021-04-01 13:51:00 16.00 /min BP Systolic 2021-03-29 09:58:00 157 mm[Hg] BP Diastolic 2021-03-29 09:58:00 75 mm[Hg] Weight Measured 2021-03-29 09:58:00 118.80 pounds Height Measured 2021-03-29 09:58:00 62.00 inches Body Temperature 2021-03-29 09:58:00 98.70 degrees Heart Rate 2021-03-29 09:58:00 65.00 /min Respiratory Rate 2021-03-29 09:58:00 16.00 /min BP Systolic 2021-02-04 14:13:00 139 mm[Hg] BP Diastolic 2021-02-04 14:13:00 75 mm[Hg] Weight Measured 2021-02-04 14:13:00 123.00 pounds Height Measured 2021-02-04 14:13:00 62.00 inches Body Temperature 2021-02-04 14:13:00 98.00 degrees Heart Rate 2021-02-04 14:13:00 98.00 /min Respiratory Rate 2021-02-04 14:13:00 BP Systolic 2020-12-11 13:33:00 125 mm[Hg] BP Diastolic 2020-12-11 13:33:00 75 mm[Hg] Weight Measured 2020-12-11 13:33:00 123.60 pounds Height Measured 2020-12-11 13:33:00 62.00 inches Body Temperature 2020-12-11 13:33:00 97.60 degrees Heart Rate 2020-12-11 13:33:00 92.00 /min Respiratory Rate 2020-12-11 13:33:00 16.00 /min BP Systolic 2020-11-12 11:17:00 111 mm[Hg] BP Diastolic 2020-11-12 11:17:00 60 mm[Hg] Weight Measured 2020-11-12 11:17:00 125.00 pounds Height Measured 2020-11-12 11:17:00 62.00 inches Body Temperature 2020-11-12 11:17:00 98.10 degrees Heart Rate 2020-11-12 11:17:00 77.00 /min Respiratory Rate 2020-11-12 11:17:00 16.00 /min BP Systolic 2020-10-31 10:20:00 147 mm[Hg] BP Diastolic 2020-10-31 10:20:00 75 mm[Hg] Weight Measured 2020-10-31 10:20:00 123.60 pounds Height Measured 2020-10-31 10:20:00 62.00 inches Body Temperature 2020-10-31 10:20:00 98.30 degrees Heart Rate 2020-10-31 10:20:00 75.00 /min Respiratory Rate 2020-10-31 10:20:00 BP Systolic 2020-09-30 14:59:00 128 mm[Hg] BP Diastolic 2020-09-30 14:59:00 82 mm[Hg] Weight Measured 2020-09-30 14:59:00 Height Measured 2020-09-30 14:59:00 62.00 inches Body Temperature 2020-09-30 14:59:00 99.00 degrees Heart Rate 2020-09-30 14:59:00 77.00 /min Respiratory Rate 2020-09-30 14:59:00 24.00 /min Procedures Procedure Date / Time Performing Clinician Source Performed TROPONIN I 2022-12-[address] [facility] 20:40:00 [facility] CBC WITH DIFF 2022-12-[address] [facility] 20:40:00 [facility] N-TERMINAL PRO-BNP 2022-12-24 [facility] 20:40:00 [facility] DUPLEX VENOUS LEG LEFT - BY 2022-12-24 [facility] VASCULAR LAB 20:13:00 [facility] CONSENT/REFUSAL FOR 2022-12-24 Doctor Unassigned, No [facility] DIAGNOSIS AND TREATMENT 19:35:49 Name Medical [place] ELECTROPHYSIOLOGY PROCEDURE 2022-11-09 [facility] 13:44:49 [facility] ELECTROPHYSIOLOGY PROCEDURE 2022-11-09 [facility] 13:44:49 [facility] DISCLOSURE AND CONSENT, 2022-11-08 Doctor Unassigned, No [facility] MEDICAL AND SURGICAL 05:01:00 Name Medical [facility] PROCEDURES EKG-12 LEAD 2022-09-24 [facility] 16:27:25 [facility] PATIENT FINANCIAL 2022-09-24 Doctor Unassigned, No [facility] POLICY 16:11:14 Name Medical Branch CONSENT/REFUSAL FOR 2022-06-22 Doctor Unassigned, No [facility] DIAGNOSIS AND TREATMENT 15:22:20 [facility] Medical Branch CARDIAC DEVICE CHECK - 2022-04-20 [facility] REMOTE - LOOP RECORDER 20:32:00 [facility] [place] ([facility]) CONSENT/REFUSAL FOR 2022-04-07 Doctor Unassigned, No [facility] DIAGNOSIS AND TREATMENT 17:42:07 Name Medical Branch 02954 Ekg W/ At Least 12 2022-04-07 Leads W/ I r 00:00:00 CARDIAC DEVICE CHECK - 2022-03-18 [facility] REMOTE - LOOP RECORDER 16:00:00 [facility] [place] ([facility]) CARDIAC DEVICE CHECK - [facility]-02-[facility] 14:59:00 [facility] [place]) KEPPRA (LEVETIRACETAM) 2021-12-09 Julien [facility] 16:01:00 Medical Branch Plan of Care Planned Activity Planned Date Details Comments Source Goal Plan of Care Note [code = 73137-1] Goal Plan of Care Note [code = 82111-4] Goal Plan of Care Note [code = 82768-8] Goal Plan of Care Note [code = 74571-6] Goal Plan of Care Note [code = 57273-7] Goal Plan of Care Note [code = 38718-2] Goal Plan of Care Note [code = 04548-2] Goal Plan of Care Note [code = 87044-0] Goal Plan of Care Note [code = 04774-7] Goal Plan of Care Note [code = 74470-0] Goal Plan of Care Note [code = 38202-8] Goal Plan of Care Note [code = 73186-5] Goal Plan of Care Note [code = 77734-6] Goal Plan of Care Note [code = 50605-3] Goal Plan of Care Note [code = 60516-4] Goal Plan of Care Note [code = 95615-1] Goal Plan of Care Note [code = 60563-9] Goal Plan of Care Note [code = 67844-1] Goal Plan of Care Note [code = 60927-8] Goal Plan of Care Note [code = 07799-4] Goal Plan of Care Note [code = 66484-1] Goal Plan of Care Note [code = 59241-9] Goal Plan of Care Note [code = 17044-6] Goal Plan of Care Note [code = 74043-1] Goal Plan of Care Note [code = 02389-5] Goal Plan of Care Note [code = 86210-2] Goal Plan of Care Note [code = 30956-8] Goal Plan of Care Note [code = 00571-5] Goal Plan of Care Note [code = 71947-8] Goal Plan of Care Note [code = 28410-6] Goal Plan of Care Note [code = 13117-3] Goal Plan of Care Note [code = 49676-5] Goal Plan of Care Note [code = 00341-3] Goal Plan of Care Note [code = 46590-7] Goal Plan of Care Note [code = 51002-2] Goal Plan of Care Note [code = 79413-6] Goal Plan of Care Note [code = 17580-1] Goal Plan of Care Note [code = 28973-1] Goal Plan of Care Note [code = 20373-2] Goal Plan of Care Note [code = 87346-4] Goal Plan of Care Note [code = 94700-7] Goal Plan of Care Note [code = 45978-3] Goal Plan of Care Note [code = 10347-2] Goal Plan of Care Note [code = 08990-0] Goal Plan of Care Note [code = 33300-1] Goal Plan of Care Note [code = 25873-9] Goal Plan of Care Note [code = 92274-2] Goal Plan of Care Note [code = 75148-1] Goal Plan of Care Note [code = 04124-8] Goal Plan of Care Note [code = 64218-3] Goal Plan of Care Note [code = 25388-1] Goal Plan of Care Note [code = 81896-6] Goal Plan of Care Note [code = 09560-7] Goal Plan of Care Note [code = 21617-8] Goal Plan of Care Note [code = 92866-0] Goal Plan of Care Note [code = 13283-4] Goal Plan of Care Note [code = 54029-7] Goal Plan of Care Note [code = 67094-6] Goal Plan of Care Note [code = 63057-6] Goal Plan of Care Note [code = 85317-4] Goal Plan of Care Note [code = 40340-4] Goal Plan of Care Note [code = 85840-9] Goal Plan of Care Note [code = 51396-0] Goal Plan of Care Note [code = 42114-9] Goal Plan of Care Note [code = 15412-0] Goal Plan of Care Note [code = 38317-9] Goal Plan of Care Note [code = 14797-7] Goal Plan of Care Note [code = 78127-6] Goal Plan of Care Note [code = 32465-1] Goal Plan of Care Note [code = 22603-6] Encounters Start End Encounter Admission Attending Care Care Encounter Source Date/Time Date/Time Type Type Clinicians Facility Department ID 2023-06-22 2023-06-22 Outpatient Estevan [facility] [id number] Univers 13:00:00 13:00:00 QIAJORDANA ity o [facility] 2023-05-24 2023-05-24 Outpatient Estevan [facility] [id number] Univers 13:00:00 13:00:00 QIAJORDANA ity o [facility] 2023-03-27 2023-03-27 Outpatient SFA SFA [id number] 023 Herbert 10:37:01 10:37:01 1118 [facility] 2023-03-26 2023-03-26 Outpatient SFA SFA [id number] 023 Herbert 10:05:20 10:05:20 1117 [facility] 2023-03-25 2023-03-25 Outpatient SFA SFA [id number] 023 Herbert 10:52:24 10:52:24 1116 [facility] 2023-01-12 2023-01-12 Outpatient SFA SFA [id number] 023 Herbert 13:18:12 13:18:12 0905 [facility] 2022-12-24 2022-12-24 Emergency [facility] 1.2.256.784 [id number] Univers 14:47:00 17:30:00 Efrain FORBES 350.1.13.10 i ty of [place].7.2.686 [place] [facility] [phone] [facility] [address] [place] 2022-12-24 2022-12-24 Outpatient R REMINGTON [facility] ERT [id number] Univers 14:00:00 14:35:12 REENU ity [facility] 2022-12-24 2022-12-24 [facility] 1.2.840.11 4 [id number] Univers 14:00:00 14:20:00 Care Unknown, Attending HEALTH 350.1.13.10 ity [facility] 4.2.7.2.686 Florentin as KEATON?BLEA [phone] [address] MEDICAL OFFICE BUILDING 2022-12-24 2022-12-24 Outpatient R REMINGTON [facility] [id number] Univers 14:00:00 14:00:00 [facility]-12-10 2022-12-10 [facility] [id number] Univers 10:00:00 10:00:00 DANYEL ity [facility] 2022-11-27 2022-11-27 [facility] [id number] Univers 10:20:00 10:20:00 DANYEL ity [facility] 2022-11-27 2022-11-27 [facility] [id number] Univers 10:20:00 10:20:00 DANYEL ity [facility] 2022-11-09 2022-11-09 Surgery TYRA Ray 1.2.840.114 [id number] Univers 12:00:00 12:45:00 Maura MORROW 350.1.13.10 ity [facility] 4.2.7.2.686 Florentin as [phone] [facility] [address] [place] 2022-11-09 2022-11-09 Outpatient R PINKY RAY [facility] [id number] Univers 06:26:00 09:20:00 PINKY RAY ity [facility] 2022-11-09 2022-11-09 Hospital TYRA Ray 1.2.840.114 [id number] Univers 06:26:00 09:20:00 Encounter Maura MORROW 350.1.13.10 ity of [facility] 4.2.7.2.686 Florentin as [phone] [facility] [address] 2022-11-08 2022-11-08 Orders Doctor VIRGINIE 1.2.840.114 [id number] Univers 00:00:00 00:00:00 Only Unassigned, HERVE 350.1.13.[address] [facility] 4.2.7.2.686 Florentin as [phone] [facility] [address] 2022-11-06 2022-11-06 Garment Inspector 1, Adc Lab [facility] 1.2.840.114 [id number] Univers 14:00:00 14:15:00 Visit Pinky Ray 350.1 .13.10 ity of [place].2.[place] [phone] [facility] [address] 2022-11-06 2022-11-06 Outpatient R PINKY RAY [facility] [id number] Univers 14:00:00 14:00:00 CORYPINKY SHELTON ity of [facility] 2022-10-09 2022-10-09 Telephone TYRA Ray 1.2.840.114 [id number] Univers 00:00:00 00:00:00 Maura MORROW 350.1.13.10 ity of [facility] 4.2.7.2.686 Florentin as [phone] [facility] [address] 2022-10-08 2022-10-08 Telephone LIT Ray 1.2.840.114 [id number] Univers 00:00:00 00:00:00 Maura [facility] 350.1.13.10 ity of [facility] 4.2.7.2.[place] [phone] [facility] 0[address] 2022-10-03 2022-10-03 Outpatient [facility] [id number] Colleen Godinez 09:06:47 09:06:47 0527 F Andry 2022-09-24 2022-09-24 Outpatient R PINKY RAY [facility] [id number] Univers 11:40:00 16:58:27 PINKY RAY ity [facility] 2022-09-24 2022-09-24 Office Cory [facility] 1.2.840.114 [id number] Univers 11:40:00 16:58:27 Visit Maura FORBES 350.1.13.10 ity of [place].2.[place] [phone] [facility] 059 [facility] 2022-09-24 2022-09-24 Orders Doctor VIRGINIE 1.2.840.114 [id number] Univers 00:00:00 00:00:00 Only Unassigned, HERVE 350.1.13.[address] [facility] 4.2.7.2.686 Florentin as [phone] [facility] 00[address] 2022-09-04 2022-09-04 Telephone Uyen LUISJovana 1.2.840.114 [id number] Univers 00:00:00 00:00:00 , Gracie Macho CEDILLO 350.1.13.10 ity of [place].2.7.2.686 [place] [phone] [facility] [address] [place] 2022-08-13 2022-08-13 Outpatient R CORY, CHOTEDDYFABIOLA [facility] [id number] Univers 10:40:00 10:40:00 CORY, CHOTEDDYFABIOLA ity [facility] 2022-08-12 2022-08-12 Outpatient SFA SFA [id number] 023 Herbert 11:45:07 11:45:07 0405 F Andry 2022-07-23 2022-07-23 Outpatient R WARD [facility] [id number] Univers 00:00:00 23:59:00 DANYEL ity [facility] 2022-07-23 2022-07-23 [facility] TYRA Hopper 1.2.840.114 [id number] Univers 00:00:00 23:59:00 Encounter Danyel HERVE 350.1.13.10 ity of HOSPITAL 4.2.7.2.686 Florentin as [phone] [facility] 8[address] 2022-06-22 2022-06-22 Outpatient R JOAQUIM, [facility] [id number] Univers 09:40:00 09:58:57 NEERAJ patel [facility] 2022-06-22 2022-06-22 Office [facility] 1.2.840.114 [id number] Univers 09:40:00 09:58:57 Visit Neeraj FORBES 350.1.13.10 ity of [place] [phone] Ok dical NAL 9 [facility] 2022-06-22 2022-06-22 Orders Doctor VIRGINIE 1.2.840.114 [id number] Univers 00:00:00 00:00:00 Only Unassigned, HERVE 350.1.13.[address] [facility] 4.2.7.2.686 Florentin as [phone] [facility] [address] [place] 2022-06-01 2022-06-01 Outpatient R [facility] [id number] Univers 13:00:00 13:00:00 NEERAJ patel [facility] 2022-06-01 2022-06-01 Outpatient R [facility], [facility] [id number] Univers 13:00:00 13:00:00 NEERAJ patel [facility] 2022-05-29 2022-05-29 Telephone [facility] 1.2.045.443 [id number] Univers 00:00:00 00:00:00 Neeraj FORBES 350.1.13.10 ity of [place] 4.[place].2.[place] [phone] Ok dical NAL 9 [facility] 2022-05-28 2022-05-28 Outpatient R JOAQUIM, [facility] [id number] Univers 10:00:00 11:24:00 NEERAJ patel [facility] 2022-04-20 2022-04-20 Outpatient R SEWANI, [facility] [id number] Univers 00:00:00 23:59:00 DANYEL ity of [facility] 2022-04-20 2022-04-20 Hospital TYRA Hopper 1.2.840.114 [id number] Univers 00:00:00 23:59:00 Encounter Danyel HERVE 350.1.13.10 ity [facility] 4.2.7.2.686 Florentin as [phone] [facility] [address] [place] 2022-04-10 2022-04-10 Outpatient [facility] [id number] 022 Herbert 09:04:14 09:04:14 1202 F Andry 2022-04-07 2022-04-07 Emergency [facility] [id number] Univers 11:57:00 14:25:00 EFRAIN calixto [facility] 2022-04-07 2022-04-07 Emergency [facility] 1.2.192.450 [id number] Univers 11:57:00 14:25:00 Efrain FORBES 350.1.13.10 i ty [facility] 4.2.7.2.686 [place] [facility] [phone] [address] 2022-04-07 2022-04-07 Outpatient [facility] [id number] 022 Herbert 09:27:01 09:27:01 1129 F Andry 2022-04-07 2022-04-07 Outpatient [id number]- [id number] 00:00:00 00:00:00 Visit [id number] [id number] [id number] [id number] 2022-03-18 2022-03-18 Outpatient R WARD [facility] [id number] Univers 00:00:00 23:59:00 DANYEL ity [facility] 2022-03-18 2022-03-18 [facility] TYRA Hopper 1.2.840.114 [id number] Univers 00:00:00 23:59:00 Encounter Danyel HERVE 350.1.13.10 ity [facility] 4.2.7.2.686 Florentin as [id number] [address] 2022-02-16 2022-02-16 Outpatient R WARD [facility] [id number] Univers 00:00:00 23:59:00 DANYEL ity of [facility] 2022-02-16 2022-02-16 Hospital TYRA Hopper 1.2.840.114 [id number] Univers 00:00:00 23:59:00 Encounter Danyel HERVE 350.1.13.10 ity of [facility] 4.2.7.2.686 Florentin as [id number] [address] 2021-12-17 2021-12-17 Telephone [facility] 1.2.840.114 [id number] Univers 00:00:00 00:00:00 [facility] 350.1.13.10 ity of [place] 4.2.7.2.686 Florentin as KEATON?BLEA [phone] Ok soraida [facility] 0[address] [facility] OFFICE [facility] 2021-12-12 2021-12-12 Outpatient [facility] [id number] Univers 09:40:00 23:59:00 DANYEL ity of [facility] 2021-12-12 2021-12-12 Outpatient Estevan HOPPER [facility] [id number] Univers 09:40:00 23:59:00 DANYEL ity [facility] 2021-12-09 2021-12-09 Garment Inspector Lab, Ang [facility] 1.2.840.1 [id number] Univers 11:00:00 11:15:55 Visit Salvador [facility] 350.1.13. 10 ity of [place] 4.2.7.2.686 Florentin as KEATON?BLEA [phone] [facility] [address] [facility] OFFICE [facility] 2021-12-09 2021-12-09 Garment Inspector Lab, Ang - Db [facility] 1.2.840.1 14 [id number] Univers 11:00:00 11:15:55 Visit Salvador Julien [facility] 350.1.13. 10 ity [facility] 4.2.7.2.686 Florentin as KEATON?BLEA [phone] [facility] [address] [place] MEDICAL [address]ICE [facility] 2021-12-09 2021-12-09 Outpatient JULIEN GAUTHIER [facility] [id number] Univers 11:00:00 11:00:00 JULIEN FRANCO [facility] 2021-12-09 2021-12-09 Outpatient JULIEN GAUTHIER [facility] [id number] Univers 10:40:00 10:54:48 JULIEN FRANCO [facility] 2021-12-09 2021-12-09 Office Salvador [facility] 1.2.840.114 [id number] Univers 10:40:00 10:54:48 Visit [facility] 350.1.13.10 ity of [place] 4.2.7.2.686 Florentin as KEATON?BLEA [phone] [address] [facility] 2021-12-09 2021-12-09 Outpatient JULIEN GAUTHIER [facility] [id number] Univers 10:40:00 10:54:48 JULIEN FRANCO [facility] 2021-12-09 2021-12-09 Orders Doctor VIRGINIE 1.2.840.114 [id number] Univers 00:00:00 00:00:00 Only Unassigned, HERVE 350.1.13.[address] 4.2.7.2.686 Florentin as [phone] [address] 2021-12-05 2021-12-05 Telephone Salvador [facility] 1.2.840.114 [id number] Univers 00:00:00 00:00:00 [facility] 350.1.13.10 ity [facility] 4.2.7.2.686 Florentin as KEATON?BLEA [phone] [address] [facility] 2021-12-04 2021-12-04 Refill [facility] 1.2.840.114 [id number] Univers 00:00:00 00:00:00 [facility] 350.1.13.10 ity of [facility] 4.2.7.2.686 Florentin as KEATON?BLEA [phone] [address] [facility] 2021-12-04 2021-12-04 Outpatient [id number]- [id number] [id number] 00:00:00 00:00:00 Visit [id number] -[id number]-66b 71f-66bc7e [id number] 866bfe 2021-09-11 2021-09-11 Outpatient Estevan HOPPER [facility] [id number] Univers 00:00:00 23:59:00 DANYEL ity [facility] 2021-09-11 2021-09-11 [facility] TYRA Hopper 1.2.840.114 [id number] Univers 00:00:00 23:59:00 Encounter Danyel HERVE 350.1.13.10 ity of [place] [address]404.2.7.2.686 Florentin as [phone] [address] 2021-08-28 2021-08-28 [place] [facility] 1.2.840.114 [id number] Univers 00:00:00 00:00:00 [facility] 350.1.13.10 [facility] 4.2.7.2.686 Florentin as KEATON?BLEA [phone] [address] MEDICAL OFFICE BUILDING 2021-08-11 2021-08-11 Outpatient Estevan HOPPER [facility] [id number] Univers 00:00:00 23:59:00 DANYEL ity [facility] 2021-08-11 2021-08-11 [facility] TYRA Hopper 1.2.840.114 [id number] Univers 00:00:00 23:59:00 Encounter Danyel HERVE 350.1.13.[address]7.2.686 Florentin as [phone] [address] 2021-07-10 2021-07-10 [facility] [id number] Univers 00:00:00 23:59:00 DANYEL ity [facility] 2021-07-10 2021-07-10 [facility] TYRA Hopper 1.2.840.114 [id number] Univers 00:00:00 23:59:00 Encounter Danyel HERVE 350.1.13.10 [address]2.686 Florentin as [phone] [facility] [address] 2021-07-04 2021-07-04 Office [facility] 1.2.840.114 [id number] Univers 13:20:00 15:40:09 Visit Neeraj CASTAÑEDATON 350.1.13.10 ity of [facility] 4.2.7.2.[place] [phone] Ok dical NAL [address] [facility] 2021-07-04 2021-07-04 Outpatient R JOAQUIM, [facility] [id number] Univers 13:20:00 15:40:09 QIAJORDANA delaneyy o [facility] 2021-07-04 2021-07-04 Outpatient R JOAQUIM, [facility] [id number] Univers 13:20:00 13:20:00 NEERAJ delaneyy o [facility] 2021-07-04 2021-07-04 Outpatient R [facility] [id number] Univers 13:20:00 13:20:00 NEERAJ delaneyy o [facility] 2021-06-09 2021-06-09 Outpatient R SEWANI, [facility] [id number] Univers 00:00:00 23:59:00 DANYEL ity [facility] 2021-05-16 2021-05-16 [facility] 1.2.126.269 [id number] Univers 00:00:00 00:00:00 Qiajunkeegan CASTAÑEDATON 350.1.13.10 ity of [place] 4.2.7.2.[place] [phone] Ok dical NAL 9 [facility] 2021-05-12 2021-05-12 Outpatient R [facility] [id number] Univers 13:00:00 23:59:00 NEERAJ calixto o [facility] 2021-05-12 2021-05-12 [facility] 1.2.840.114 [id number] Univers 13:00:00 23:59:00 Encounter Neeraj CASTAÑEDATON 350.1.13.10 ity of [facility] 4.2.7.2.[place] [phone] Ok dical NAL [address] [facility] 2021-05-12 2021-05-12 Outpatient Estevan MONTERO [facility] [id number] Univers 13:00:00 23:59:00 NEERAJ itena o f [facility] 2021-05-07 2021-05-07 Outpatient R WARD [facility] [id number] Univers 00:00:00 23:59:00 DANYEL ity of [facility] 2021-05-07 2021-05-07 [facility] Ward TYRA 1.2.840.114 [id number] Univers 00:00:00 23:59:00 Encounter Danyel HERVE 350.1.13.10 ity of [facility] 4.2.7.2.686 Florentin as [phone] [address] 2021-05-07 2021-05-07 [facility] 1.2.840.114 [id number] Univers 00:00:00 00:00:00 Julien FORBES 350.1.13.10 ity of [place] 4.2.7.2.[place] [phone] [address] 2021-05-06 2021-05-06 [facility] 1.2.840.114 [id number] Univers 00:00:00 00:00:00 Julien FORBES 350.1.13.10 ity of [place] 4.2.7.2.[place] [phone] [address] 2021-03-06 2021-03-06 Outpatient R WARD [facility] [id number] Univers 14:22:29 23:59:00 DANYEL ity of [facility] 2021-03-06 2021-03-06 [facility] TYRA Hopper 1.2.840.114 [id number] Univers 14:22:29 23:59:00 Encounter Danyel HERVE 350.1.13.10 ity of [facility] 4.2.7.2.686 Florentin as [phone] [address] 2021-02-03 2021-02-03 [facility] Tyra Hopper 1.2.840.114 [id number] Univers 00:00:00 23:59:00 Encounter Danyel Herve 350.1.13.10 ity of Hospital 4.2.7.2.686 Florentin as [phone] [facility] [address] 2021-02-03 2021-02-03 Outpatient R [facility] [id number] Univers 00:00:00 23:59:00 DANYEL ity of [facility] 2021-01-14 2021-01-14 Outpatient R [facility] [id number] Univers 13:15:00 13:41:15 ABRIL calixto o f [facility] 2021-01-14 2021-01-14 Office [facility] 1.2.840.114 [id number] [facility] 13:07:05 13:41:15 Visit Abril HEATON [id number] ity of [facility] [phone] [facility] [address] 2021-01-07 2021-01-07 [facility] [id number] Univers 14:33:16 23:59:00 Encounter Abril Forbes [id number] [id number] [phone] [facility] [address] 2021-01-07 2021-01-07 Outpatient R [facility] [id number] Univers 14:33:16 23:59:00 ABRIL calixto o f [facility] 2021-01-07 2021-01-07 [facility] [id number] Univers 14:32:43 14:32:43 Encounter Abril Forbes [id number] [id number] [phone] [facility] [address] 2020-12-31 2020-12-31 [facility] [id number] Univers 13:20:00 23:59:00 Encounter Danyel Forbes [id number] [id number] [facility] [phone] Me dical nal 844 [facility] 2020-12-31 2020-12-31 Outpatient R JOAQUIM, [facility] [id number] Univers 14:20:00 14:20:10 NEERAJ rhettena o [facility] 2020-12-31 2020-12-31 [facility] [id number] Univers 13:46:34 14:20:10 Visit Christokeegan Castañedaton [id number] itena [facility] [id number] [phone] [place] dical nal 059 [facility] 2020-12-17 2020-12-17 [facility] [id number] Univers 13:20:00 13:20:00 [facility] 2020-11-26 2020-11-26 Outpatient Estevan CHAVEZ [facility] [id number] Univers 13:45:00 13:45:00 ABRIL meyers [facility] 2020-11-07 2020-11-07 Outpatient Estevan COELLO [facility] [id number] Univers 00:00:00 23:59:00 [facility] 2020-10-08 2020-10-08 Outpatient JULIEN GAUTHIER [facility] [id number] Univers 14:20:00 14:55:19 JULIEN FRANCO [facility] 2020-09-06 2020-09-06 Outpatient Estevan COELLO [facility] [id number] Univers 00:00:00 23:59:00 [facility] 2020-08-06 2020-08-06 Outpatient Estevan HOPPER [facility] [id number] Univers 15:37:47 23:59:00 [facility] 2020-07-02 2020-07-02 Outpatient Estevan MONTERO, [facility] [id number] Univers 15:00:00 15:17:31 NEERAJ meyers [facility] 2020-06-25 2020-06-25 Outpatient Estevan [facility] [id number] Univers 13:00:00 13:00:00 NEERAJ calixto o amanda [facility] 2020-06-18 2020-06-18 Outpatient R WARD [facility] [id number] Univers 11:20:00 11:45:32 DANYEL marily [facility] 2020-05-14 2020-05-14 Outpatient R [facility] [id number] Univers 13:00: 13:00: marily [facility] 2020-04-09 2020-04-09 Outpatient R JULIEN FRANCO [facility] [id number] Univers 11:20: 11:20:00 JULIEN FRANCO [facility] 2020-03-26 2020-03-26 Outpatient R JULIEN FRANCO [facility] [id number] Univers 10:00:00 10:00:00 JULIEN FRANCO [facility] 2020-03-22 2020-03-22 Outpatient Estevan MONTERO [facility] [id number] Univers 10:00:00 10:00:00 NEERAJ patel [facility] 2020-03-04 2020-03-04 Outpatient R JULIEN FRANCO [facility] [id number] Univers 13:00: 13:00: JULIEN FRANCO ena [facility] Results Test Description Test Time Test Comments Results Result Comments Source [facility] 2023-03-31 13:33:10 Test Item Value Reference Range Interpretation Comme nts LEVETIRACETAM (test code 31.5 mcg/mL 12.0-46.0 Sa mple type: serum This test was = 61946) developed and i ts performance characteristics determined by [facility] ([facility]). It has not beencleared or approved by the U.S. Food and D rug Administration (FDA).The FDA h as determined that such clearance or approval is notnecessary. T his test is used for clinical purpos es and should not beregarded as i nvestigational or for research. [facility] i s qualified toperform high complexity testing under the Clinical Labora toryImprovement Amendments (CLI A). TESTING PERFORMED AT [employer] [facility] [address] [facility] [address], [address] [address] CLIA NO: [id number] UNLE SS OTHERWISE INDICATED, ALL TESTING PERFORMED AT [facility] [address] [place] [address] LABORATORY DIRE CTOR: Paulino HALL LIZ NUMBER [id number] [place]. [id number] VITAMIN D, 25 [id number] 01:05:58 Test Item Value Reference Range Interpretation Comments VITAMIN D, 25 50 NG/ML SEE BELOW EFFECTIVE 05/18/2022, [place] (test code PLEASE NOTE NE W METHODOLOGY = 4958) IS ELECTROCH EMILUMINESCENCE BINDING ASSAY. NOTE: 25-HYDROXYVITAM IN D ASSAY INCLUDES 25-HYD ROXYVITAMIN D2 AND D3. I NTERPRETIVE RANGES PED IATRIC (<17 YEARS) . . . . . . . . . . . NG/ML 20-100ADU LT: INSUFFICIENT . . . . . . . . . . . . . . NG/ML <20 SUBO PTIMAL . . . . . . . . . . . . . . . NG/ML 20-29 OPTIMAL . . . . . . . . . . . . . . . . . NG/ML 30-100 TSH, THIRD [id number] 01:05:17 Test Item Value Reference Range Interpretation Comments TSH, THIRD GENERATION (test code 0.681 UIU/ML 0.400-4.100 = 2821) COMPREHENSIVE METABOLIC [id number] 00:53:04 Test Item Value Reference Range Interpretation Comments GLUCOSE (test code = 2217) 110 MG/DL 70-99 H BUN (test code = 2208) 21 MG/DL 6-20 H CREATININE (test code = 2214) 0.89 MG/DL 0.60-1.30 eGFR (2020 CKD-EPI) (test code 76 ML/MIN/1.73 >60 = 73339) CALC BUN/CREAT (test code = 24 RATIO 11-04) SODIUM (test code = 2231) 141 MEQ/L 133-146 POTASSIUM (test code = 2228) 5.3 MEQ/L 3.5-5.4 CHLORIDE (test code = 2215) 102 MEQ/L 95-107 CARBON DIOXIDE (test code = 27 MEQ/L 2205) CALCIUM (test code = 2208) 9.5 MG/DL 8.5-10.5 PROTEIN, TOTAL (test code = 7.2 G/DL 6.1-8.3 2228) ALBUMIN (test code = 220) 4.2 G/DL 3.5-5.2 CALC GLOBULIN (test code = 3.0 G/DL 1.9-3.7 2239) CALC A/G RATIO (test code = 1.4 RATIO 1.0-2.6 2233) BILIRUBIN, TOTAL (test code = 0.2 MG/DL <=1.2 2206) ALKALINE PHOSPHATASE (test 108 U/L 40-136 code = 2203) AST (test code = 2217) 24 U/L 9-40 ALT (test code = 2218) 15 U/L 5-40 LIPID [id number] 00:53:04 Test Item Value Reference Range Interpretation Comments CHOLESTEROL (test 123 MG/DL <200 code = 2210) TRIGLYCERIDES (test 56 MG/DL <150 code = 2) HDL CHOLESTEROL (test 50 MG/DL >39 code = 2220) CALC LDL CHOL (test 59 MG/DL <100 NOTE: C ALCULATED LDL code = 2237) IS BASED ON LLUVIA-DENNIS METHOD WHICHINCLUDES ADJUSTABLE TRIGLYCERIDE:VL DL CHOLESTEROL RAT IO.THIS FACTOR VARIES B Y MEASURED TRIGLY CERIDE AND NON-HDLCHOL ESTEROL CONCENTRATIONS WITH INCREASED CALCU LATED LDL SEENIN HIGH ER TRIGLYCERIDE OR LOWER NON-HDL SPECIME NS. FOR MOREINFORMATION , SEE CLIENT ANNOUNCE MENT AT [email or web address] [email or web address] RATIO LDL/HDL 1.18 RATIO <3.22 (test code = 2237) HEMOGLOBIN [id number] 03:06:54 Test Item Value Reference Range Interpretation Comments HEMOGLOBIN A1c (test 6.7 % 4.2-5.6 H AMERIC AN DIABETES code = 58534) ASSOCIATION IDELINES FOR HGB A1C: PREDIABETES/INC REASED RISK . . . . . . . 5.7 -6.4% DIAGNOSIS OF DI ABETES . . . . . . . . . >=6 .5% WITH CONFIRMATION OR APPROPRIATE SYMPTOMS NOTE: ASSAY MAY BE AFFECTED BY HEMOGLOBINOPATH IES (SICKLE CELL ANEMIA, S- C DISEASE, OTHERS) OR SHAISTA FICIALLY LOWERED BY DEC REASED RED CELL SURVIVAL ( HEMOLYTIC ANEMIAS, BLOOD LOSS, ETC.). CONSIDER ALTERN ATE TESTING OR LABORATORY C ONSULTATION. CBC W/AUTO DIFF WITH [id number] 02:32:47 Test Item Value Reference Range Interpretation Comments WBC (test code = 6.2 K/UL 3.5-11.0 1001) RBC (test code = 3.79 M/UL 3.80-5.40 L 1002) HEMOGLOBIN (test code 9.6 G/DL 11.5-15.5 L = 1003) HEMATOCRIT (test code 32.5 % 34.0-45.0 L = 1004) MCV (test code = 85.8 fL 80.0-99.0 1005) MCH (test code = 25.3 PG 25.0-33.0 1006) MCHC (test code = 29.5 G/DL 31.0-36.0 L 1007) RDW (test code = 14.0 % 11.5-15.0 1038) NEUTROPHILS (test 71.1 % code = 1008) LYMPHOCYTES (test 18.3 % code = 1010) MONOCYTES (test code 6.9 % = 1011) EOSINOPHILS (test 2.6 % code = 1012) BASOPHILS (test code 0.8 % = 1013) IMMATURE GRANULOCYTES 0.3 % (test code = 1036) NUCLEATED RBCS (test 0.0 /100 WBC'S See_Comment [Aut omated code = 1065) message] The sy stem which generated this result transmitted reference range : 0.0. The refere nce range was not u sed to interpret th is result as normal/abnormal . PLATELET COUNT (test 136 K/UL 130-400 code = 1015) ABSOLUTE NEUTROPHILS 4.40 K/UL 1.50-7.50 (test code = 1066) ABSOLUTE LYMPHOCYTES 1.13 K/UL 1.00-4.00 (test code = 1067) ABSOLUTE MONOCYTES 0.43 K/UL 0.20-1.00 (test code = 1068) ABSOLUTE EOSINOPHILS 0.16 K/UL 0.00-0.50 (test code = 1040) ABSOLUTE BASOPHILS 0.05 K/UL 0.00-0.20 (test code = 1069) ABS IMMATURE 0.02 K/UL 0.00-0.10 GRANULOCYTES (test code = 1020) ABS NUCLEATED RBCS 0.00 K/UL 0.00-0.11 (test code = 10733) COMPREHENSIVE METABOLIC [id number] 04:51:35 Test Item Value Reference Range Interpretation Comments GLUCOSE (test code = 136 MG/DL 70-99 H 2216) BUN (test code = 27 MG/DL 6-20 H 2207) CREATININE (test 0.87 MG/DL 0.60-1.30 code = 2214) eGFR (2020 CKD-EPI) 78 ML/MIN/1.73 >60 (test code = 12741) CALC BUN/CREAT (test 31 RATIO 6-28 H code = 2235) SODIUM (test code = 150 MEQ/L 133-146 H 2230) POTASSIUM (test code 4.7 MEQ/L 3.5-5.4 = 2227) CHLORIDE (test code 108 MEQ/L 95-107 H = 2214) CARBON DIOXIDE (test 20 MEQ/L 19-31 code = 220) CALCIUM (test code = 9.8 MG/DL 8.5-10.5 2208) PROTEIN, TOTAL (test 7.5 G/DL 6.1-8.3 code = 222) ALBUMIN (test code = 4.5 G/DL 3.5-5.2 2200) CALC GLOBULIN (test 3.0 G/DL 1.9-3.7 code = 2240) CALC A/G RATIO (test 1.5 RATIO 1.0-2.6 code = 2234) BILIRUBIN, TOTAL <0.2 MG/DL See_Comment [Automated message] (test code = 220) The syste m which generated this result transmit blank reference range : <=1.2. The refe rence range was not u sed to interpret th is result as normal/abnormal . ALKALINE PHOSPHATASE 125 U/L 40-136 (test code = 2204) AST (test code = 55 U/L 9-40 H 2217) ALT (test code = 35 U/L 5-40 2218) LIPID [id number] 04:51:35 Test Item Value Reference Range Interpretation Comments CHOLESTEROL (test 119 MG/DL <200 code = 2210) TRIGLYCERIDES (test 64 MG/DL <150 code = 2232) HDL CHOLESTEROL (test 49 MG/DL >39 code = 2220) CALC LDL CHOL (test 56 MG/DL <100 NOTE: C ALCULATED LDL code = 2237) IS BASED ON LLUVIA-DENNIS METHOD WHICHINCLUDES ADJUSTABLE TRIGLYCERIDE:VL DL CHOLESTEROL RAT IO.THIS FACTOR VARIES B Y MEASURED TRIGLY CERIDE AND NON-HDLCHOL ESTEROL CONCENTRATIONS WITH INCREASED CALCU LATED LDL SEENIN HIGH ER TRIGLYCERIDE OR LOWER NON-HDL SPECIME NS. FOR MOREINFORMATION , SEE CLIENT ANNOUNCE MENT AT [email or web address] [email or web address] RATIO LDL/HDL 1.14 RATIO <3.22 (test code = 2238) TSH + FREE T4 [id number] 23:46:02 Test Item Value Reference Range Interpretation Comments TSH, THIRD GENERATION (test code 0.632 UIU/ML 0.400-4.100 = 2821) FREE T4 (THYROXINE) (test code = 1.19 NG/DL 0.80-1.90 2823) HEMOGLOBIN [id number] 02:52:16 Test Item Value Reference Range Interpretation Comments HEMOGLOBIN A1c (test 6.6 % 4.2-5.6 H AMERIC AN DIABETES code = 70266) ASSOCIATION IDELINES FOR HGB A1C: PREDIABETES/INC REASED RISK . . . . . . . 5.7 -6.4% DIAGNOSIS OF DI ABETES . . . . . . . . . >=6 .5% WITH CONFIRMATION OR APPROPRIATE SYMPTOMS NOTE: ASSAY MAY BE AFFECTED BY HEMOGLOBINOPATH IES (SICKLE CELL ANEMIA, S- C DISEASE, OTHERS) OR SHAISTA FICIALLY LOWERED BY DECR EASED RED CELL SURVIVAL ( HEMOLYTIC ANEMIAS, BLOOD LOSS, ETC.). CONSIDER ALTERN ATE TESTING OR LABORATORY C ONSULTATION. CBC W/AUTO DIFF WITH [id number] 02:29:48 Test Item Value Reference Range Interpretation Comments WBC (test code = 8.9 K/UL 3.5-11.0 1001) RBC (test code = 3.53 M/UL 3.80-5.40 L 1002) HEMOGLOBIN (test 9.5 G/DL 11.5-15.5 L code = 1003) HEMATOCRIT (test 30.4 % 34.0-45.0 L code = 1004) MCV (test code = 86.1 fL 80.0-99.0 1005) MCH (test code = 26.9 PG 25.0-33.0 1006) MCHC (test code = 31.3 G/DL 31.0-36.0 1007) RDW (test code = 13.6 % 11.5-15.0 1038) NEUTROPHILS (test 80.2 % code = 1008) LYMPHOCYTES (test 12.8 % code = 1010) MONOCYTES (test code 4.7 % = 1011) EOSINOPHILS (test 1.7 % code = 1012) BASOPHILS (test code 0.4 % = 1013) IMMATURE 0.2 % GRANULOCYTES (test code = 1036) NUCLEATED RBCS (test 0.0 /100 See_Comment [Autom ated message] code = 1065) WBC'S The system [employer] generated this result transmitted ref erence range: 0.0. The reference range was not used to int erpret this result as normal/abnormal . PLATELET COUNT (test 148 K/UL 130-400 code = 1015) ABSOLUTE NEUTROPHILS 7.17 K/UL 1.50-7.50 (test code = 1066) ABSOLUTE LYMPHOCYTES 1.14 K/UL 1.00-4.00 (test code = 1067) ABSOLUTE MONOCYTES 0.42 K/UL 0.20-1.00 (test code = 1068) ABSOLUTE EOSINOPHILS 0.15 K/UL 0.00-0.50 (test code = 1040) ABSOLUTE BASOPHILS 0.04 K/UL 0.00-0.20 (test code = 1069) ABS IMMATURE 0.02 K/UL 0.00-0.10 GRANULOCYTES (test code = 1020) ABS NUCLEATED RBCS 0.00 K/UL 0.00-0.11 UNLESS O THERWISE (test code = 01252) INDICATE D, ALL TESTING PERFORM ED AT [facility] [place]. [address] [place] [id number] [place] [address] DIRECTOR: Paulino KOVACS LIZ NUMBER [id number] CAP ACCREDITATION N O. [id number] KEPPRA (LEVETIRACETAM)2021-12-10 02:57:25 Test Item Value Reference Range Interpretation Comments KEPPRA (test code = 82 ug/mL 12-46 H [id number]) ONEIL (test code = ONEIL) Therapeutic range: 12-46 ?g/mL ? ?Toxic: Not well established.Test developed and characteristics determined by [facility] Services. Lab Interpretation Abnormal (test code = 85455-8) [facility] [id number] 06:27:27 Test Item Value Reference Range Interpretation Comments HEMOGLOBIN A1c (test 6.5 % 4.2-5.6 H AMERI CAN DIABETES code = 52013) ASSOCIATION IDELINES FOR HGB A1C: PREDIABETES/INC REASED RISK . . . . . . . 5.7 -6.4% DIAGNOSIS OF DI ABETES . . . . . . . . . >=6 .5% WITH CONFIRMATION OR APPROPRIATE SYMPTOMS NOTE: ASSAY MAY BE AFFECTED BY HEMOGLOBINOPATH IES (SICKLE CELL ANEMIA, S- C DISEASE, OTHERS) OR SHAISTA FICIALLY LOWERED BY DECR EASED RED CELL SURVIVAL ( HEMOLYTIC ANEMIAS, BLOOD LOSS, ETC.). CONSIDER ALTERN ATE TESTING OR LABORATORY C ONSULTATION. TSH, THIRD [id number] 05:48:47 Test Item Value Reference Range Interpretation Comments TSH, THIRD GENERATION (test code 0.702 UIU/ML 0.400-4.100 = 2821) VITAMIN [id number] 05:48:47 Test Item Value Reference Range Interpretation Comments VITAMIN B-12 (test code = 2840) >2000 PG/ML 200-950 H FOLIC [id number] 05:48:47 Test Item Value Reference Range Interpretation Comments FOLIC ACID (test >20.0 UG/L SEE BELOW INTE RPRETIVE code = 2695) RANGES DE FICIENCY . . . . . . . . . . . . . . . UG/L <4.0 PO SSIBLE DEFICIENCY. . . . . . . . . . . UG/L 4.0- 5.9 SUFFICIENT . . . . . . . . . . . . . . . UG/L >=6.0 [id number] 05:48:47 Test Item Value Reference Range Interpretation Comments FERRITIN (test code = 2075) 60 NG/ML 13-200 [id number] 05:32:15 Test Item Value Reference Range Interpretation Comments TRANSFERRIN (test code = 4936) 210 MG/DL 200-360 IRON BINDING CAPACITY AND IRON AND % [id number] 05:29:46 Test Item Value Reference Range Interpretation Comments IRON, SERUM (test 40 UG/DL 37-145 code = 2222) UNSATURATED IBC (test 192 UG/DL 112-347 code = ) CALC TOTAL IBC (test 232 UG/DL 250-450 L code = 2076) CALC % IRON SAT (test 17 % 20-50 L UNLES S OTHERWISE code = 207) INDICATED, ALL TESTING PERFORMED [facility], [facility]. [address] [place], [place] [address] LABORATORY DIRE CTOR: BENITO CISNEROS M.D. CLIA NUMBER [id number] [place]. [id number] COMPREHENSIVE METABOLIC [id number] 05:29:46 Test Item Value Reference Range Interpretation Comments GLUCOSE (test code = 102 MG/DL 70-99 H 2216) BUN (test code = 25 MG/DL 6-20 H 2207) CREATININE (test 0.78 MG/DL 0.60-1.30 code = 2214) eGFR (2020 CKD-EPI) 90 ML/MIN/1.73 >60 (test code = 87957) CALC BUN/CREAT (test 32 RATIO 6-28 H code = 2235) SODIUM (test code = 147 MEQ/L 133-146 H 2230) POTASSIUM (test code 4.6 MEQ/L 3.5-5.4 = 2227) CHLORIDE (test code 107 MEQ/L 95-107 = 2215) CARBON DIOXIDE (test 26 MEQ/L 19-31 code = 2206) CALCIUM (test code = 9.6 MG/DL 8.5-10.5 2208) PROTEIN, TOTAL (test 7.8 G/DL 6.1-8.3 code = 2229) ALBUMIN (test code = 4.3 G/DL 3.5-5.2 2200) CALC GLOBULIN (test 3.5 G/DL 1.9-3.7 code = 2240) CALC A/G RATIO (test 1.2 RATIO 1.0-2.6 code = 2234) BILIRUBIN, TOTAL <0.2 MG/DL See_Comment [Automated message] (test code = 2207) The syste m which generated this result transmit blank reference range : <=1.2. The refe rence range was not u sed to interpret th is result as normal/abnormal . ALKALINE PHOSPHATASE 104 U/L 40-133 (test code = 2204) AST (test code = 25 U/L 9-40 2217) ALT (test code = 18 U/L 5-40 2218) CBC W/AUTO DIFF WITH [id number] 02:51:39 Test Item Value Reference Range Interpretation Comments WBC (test code = 6.6 K/UL 3.5-11.0 1001) RBC (test code = 3.38 M/UL 3.80-5.40 L 1002) HEMOGLOBIN (test code 9.7 G/DL 11.5-15.5 L = 1003) HEMATOCRIT (test code 28.6 % 34.0-45.0 L = 1004) MCV (test code = 84.6 fL 80.0-99.0 1005) MCH (test code = 28.7 PG 25.0-33.0 1006) MCHC (test code = 33.9 G/DL 31.0-36.0 1007) RDW (test code = 13.7 % 11.5-15.0 1038) NEUTROPHILS (test 64.0 % code = 1008) LYMPHOCYTES (test 26.5 % code = 1010) MONOCYTES (test code 5.3 % = 1011) EOSINOPHILS (test 3.0 % code = 1012) BASOPHILS (test code 0.9 % = 1013) IMMATURE GRANULOCYTES 0.3 % (test code = 1036) NUCLEATED RBCS (test 0.0 /100 WBC'S See_Comment [Aut omated code = 1065) message] The sy stem which generated this result transmitted reference range : 0.0. The refere nce range was not u sed to interpret th is result as normal/abnormal . PLATELET COUNT (test 141 K/UL 130-400 code = 1015) ABSOLUTE NEUTROPHILS 4.24 K/UL 1.50-7.50 (test code = 1066) ABSOLUTE LYMPHOCYTES 1.76 K/UL 1.00-4.00 (test code = 1067) ABSOLUTE MONOCYTES 0.35 K/UL 0.20-1.00 (test code = 1068) ABSOLUTE EOSINOPHILS 0.20 K/UL 0.00-0.50 (test code = 1040) ABSOLUTE BASOPHILS 0.06 K/UL 0.00-0.20 (test code = 1069) ABS IMMATURE 0.02 K/UL 0.00-0.10 GRANULOCYTES (test code = 1020) ABS NUCLEATED RBCS 0.00 K/UL 0.00-0.11 (test code = 53592) HEMOGLOBIN [id number] 00:00:00 Test Item Value Reference Range Interpretation Comments HEMOGLOBIN A1c (test code = 77378) 6.5 % HEMOGLOBIN [id number] 00:00:00 Test Item Value Reference Range Interpretation Comments HEMOGLOBIN A1c (test code = 05743) 6.5 % HEMOGLOBIN [id number] 00:00:00 Test Item Value Reference Range Interpretation Comments HEMOGLOBIN A1c (test code = 53194) 6.5 % VITAMIN [id number] 00:00:00 Test Item Value Reference Range Interpretation Comments VITAMIN B-12 (test code = 2840) >2000 PG/ML VITAMIN [id number] 00:00:00 Test Item Value Reference Range Interpretation Comments VITAMIN B-12 (test code = 2840) >2000 PG/ML VITAMIN [id number] 00:00:00 Test Item Value Reference Range Interpretation Comments VITAMIN B-12 (test code = 2840) >2000 PG/ML FOLIC [id number] 00:00:00 Test Item Value Reference Range Interpretation Comments FOLIC ACID (test code = 2695) >20.0 UG/L FOLIC [id number] 00:00:00 Test Item Value Reference Range Interpretation Comments FOLIC ACID (test code = 2695) >20.0 UG/L [id number] 00:00:00 Test Item Value Reference Range Interpretation Comments TRANSFERRIN (test code = 4936) 210 MG/DL [id number] 00:00:00 Test Item Value Reference Range Interpretation Comments TRANSFERRIN (test code = 4936) 210 MG/DL [id number] 00:00:00 Test Item Value Reference Range Interpretation Comments FERRITIN (test code = 2075) 60 NG/ML [id number] 00:00:00 Test Item Value Reference Range Interpretation Comments FERRITIN (test code = 2075) 60 NG/ML IRON BINDING CAPACITY AND IRON AND % [id number] 00:00:00 Test Item Value Reference Range Interpretation Comments IRON, SERUM (test code = 2222) 40 UG/DL UNSATURATED IBC (test code = 81452) 192 UG/DL CALC TOTAL IBC (test code = 2076) 232 UG/DL CALC % IRON SAT (test code = 2078) 17 % IRON BINDING CAPACITY AND IRON AND % [id number] 00:00:00 Test Item Value Reference Range Interpretation Comments IRON, SERUM (test code = 2221) 40 UG/DL UNSATURATED IBC (test code = ) 192 UG/DL CALC TOTAL IBC (test code = 2076) 232 UG/DL CALC % IRON SAT (test code = 2078) 17 % CBC W/AUTO [id number] 00:00:00 Test Item Value Reference Range Interpretation Comments WBC (test code = 1001) 6.6 K/UL RBC (test code = 1002) 3.38 M/UL HEMOGLOBIN (test code = 1003) 9.7 G/DL HEMATOCRIT (test code = 1004) 28.6 % MCV (test code = 1005) 84.6 fL MCH (test code = 1006) 28.7 PG MCHC (test code = 1007) 33.9 G/DL RDW (test code = 1038) 13.7 % NEUTROPHILS (test code = 1008) 64.0 % LYMPHOCYTES (test code = 1010) 26.5 % MONOCYTES (test code = 1011) 5.3 % EOSINOPHILS (test code = 1012) 3.0 % BASOPHILS (test code = 1013) 0.9 % IMMATURE GRANULOCYTES (test 0.3 % code = 1036) NUCLEATED RBCS (test code = 0.0 /100WBC'S 1065) PLATELET COUNT (test code = 141 K/UL 1015) ABSOLUTE NEUTROPHILS (test code 4.24 K/UL = 1066) ABSOLUTE LYMPHOCYTES (test code 1.76 K/UL = 1067) ABSOLUTE MONOCYTES (test code = 0.35 K/UL 1068) ABSOLUTE EOSINOPHILS (test code 0.20 K/UL = 1040) ABSOLUTE BASOPHILS (test code = 0.06 K/UL 1069) ABS IMMATURE GRANULOCYTES (test 0.02 K/UL code = 1020) ABS NUCLEATED RBCS (test code = 0.00 K/UL 42864) CBC W/AUTO [id number] 00:00:00 Test Item Value Reference Range Interpretation Comments WBC (test code = 1001) 6.6 K/UL RBC (test code = 1002) 3.38 M/UL HEMOGLOBIN (test code = 1003) 9.7 G/DL HEMATOCRIT (test code = 1004) 28.6 % MCV (test code = 1005) 84.6 fL MCH (test code = 1006) 28.7 PG MCHC (test code = 1007) 33.9 G/DL RDW (test code = 1038) 13.7 % NEUTROPHILS (test code = 1008) 64.0 % LYMPHOCYTES (test code = 1010) 26.5 % MONOCYTES (test code = 1011) 5.3 % EOSINOPHILS (test code = 1012) 3.0 % BASOPHILS (test code = 1013) 0.9 % IMMATURE GRANULOCYTES (test 0.3 % code = 1036) NUCLEATED RBCS (test code = 0.0 /100WBC'S 1065) PLATELET COUNT (test code = 141 K/UL 1015) ABSOLUTE NEUTROPHILS (test code 4.24 K/UL = 1066) ABSOLUTE LYMPHOCYTES (test code 1.76 K/UL = 1067) ABSOLUTE MONOCYTES (test code = 0.35 K/UL 1068) ABSOLUTE EOSINOPHILS (test code 0.20 K/UL = 1040) ABSOLUTE BASOPHILS (test code = 0.06 K/UL 1069) ABS IMMATURE GRANULOCYTES (test 0.02 K/UL code = 1020) ABS NUCLEATED RBCS (test code = 0.00 K/UL 10183) CBC W/AUTO [id number] 00:00:00 Test Item Value Reference Range Interpretation Comments WBC (test code = 1001) 6.6 K/UL RBC (test code = 1002) 3.38 M/UL HEMOGLOBIN (test code = 1003) 9.7 G/DL HEMATOCRIT (test code = 1004) 28.6 % MCV (test code = 1005) 84.6 fL MCH (test code = 1006) 28.7 PG MCHC (test code = 1007) 33.9 G/DL RDW (test code = 1038) 13.7 % NEUTROPHILS (test code = 1008) 64.0 % LYMPHOCYTES (test code = 1010) 26.5 % MONOCYTES (test code = 1011) 5.3 % EOSINOPHILS (test code = 1012) 3.0 % BASOPHILS (test code = 1013) 0.9 % IMMATURE GRANULOCYTES (test 0.3 % code = 1036) NUCLEATED RBCS (test code = 0.0 /100WBC'S 1065) PLATELET COUNT (test code = 141 K/UL 1015) ABSOLUTE NEUTROPHILS (test code 4.24 K/UL = 1066) ABSOLUTE LYMPHOCYTES (test code 1.76 K/UL = 1067) ABSOLUTE MONOCYTES (test code = 0.35 K/UL 1068) ABSOLUTE EOSINOPHILS (test code 0.20 K/UL = 1040) ABSOLUTE BASOPHILS (test code = 0.06 K/UL 1069) ABS IMMATURE GRANULOCYTES (test 0.02 K/UL code = 1020) ABS NUCLEATED RBCS (test code = 0.00 K/UL 70147) COMPREHENSIVE METABOLIC [id number] 00:00:00 Test Item Value Reference Range Interpretation Comments GLUCOSE (test code = 2217) 102 MG/DL BUN (test code = 2208) 25 MG/DL CREATININE (test code = 2214) 0.78 MG/DL eGFR (2020 CKD-EPI) (test code 90 ML/MIN/1.73 = 54723) CALC BUN/CREAT (test code = 32 RATIO 2235) SODIUM (test code = 2231) 147 MEQ/L POTASSIUM (test code = 2228) 4.6 MEQ/L CHLORIDE (test code = 2215) 107 MEQ/L CARBON DIOXIDE (test code = 26 MEQ/L 6) CALCIUM (test code = 2209) 9.6 MG/DL PROTEIN, TOTAL (test code = 7.8 G/DL 2228) ALBUMIN (test code = 2201) 4.3 G/DL CALC GLOBULIN (test code = 3.5 G/DL 2240) CALC A/G RATIO (test code = 1.2 RATIO 2234) BILIRUBIN, TOTAL (test code = <0.2 MG/DL 2206) ALKALINE PHOSPHATASE (test 104 U/L code = 2204) AST (test code = 2218) 25 U/L ALT (test code = 2219) 18 U/L COMPREHENSIVE METABOLIC [id number] 00:00:00 Test Item Value Reference Range Interpretation Comments GLUCOSE (test code = 2217) 102 MG/DL BUN (test code = 2208) 25 MG/DL CREATININE (test code = 2214) 0.78 MG/DL eGFR (2020 CKD-EPI) (test code 90 ML/MIN/1.73 = 01480) CALC BUN/CREAT (test code = 32 RATIO 2235) SODIUM (test code = 2231) 147 MEQ/L POTASSIUM (test code = 2228) 4.6 MEQ/L CHLORIDE (test code = 2215) 107 MEQ/L CARBON DIOXIDE (test code = 26 MEQ/L 2205) CALCIUM (test code = 2209) 9.6 MG/DL PROTEIN, TOTAL (test code = 7.8 G/DL 2228) ALBUMIN (test code = 2201) 4.3 G/DL CALC GLOBULIN (test code = 3.5 G/DL 2239) CALC A/G RATIO (test code = 1.2 RATIO 2233) BILIRUBIN, TOTAL (test code = <0.2 MG/DL 2206) ALKALINE PHOSPHATASE (test 104 U/L code = 2204) AST (test code = 2218) 25 U/L ALT (test code = 2219) 18 U/L [id number] 00:00:00 Test Item Value Reference Range Interpretation Comments TSH, THIRD GENERATION (test code 0.702 UIU/ML = 2821) [id number] 00:00:00 Test Item Value Reference Range Interpretation Comments TSH, THIRD GENERATION (test code 0.702 UIU/ML = 2821) [id number] 00:00:00 Test Item Value Reference Range Interpretation Comments TSH, THIRD GENERATION (test code 0.702 UIU/ML = 2821) HEMOGLOBIN [id number] 00:00:00 Test Item Value Reference Range Interpretation Comments HEMOGLOBIN A1c (test code = 27703) 6.5 % HEMOGLOBIN [id number] 00:00:00 Test Item Value Reference Range Interpretation Comments HEMOGLOBIN A1c (test code = 09915) 6.5 % HEMOGLOBIN [id number] 00:00:00 Test Item Value Reference Range Interpretation Comments HEMOGLOBIN A1c (test code = 80886) 6.5 % VITAMIN [id number] 00:00:00 Test Item Value Reference Range Interpretation Comments VITAMIN B-12 (test code = 2840) >2000 PG/ML VITAMIN [id number] 00:00:00 Test Item Value Reference Range Interpretation Comments VITAMIN B-12 (test code = 2840) >2000 PG/ML VITAMIN [id number] 00:00:00 Test Item Value Reference Range Interpretation Comments VITAMIN B-12 (test code = 2840) >2000 PG/ML FOLIC [id number] 00:00:00 Test Item Value Reference Range Interpretation Comments FOLIC ACID (test code = 2695) >20.0 UG/L FOLIC [id number] 00:00:00 Test Item Value Reference Range Interpretation Comments FOLIC ACID (test code = 2695) >20.0 UG/L [id number] 00:00:00 Test Item Value Reference Range Interpretation Comments TRANSFERRIN (test code = 4936) 210 MG/DL [id number] 00:00:00 Test Item Value Reference Range Interpretation Comments TRANSFERRIN (test code = 4936) 210 MG/DL [id number] 00:00:00 Test Item Value Reference Range Interpretation Comments FERRITIN (test code = 5) 60 NG/ML [id number] 00:00:00 Test Item Value Reference Range Interpretation Comments FERRITIN (test code = 5) 60 NG/ML IRON BINDING CAPACITY AND IRON AND % [id number] 00:00:00 Test Item Value Reference Range Interpretation Comments IRON, SERUM (test code = 2221) 40 UG/DL UNSATURATED IBC (test code = ) 192 UG/DL CALC TOTAL IBC (test code = 7) 232 UG/DL CALC % IRON SAT (test code = 2078) 17 % IRON BINDING CAPACITY AND IRON AND % [id number] 00:00:00 Test Item Value Reference Range Interpretation Comments IRON, SERUM (test code = 2221) 40 UG/DL UNSATURATED IBC (test code = 21738) 192 UG/DL CALC TOTAL IBC (test code = 2076) 232 UG/DL CALC % IRON SAT (test code = 2078) 17 % CBC W/AUTO [id number] 00:00:00 Test Item Value Reference Range Interpretation Comments WBC (test code = 1001) 6.6 K/UL RBC (test code = 1002) 3.38 M/UL HEMOGLOBIN (test code = 1003) 9.7 G/DL HEMATOCRIT (test code = 1004) 28.6 % MCV (test code = 1005) 84.6 fL MCH (test code = 1006) 28.7 PG MCHC (test code = 1007) 33.9 G/DL RDW (test code = 1038) 13.7 % NEUTROPHILS (test code = 1008) 64.0 % LYMPHOCYTES (test code = 1010) 26.5 % MONOCYTES (test code = 1011) 5.3 % EOSINOPHILS (test code = 1012) 3.0 % BASOPHILS (test code = 1013) 0.9 % IMMATURE GRANULOCYTES (test 0.3 % code = 1036) NUCLEATED RBCS (test code = 0.0 /100WBC'S 1065) PLATELET COUNT (test code = 141 K/UL 1015) ABSOLUTE NEUTROPHILS (test code 4.24 K/UL = 1066) ABSOLUTE LYMPHOCYTES (test code 1.76 K/UL = 1067) ABSOLUTE MONOCYTES (test code = 0.35 K/UL 1068) ABSOLUTE EOSINOPHILS (test code 0.20 K/UL = 1040) ABSOLUTE BASOPHILS (test code = 0.06 K/UL 1069) ABS IMMATURE GRANULOCYTES (test 0.02 K/UL code = 1020) ABS NUCLEATED RBCS (test code = 0.00 K/UL 18830) CBC W/AUTO [id number] 00:00:00 Test Item Value Reference Range Interpretation Comments WBC (test code = 1001) 6.6 K/UL RBC (test code = 1002) 3.38 M/UL HEMOGLOBIN (test code = 1003) 9.7 G/DL HEMATOCRIT (test code = 1004) 28.6 % MCV (test code = 1005) 84.6 fL MCH (test code = 1006) 28.7 PG MCHC (test code = 1007) 33.9 G/DL RDW (test code = 1038) 13.7 % NEUTROPHILS (test code = 1008) 64.0 % LYMPHOCYTES (test code = 1010) 26.5 % MONOCYTES (test code = 1011) 5.3 % EOSINOPHILS (test code = 1012) 3.0 % BASOPHILS (test code = 1013) 0.9 % IMMATURE GRANULOCYTES (test 0.3 % code = 1036) NUCLEATED RBCS (test code = 0.0 /100WBC'S 1065) PLATELET COUNT (test code = 141 K/UL 1015) ABSOLUTE NEUTROPHILS (test code 4.24 K/UL = 1066) ABSOLUTE LYMPHOCYTES (test code 1.76 K/UL = 1067) ABSOLUTE MONOCYTES (test code = 0.35 K/UL 1068) ABSOLUTE EOSINOPHILS (test code 0.20 K/UL = 1040) ABSOLUTE BASOPHILS (test code = 0.06 K/UL 1069) ABS IMMATURE GRANULOCYTES (test 0.02 K/UL code = 1020) ABS NUCLEATED RBCS (test code = 0.00 K/UL 33614) CBC W/AUTO [id number] 00:00:00 Test Item Value Reference Range Interpretation Comments WBC (test code = 1001) 6.6 K/UL RBC (test code = 1002) 3.38 M/UL HEMOGLOBIN (test code = 1003) 9.7 G/DL HEMATOCRIT (test code = 1004) 28.6 % MCV (test code = 1005) 84.6 fL MCH (test code = 1006) 28.7 PG MCHC (test code = 1007) 33.9 G/DL RDW (test code = 1038) 13.7 % NEUTROPHILS (test code = 1008) 64.0 % LYMPHOCYTES (test code = 1010) 26.5 % MONOCYTES (test code = 1011) 5.3 % EOSINOPHILS (test code = 1012) 3.0 % BASOPHILS (test code = 1013) 0.9 % IMMATURE GRANULOCYTES (test 0.3 % code = 1036) NUCLEATED RBCS (test code = 0.0 /100WBC'S 1065) PLATELET COUNT (test code = 141 K/UL 1015) ABSOLUTE NEUTROPHILS (test code 4.24 K/UL = 1066) ABSOLUTE LYMPHOCYTES (test code 1.76 K/UL = 1067) ABSOLUTE MONOCYTES (test code = 0.35 K/UL 1068) ABSOLUTE EOSINOPHILS (test code 0.20 K/UL = 1040) ABSOLUTE BASOPHILS (test code = 0.06 K/UL 1069) ABS IMMATURE GRANULOCYTES (test 0.02 K/UL code = 1020) ABS NUCLEATED RBCS (test code = 0.00 K/UL 00511) COMPREHENSIVE METABOLIC [id number] 00:00:00 Test Item Value Reference Range Interpretation Comments GLUCOSE (test code = 2217) 102 MG/DL BUN (test code = 2208) 25 MG/DL CREATININE (test code = 2214) 0.78 MG/DL eGFR (2020 CKD-EPI) (test code 90 ML/MIN/1.73 = 38300) CALC BUN/CREAT (test code = 32 RATIO 2235) SODIUM (test code = 2231) 147 MEQ/L POTASSIUM (test code = 2228) 4.6 MEQ/L CHLORIDE (test code = 2215) 107 MEQ/L CARBON DIOXIDE (test code = 26 MEQ/L 2205) CALCIUM (test code = 2209) 9.6 MG/DL PROTEIN, TOTAL (test code = 7.8 G/DL 2228) ALBUMIN (test code = 2201) 4.3 G/DL CALC GLOBULIN (test code = 3.5 G/DL 2240) CALC A/G RATIO (test code = 1.2 RATIO 2234) BILIRUBIN, TOTAL (test code = <0.2 MG/DL 2206) ALKALINE PHOSPHATASE (test 104 U/L code = 2204) AST (test code = 2218) 25 U/L ALT (test code = 2219) 18 U/L COMPREHENSIVE METABOLIC [id number] 00:00:00 Test Item Value Reference Range Interpretation Comments GLUCOSE (test code = 2217) 102 MG/DL BUN (test code = 2208) 25 MG/DL CREATININE (test code = 2214) 0.78 MG/DL eGFR (2020 CKD-EPI) (test code 90 ML/MIN/1.73 = 23732) CALC BUN/CREAT (test code = 32 RATIO 2235) SODIUM (test code = 2231) 147 MEQ/L POTASSIUM (test code = 2228) 4.6 MEQ/L CHLORIDE (test code = 2215) 107 MEQ/L CARBON DIOXIDE (test code = 26 MEQ/L 2205) CALCIUM (test code = 2209) 9.6 MG/DL PROTEIN, TOTAL (test code = 7.8 G/DL 2228) ALBUMIN (test code = 2201) 4.3 G/DL CALC GLOBULIN (test code = 3.5 G/DL 2240) CALC A/G RATIO (test code = 1.2 RATIO 2234) BILIRUBIN, TOTAL (test code = <0.2 MG/DL 2206) ALKALINE PHOSPHATASE (test 104 U/L code = 2204) AST (test code = 2218) 25 U/L ALT (test code = 2219) 18 U/L [id number] 00:00:00 Test Item Value Reference Range Interpretation Comments TSH, THIRD GENERATION (test code 0.702 UIU/ML = 2821) [id number] 00:00:00 Test Item Value Reference Range Interpretation Comments TSH, THIRD GENERATION (test code 0.702 UIU/ML = 2821) [id number] 00:00:00 Test Item Value Reference Range Interpretation Comments TSH, THIRD GENERATION (test code 0.702 UIU/ML = 2821) VITAMIN D, 25 [id number] 00:00:00 Test Item Value Reference Range Interpretation Comments VITAMIN D, 25 OH (test code = 4958) 68 NG/ML VITAMIN D, 25 [id number] 00:00:00 Test Item Value Reference Range Interpretation Comments VITAMIN D, 25 OH (test code = 4958) 68 NG/ML VITAMIN D, 25 [id number] 00:00:00 Test Item Value Reference Range Interpretation Comments VITAMIN D, 25 OH (test code = 4958) 68 NG/ML VITAMIN D, 25 [id number] 00:00:00 Test Item Value Reference Range Interpretation Comments VITAMIN D, 25 OH (test code = 4958) 68 NG/ML [id number] 00:00:00 Test Item Value Reference Range Interpretation Comments TSH, THIRD GENERATION (test code 0.708 UIU/ML = 2821) [id number] 00:00:00 Test Item Value Reference Range Interpretation Comments TSH, THIRD GENERATION (test code 0.708 UIU/ML = 2821) [id number] 00:00:00 Test Item Value Reference Range Interpretation Comments TSH, THIRD GENERATION (test code 0.708 UIU/ML = 2821) VITAMIN [id number] 00:00:00 Test Item Value Reference Range Interpretation Comments VITAMIN B-12 (test code = 2840) >2000 PG/ML VITAMIN [id number] 00:00:00 Test Item Value Reference Range Interpretation Comments VITAMIN B-12 (test code = 2840) >2000 PG/ML VITAMIN [id number] 00:00:00 Test Item Value Reference Range Interpretation Comments VITAMIN B-12 (test code = 2840) >2000 PG/ML COMPREHENSIVE METABOLIC [id number] 00:00:00 Test Item Value Reference Range Interpretation Comments GLUCOSE (test code = 2217) 92 MG/DL BUN (test code = 2208) 25 MG/DL CREATININE (test code = 2214) 0.81 MG/DL eGFR AMER. (test code 95 ML/MIN/1.73 = 60455) eGFR NON- AMER. (test 82 ML/MIN/1.73 code = 11125) CALC BUN/CREAT (test code = 31 RATIO 2235) SODIUM (test code = 2231) 148 MEQ/L POTASSIUM (test code = 2228) 4.7 MEQ/L CHLORIDE (test code = 2215) 105 MEQ/L CARBON DIOXIDE (test code = 25 MEQ/L 220) CALCIUM (test code = 2209) 9.8 MG/DL PROTEIN, TOTAL (test code = 7.3 G/DL 2228) ALBUMIN (test code = 2201) 4.1 G/DL CALC GLOBULIN (test code = 3.2 G/DL 2240) CALC A/G RATIO (test code = 1.3 RATIO 2234) BILIRUBIN, TOTAL (test code = 0.2 MG/DL 2206) ALKALINE PHOSPHATASE (test 102 U/L code = 2203) AST (test code = 2218) 27 U/L ALT (test code = 2219) 22 U/L COMPREHENSIVE METABOLIC [id number] 00:00:00 Test Item Value Reference Range Interpretation Comments GLUCOSE (test code = 2217) 92 MG/DL BUN (test code = 2208) 25 MG/DL CREATININE (test code = 2214) 0.81 MG/DL eGFR AMER. (test code 95 ML/MIN/1.73 = 35240) eGFR NON- AMER. (test 82 ML/MIN/1.73 code = 41755) CALC BUN/CREAT (test code = 31 RATIO 2235) SODIUM (test code = 2231) 148 MEQ/L POTASSIUM (test code = 2228) 4.7 MEQ/L CHLORIDE (test code = 2215) 105 MEQ/L CARBON DIOXIDE (test code = 25 MEQ/L 2205) CALCIUM (test code = 2209) 9.8 MG/DL PROTEIN, TOTAL (test code = 7.3 G/DL 2228) ALBUMIN (test code = 2201) 4.1 G/DL CALC GLOBULIN (test code = 3.2 G/DL 2240) CALC A/G RATIO (test code = 1.3 RATIO 2234) BILIRUBIN, TOTAL (test code = 0.2 MG/DL 2206) ALKALINE PHOSPHATASE (test 102 U/L code = 2204) AST (test code = 2218) 27 U/L ALT (test code = 2219) 22 U/L LIPID [id number] 00:00:00 Test Item Value Reference Range Interpretation Comments CHOLESTEROL (test code = 2210) 129 MG/DL TRIGLYCERIDES (test code = 2232) 84 MG/DL HDL CHOLESTEROL (test code = 2220) 44 MG/DL CALC LDL CHOL (test code = 2237) 69 MG/DL RISK RATIO LDL/HDL (test code = 1.57 RATIO 2238) LIPID [id number] 00:00:00 Test Item Value Reference Range Interpretation Comments CHOLESTEROL (test code = 2210) 129 MG/DL TRIGLYCERIDES (test code = 2232) 84 MG/DL HDL CHOLESTEROL (test code = 2220) 44 MG/DL CALC LDL CHOL (test code = 2237) 69 MG/DL RISK RATIO LDL/HDL (test code = 1.57 RATIO 2238) [id number] 00:00:00 Test Item Value Reference Range Interpretation Comments TSH, THIRD GENERATION (test code 0.708 UIU/ML = 2821) [id number] 00:00:00 Test Item Value Reference Range Interpretation Comments TSH, THIRD GENERATION (test code 0.708 UIU/ML = 2821) [id number] 00:00:00 Test Item Value Reference Range Interpretation Comments TSH, THIRD GENERATION (test code 0.708 UIU/ML = 2821) VITAMIN [id number] 00:00:00 Test Item Value Reference Range Interpretation Comments VITAMIN B-12 (test code = 2840) >2000 PG/ML VITAMIN [id number] 00:00:00 Test Item Value Reference Range Interpretation Comments VITAMIN B-12 (test code = 2840) >2000 PG/ML VITAMIN [id number] 00:00:00 Test Item Value Reference Range Interpretation Comments VITAMIN B-12 (test code = 2840) >2000 PG/ML COMPREHENSIVE METABOLIC [id number] 00:00:00 Test Item Value Reference Range Interpretation Comments GLUCOSE (test code = 2217) 92 MG/DL BUN (test code = 2208) 25 MG/DL CREATININE (test code = 2214) 0.81 MG/DL eGFR AMER. (test code 95 ML/MIN/1.73 = 84015) eGFR NON- AMER. (test 82 ML/MIN/1.73 code = 56664) CALC BUN/CREAT (test code = 31 RATIO 2235) SODIUM (test code = 2231) 148 MEQ/L POTASSIUM (test code = 2228) 4.7 MEQ/L CHLORIDE (test code = 2215) 105 MEQ/L CARBON DIOXIDE (test code = 25 MEQ/L 220) CALCIUM (test code = 2209) 9.8 MG/DL PROTEIN, TOTAL (test code = 7.3 G/DL 2228) ALBUMIN (test code = 2201) 4.1 G/DL CALC GLOBULIN (test code = 3.2 G/DL 2240) CALC A/G RATIO (test code = 1.3 RATIO 2234) BILIRUBIN, TOTAL (test code = 0.2 MG/DL 2206) ALKALINE PHOSPHATASE (test 102 U/L code = 2203) AST (test code = 2218) 27 U/L ALT (test code = 2219) 22 U/L COMPREHENSIVE METABOLIC [id number] 00:00:00 Test Item Value Reference Range Interpretation Comments GLUCOSE (test code = 2217) 92 MG/DL BUN (test code = 2208) 25 MG/DL CREATININE (test code = 2214) 0.81 MG/DL eGFR AMER. (test code 95 ML/MIN/1.73 = 38383) eGFR NON- AMER. (test 82 ML/MIN/1.73 code = 09298) CALC BUN/CREAT (test code = 31 RATIO 2235) SODIUM (test code = 2231) 148 MEQ/L POTASSIUM (test code = 2228) 4.7 MEQ/L CHLORIDE (test code = 2215) 105 MEQ/L CARBON DIOXIDE (test code = 25 MEQ/L 2205) CALCIUM (test code = 2209) 9.8 MG/DL PROTEIN, TOTAL (test code = 7.3 G/DL 2228) ALBUMIN (test code = 2201) 4.1 G/DL CALC GLOBULIN (test code = 3.2 G/DL 2240) CALC A/G RATIO (test code = 1.3 RATIO 2234) BILIRUBIN, TOTAL (test code = 0.2 MG/DL 2206) ALKALINE PHOSPHATASE (test 102 U/L code = 2204) AST (test code = 2218) 27 U/L ALT (test code = 2219) 22 U/L LIPID [id number] 00:00:00 Test Item Value Reference Range Interpretation Comments CHOLESTEROL (test code = 2210) 129 MG/DL TRIGLYCERIDES (test code = 2232) 84 MG/DL HDL CHOLESTEROL (test code = 2220) 44 MG/DL CALC LDL CHOL (test code = 2237) 69 MG/DL RISK RATIO LDL/HDL (test code = 1.57 RATIO 2238) LIPID [id number] 00:00:00 Test Item Value Reference Range Interpretation Comments CHOLESTEROL (test code = 2210) 129 MG/DL TRIGLYCERIDES (test code = 2232) 84 MG/DL HDL CHOLESTEROL (test code = 2220) 44 MG/DL CALC LDL CHOL (test code = 2237) 69 MG/DL RISK RATIO LDL/HDL (test code = 1.57 RATIO 2238) HEMOGLOBIN [id number] 00:00:00 Test Item Value Reference Range Interpretation Comments HEMOGLOBIN A1c (test code = 65846) 6.3 % HEMOGLOBIN [id number] 00:00:00 Test Item Value Reference Range Interpretation Comments HEMOGLOBIN A1c (test code = 96473) 6.3 % CBC W/AUTO [id number] 00:00:00 Test Item Value Reference Range Interpretation Comments WBC (test code = 1001) 7.1 K/UL RBC (test code = 1002) 3.51 M/UL HEMOGLOBIN (test code = 1003) 9.9 G/DL HEMATOCRIT (test code = 1004) 30.3 % MCV (test code = 1005) 86.3 fL MCH (test code = 1006) 28.2 PG MCHC (test code = 1007) 32.7 G/DL RDW (test code = 1038) 13.6 % NEUTROPHILS (test code = 1008) 66.4 % LYMPHOCYTES (test code = 1010) 22.3 % MONOCYTES (test code = 1011) 7.0 % EOSINOPHILS (test code = 1012) 3.5 % BASOPHILS (test code = 1013) 0.7 % IMMATURE GRANYLOCYTES (test 0.1 % code = 1036) NUCLEATED RBCS (test code = 0.0 /100WBC'S 1065) PLATELET COUNT (test code = 193 K/UL 1015) ABSOLUTE NEUTROPHILS (test code 4.73 K/UL = 1066) ABSOLUTE LYMPHOCYTES (test code 1.59 K/UL = 1067) ABSOLUTE MONOCYTES (test code = 0.50 K/UL 1068) ABSOLUTE EOSINOPHILS (test code 0.25 K/UL = 1040) ABSOLUTE BASOPHILS (test code = 0.05 K/UL 1069) ABS IMMATURE GRANULOCYTES (test 0.01 K/UL code = 1020) ABS NUCLEATED RBCS (test code = 0.00 K/UL 08969) CBC W/AUTO [id number] 00:00:00 Test Item Value Reference Range Interpretation Comments WBC (test code = 1001) 7.1 K/UL RBC (test code = 1002) 3.51 M/UL HEMOGLOBIN (test code = 1003) 9.9 G/DL HEMATOCRIT (test code = 1004) 30.3 % MCV (test code = 1005) 86.3 fL MCH (test code = 1006) 28.2 PG MCHC (test code = 1007) 32.7 G/DL RDW (test code = 1038) 13.6 % NEUTROPHILS (test code = 1008) 66.4 % LYMPHOCYTES (test code = 1010) 22.3 % MONOCYTES (test code = 1011) 7.0 % EOSINOPHILS (test code = 1012) 3.5 % BASOPHILS (test code = 1013) 0.7 % IMMATURE GRANYLOCYTES (test 0.1 % code = 1036) NUCLEATED RBCS (test code = 0.0 /100WBC'S 1065) PLATELET COUNT (test code = 193 K/UL 1015) ABSOLUTE NEUTROPHILS (test code 4.73 K/UL = 1066) ABSOLUTE LYMPHOCYTES (test code 1.59 K/UL = 1067) ABSOLUTE MONOCYTES (test code = 0.50 K/UL 1068) ABSOLUTE EOSINOPHILS (test code 0.25 K/UL = 1040) ABSOLUTE BASOPHILS (test code = 0.05 K/UL 1069) ABS IMMATURE GRANULOCYTES (test 0.01 K/UL code = 1020) ABS NUCLEATED RBCS (test code = 0.00 K/UL 73674) CBC W/AUTO [id number] 00:00:00 Test Item Value Reference Range Interpretation Comments WBC (test code = 1001) 7.1 K/UL RBC (test code = 1002) 3.51 M/UL HEMOGLOBIN (test code = 1003) 9.9 G/DL HEMATOCRIT (test code = 1004) 30.3 % MCV (test code = 1005) 86.3 fL MCH (test code = 1006) 28.2 PG MCHC (test code = 1007) 32.7 G/DL RDW (test code = 1038) 13.6 % NEUTROPHILS (test code = 1008) 66.4 % LYMPHOCYTES (test code = 1010) 22.3 % MONOCYTES (test code = 1011) 7.0 % EOSINOPHILS (test code = 1012) 3.5 % BASOPHILS (test code = 1013) 0.7 % IMMATURE GRANYLOCYTES (test 0.1 % code = 1036) NUCLEATED RBCS (test code = 0.0 /100WBC'S 1065) PLATELET COUNT (test code = 193 K/UL 1015) ABSOLUTE NEUTROPHILS (test code 4.73 K/UL = 1066) ABSOLUTE LYMPHOCYTES (test code 1.59 K/UL = 1067) ABSOLUTE MONOCYTES (test code = 0.50 K/UL 1068) ABSOLUTE EOSINOPHILS (test code 0.25 K/UL = 1040) ABSOLUTE BASOPHILS (test code = 0.05 K/UL 1069) ABS IMMATURE GRANULOCYTES (test 0.01 K/UL code = 1020) ABS NUCLEATED RBCS (test code = 0.00 K/UL 02804) HEMOGLOBIN [id number] 00:00:00 Test Item Value Reference Range Interpretation Comments HEMOGLOBIN A1c (test code = 45097) 6.3 % HEMOGLOBIN [id number] 00:00:00 Test Item Value Reference Range Interpretation Comments HEMOGLOBIN A1c (test code = 66647) 6.3 % HEMOGLOBIN [id number] 00:00:00 Test Item Value Reference Range Interpretation Comments HEMOGLOBIN A1c (test code = 57366) 6.3 % CBC W/AUTO [id number] 00:00:00 Test Item Value Reference Range Interpretation Comments WBC (test code = 1001) 7.1 K/UL RBC (test code = 1002) 3.51 M/UL HEMOGLOBIN (test code = 1003) 9.9 G/DL HEMATOCRIT (test code = 1004) 30.3 % MCV (test code = 1005) 86.3 fL MCH (test code = 1006) 28.2 PG MCHC (test code = 1007) 32.7 G/DL RDW (test code = 1038) 13.6 % NEUTROPHILS (test code = 1008) 66.4 % LYMPHOCYTES (test code = 1010) 22.3 % MONOCYTES (test code = 1011) 7.0 % EOSINOPHILS (test code = 1012) 3.5 % BASOPHILS (test code = 1013) 0.7 % IMMATURE GRANYLOCYTES (test 0.1 % code = 1036) NUCLEATED RBCS (test code = 0.0 /100WBC'S 1065) PLATELET COUNT (test code = 193 K/UL 1015) ABSOLUTE NEUTROPHILS (test code 4.73 K/UL = 1066) ABSOLUTE LYMPHOCYTES (test code 1.59 K/UL = 1067) ABSOLUTE MONOCYTES (test code = 0.50 K/UL 1068) ABSOLUTE EOSINOPHILS (test code 0.25 K/UL = 1040) ABSOLUTE BASOPHILS (test code = 0.05 K/UL 1069) ABS IMMATURE GRANULOCYTES (test 0.01 K/UL code = 1020) ABS NUCLEATED RBCS (test code = 0.00 K/UL 54656) CBC W/AUTO [id number] 00:00:00 Test Item Value Reference Range Interpretation Comments WBC (test code = 1001) 7.1 K/UL RBC (test code = 1002) 3.51 M/UL HEMOGLOBIN (test code = 1003) 9.9 G/DL HEMATOCRIT (test code = 1004) 30.3 % MCV (test code = 1005) 86.3 fL MCH (test code = 1006) 28.2 PG MCHC (test code = 1007) 32.7 G/DL RDW (test code = 1038) 13.6 % NEUTROPHILS (test code = 1008) 66.4 % LYMPHOCYTES (test code = 1010) 22.3 % MONOCYTES (test code = 1011) 7.0 % EOSINOPHILS (test code = 1012) 3.5 % BASOPHILS (test code = 1013) 0.7 % IMMATURE GRANYLOCYTES (test 0.1 % code = 1036) NUCLEATED RBCS (test code = 0.0 /100WBC'S 1065) PLATELET COUNT (test code = 193 K/UL 1015) ABSOLUTE NEUTROPHILS (test code 4.73 K/UL = 1066) ABSOLUTE LYMPHOCYTES (test code 1.59 K/UL = 1067) ABSOLUTE MONOCYTES (test code = 0.50 K/UL 1068) ABSOLUTE EOSINOPHILS (test code 0.25 K/UL = 1040) ABSOLUTE BASOPHILS (test code = 0.05 K/UL 1069) ABS IMMATURE GRANULOCYTES (test 0.01 K/UL code = 1020) ABS NUCLEATED RBCS (test code = 0.00 K/UL 91068) CBC W/AUTO [id number] 00:00:00 Test Item Value Reference Range Interpretation Comments WBC (test code = 1001) 7.1 K/UL RBC (test code = 1002) 3.51 M/UL HEMOGLOBIN (test code = 1003) 9.9 G/DL HEMATOCRIT (test code = 1004) 30.3 % MCV (test code = 1005) 86.3 fL MCH (test code = 1006) 28.2 PG MCHC (test code = 1007) 32.7 G/DL RDW (test code = 1038) 13.6 % NEUTROPHILS (test code = 1008) 66.4 % LYMPHOCYTES (test code = 1010) 22.3 % MONOCYTES (test code = 1011) 7.0 % EOSINOPHILS (test code = 1012) 3.5 % BASOPHILS (test code = 1013) 0.7 % IMMATURE GRANYLOCYTES (test 0.1 % code = 1036) NUCLEATED RBCS (test code = 0.0 /100WBC'S 1065) PLATELET COUNT (test code = 193 K/UL 1015) ABSOLUTE NEUTROPHILS (test code 4.73 K/UL = 1066) ABSOLUTE LYMPHOCYTES (test code 1.59 K/UL = 1067) ABSOLUTE MONOCYTES (test code = 0.50 K/UL 1068) ABSOLUTE EOSINOPHILS (test code 0.25 K/UL = 1040) ABSOLUTE BASOPHILS (test code = 0.05 K/UL 1069) ABS IMMATURE GRANULOCYTES (test 0.01 K/UL code = 1020) ABS NUCLEATED RBCS (test code = 0.00 K/UL 64102) HEMOGLOBIN [id number] 00:00:00 Test Item Value Reference Range Interpretation Comments HEMOGLOBIN A1c (test code = 64016) 6.3 % PAP TEST, THINPREP, [id number] 00:00:00 Test Item Value Reference Range Interpretation Comments SOURCE: (test code = Endocervical 8001) SLIDES: (test code = 1 8011) LMP: (test code = SEE NOTE 8021) SPECIMEN ADEQUACY: (NOTE) (test code = 54195) INTERPRETATION: (test NILM/NO EPITH. code = 95690) ABNORMALITY;SEE BELOW ASSISTANT PASTRY CHEF: DIANA Pendleton(ASCP) (test code = 8101) LOCATION: (test code (NOTE) = 07276) CPT: (test code = (NOTE) 8140) PAP TEST, THINPREP, [id number] 00:00:00 Test Item Value Reference Range Interpretation Comments SOURCE: (test code = Endocervical 8001) SLIDES: (test code = 1 8011) LMP: (test code = SEE NOTE 8021) SPECIMEN ADEQUACY: (NOTE) (test code = 73845) INTERPRETATION: (test NILM/NO EPITH. code = 12987) ABNORMALITY;SEE BELOW ASSISTANT PASTRY CHEF: DIANA Pendleton(ASCP) (test code = 8101) LOCATION: (test code (NOTE) = 75905) CPT: (test code = (NOTE) 8140) HPV HIGH RISK WITH GENOTYPE, [id number] 00:00:00 Test Item Value Reference Range Interpretation Comments HPV HIGH RISK INTERP (test code = NEGATIVE 15176) HPV 16 (test code = 67925) NEGATIVE HPV 18 (test code = 62670) NEGATIVE HPV, HR, OTHER GENOTYPES (test code NEGATIVE = 17225) HPV HIGH RISK WITH GENOTYPE, [id number] 00:00:00 Test Item Value Reference Range Interpretation Comments HPV HIGH RISK INTERP (test code = NEGATIVE 86212) HPV 16 (test code = 40307) NEGATIVE HPV 18 (test code = 26963) NEGATIVE HPV, HR, OTHER GENOTYPES (test code NEGATIVE = 40454) PAP TEST, THINPREP, [id number] 00:00:00 Test Item Value Reference Range Interpretation Comments SOURCE: (test code = Endocervical 800) SLIDES: (test code = 1 8011) LMP: (test code = SEE NOTE 8021) SPECIMEN ADEQUACY: (NOTE) (test code = 56315) INTERPRETATION: (test NILM/NO EPITH. code = 07728) ABNORMALITY;SEE BELOW ASSISTANT PASTRY CHEF: DIANA Pendleton(ASCP) (test code = 8101) LOCATION: (test code (NOTE) = 39546) CPT: (test code = (NOTE) 8140) PAP TEST, THINPREP, [id number] 00:00:00 Test Item Value Reference Range Interpretation Comments SOURCE: (test code = Endocervical 8001) SLIDES: (test code = 1 8011) LMP: (test code = SEE NOTE 8021) SPECIMEN ADEQUACY: (NOTE) (test code = 59051) INTERPRETATION: (test NILM/NO EPITH. code = 75430) ABNORMALITY;SEE BELOW ASSISTANT PASTRY CHEF: DIANA Pendleton(ASCP) (test code = 8101) LOCATION: (test code (NOTE) = 83767) CPT: (test code = (NOTE) 8140) HPV HIGH RISK WITH GENOTYPE, [id number] 00:00:00 Test Item Value Reference Range Interpretation Comments HPV HIGH RISK INTERP (test code = NEGATIVE 83817) HPV 16 (test code = 84992) NEGATIVE HPV 18 (test code = 21399) NEGATIVE HPV, HR, OTHER GENOTYPES (test code NEGATIVE = 66818) HPV HIGH RISK WITH GENOTYPE, [id number] 00:00:00 Test Item Value Reference Range Interpretation Comments HPV HIGH RISK INTERP (test code = NEGATIVE 49356) HPV 16 (test code = 26431) NEGATIVE HPV 18 (test code = 47316) NEGATIVE HPV, HR, OTHER GENOTYPES (test code NEGATIVE = 79703) [id number] 00:00:00 Test Item Value Reference Range Interpretation Comments TSH, THIRD GENERATION (test code 0.859 UIU/ML = 2821) [id number] 00:00:00 Test Item Value Reference Range Interpretation Comments TSH, THIRD GENERATION (test code 0.859 UIU/ML = 2821) [id number] 00:00:00 Test Item Value Reference Range Interpretation Comments TSH, THIRD GENERATION (test code 0.859 UIU/ML = 2821) LIPID [id number] 00:00:00 Test Item Value Reference Range Interpretation Comments CHOLESTEROL (test code = 2210) 119 MG/DL TRIGLYCERIDES (test code = 2232) 146 MG/DL HDL CHOLESTEROL (test code = 2220) 40 MG/DL CALC LDL CHOL (test code = 2237) 56 MG/DL RISK RATIO LDL/HDL (test code = 1.40 RATIO 2238) LIPID [id number] 00:00:00 Test Item Value Reference Range Interpretation Comments CHOLESTEROL (test code = 2210) 119 MG/DL TRIGLYCERIDES (test code = 2232) 146 MG/DL HDL CHOLESTEROL (test code = 2220) 40 MG/DL CALC LDL CHOL (test code = 2237) 56 MG/DL RISK RATIO LDL/HDL (test code = 1.40 RATIO 2238) VITAMIN B 12 AND FOLIC [id number] 00:00:00 Test Item Value Reference Range Interpretation Comments VITAMIN B-12 (test code = 2840) >2000 PG/ML FOLIC ACID (test code = 2695) >20.0 UG/L VITAMIN B 12 AND FOLIC [id number] 00:00:00 Test Item Value Reference Range Interpretation Comments VITAMIN B-12 (test code = 2840) >2000 PG/ML FOLIC ACID (test code = 2695) >20.0 UG/L CBC W/AUTO [id number] 00:00:00 Test Item Value Reference Range Interpretation Comments WBC (test code = 1001) 6.8 K/UL RBC (test code = 1002) 3.66 M/UL HEMOGLOBIN (test code = 1003) 10.2 G/DL HEMATOCRIT (test code = 1004) 31.3 % MCV (test code = 1005) 85.5 fL MCH (test code = 1006) 27.9 PG MCHC (test code = 1007) 32.6 G/DL RDW (test code = 1038) 12.9 % NEUTROPHILS (test code = 1008) 69.9 % LYMPHOCYTES (test code = 1010) 20.8 % MONOCYTES (test code = 1011) 6.1 % EOSINOPHILS (test code = 1012) 2.5 % BASOPHILS (test code = 1013) 0.6 % IMMATURE GRANULOCYTES (test 0.1 % code = 1036) NUCLEATED RBCS (test code = 0.0 /100WBC'S 1065) PLATELET COUNT (test code = 129 K/UL 1015) ABSOLUTE NEUTROPHILS (test code 4.78 K/UL = 1066) ABSOLUTE LYMPHOCYTES (test code 1.42 K/UL = 1067) ABSOLUTE MONOCYTES (test code = 0.42 K/UL 1068) ABSOLUTE EOSINOPHILS (test code 0.17 K/UL = 1040) ABSOLUTE BASOPHILS (test code = 0.04 K/UL 1069) ABS IMMATURE GRANULOCYTES (test 0.01 K/UL code = 1020) ABS NUCLEATED RBCS (test code = 0.00 K/UL 95738) CBC W/AUTO [id number] 00:00:00 Test Item Value Reference Range Interpretation Comments WBC (test code = 1001) 6.8 K/UL RBC (test code = 1002) 3.66 M/UL HEMOGLOBIN (test code = 1003) 10.2 G/DL HEMATOCRIT (test code = 1004) 31.3 % MCV (test code = 1005) 85.5 fL MCH (test code = 1006) 27.9 PG MCHC (test code = 1007) 32.6 G/DL RDW (test code = 1038) 12.9 % NEUTROPHILS (test code = 1008) 69.9 % LYMPHOCYTES (test code = 1010) 20.8 % MONOCYTES (test code = 1011) 6.1 % EOSINOPHILS (test code = 1012) 2.5 % BASOPHILS (test code = 1013) 0.6 % IMMATURE GRANULOCYTES (test 0.1 % code = 1036) NUCLEATED RBCS (test code = 0.0 /100WBC'S 1065) PLATELET COUNT (test code = 129 K/UL 1015) ABSOLUTE NEUTROPHILS (test code 4.78 K/UL = 1066) ABSOLUTE LYMPHOCYTES (test code 1.42 K/UL = 1067) ABSOLUTE MONOCYTES (test code = 0.42 K/UL 1068) ABSOLUTE EOSINOPHILS (test code 0.17 K/UL = 1040) ABSOLUTE BASOPHILS (test code = 0.04 K/UL 1069) ABS IMMATURE GRANULOCYTES (test 0.01 K/UL code = 1020) ABS NUCLEATED RBCS (test code = 0.00 K/UL 76189) CBC W/AUTO [id number] 00:00:00 Test Item Value Reference Range Interpretation Comments WBC (test code = 1001) 6.8 K/UL RBC (test code = 1002) 3.66 M/UL HEMOGLOBIN (test code = 1003) 10.2 G/DL HEMATOCRIT (test code = 1004) 31.3 % MCV (test code = 1005) 85.5 fL MCH (test code = 1006) 27.9 PG MCHC (test code = 1007) 32.6 G/DL RDW (test code = 1038) 12.9 % NEUTROPHILS (test code = 1008) 69.9 % LYMPHOCYTES (test code = 1010) 20.8 % MONOCYTES (test code = 1011) 6.1 % EOSINOPHILS (test code = 1012) 2.5 % BASOPHILS (test code = 1013) 0.6 % IMMATURE GRANULOCYTES (test 0.1 % code = 1036) NUCLEATED RBCS (test code = 0.0 /100WBC'S 1065) PLATELET COUNT (test code = 129 K/UL 1015) ABSOLUTE NEUTROPHILS (test code 4.78 K/UL = 1066) ABSOLUTE LYMPHOCYTES (test code 1.42 K/UL = 1067) ABSOLUTE MONOCYTES (test code = 0.42 K/UL 1068) ABSOLUTE EOSINOPHILS (test code 0.17 K/UL = 1040) ABSOLUTE BASOPHILS (test code = 0.04 K/UL 1069) ABS IMMATURE GRANULOCYTES (test 0.01 K/UL code = 1020) ABS NUCLEATED RBCS (test code = 0.00 K/UL 35799) COMPREHENSIVE METABOLIC [id number] 00:00:00 Test Item Value Reference Range Interpretation Comments GLUCOSE (test code = 2217) 106 MG/DL BUN (test code = 2208) 22 MG/DL CREATININE (test code = 2214) 0.98 MG/DL eGFR AMER. (test code 76 ML/MIN/1.73 = 09333) eGFR NON- AMER. (test 65 ML/MIN/1.73 code = 90540) CALC BUN/CREAT (test code = 22 RATIO 2235) SODIUM (test code = 2231) 143 MEQ/L POTASSIUM (test code = 2228) 5.0 MEQ/L CHLORIDE (test code = 2215) 105 MEQ/L CARBON DIOXIDE (test code = 27 MEQ/L 220) CALCIUM (test code = 2209) 9.4 MG/DL PROTEIN, TOTAL (test code = 7.0 G/DL 2228) ALBUMIN (test code = 2201) 4.2 G/DL CALC GLOBULIN (test code = 2.8 G/DL 2240) CALC A/G RATIO (test code = 1.5 RATIO 2234) BILIRUBIN, TOTAL (test code = <0.2 MG/DL 2206) ALKALINE PHOSPHATASE (test 112 U/L code = 2204) AST (test code = 2218) 26 U/L ALT (test code = 2219) 24 U/L COMPREHENSIVE METABOLIC [id number] 00:00:00 Test Item Value Reference Range Interpretation Comments GLUCOSE (test code = 2217) 106 MG/DL BUN (test code = 2208) 22 MG/DL CREATININE (test code = 2214) 0.98 MG/DL eGFR AMER. (test code 76 ML/MIN/1.73 = 69260) eGFR NON- AMER. (test 65 ML/MIN/1.73 code = 20258) CALC BUN/CREAT (test code = 22 RATIO 2235) SODIUM (test code = 2231) 143 MEQ/L POTASSIUM (test code = 2228) 5.0 MEQ/L CHLORIDE (test code = 2215) 105 MEQ/L CARBON DIOXIDE (test code = 27 MEQ/L 2205) CALCIUM (test code = 2209) 9.4 MG/DL PROTEIN, TOTAL (test code = 7.0 G/DL 2228) ALBUMIN (test code = 2201) 4.2 G/DL CALC GLOBULIN (test code = 2.8 G/DL 2239) CALC A/G RATIO (test code = 1.5 RATIO 2233) BILIRUBIN, TOTAL (test code = <0.2 MG/DL 2206) ALKALINE PHOSPHATASE (test 112 U/L code = 2204) AST (test code = 2218) 26 U/L ALT (test code = 2219) 24 U/L HEMOGLOBIN [id number] 00:00:00 Test Item Value Reference Range Interpretation Comments HEMOGLOBIN A1c (test code = 71775) 7.4 % HEMOGLOBIN [id number] 00:00:00 Test Item Value Reference Range Interpretation Comments HEMOGLOBIN A1c (test code = 45126) 7.4 % HEMOGLOBIN [id number] 00:00:00 Test Item Value Reference Range Interpretation Comments HEMOGLOBIN A1c (test code = 93017) 7.4 % [id number] 00:00:00 Test Item Value Reference Range Interpretation Comments TSH, THIRD GENERATION (test code 0.859 UIU/ML = 2821) [id number] 00:00:00 Test Item Value Reference Range Interpretation Comments TSH, THIRD GENERATION (test code 0.859 UIU/ML = 2821) [id number] 00:00:00 Test Item Value Reference Range Interpretation Comments TSH, THIRD GENERATION (test code 0.859 UIU/ML = 2821) LIPID [id number] 00:00:00 Test Item Value Reference Range Interpretation Comments CHOLESTEROL (test code = 2210) 119 MG/DL TRIGLYCERIDES (test code = 2232) 146 MG/DL HDL CHOLESTEROL (test code = 2220) 40 MG/DL CALC LDL CHOL (test code = 2237) 56 MG/DL RISK RATIO LDL/HDL (test code = 1.40 RATIO 2238) LIPID [id number] 00:00:00 Test Item Value Reference Range Interpretation Comments CHOLESTEROL (test code = 2210) 119 MG/DL TRIGLYCERIDES (test code = 2232) 146 MG/DL HDL CHOLESTEROL (test code = 2220) 40 MG/DL CALC LDL CHOL (test code = 2237) 56 MG/DL RISK RATIO LDL/HDL (test code = 1.40 RATIO 2238) VITAMIN B 12 AND FOLIC [id number] 00:00:00 Test Item Value Reference Range Interpretation Comments VITAMIN B-12 (test code = 2840) >2000 PG/ML FOLIC ACID (test code = 2695) >20.0 UG/L VITAMIN B 12 AND FOLIC [id number] 00:00:00 Test Item Value Reference Range Interpretation Comments VITAMIN B-12 (test code = 2840) >2000 PG/ML FOLIC ACID (test code = 2695) >20.0 UG/L CBC W/AUTO [id number] 00:00:00 Test Item Value Reference Range Interpretation Comments WBC (test code = 1001) 6.8 K/UL RBC (test code = 1002) 3.66 M/UL HEMOGLOBIN (test code = 1003) 10.2 G/DL HEMATOCRIT (test code = 1004) 31.3 % MCV (test code = 1005) 85.5 fL MCH (test code = 1006) 27.9 PG MCHC (test code = 1007) 32.6 G/DL RDW (test code = 1038) 12.9 % NEUTROPHILS (test code = 1008) 69.9 % LYMPHOCYTES (test code = 1010) 20.8 % MONOCYTES (test code = 1011) 6.1 % EOSINOPHILS (test code = 1012) 2.5 % BASOPHILS (test code = 1013) 0.6 % IMMATURE GRANULOCYTES (test 0.1 % code = 1036) NUCLEATED RBCS (test code = 0.0 /100WBC'S 1065) PLATELET COUNT (test code = 129 K/UL 1015) ABSOLUTE NEUTROPHILS (test code 4.78 K/UL = 1066) ABSOLUTE LYMPHOCYTES (test code 1.42 K/UL = 1067) ABSOLUTE MONOCYTES (test code = 0.42 K/UL 1068) ABSOLUTE EOSINOPHILS (test code 0.17 K/UL = 1040) ABSOLUTE BASOPHILS (test code = 0.04 K/UL 1069) ABS IMMATURE GRANULOCYTES (test 0.01 K/UL code = 1020) ABS NUCLEATED RBCS (test code = 0.00 K/UL 22374) CBC W/AUTO [id number] 00:00:00 Test Item Value Reference Range Interpretation Comments WBC (test code = 1001) 6.8 K/UL RBC (test code = 1002) 3.66 M/UL HEMOGLOBIN (test code = 1003) 10.2 G/DL HEMATOCRIT (test code = 1004) 31.3 % MCV (test code = 1005) 85.5 fL MCH (test code = 1006) 27.9 PG MCHC (test code = 1007) 32.6 G/DL RDW (test code = 1038) 12.9 % NEUTROPHILS (test code = 1008) 69.9 % LYMPHOCYTES (test code = 1010) 20.8 % MONOCYTES (test code = 1011) 6.1 % EOSINOPHILS (test code = 1012) 2.5 % BASOPHILS (test code = 1013) 0.6 % IMMATURE GRANULOCYTES (test 0.1 % code = 1036) NUCLEATED RBCS (test code = 0.0 /100WBC'S 1065) PLATELET COUNT (test code = 129 K/UL 1015) ABSOLUTE NEUTROPHILS (test code 4.78 K/UL = 1066) ABSOLUTE LYMPHOCYTES (test code 1.42 K/UL = 1067) ABSOLUTE MONOCYTES (test code = 0.42 K/UL 1068) ABSOLUTE EOSINOPHILS (test code 0.17 K/UL = 1040) ABSOLUTE BASOPHILS (test code = 0.04 K/UL 1069) ABS IMMATURE GRANULOCYTES (test 0.01 K/UL code = 1020) ABS NUCLEATED RBCS (test code = 0.00 K/UL 30393) CBC W/AUTO [id number] 00:00:00 Test Item Value Reference Range Interpretation Comments WBC (test code = 1001) 6.8 K/UL RBC (test code = 1002) 3.66 M/UL HEMOGLOBIN (test code = 1003) 10.2 G/DL HEMATOCRIT (test code = 1004) 31.3 % MCV (test code = 1005) 85.5 fL MCH (test code = 1006) 27.9 PG MCHC (test code = 1007) 32.6 G/DL RDW (test code = 1038) 12.9 % NEUTROPHILS (test code = 1008) 69.9 % LYMPHOCYTES (test code = 1010) 20.8 % MONOCYTES (test code = 1011) 6.1 % EOSINOPHILS (test code = 1012) 2.5 % BASOPHILS (test code = 1013) 0.6 % IMMATURE GRANULOCYTES (test 0.1 % code = 1036) NUCLEATED RBCS (test code = 0.0 /100WBC'S 1065) PLATELET COUNT (test code = 129 K/UL 1015) ABSOLUTE NEUTROPHILS (test code 4.78 K/UL = 1066) ABSOLUTE LYMPHOCYTES (test code 1.42 K/UL = 1067) ABSOLUTE MONOCYTES (test code = 0.42 K/UL 1068) ABSOLUTE EOSINOPHILS (test code 0.17 K/UL = 1040) ABSOLUTE BASOPHILS (test code = 0.04 K/UL 1069) ABS IMMATURE GRANULOCYTES (test 0.01 K/UL code = 1020) ABS NUCLEATED RBCS (test code = 0.00 K/UL 27450) COMPREHENSIVE METABOLIC [id number] 00:00:00 Test Item Value Reference Range Interpretation Comments GLUCOSE (test code = 2217) 106 MG/DL BUN (test code = 2208) 22 MG/DL CREATININE (test code = 2214) 0.98 MG/DL eGFR AMER. (test code 76 ML/MIN/1.73 = 55648) eGFR NON- AMER. (test 65 ML/MIN/1.73 code = 41132) CALC BUN/CREAT (test code = 22 RATIO 2235) SODIUM (test code = 2231) 143 MEQ/L POTASSIUM (test code = 2228) 5.0 MEQ/L CHLORIDE (test code = 2215) 105 MEQ/L CARBON DIOXIDE (test code = 27 MEQ/L 2206) CALCIUM (test code = 2209) 9.4 MG/DL PROTEIN, TOTAL (test code = 7.0 G/DL 2228) ALBUMIN (test code = 2201) 4.2 G/DL CALC GLOBULIN (test code = 2.8 G/DL 2240) CALC A/G RATIO (test code = 1.5 RATIO 2234) BILIRUBIN, TOTAL (test code = <0.2 MG/DL 2206) ALKALINE PHOSPHATASE (test 112 U/L code = 2204) AST (test code = 2218) 26 U/L ALT (test code = 2219) 24 U/L COMPREHENSIVE METABOLIC [id number] 00:00:00 Test Item Value Reference Range Interpretation Comments GLUCOSE (test code = 2217) 106 MG/DL BUN (test code = 2208) 22 MG/DL CREATININE (test code = 2214) 0.98 MG/DL eGFR AMER. (test code 76 ML/MIN/1.73 = 96697) eGFR NON- AMER. (test 65 ML/MIN/1.73 code = 26295) CALC BUN/CREAT (test code = 22 RATIO 2235) SODIUM (test code = 2231) 143 MEQ/L POTASSIUM (test code = 2228) 5.0 MEQ/L CHLORIDE (test code = 2215) 105 MEQ/L CARBON DIOXIDE (test code = 27 MEQ/L 2205) CALCIUM (test code = 2209) 9.4 MG/DL PROTEIN, TOTAL (test code = 7.0 G/DL 2228) ALBUMIN (test code = 2201) 4.2 G/DL CALC GLOBULIN (test code = 2.8 G/DL 2240) CALC A/G RATIO (test code = 1.5 RATIO 2234) BILIRUBIN, TOTAL (test code = <0.2 MG/DL 2206) ALKALINE PHOSPHATASE (test 112 U/L code = 2204) AST (test code = 2218) 26 U/L ALT (test code = 2219) 24 U/L HEMOGLOBIN [id number] 00:00:00 Test Item Value Reference Range Interpretation Comments HEMOGLOBIN A1c (test code = 40231) 7.4 % HEMOGLOBIN [id number] 00:00:00 Test Item Value Reference Range Interpretation Comments HEMOGLOBIN A1c (test code = 05048) 7.4 % HEMOGLOBIN [id number] 00:00:00 Test Item Value Reference Range Interpretation Comments HEMOGLOBIN A1c (test code = 44974) 7.4 % COMPREHENSIVE METABOLIC [id number] 00:00:00 Test Item Value Reference Range Interpretation Comments GLUCOSE (test code = 2217) 149 MG/DL BUN (test code = 2208) 19 MG/DL CREATININE (test code = 2214) 0.70 MG/DL eGFR AMER. (test code 114 ML/MIN/1.73 = 81689) eGFR NON- AMER. (test 98 ML/MIN/1.73 code = 35736) CALC BUN/CREAT (test code = 27 RATIO 2235) SODIUM (test code = 2231) 143 MEQ/L POTASSIUM (test code = 2228) 4.3 MEQ/L CHLORIDE (test code = 2215) 103 MEQ/L CARBON DIOXIDE (test code = 28 MEQ/L 220) CALCIUM (test code = 2209) 9.3 MG/DL PROTEIN, TOTAL (test code = 7.2 G/DL 2228) ALBUMIN (test code = 2201) 3.9 G/DL CALC GLOBULIN (test code = 3.3 G/DL 2240) CALC A/G RATIO (test code = 1.2 RATIO 2234) BILIRUBIN, TOTAL (test code = 0.2 MG/DL 2206) ALKALINE PHOSPHATASE (test 99 U/L code = 220) AST (test code = 2218) 27 U/L ALT (test code = 2219) 20 U/L COMPREHENSIVE METABOLIC [id number] 00:00:00 Test Item Value Reference Range Interpretation Comments GLUCOSE (test code = 2217) 149 MG/DL BUN (test code = 2208) 19 MG/DL CREATININE (test code = 2214) 0.70 MG/DL eGFR AMER. (test code 114 ML/MIN/1.73 = 63153) eGFR NON- AMER. (test 98 ML/MIN/1.73 code = 53935) CALC BUN/CREAT (test code = 27 RATIO 2235) SODIUM (test code = 2231) 143 MEQ/L POTASSIUM (test code = 2228) 4.3 MEQ/L CHLORIDE (test code = 2215) 103 MEQ/L CARBON DIOXIDE (test code = 28 MEQ/L 2206) CALCIUM (test code = 2209) 9.3 MG/DL PROTEIN, TOTAL (test code = 7.2 G/DL 2228) ALBUMIN (test code = 2201) 3.9 G/DL CALC GLOBULIN (test code = 3.3 G/DL 2240) CALC A/G RATIO (test code = 1.2 RATIO 2234) BILIRUBIN, TOTAL (test code = 0.2 MG/DL 2206) ALKALINE PHOSPHATASE (test 99 U/L code = 2204) AST (test code = 2218) 27 U/L ALT (test code = 2219) 20 U/L THYROID II PROFILE (T3U, T4, T7, TSH)[id number] 00:00:00 Test Item Value Reference Range Interpretation Comments T-UPTAKE (test code = 2817) 27.2 % THYROX. BIND. CAPAC. (test code 1.2 = 17203) T4 (THYROXINE) (test code = 9.1 UG/DL 2819) CORRECTED T4 (FTI) (test code = 7.6 UG/DL 2820) TSH, THIRD GENERATION (test code 0.715 UIU/ML = 2821) THYROID II PROFILE (T3U, T4, T7, TSH)[id number] 00:00:00 Test Item Value Reference Range Interpretation Comments T-UPTAKE (test code = 2817) 27.2 % THYROX. BIND. CAPAC. (test code 1.2 = 81288) T4 (THYROXINE) (test code = 9.1 UG/DL 2819) CORRECTED T4 (FTI) (test code = 7.6 UG/DL 2820) TSH, THIRD GENERATION (test code 0.715 UIU/ML = 2821) CBC W/AUTO [id number] 00:00:00 Test Item Value Reference Range Interpretation Comments WBC (test code = 1001) 7.0 K/UL RBC (test code = 1002) 3.58 M/UL HEMOGLOBIN (test code = 1003) 10.1 G/DL HEMATOCRIT (test code = 1004) 31.5 % MCV (test code = 1005) 88.0 fL MCH (test code = 1006) 28.2 PG MCHC (test code = 1007) 32.1 G/DL RDW (test code = 1038) 13.8 % NEUTROPHILS (test code = 1008) 73.1 % LYMPHOCYTES (test code = 1010) 18.1 % MONOCYTES (test code = 1011) 6.4 % EOSINOPHILS (test code = 1012) 1.8 % BASOPHILS (test code = 1013) 0.6 % PLATELET COUNT (test code = 1015) 157 K/UL CBC W/AUTO [id number] 00:00:00 Test Item Value Reference Range Interpretation Comments WBC (test code = 1001) 7.0 K/UL RBC (test code = 1002) 3.58 M/UL HEMOGLOBIN (test code = 1003) 10.1 G/DL HEMATOCRIT (test code = 1004) 31.5 % MCV (test code = 1005) 88.0 fL MCH (test code = 1006) 28.2 PG MCHC (test code = 1007) 32.1 G/DL RDW (test code = 1038) 13.8 % NEUTROPHILS (test code = 1008) 73.1 % LYMPHOCYTES (test code = 1010) 18.1 % MONOCYTES (test code = 1011) 6.4 % EOSINOPHILS (test code = 1012) 1.8 % BASOPHILS (test code = 1013) 0.6 % PLATELET COUNT (test code = 1015) 157 K/UL CBC W/AUTO [id number] 00:00:00 Test Item Value Reference Range Interpretation Comments WBC (test code = 1001) 7.0 K/UL RBC (test code = 1002) 3.58 M/UL HEMOGLOBIN (test code = 1003) 10.1 G/DL HEMATOCRIT (test code = 1004) 31.5 % MCV (test code = 1005) 88.0 fL MCH (test code = 1006) 28.2 PG MCHC (test code = 1007) 32.1 G/DL RDW (test code = 1038) 13.8 % NEUTROPHILS (test code = 1008) 73.1 % LYMPHOCYTES (test code = 1010) 18.1 % MONOCYTES (test code = 1011) 6.4 % EOSINOPHILS (test code = 1012) 1.8 % BASOPHILS (test code = 1013) 0.6 % PLATELET COUNT (test code = 1015) 157 K/UL HEMOGLOBIN [id number] 00:00:00 Test Item Value Reference Range Interpretation Comments HEMOGLOBIN A1c (test code = 06284) 6.3 % HEMOGLOBIN [id number] 00:00:00 Test Item Value Reference Range Interpretation Comments HEMOGLOBIN A1c (test code = 87548) 6.3 % HEMOGLOBIN [id number] 00:00:00 Test Item Value Reference Range Interpretation Comments HEMOGLOBIN A1c (test code = 81681) 6.3 % LIPID [id number] 00:00:00 Test Item Value Reference Range Interpretation Comments CHOLESTEROL (test code = 2210) 118 MG/DL TRIGLYCERIDES (test code = 2232) 110 MG/DL HDL CHOLESTEROL (test code = 2220) 43 MG/DL CALC LDL CHOL (test code = 2237) 55 MG/DL RISK RATIO LDL/HDL (test code = 1.28 RATIO 2238) LIPID [id number] 00:00:00 Test Item Value Reference Range Interpretation Comments CHOLESTEROL (test code = 2210) 118 MG/DL TRIGLYCERIDES (test code = 2232) 110 MG/DL HDL CHOLESTEROL (test code = 2220) 43 MG/DL CALC LDL CHOL (test code = 2237) 55 MG/DL RISK RATIO LDL/HDL (test code = 1.28 RATIO 2238) COMPREHENSIVE METABOLIC [id number] 00:00:00 Test Item Value Reference Range Interpretation Comments GLUCOSE (test code = 2217) 149 MG/DL BUN (test code = 2208) 19 MG/DL CREATININE (test code = 2214) 0.70 MG/DL eGFR AMER. (test code 114 ML/MIN/1.73 = 76555) eGFR NON- AMER. (test 98 ML/MIN/1.73 code = 19181) CALC BUN/CREAT (test code = 27 RATIO 2235) SODIUM (test code = 2231) 143 MEQ/L POTASSIUM (test code = 2228) 4.3 MEQ/L CHLORIDE (test code = 2215) 103 MEQ/L CARBON DIOXIDE (test code = 28 MEQ/L 2205) CALCIUM (test code = 2209) 9.3 MG/DL PROTEIN, TOTAL (test code = 7.2 G/DL 2228) ALBUMIN (test code = 2201) 3.9 G/DL CALC GLOBULIN (test code = 3.3 G/DL 2240) CALC A/G RATIO (test code = 1.2 RATIO 2234) BILIRUBIN, TOTAL (test code = 0.2 MG/DL 2206) ALKALINE PHOSPHATASE (test 99 U/L code = 2204) AST (test code = 2218) 27 U/L ALT (test code = 2219) 20 U/L COMPREHENSIVE METABOLIC [id number] 00:00:00 Test Item Value Reference Range Interpretation Comments GLUCOSE (test code = 2217) 149 MG/DL BUN (test code = 2208) 19 MG/DL CREATININE (test code = 2214) 0.70 MG/DL eGFR AMER. (test code 114 ML/MIN/1.73 = 83047) eGFR NON- AMER. (test 98 ML/MIN/1.73 code = 38543) CALC BUN/CREAT (test code = 27 RATIO 2235) SODIUM (test code = 2231) 143 MEQ/L POTASSIUM (test code = 2228) 4.3 MEQ/L CHLORIDE (test code = 2215) 103 MEQ/L CARBON DIOXIDE (test code = 28 MEQ/L 2205) CALCIUM (test code = 2209) 9.3 MG/DL PROTEIN, TOTAL (test code = 7.2 G/DL 2228) ALBUMIN (test code = 220) 3.9 G/DL CALC GLOBULIN (test code = 3.3 G/DL 0) CALC A/G RATIO (test code = 1.2 RATIO 2233) BILIRUBIN, TOTAL (test code = 0.2 MG/DL 2206) ALKALINE PHOSPHATASE (test 99 U/L code = 220) AST (test code = 2218) 27 U/L ALT (test code = 2219) 20 U/L THYROID II PROFILE (T3U, T4, T7, TSH)2020-07-17 00:00:00 Test Item Value Reference Range Interpretation Comments T-UPTAKE (test code = 2817) 27.2 % THYROX. BIND. CAPAC. (test code 1.2 = 83237) T4 (THYROXINE) (test code = 9.1 UG/DL 2819) CORRECTED T4 (FTI) (test code = 7.6 UG/DL 2820) TSH, THIRD GENERATION (test code 0.715 UIU/ML = 2821) THYROID II PROFILE (T3U, T4, T7, TSH)2020-07-17 00:00:00 Test Item Value Reference Range Interpretation Comments T-UPTAKE (test code = 2817) 27.2 % THYROX. BIND. CAPAC. (test code 1.2 = 78263) T4 (THYROXINE) (test code = 9.1 UG/DL 2819) CORRECTED T4 (FTI) (test code = 7.6 UG/DL 2820) TSH, THIRD GENERATION (test code 0.715 UIU/ML = 2821) CBC W/AUTO [id number] 00:00:00 Test Item Value Reference Range Interpretation Comments WBC (test code = 1001) 7.0 K/UL RBC (test code = 1002) 3.58 M/UL HEMOGLOBIN (test code = 1003) 10.1 G/DL HEMATOCRIT (test code = 1004) 31.5 % MCV (test code = 1005) 88.0 fL MCH (test code = 1006) 28.2 PG MCHC (test code = 1007) 32.1 G/DL RDW (test code = 1038) 13.8 % NEUTROPHILS (test code = 1008) 73.1 % LYMPHOCYTES (test code = 1010) 18.1 % MONOCYTES (test code = 1011) 6.4 % EOSINOPHILS (test code = 1012) 1.8 % BASOPHILS (test code = 1013) 0.6 % PLATELET COUNT (test code = 1015) 157 K/UL CBC W/AUTO [id number] 00:00:00 Test Item Value Reference Range Interpretation Comments WBC (test code = 1001) 7.0 K/UL RBC (test code = 1002) 3.58 M/UL HEMOGLOBIN (test code = 1003) 10.1 G/DL HEMATOCRIT (test code = 1004) 31.5 % MCV (test code = 1005) 88.0 fL MCH (test code = 1006) 28.2 PG MCHC (test code = 1007) 32.1 G/DL RDW (test code = 1038) 13.8 % NEUTROPHILS (test code = 1008) 73.1 % LYMPHOCYTES (test code = 1010) 18.1 % MONOCYTES (test code = 1011) 6.4 % EOSINOPHILS (test code = 1012) 1.8 % BASOPHILS (test code = 1013) 0.6 % PLATELET COUNT (test code = 1015) 157 K/UL CBC W/AUTO [id number] 00:00:00 Test Item Value Reference Range Interpretation Comments WBC (test code = 1001) 7.0 K/UL RBC (test code = 1002) 3.58 M/UL HEMOGLOBIN (test code = 1003) 10.1 G/DL HEMATOCRIT (test code = 1004) 31.5 % MCV (test code = 1005) 88.0 fL MCH (test code = 1006) 28.2 PG MCHC (test code = 1007) 32.1 G/DL RDW (test code = 1038) 13.8 % NEUTROPHILS (test code = 1008) 73.1 % LYMPHOCYTES (test code = 1010) 18.1 % MONOCYTES (test code = 1011) 6.4 % EOSINOPHILS (test code = 1012) 1.8 % BASOPHILS (test code = 1013) 0.6 % PLATELET COUNT (test code = 1015) 157 K/UL HEMOGLOBIN [id number] 00:00:00 Test Item Value Reference Range Interpretation Comments HEMOGLOBIN A1c (test code = 75766) 6.3 % HEMOGLOBIN [id number] 00:00:00 Test Item Value Reference Range Interpretation Comments HEMOGLOBIN A1c (test code = 27550) 6.3 % HEMOGLOBIN [id number] 00:00:00 Test Item Value Reference Range Interpretation Comments HEMOGLOBIN A1c (test code = 90087) 6.3 % LIPID [id number] 00:00:00 Test Item Value Reference Range Interpretation Comments CHOLESTEROL (test code = 2210) 118 MG/DL TRIGLYCERIDES (test code = 2232) 110 MG/DL HDL CHOLESTEROL (test code = 2220) 43 MG/DL CALC LDL CHOL (test code = 2237) 55 MG/DL RISK RATIO LDL/HDL (test code = 1.28 RATIO 2238) LIPID [id number] 00:00:00 Test Item Value Reference Range Interpretation Comments CHOLESTEROL (test code = 2210) 118 MG/DL TRIGLYCERIDES (test code = 2232) 110 MG/DL HDL CHOLESTEROL (test code = 2220) 43 MG/DL CALC LDL CHOL (test code = 2237) 55 MG/DL RISK RATIO LDL/HDL (test code = 1.28 RATIO 2238) VITAMIN D, 25 [id number] 00:00:00 Test Item Value Reference Range Interpretation Comments VITAMIN D, 25 OH (test code = 4958) 63 NG/ML VITAMIN D, 25 [id number] 00:00:00 Test Item Value Reference Range Interpretation Comments VITAMIN D, 25 OH (test code = 4958) 63 NG/ML VITAMIN D, 25 [id number] 00:00:00 Test Item Value Reference Range Interpretation Comments VITAMIN D, 25 OH (test code = 4958) 63 NG/ML VITAMIN D, 25 [id number] 00:00:00 Test Item Value Reference Range Interpretation Comments VITAMIN D, 25 OH (test code = 4958) 63 NG/ML SARS-CoV-2 (COVID-19) by RT-PCR (HIGH RISK)2019-12-14 00:00:00 Test Item Value Reference Range Interpretation Comments SARS-CoV-2 INTERPRETATION (test NEGATIVE code = 91560) SOURCE (test code = 10238) NOT SPECIFIED SARS-CoV-2 (COVID-19) by RT-PCR (HIGH RISK)2019-12-14 00:00:00 Test Item Value Reference Range Interpretation Comments SARS-CoV-2 INTERPRETATION (test NEGATIVE code = 17647) SOURCE (test code = 50690) NOT SPECIFIED SARS-CoV-2 (COVID-19) by RT-PCR (HIGH RISK)2019-12-14 00:00:00 Test Item Value Reference Range Interpretation Comments SARS-CoV-2 INTERPRETATION (test NEGATIVE code = 93505) SOURCE (test code = 11274) NOT SPECIFIED SARS-CoV-2 (COVID-19) by RT-PCR (HIGH RISK)2019-12-14 00:00:00 Test Item Value Reference Range Interpretation Comments SARS-CoV-2 INTERPRETATION (test NEGATIVE code = 72687) SOURCE (test code = 82069) NOT SPECIFIED THYROID II PROFILE (T3U, T4, T7, TSH)2019-11-17 00:00:00 Test Item Value Reference Range Interpretation Comments T-UPTAKE (test code = 2817) 30.2 % THYROX. BIND. CAPAC. (test code 1.1 = 49442) T4 (THYROXINE) (test code = 8.7 UG/DL 2819) CORRECTED T4 (FTI) (test code = 7.9 UG/DL 2820) TSH, THIRD GENERATION (test code 0.679 UIU/ML = 2821) THYROID II PROFILE (T3U, T4, T7, TSH)2019-11-17 00:00:00 Test Item Value Reference Range Interpretation Comments T-UPTAKE (test code = 2817) 30.2 % THYROX. BIND. CAPAC. (test code 1.1 = 69611) T4 (THYROXINE) (test code = 8.7 UG/DL 2819) CORRECTED T4 (FTI) (test code = 7.9 UG/DL 2820) TSH, THIRD GENERATION (test code 0.679 UIU/ML = 2821) VITAMIN [id number] 00:00:00 Test Item Value Reference Range Interpretation Comments VITAMIN B-12 (test code = 2840) 200 PG/ML VITAMIN [id number] 00:00:00 Test Item Value Reference Range Interpretation Comments VITAMIN B-12 (test code = 2840) 200 PG/ML VITAMIN [id number] 00:00:00 Test Item Value Reference Range Interpretation Comments VITAMIN B-12 (test code = 2840) 200 PG/ML VITAMIN D, 25 [id number] 00:00:00 Test Item Value Reference Range Interpretation Comments VITAMIN D, 25 OH (test code = 4958) 12 NG/ML VITAMIN D, 25 [id number] 00:00:00 Test Item Value Reference Range Interpretation Comments VITAMIN D, 25 OH (test code = 4958) 12 NG/ML CBC W/AUTO [id number] 00:00:00 Test Item Value Reference Range Interpretation Comments WBC (test code = 1001) 6.2 K/UL RBC (test code = 1002) 3.77 M/UL HEMOGLOBIN (test code = 1003) 10.3 G/DL HEMATOCRIT (test code = 1004) 31.1 % MCV (test code = 1005) 82.5 fL MCH (test code = 1006) 27.3 PG MCHC (test code = 1007) 33.1 G/DL RDW (test code = 1038) 14.0 % NEUTROPHILS (test code = 1008) 67.3 % LYMPHOCYTES (test code = 1010) 21.5 % MONOCYTES (test code = 1011) 6.3 % EOSINOPHILS (test code = 1012) 3.9 % BASOPHILS (test code = 1013) 1.0 % PLATELET COUNT (test code = 1015) 134 K/UL CBC W/AUTO [id number] 00:00:00 Test Item Value Reference Range Interpretation Comments WBC (test code = 1001) 6.2 K/UL RBC (test code = 1002) 3.77 M/UL HEMOGLOBIN (test code = 1003) 10.3 G/DL HEMATOCRIT (test code = 1004) 31.1 % MCV (test code = 1005) 82.5 fL MCH (test code = 1006) 27.3 PG MCHC (test code = 1007) 33.1 G/DL RDW (test code = 1038) 14.0 % NEUTROPHILS (test code = 1008) 67.3 % LYMPHOCYTES (test code = 1010) 21.5 % MONOCYTES (test code = 1011) 6.3 % EOSINOPHILS (test code = 1012) 3.9 % BASOPHILS (test code = 1013) 1.0 % PLATELET COUNT (test code = 1015) 134 K/UL CBC W/AUTO [id number] 00:00:00 Test Item Value Reference Range Interpretation Comments WBC (test code = 1001) 6.2 K/UL RBC (test code = 1002) 3.77 M/UL HEMOGLOBIN (test code = 1003) 10.3 G/DL HEMATOCRIT (test code = 1004) 31.1 % MCV (test code = 1005) 82.5 fL MCH (test code = 1006) 27.3 PG MCHC (test code = 1007) 33.1 G/DL RDW (test code = 1038) 14.0 % NEUTROPHILS (test code = 1008) 67.3 % LYMPHOCYTES (test code = 1010) 21.5 % MONOCYTES (test code = 1011) 6.3 % EOSINOPHILS (test code = 1012) 3.9 % BASOPHILS (test code = 1013) 1.0 % PLATELET COUNT (test code = 1015) 134 K/UL HEMOGLOBIN [id number] 00:00:00 Test Item Value Reference Range Interpretation Comments HEMOGLOBIN A1c (test code = 52370) 6.4 % HEMOGLOBIN [id number] 00:00:00 Test Item Value Reference Range Interpretation Comments HEMOGLOBIN A1c (test code = 04212) 6.4 % HEMOGLOBIN [id number] 00:00:00 Test Item Value Reference Range Interpretation Comments HEMOGLOBIN A1c (test code = 06446) 6.4 % LIPID [id number] 00:00:00 Test Item Value Reference Range Interpretation Comments CHOLESTEROL (test code = 2210) 183 MG/DL TRIGLYCERIDES (test code = 2232) 124 MG/DL HDL CHOLESTEROL (test code = 2220) 43 MG/DL CALC LDL CHOL (test code = 2237) 117 MG/DL RISK RATIO LDL/HDL (test code = 2.72 RATIO 2238) LIPID [id number] 00:00:00 Test Item Value Reference Range Interpretation Comments CHOLESTEROL (test code = 2210) 183 MG/DL TRIGLYCERIDES (test code = 2232) 124 MG/DL HDL CHOLESTEROL (test code = 2220) 43 MG/DL CALC LDL CHOL (test code = 2237) 117 MG/DL RISK RATIO LDL/HDL (test code = 2.72 RATIO 2238) COMPREHENSIVE METABOLIC [id number] 00:00:00 Test Item Value Reference Range Interpretation Comments GLUCOSE (test code = 2217) 105 MG/DL BUN (test code = 2208) 24 MG/DL CREATININE (test code = 2214) 0.73 MG/DL eGFR AMER. (test code 109 ML/MIN/1.73 = 60181) eGFR NON- AMER. (test 94 ML/MIN/1.73 code = 59853) CALC BUN/CREAT (test code = 33 RATIO 2235) SODIUM (test code = 2231) 144 MEQ/L POTASSIUM (test code = 2228) 4.5 MEQ/L CHLORIDE (test code = 2215) 106 MEQ/L CARBON DIOXIDE (test code = 28 MEQ/L 220) CALCIUM (test code = 2209) 9.6 MG/DL PROTEIN, TOTAL (test code = 6.9 G/DL 222) ALBUMIN (test code = 2201) 4.0 G/DL CALC GLOBULIN (test code = 2.9 G/DL 2240) CALC A/G RATIO (test code = 1.4 RATIO 2234) BILIRUBIN, TOTAL (test code = 0.2 MG/DL 2206) ALKALINE PHOSPHATASE (test 104 U/L code = 2204) AST (test code = 2218) 21 U/L ALT (test code = 2219) 17 U/L COMPREHENSIVE METABOLIC [id number] 00:00:00 Test Item Value Reference Range Interpretation Comments GLUCOSE (test code = 2217) 105 MG/DL BUN (test code = 2208) 24 MG/DL CREATININE (test code = 2214) 0.73 MG/DL eGFR AMER. (test code 109 ML/MIN/1.73 = 24956) eGFR NON- AMER. (test 94 ML/MIN/1.73 code = 35555) CALC BUN/CREAT (test code = 33 RATIO 2235) SODIUM (test code = 2231) 144 MEQ/L POTASSIUM (test code = 2228) 4.5 MEQ/L CHLORIDE (test code = 2215) 106 MEQ/L CARBON DIOXIDE (test code = 28 MEQ/L 2206) CALCIUM (test code = 2209) 9.6 MG/DL PROTEIN, TOTAL (test code = 6.9 G/DL 2228) ALBUMIN (test code = 2201) 4.0 G/DL CALC GLOBULIN (test code = 2.9 G/DL 2240) CALC A/G RATIO (test code = 1.4 RATIO 2234) BILIRUBIN, TOTAL (test code = 0.2 MG/DL 2206) ALKALINE PHOSPHATASE (test 104 U/L code = 2204) AST (test code = 2218) 21 U/L ALT (test code = 2219) 17 U/L THYROID II PROFILE (T3U, T4, T7, TSH)2019-11-17 00:00:00 Test Item Value Reference Range Interpretation Comments T-UPTAKE (test code = 2817) 30.2 % THYROX. BIND. CAPAC. (test code 1.1 = 50034) T4 (THYROXINE) (test code = 8.7 UG/DL 2819) CORRECTED T4 (FTI) (test code = 7.9 UG/DL 2820) TSH, THIRD GENERATION (test code 0.679 UIU/ML = 2821) THYROID II PROFILE (T3U, T4, T7, TSH)2019-11-17 00:00:00 Test Item Value Reference Range Interpretation Comments T-UPTAKE (test code = 2817) 30.2 % THYROX. BIND. CAPAC. (test code 1.1 = 86624) T4 (THYROXINE) (test code = 8.7 UG/DL 2819) CORRECTED T4 (FTI) (test code = 7.9 UG/DL 2820) TSH, THIRD GENERATION (test code 0.679 UIU/ML = 2821) VITAMIN [id number] 00:00:00 Test Item Value Reference Range Interpretation Comments VITAMIN B-12 (test code = 2840) 200 PG/ML VITAMIN [id number] 00:00:00 Test Item Value Reference Range Interpretation Comments VITAMIN B-12 (test code = 2840) 200 PG/ML VITAMIN [id number] 00:00:00 Test Item Value Reference Range Interpretation Comments VITAMIN B-12 (test code = 2840) 200 PG/ML VITAMIN D, 25 [id number] 00:00:00 Test Item Value Reference Range Interpretation Comments VITAMIN D, 25 OH (test code = 4958) 12 NG/ML VITAMIN D, 25 [id number] 00:00:00 Test Item Value Reference Range Interpretation Comments VITAMIN D, 25 OH (test code = 4958) 12 NG/ML CBC W/AUTO [id number] 00:00:00 Test Item Value Reference Range Interpretation Comments WBC (test code = 1001) 6.2 K/UL RBC (test code = 1002) 3.77 M/UL HEMOGLOBIN (test code = 1003) 10.3 G/DL HEMATOCRIT (test code = 1004) 31.1 % MCV (test code = 1005) 82.5 fL MCH (test code = 1006) 27.3 PG MCHC (test code = 1007) 33.1 G/DL RDW (test code = 1038) 14.0 % NEUTROPHILS (test code = 1008) 67.3 % LYMPHOCYTES (test code = 1010) 21.5 % MONOCYTES (test code = 1011) 6.3 % EOSINOPHILS (test code = 1012) 3.9 % BASOPHILS (test code = 1013) 1.0 % PLATELET COUNT (test code = 1015) 134 K/UL CBC W/AUTO [id number] 00:00:00 Test Item Value Reference Range Interpretation Comments WBC (test code = 1001) 6.2 K/UL RBC (test code = 1002) 3.77 M/UL HEMOGLOBIN (test code = 1003) 10.3 G/DL HEMATOCRIT (test code = 1004) 31.1 % MCV (test code = 1005) 82.5 fL MCH (test code = 1006) 27.3 PG MCHC (test code = 1007) 33.1 G/DL RDW (test code = 1038) 14.0 % NEUTROPHILS (test code = 1008) 67.3 % LYMPHOCYTES (test code = 1010) 21.5 % MONOCYTES (test code = 1011) 6.3 % EOSINOPHILS (test code = 1012) 3.9 % BASOPHILS (test code = 1013) 1.0 % PLATELET COUNT (test code = 1015) 134 K/UL CBC W/AUTO [id number] 00:00:00 Test Item Value Reference Range Interpretation Comments WBC (test code = 1001) 6.2 K/UL RBC (test code = 1002) 3.77 M/UL HEMOGLOBIN (test code = 1003) 10.3 G/DL HEMATOCRIT (test code = 1004) 31.1 % MCV (test code = 1005) 82.5 fL MCH (test code = 1006) 27.3 PG MCHC (test code = 1007) 33.1 G/DL RDW (test code = 1038) 14.0 % NEUTROPHILS (test code = 1008) 67.3 % LYMPHOCYTES (test code = 1010) 21.5 % MONOCYTES (test code = 1011) 6.3 % EOSINOPHILS (test code = 1012) 3.9 % BASOPHILS (test code = 1013) 1.0 % PLATELET COUNT (test code = 1015) 134 K/UL HEMOGLOBIN [id number] 00:00:00 Test Item Value Reference Range Interpretation Comments HEMOGLOBIN A1c (test code = 81431) 6.4 % HEMOGLOBIN [id number] 00:00:00 Test Item Value Reference Range Interpretation Comments HEMOGLOBIN A1c (test code = 83794) 6.4 % HEMOGLOBIN [id number] 00:00:00 Test Item Value Reference Range Interpretation Comments HEMOGLOBIN A1c (test code = 51608) 6.4 % LIPID [id number] 00:00:00 Test Item Value Reference Range Interpretation Comments CHOLESTEROL (test code = 2210) 183 MG/DL TRIGLYCERIDES (test code = 2232) 124 MG/DL HDL CHOLESTEROL (test code = 2220) 43 MG/DL CALC LDL CHOL (test code = 2237) 117 MG/DL RISK RATIO LDL/HDL (test code = 2.72 RATIO 2238) LIPID [id number] 00:00:00 Test Item Value Reference Range Interpretation Comments CHOLESTEROL (test code = 2210) 183 MG/DL TRIGLYCERIDES (test code = 2232) 124 MG/DL HDL CHOLESTEROL (test code = 2220) 43 MG/DL CALC LDL CHOL (test code = 2237) 117 MG/DL RISK RATIO LDL/HDL (test code = 2.72 RATIO 2238) COMPREHENSIVE METABOLIC [id number] 00:00:00 Test Item Value Reference Range Interpretation Comments GLUCOSE (test code = 2217) 105 MG/DL BUN (test code = 2208) 24 MG/DL CREATININE (test code = 2214) 0.73 MG/DL eGFR AMER. (test code 109 ML/MIN/1.73 = 04966) eGFR NON- AMER. (test 94 ML/MIN/1.73 code = 12611) CALC BUN/CREAT (test code = 33 RATIO 2235) SODIUM (test code = 2231) 144 MEQ/L POTASSIUM (test code = 2228) 4.5 MEQ/L CHLORIDE (test code = 2215) 106 MEQ/L CARBON DIOXIDE (test code = 28 MEQ/L 2206) CALCIUM (test code = 2209) 9.6 MG/DL PROTEIN, TOTAL (test code = 6.9 G/DL 222) ALBUMIN (test code = 2201) 4.0 G/DL CALC GLOBULIN (test code = 2.9 G/DL 2240) CALC A/G RATIO (test code = 1.4 RATIO 2234) BILIRUBIN, TOTAL (test code = 0.2 MG/DL 2206) ALKALINE PHOSPHATASE (test 104 U/L code = 2204) AST (test code = 2218) 21 U/L ALT (test code = 2219) 17 U/L COMPREHENSIVE METABOLIC [id number] 00:00:00 Test Item Value Reference Range Interpretation Comments GLUCOSE (test code = 2217) 105 MG/DL BUN (test code = 2208) 24 MG/DL CREATININE (test code = 2214) 0.73 MG/DL eGFR AMER. (test code 109 ML/MIN/1.73 = 60098) eGFR NON- AMER. (test 94 ML/MIN/1.73 code = 16650) CALC BUN/CREAT (test code = 33 RATIO 2235) SODIUM (test code = 2231) 144 MEQ/L POTASSIUM (test code = 2228) 4.5 MEQ/L CHLORIDE (test code = 2215) 106 MEQ/L CARBON DIOXIDE (test code = 28 MEQ/L 2205) CALCIUM (test code = 2209) 9.6 MG/DL PROTEIN, TOTAL (test code = 6.9 G/DL 2228) ALBUMIN (test code = 2201) 4.0 G/DL CALC GLOBULIN (test code = 2.9 G/DL 2240) CALC A/G RATIO (test code = 1.4 RATIO 2234) BILIRUBIN, TOTAL (test code = 0.2 MG/DL 2206) ALKALINE PHOSPHATASE (test 104 U/L code = 2204) AST (test code = 2218) 21 U/L ALT (test code = 2219) 17 U/L SARS-CoV-2 (COVID-19) by RT-PCR (HIGH RISK)2019-11-13 00:00:00 Test Item Value Reference Range Interpretation Comments SARS-CoV-2 INTERPRETATION (test NEGATIVE code = 85799) SOURCE (test code = 92991) NOT SPECIFIED SARS-CoV-2 (COVID-19) by RT-PCR (HIGH RISK)2019-11-13 00:00:00 Test Item Value Reference Range Interpretation Comments SARS-CoV-2 INTERPRETATION (test NEGATIVE code = 24926) SOURCE (test code = 54061) NOT SPECIFIED SARS-CoV-2 (COVID-19) by RT-PCR (HIGH RISK)2019-11-13 00:00:00 Test Item Value Reference Range Interpretation Comments SARS-CoV-2 INTERPRETATION (test NEGATIVE code = 07946) SOURCE (test code = 62469) NOT SPECIFIED SARS-CoV-2 (COVID-19) by RT-PCR (HIGH RISK)2019-11-13 00:00:00 Test Item Value Reference Range Interpretation Comments SARS-CoV-2 INTERPRETATION (test NEGATIVE code = 65008) SOURCE (test code = 02071) NOT SPECIFIED COMPREHENSIVE METABOLIC [id number] 00:00:00 Test Item Value Reference Range Interpretation Comments GLUCOSE (test code = 2217) 300 MG/DL BUN (test code = 2208) 26 MG/DL CREATININE (test code = 2214) 0.78 MG/DL eGFR AMER. (test code 101 ML/MIN/1.73 = 66776) eGFR NON- AMER. (test 87 ML/MIN/1.73 code = 67290) CALC BUN/CREAT (test code = 33 RATIO 2235) SODIUM (test code = 2231) 143 MEQ/L POTASSIUM (test code = 2228) 4.7 MEQ/L CHLORIDE (test code = 2215) 104 MEQ/L CARBON DIOXIDE (test code = 27 MEQ/L 2205) CALCIUM (test code = 2209) 9.5 MG/DL PROTEIN, TOTAL (test code = 7.1 G/DL 2228) ALBUMIN (test code = 2201) 3.9 G/DL CALC GLOBULIN (test code = 3.2 G/DL 2239) CALC A/G RATIO (test code = 1.2 RATIO 2233) BILIRUBIN, TOTAL (test code = <0.2 MG/DL 2206) ALKALINE PHOSPHATASE (test 169 U/L code = 2204) AST (test code = 2218) 24 U/L ALT (test code = 2219) 24 U/L COMPREHENSIVE METABOLIC [id number] 00:00:00 Test Item Value Reference Range Interpretation Comments GLUCOSE (test code = 2217) 300 MG/DL BUN (test code = 2208) 26 MG/DL CREATININE (test code = 2214) 0.78 MG/DL eGFR AMER. (test code 101 ML/MIN/1.73 = 91573) eGFR NON- AMER. (test 87 ML/MIN/1.73 code = 53760) CALC BUN/CREAT (test code = 33 RATIO 2235) SODIUM (test code = 2231) 143 MEQ/L POTASSIUM (test code = 2228) 4.7 MEQ/L CHLORIDE (test code = 2215) 104 MEQ/L CARBON DIOXIDE (test code = 27 MEQ/L 2206) CALCIUM (test code = 2209) 9.5 MG/DL PROTEIN, TOTAL (test code = 7.1 G/DL 222) ALBUMIN (test code = 2201) 3.9 G/DL CALC GLOBULIN (test code = 3.2 G/DL 2240) CALC A/G RATIO (test code = 1.2 RATIO 2234) BILIRUBIN, TOTAL (test code = <0.2 MG/DL 220) ALKALINE PHOSPHATASE (test 169 U/L code = 2204) AST (test code = 2218) 24 U/L ALT (test code = 2219) 24 U/L COMPREHENSIVE METABOLIC [id number] 00:00:00 Test Item Value Reference Range Interpretation Comments GLUCOSE (test code = 2217) 300 MG/DL BUN (test code = 2208) 26 MG/DL CREATININE (test code = 2214) 0.78 MG/DL eGFR AMER. (test code 101 ML/MIN/1.73 = 84333) eGFR NON- AMER. (test 87 ML/MIN/1.73 code = 92863) CALC BUN/CREAT (test code = 33 RATIO 2235) SODIUM (test code = 2231) 143 MEQ/L POTASSIUM (test code = 2228) 4.7 MEQ/L CHLORIDE (test code = 2215) 104 MEQ/L CARBON DIOXIDE (test code = 27 MEQ/L 2206) CALCIUM (test code = 2209) 9.5 MG/DL PROTEIN, TOTAL (test code = 7.1 G/DL 2229) ALBUMIN (test code = 2201) 3.9 G/DL CALC GLOBULIN (test code = 3.2 G/DL 2240) CALC A/G RATIO (test code = 1.2 RATIO 2234) BILIRUBIN, TOTAL (test code = <0.2 MG/DL 220) ALKALINE PHOSPHATASE (test 169 U/L code = 2204) AST (test code = 2218) 24 U/L ALT (test code = 2219) 24 U/L COMPREHENSIVE METABOLIC [id number] 00:00:00 Test Item Value Reference Range Interpretation Comments GLUCOSE (test code = 2217) 300 MG/DL BUN (test code = 2208) 26 MG/DL CREATININE (test code = 2214) 0.78 MG/DL eGFR AMER. (test code 101 ML/MIN/1.73 = 16429) eGFR NON- AMER. (test 87 ML/MIN/1.73 code = 49214) CALC BUN/CREAT (test code = 33 RATIO 2235) SODIUM (test code = 2231) 143 MEQ/L POTASSIUM (test code = 2228) 4.7 MEQ/L CHLORIDE (test code = 2215) 104 MEQ/L CARBON DIOXIDE (test code = 27 MEQ/L 2206) CALCIUM (test code = 2209) 9.5 MG/DL PROTEIN, TOTAL (test code = 7.1 G/DL 2229) ALBUMIN (test code = 2201) 3.9 G/DL CALC GLOBULIN (test code = 3.2 G/DL 2240) CALC A/G RATIO (test code = 1.2 RATIO 2234) BILIRUBIN, TOTAL (test code = <0.2 MG/DL 2206) ALKALINE PHOSPHATASE (test 169 U/L code = 2204) AST (test code = 2218) 24 U/L ALT (test code = 2219) 24 U/L COMPREHENSIVE METABOLIC [id number] 00:00:00 Test Item Value Reference Range Interpretation Comments GLUCOSE (test code = 2217) 113 MG/DL BUN (test code = 2208) 24 MG/DL CREATININE (test code = 2214) 0.78 MG/DL eGFR AMER. (test code 101 ML/MIN/1.73 = 22987) eGFR NON- AMER. (test 87 ML/MIN/1.73 code = 65897) CALC BUN/CREAT (test code = 31 RATIO 2235) SODIUM (test code = 2231) 144 MEQ/L POTASSIUM (test code = 2228) 4.6 MEQ/L CHLORIDE (test code = 2215) 107 MEQ/L CARBON DIOXIDE (test code = 25 MEQ/L 220) CALCIUM (test code = 2209) 9.8 MG/DL PROTEIN, TOTAL (test code = 7.2 G/DL 2228) ALBUMIN (test code = 2201) 4.2 G/DL CALC GLOBULIN (test code = 3.0 G/DL 2240) CALC A/G RATIO (test code = 1.4 RATIO 2234) BILIRUBIN, TOTAL (test code = 0.2 MG/DL 2206) ALKALINE PHOSPHATASE (test 334 U/L code = 2204) AST (test code = 2218) 43 U/L ALT (test code = 2219) 48 U/L COMPREHENSIVE METABOLIC [id number] 00:00:00 Test Item Value Reference Range Interpretation Comments GLUCOSE (test code = 2217) 113 MG/DL BUN (test code = 2208) 24 MG/DL CREATININE (test code = 2214) 0.78 MG/DL eGFR AMER. (test code 101 ML/MIN/1.73 = 73272) eGFR NON- AMER. (test 87 ML/MIN/1.73 code = 09756) CALC BUN/CREAT (test code = 31 RATIO 2235) SODIUM (test code = 2231) 144 MEQ/L POTASSIUM (test code = 2228) 4.6 MEQ/L CHLORIDE (test code = 2215) 107 MEQ/L CARBON DIOXIDE (test code = 25 MEQ/L 2205) CALCIUM (test code = 2209) 9.8 MG/DL PROTEIN, TOTAL (test code = 7.2 G/DL 2228) ALBUMIN (test code = 2201) 4.2 G/DL CALC GLOBULIN (test code = 3.0 G/DL 2240) CALC A/G RATIO (test code = 1.4 RATIO 2234) BILIRUBIN, TOTAL (test code = 0.2 MG/DL 2206) ALKALINE PHOSPHATASE (test 334 U/L code = 2204) AST (test code = 2218) 43 U/L ALT (test code = 2219) 48 U/L CBC W/AUTO [id number] 00:00:00 Test Item Value Reference Range Interpretation Comments WBC (test code = 1001) 6.4 K/UL RBC (test code = 1002) 3.58 M/UL HEMOGLOBIN (test code = 1003) 10.0 G/DL HEMATOCRIT (test code = 1004) 30.7 % MCV (test code = 1005) 85.8 fL MCH (test code = 1006) 27.9 PG MCHC (test code = 1007) 32.6 G/DL RDW (test code = 1038) 16.7 % NEUTROPHILS (test code = 1008) 71.7 % LYMPHOCYTES (test code = 1010) 19.3 % MONOCYTES (test code = 1011) 6.3 % EOSINOPHILS (test code = 1012) 1.9 % BASOPHILS (test code = 1013) 0.8 % PLATELET COUNT (test code = 1015) 245 K/UL CBC W/AUTO [id number] 00:00:00 Test Item Value Reference Range Interpretation Comments WBC (test code = 1001) 6.4 K/UL RBC (test code = 1002) 3.58 M/UL HEMOGLOBIN (test code = 1003) 10.0 G/DL HEMATOCRIT (test code = 1004) 30.7 % MCV (test code = 1005) 85.8 fL MCH (test code = 1006) 27.9 PG MCHC (test code = 1007) 32.6 G/DL RDW (test code = 1038) 16.7 % NEUTROPHILS (test code = 1008) 71.7 % LYMPHOCYTES (test code = 1010) 19.3 % MONOCYTES (test code = 1011) 6.3 % EOSINOPHILS (test code = 1012) 1.9 % BASOPHILS (test code = 1013) 0.8 % PLATELET COUNT (test code = 1015) 245 K/UL CBC W/AUTO [id number] 00:00:00 Test Item Value Reference Range Interpretation Comments WBC (test code = 1001) 6.4 K/UL RBC (test code = 1002) 3.58 M/UL HEMOGLOBIN (test code = 1003) 10.0 G/DL HEMATOCRIT (test code = 1004) 30.7 % MCV (test code = 1005) 85.8 fL MCH (test code = 1006) 27.9 PG MCHC (test code = 1007) 32.6 G/DL RDW (test code = 1038) 16.7 % NEUTROPHILS (test code = 1008) 71.7 % LYMPHOCYTES (test code = 1010) 19.3 % MONOCYTES (test code = 1011) 6.3 % EOSINOPHILS (test code = 1012) 1.9 % BASOPHILS (test code = 1013) 0.8 % PLATELET COUNT (test code = 1015) 245 K/UL HEMOGLOBIN [id number] 00:00:00 Test Item Value Reference Range Interpretation Comments HEMOGLOBIN A1c (test code = 71595) 5.9 % HEMOGLOBIN [id number] 00:00:00 Test Item Value Reference Range Interpretation Comments HEMOGLOBIN A1c (test code = 89096) 5.9 % HEMOGLOBIN [id number] 00:00:00 Test Item Value Reference Range Interpretation Comments HEMOGLOBIN A1c (test code = 92834) 5.9 % COMPREHENSIVE METABOLIC [id number] 00:00:00 Test Item Value Reference Range Interpretation Comments GLUCOSE (test code = 2217) 113 MG/DL BUN (test code = 2208) 24 MG/DL CREATININE (test code = 2214) 0.78 MG/DL eGFR AMER. (test code 101 ML/MIN/1.73 = 18571) eGFR NON- AMER. (test 87 ML/MIN/1.73 code = 18000) CALC BUN/CREAT (test code = 31 RATIO 2235) SODIUM (test code = 2231) 144 MEQ/L POTASSIUM (test code = 2228) 4.6 MEQ/L CHLORIDE (test code = 2215) 107 MEQ/L CARBON DIOXIDE (test code = 25 MEQ/L 2205) CALCIUM (test code = 2209) 9.8 MG/DL PROTEIN, TOTAL (test code = 7.2 G/DL 2228) ALBUMIN (test code = 2201) 4.2 G/DL CALC GLOBULIN (test code = 3.0 G/DL 2240) CALC A/G RATIO (test code = 1.4 RATIO 2234) BILIRUBIN, TOTAL (test code = 0.2 MG/DL 2206) ALKALINE PHOSPHATASE (test 334 U/L code = 2204) AST (test code = 2218) 43 U/L ALT (test code = 2219) 48 U/L COMPREHENSIVE METABOLIC [id number] 00:00:00 Test Item Value Reference Range Interpretation Comments GLUCOSE (test code = 2217) 113 MG/DL BUN (test code = 2208) 24 MG/DL CREATININE (test code = 2214) 0.78 MG/DL eGFR AMER. (test code 101 ML/MIN/1.73 = 31302) eGFR NON- AMER. (test 87 ML/MIN/1.73 code = 63908) CALC BUN/CREAT (test code = 31 RATIO 2235) SODIUM (test code = 2231) 144 MEQ/L POTASSIUM (test code = 2228) 4.6 MEQ/L CHLORIDE (test code = 2215) 107 MEQ/L CARBON DIOXIDE (test code = 25 MEQ/L 2205) CALCIUM (test code = 2209) 9.8 MG/DL PROTEIN, TOTAL (test code = 7.2 G/DL 2228) ALBUMIN (test code = 2201) 4.2 G/DL CALC GLOBULIN (test code = 3.0 G/DL 2239) CALC A/G RATIO (test code = 1.4 RATIO 2233) BILIRUBIN, TOTAL (test code = 0.2 MG/DL 2206) ALKALINE PHOSPHATASE (test 334 U/L code = 2204) AST (test code = 2218) 43 U/L ALT (test code = 2219) 48 U/L CBC W/AUTO [id number] 00:00:00 Test Item Value Reference Range Interpretation Comments WBC (test code = 1001) 6.4 K/UL RBC (test code = 1002) 3.58 M/UL HEMOGLOBIN (test code = 1003) 10.0 G/DL HEMATOCRIT (test code = 1004) 30.7 % MCV (test code = 1005) 85.8 fL MCH (test code = 1006) 27.9 PG MCHC (test code = 1007) 32.6 G/DL RDW (test code = 1038) 16.7 % NEUTROPHILS (test code = 1008) 71.7 % LYMPHOCYTES (test code = 1010) 19.3 % MONOCYTES (test code = 1011) 6.3 % EOSINOPHILS (test code = 1012) 1.9 % BASOPHILS (test code = 1013) 0.8 % PLATELET COUNT (test code = 1015) 245 K/UL CBC W/AUTO [id number] 00:00:00 Test Item Value Reference Range Interpretation Comments WBC (test code = 1001) 6.4 K/UL RBC (test code = 1002) 3.58 M/UL HEMOGLOBIN (test code = 1003) 10.0 G/DL HEMATOCRIT (test code = 1004) 30.7 % MCV (test code = 1005) 85.8 fL MCH (test code = 1006) 27.9 PG MCHC (test code = 1007) 32.6 G/DL RDW (test code = 1038) 16.7 % NEUTROPHILS (test code = 1008) 71.7 % LYMPHOCYTES (test code = 1010) 19.3 % MONOCYTES (test code = 1011) 6.3 % EOSINOPHILS (test code = 1012) 1.9 % BASOPHILS (test code = 1013) 0.8 % PLATELET COUNT (test code = 1015) 245 K/UL CBC W/AUTO [id number] 00:00:00 Test Item Value Reference Range Interpretation Comments WBC (test code = 1001) 6.4 K/UL RBC (test code = 1002) 3.58 M/UL HEMOGLOBIN (test code = 1003) 10.0 G/DL HEMATOCRIT (test code = 1004) 30.7 % MCV (test code = 1005) 85.8 fL MCH (test code = 1006) 27.9 PG MCHC (test code = 1007) 32.6 G/DL RDW (test code = 1038) 16.7 % NEUTROPHILS (test code = 1008) 71.7 % LYMPHOCYTES (test code = 1010) 19.3 % MONOCYTES (test code = 1011) 6.3 % EOSINOPHILS (test code = 1012) 1.9 % BASOPHILS (test code = 1013) 0.8 % PLATELET COUNT (test code = 1015) 245 K/UL HEMOGLOBIN [id number] 00:00:00 Test Item Value Reference Range Interpretation Comments HEMOGLOBIN A1c (test code = 65457) 5.9 % HEMOGLOBIN [id number] 00:00:00 Test Item Value Reference Range Interpretation Comments HEMOGLOBIN A1c (test code = 67587) 5.9 % HEMOGLOBIN [id number] 00:00:00 Test Item Value Reference Range Interpretation Comments HEMOGLOBIN A1c (test code = 13134) 5.9 % LIPID [id number] 00:00:00 Test Item Value Reference Range Interpretation Comments CHOLESTEROL (test code = 2210) 121 MG/DL TRIGLYCERIDES (test code = 2232) 209 MG/DL HDL CHOLESTEROL (test code = 2220) 28 MG/DL CALC LDL CHOL (test code = 2237) 51 MG/DL RISK RATIO LDL/HDL (test code = 1.83 RATIO 2238) LIPID [id number] 00:00:00 Test Item Value Reference Range Interpretation Comments CHOLESTEROL (test code = 2210) 121 MG/DL TRIGLYCERIDES (test code = 2232) 209 MG/DL HDL CHOLESTEROL (test code = 2220) 28 MG/DL CALC LDL CHOL (test code = 2237) 51 MG/DL RISK RATIO LDL/HDL (test code = 1.83 RATIO 2238) COMPREHENSIVE METABOLIC [id number] 00:00:00 Test Item Value Reference Range Interpretation Comments GLUCOSE (test code = 2217) 74 MG/DL BUN (test code = 2208) 83 MG/DL CREATININE (test code = 2214) 1.89 MG/DL eGFR AMER. (test code 35 ML/MIN/1.73 = 75909) eGFR NON- AMER. (test 30 ML/MIN/1.73 code = 51374) CALC BUN/CREAT (test code = 44 RATIO 2235) SODIUM (test code = 2231) 145 MEQ/L POTASSIUM (test code = 2228) 5.0 MEQ/L CHLORIDE (test code = 2215) 107 MEQ/L CARBON DIOXIDE (test code = 17 MEQ/L 220) CALCIUM (test code = 2209) 9.5 MG/DL PROTEIN, TOTAL (test code = 7.4 G/DL 2228) ALBUMIN (test code = 2201) 3.9 G/DL CALC GLOBULIN (test code = 3.5 G/DL 2240) CALC A/G RATIO (test code = 1.1 RATIO 2234) BILIRUBIN, TOTAL (test code = 0.4 MG/DL 2206) ALKALINE PHOSPHATASE (test 536 U/L code = 2204) AST (test code = 2218) 387 U/L ALT (test code = 2219) 276 U/L COMPREHENSIVE METABOLIC [id number] 00:00:00 Test Item Value Reference Range Interpretation Comments GLUCOSE (test code = 2217) 74 MG/DL BUN (test code = 2208) 83 MG/DL CREATININE (test code = 2214) 1.89 MG/DL eGFR AMER. (test code 35 ML/MIN/1.73 = 00026) eGFR NON- AMER. (test 30 ML/MIN/1.73 code = 77130) CALC BUN/CREAT (test code = 44 RATIO 2235) SODIUM (test code = 2231) 145 MEQ/L POTASSIUM (test code = 2228) 5.0 MEQ/L CHLORIDE (test code = 2215) 107 MEQ/L CARBON DIOXIDE (test code = 17 MEQ/L 2205) CALCIUM (test code = 2209) 9.5 MG/DL PROTEIN, TOTAL (test code = 7.4 G/DL 2228) ALBUMIN (test code = 2201) 3.9 G/DL CALC GLOBULIN (test code = 3.5 G/DL 2239) CALC A/G RATIO (test code = 1.1 RATIO 2233) BILIRUBIN, TOTAL (test code = 0.4 MG/DL 2206) ALKALINE PHOSPHATASE (test 536 U/L code = 2204) AST (test code = 2218) 387 U/L ALT (test code = 2219) 276 U/L [id number] 00:00:00 Test Item Value Reference Range Interpretation Comments TSH, THIRD GENERATION (test code 0.087 UIU/ML = 2821) [id number] 00:00:00 Test Item Value Reference Range Interpretation Comments TSH, THIRD GENERATION (test code 0.087 UIU/ML = 2821) [id number] 00:00:00 Test Item Value Reference Range Interpretation Comments TSH, THIRD GENERATION (test code 0.087 UIU/ML = 2821) CBC W/AUTO [id number] 00:00:00 Test Item Value Reference Range Interpretation Comments WBC (test code = 1001) 6.5 K/UL RBC (test code = 1002) 3.82 M/UL HEMOGLOBIN (test code = 1003) 10.1 G/DL HEMATOCRIT (test code = 1004) 31.0 % MCV (test code = 1005) 81.2 fL MCH (test code = 1006) 26.4 PG MCHC (test code = 1007) 32.6 G/DL RDW (test code = 1038) 17.3 % NEUTROPHILS (test code = 1008) 69.1 % LYMPHOCYTES (test code = 1010) 19.7 % MONOCYTES (test code = 1011) 8.6 % EOSINOPHILS (test code = 1012) 1.8 % BASOPHILS (test code = 1013) 0.8 % PLATELET COUNT (test code = 1015) 178 K/UL CBC W/AUTO [id number] 00:00:00 Test Item Value Reference Range Interpretation Comments WBC (test code = 1001) 6.5 K/UL RBC (test code = 1002) 3.82 M/UL HEMOGLOBIN (test code = 1003) 10.1 G/DL HEMATOCRIT (test code = 1004) 31.0 % MCV (test code = 1005) 81.2 fL MCH (test code = 1006) 26.4 PG MCHC (test code = 1007) 32.6 G/DL RDW (test code = 1038) 17.3 % NEUTROPHILS (test code = 1008) 69.1 % LYMPHOCYTES (test code = 1010) 19.7 % MONOCYTES (test code = 1011) 8.6 % EOSINOPHILS (test code = 1012) 1.8 % BASOPHILS (test code = 1013) 0.8 % PLATELET COUNT (test code = 1015) 178 K/UL CBC W/AUTO [id number] 00:00:00 Test Item Value Reference Range Interpretation Comments WBC (test code = 1001) 6.5 K/UL RBC (test code = 1002) 3.82 M/UL HEMOGLOBIN (test code = 1003) 10.1 G/DL HEMATOCRIT (test code = 1004) 31.0 % MCV (test code = 1005) 81.2 fL MCH (test code = 1006) 26.4 PG MCHC (test code = 1007) 32.6 G/DL RDW (test code = 1038) 17.3 % NEUTROPHILS (test code = 1008) 69.1 % LYMPHOCYTES (test code = 1010) 19.7 % MONOCYTES (test code = 1011) 8.6 % EOSINOPHILS (test code = 1012) 1.8 % BASOPHILS (test code = 1013) 0.8 % PLATELET COUNT (test code = 1015) 178 K/UL HEMOGLOBIN [id number] 00:00:00 Test Item Value Reference Range Interpretation Comments HEMOGLOBIN A1c (test code = 88317) 7.1 % HEMOGLOBIN [id number] 00:00:00 Test Item Value Reference Range Interpretation Comments HEMOGLOBIN A1c (test code = 54155) 7.1 % HEMOGLOBIN [id number] 00:00:00 Test Item Value Reference Range Interpretation Comments HEMOGLOBIN A1c (test code = 06811) 7.1 % LIPID [id number] 00:00:00 Test Item Value Reference Range Interpretation Comments CHOLESTEROL (test code = 2210) 121 MG/DL TRIGLYCERIDES (test code = 2232) 209 MG/DL HDL CHOLESTEROL (test code = 2220) 28 MG/DL CALC LDL CHOL (test code = 2237) 51 MG/DL RISK RATIO LDL/HDL (test code = 1.83 RATIO 2238) LIPID [id number] 00:00:00 Test Item Value Reference Range Interpretation Comments CHOLESTEROL (test code = 2210) 121 MG/DL TRIGLYCERIDES (test code = 2232) 209 MG/DL HDL CHOLESTEROL (test code = 2220) 28 MG/DL CALC LDL CHOL (test code = 2237) 51 MG/DL RISK RATIO LDL/HDL (test code = 1.83 RATIO 2238) COMPREHENSIVE METABOLIC [id number] 00:00:00 Test Item Value Reference Range Interpretation Comments GLUCOSE (test code = 2217) 74 MG/DL BUN (test code = 2208) 83 MG/DL CREATININE (test code = 2214) 1.89 MG/DL eGFR AMER. (test code 35 ML/MIN/1.73 = 50091) eGFR NON- AMER. (test 30 ML/MIN/1.73 code = 24301) CALC BUN/CREAT (test code = 44 RATIO 2235) SODIUM (test code = 2231) 145 MEQ/L POTASSIUM (test code = 2228) 5.0 MEQ/L CHLORIDE (test code = 2215) 107 MEQ/L CARBON DIOXIDE (test code = 17 MEQ/L 2205) CALCIUM (test code = 2209) 9.5 MG/DL PROTEIN, TOTAL (test code = 7.4 G/DL 2228) ALBUMIN (test code = 2201) 3.9 G/DL CALC GLOBULIN (test code = 3.5 G/DL 2239) CALC A/G RATIO (test code = 1.1 RATIO 2234) BILIRUBIN, TOTAL (test code = 0.4 MG/DL 2206) ALKALINE PHOSPHATASE (test 536 U/L code = 2204) AST (test code = 2218) 387 U/L ALT (test code = 2219) 276 U/L COMPREHENSIVE METABOLIC [id number] 00:00:00 Test Item Value Reference Range Interpretation Comments GLUCOSE (test code = 2217) 74 MG/DL BUN (test code = 2208) 83 MG/DL CREATININE (test code = 2214) 1.89 MG/DL eGFR AMER. (test code 35 ML/MIN/1.73 = 83701) eGFR NON- AMER. (test 30 ML/MIN/1.73 code = 25812) CALC BUN/CREAT (test code = 44 RATIO 2235) SODIUM (test code = 2231) 145 MEQ/L POTASSIUM (test code = 2228) 5.0 MEQ/L CHLORIDE (test code = 2215) 107 MEQ/L CARBON DIOXIDE (test code = 17 MEQ/L 2205) CALCIUM (test code = 2209) 9.5 MG/DL PROTEIN, TOTAL (test code = 7.4 G/DL 222) ALBUMIN (test code = 2201) 3.9 G/DL CALC GLOBULIN (test code = 3.5 G/DL 2240) CALC A/G RATIO (test code = 1.1 RATIO 2234) BILIRUBIN, TOTAL (test code = 0.4 MG/DL 2206) ALKALINE PHOSPHATASE (test 536 U/L code = 2204) AST (test code = 2218) 387 U/L ALT (test code = 2219) 276 U/L [id number] 00:00:00 Test Item Value Reference Range Interpretation Comments TSH, THIRD GENERATION (test code 0.087 UIU/ML = 2821) [id number] 00:00:00 Test Item Value Reference Range Interpretation Comments TSH, THIRD GENERATION (test code 0.087 UIU/ML = 2821) [id number] 00:00:00 Test Item Value Reference Range Interpretation Comments TSH, THIRD GENERATION (test code 0.087 UIU/ML = 2821) CBC W/AUTO [id number] 00:00:00 Test Item Value Reference Range Interpretation Comments WBC (test code = 1001) 6.5 K/UL RBC (test code = 1002) 3.82 M/UL HEMOGLOBIN (test code = 1003) 10.1 G/DL HEMATOCRIT (test code = 1004) 31.0 % MCV (test code = 1005) 81.2 fL MCH (test code = 1006) 26.4 PG MCHC (test code = 1007) 32.6 G/DL RDW (test code = 1038) 17.3 % NEUTROPHILS (test code = 1008) 69.1 % LYMPHOCYTES (test code = 1010) 19.7 % MONOCYTES (test code = 1011) 8.6 % EOSINOPHILS (test code = 1012) 1.8 % BASOPHILS (test code = 1013) 0.8 % PLATELET COUNT (test code = 1015) 178 K/UL CBC W/AUTO [id number] 00:00:00 Test Item Value Reference Range Interpretation Comments WBC (test code = 1001) 6.5 K/UL RBC (test code = 1002) 3.82 M/UL HEMOGLOBIN (test code = 1003) 10.1 G/DL HEMATOCRIT (test code = 1004) 31.0 % MCV (test code = 1005) 81.2 fL MCH (test code = 1006) 26.4 PG MCHC (test code = 1007) 32.6 G/DL RDW (test code = 1038) 17.3 % NEUTROPHILS (test code = 1008) 69.1 % LYMPHOCYTES (test code = 1010) 19.7 % MONOCYTES (test code = 1011) 8.6 % EOSINOPHILS (test code = 1012) 1.8 % BASOPHILS (test code = 1013) 0.8 % PLATELET COUNT (test code = 1015) 178 K/UL CBC W/AUTO [id number] 00:00:00 Test Item Value Reference Range Interpretation Comments WBC (test code = 1001) 6.5 K/UL RBC (test code = 1002) 3.82 M/UL HEMOGLOBIN (test code = 1003) 10.1 G/DL HEMATOCRIT (test code = 1004) 31.0 % MCV (test code = 1005) 81.2 fL MCH (test code = 1006) 26.4 PG MCHC (test code = 1007) 32.6 G/DL RDW (test code = 1038) 17.3 % NEUTROPHILS (test code = 1008) 69.1 % LYMPHOCYTES (test code = 1010) 19.7 % MONOCYTES (test code = 1011) 8.6 % EOSINOPHILS (test code = 1012) 1.8 % BASOPHILS (test code = 1013) 0.8 % PLATELET COUNT (test code = 1015) 178 K/UL HEMOGLOBIN [id number] 00:00:00 Test Item Value Reference Range Interpretation Comments HEMOGLOBIN A1c (test code = 04069) 7.1 % HEMOGLOBIN [id number] 00:00:00 Test Item Value Reference Range Interpretation Comments HEMOGLOBIN A1c (test code = 55167) 7.1 % HEMOGLOBIN [id number] 00:00:00 Test Item Value Reference Range Interpretation Comments HEMOGLOBIN A1c (test code = 29608) 7.1 % POCT-GLUCOSE [id number] 13:00:00 Test Item Value Reference Range Interpretation Comments POC-GLUCOSE METER 198 mg/dL 70-110 H TESTED AT [facility] [address] ([facility]) (test code = HANSA Barreto [facility] 1538) [address] POCT-GLUCOSE [id number] 07:36:00 Test Item Value Reference Range Interpretation Comments POC-GLUCOSE METER 133 mg/dL 70-110 H TESTED AT [place] [address] ([facility]) (test code = [facility] Estevan [facility] 1538) [address] BASIC METABOLIC [id number] 04:58:00 Test Item Value Reference Range Interpretation Comments SODIUM (BEAKER) 144 meq/L 136-145 (test code = 381) POTASSIUM (BEAKER) 4.1 meq/L 3.5-5.1 (test code = 379) CHLORIDE (BEAKER) 112 meq/L 98-107 H (test code = 382) CO2 (BEAKER) (test 25 meq/L 22-29 code = 355) BLOOD UREA NITROGEN 15 mg/dL 7-21 (BEAKER) (test code = 354) CREATININE (BEAKER) 0.70 mg/dL 0.57-1.25 (test code = 358) GLUCOSE RANDOM 149 mg/dL 70-105 H (BEAKER) (test code = 652) CALCIUM (BEAKER) 9.2 mg/dL 8.4-10.2 (test code = 697) EGFR (BEAKER) (test 88 mL/min/1.73 ESTIMA BLANK GFR IS code = 1092) sq m NOT ACCURATE CREATININE CLEARANCE IN PREDICTING GLOMERULAR FILTRATION RATE . ESTIMATED GFR I S NOT APPLICABLE FOR DIALYSIS PATIEN TS. CBC W/PLT COUNT & AUTO [id number] 04:35:00 Test Item Value Reference Range Interpretation Comments WHITE BLOOD CELL COUNT (BEAKER) 7.9 K/ L 3.5-10.5 (test code = 775) RED BLOOD CELL COUNT (BEAKER) 3.88 M/ L 3.93-5.22 L (test code = 761) HEMOGLOBIN (BEAKER) (test code = 9.1 GM/DL 11.2-15.7 L 410) HEMATOCRIT (BEAKER) (test code = 30.5 % 34.1-44.9 L 411) MEAN CORPUSCULAR VOLUME (BEAKER) 78.6 fL 79.4-94.8 L (test code = 753) MEAN CORPUSCULAR HEMOGLOBIN 23.5 pg 25.6-32.2 L (BEAKER) (test code = 751) MEAN CORPUSCULAR HEMOGLOBIN CONC 29.8 GM/DL 32.2-35.5 L (BEAKER) (test code = 752) RED CELL DISTRIBUTION WIDTH 17.9 % 11.7-14.4 H (BEAKER) (test code = 412) PLATELET COUNT (BEAKER) (test 292 K/CU MM 150-450 code = 756) MEAN PLATELET VOLUME (BEAKER) 11.3 fL 9.4-12.3 (test code = 754) NUCLEATED RED BLOOD CELLS 0 /100 WBC 0-0 (BEAKER) (test code = 413) NEUTROPHILS RELATIVE PERCENT 67 % (BEAKER) (test code = 429) LYMPHOCYTES RELATIVE PERCENT 22 % (BEAKER) (test code = 430) MONOCYTES RELATIVE PERCENT 8 % (BEAKER) (test code = 431) EOSINOPHILS RELATIVE PERCENT 3 % (BEAKER) (test code = 432) BASOPHILS RELATIVE PERCENT 1 % (BEAKER) (test code = 437) NEUTROPHILS ABSOLUTE COUNT 5.26 K/ L 1.56-6.13 (BEAKER) (test code = 670) LYMPHOCYTES ABSOLUTE COUNT 1.71 K/ L 1.18-3.74 (BEAKER) (test code = 414) MONOCYTES ABSOLUTE COUNT (BEAKER) 0.60 K/ L 0.24-0.36 H (test code = 415) EOSINOPHILS ABSOLUTE COUNT 0.22 K/ L 0.04-0.36 (BEAKER) (test code = 416) BASOPHILS ABSOLUTE COUNT (BEAKER) 0.04 K/ L 0.01-0.08 (test code = 417) IMMATURE GRANULOCYTES-RELATIVE 1 % 0-1 PERCENT (BEAKER) (test code = 2801) POCT-GLUCOSE [id number] 23:01:00 Test Item Value Reference Range Interpretation Comments POC-GLUCOSE METER 197 mg/dL 70-110 H [facility] [place] [address] [facility] (test code = HANSA Barrteo [facility] 1538) [address] POCT-GLUCOSE [id number] 18:54:00 Test Item Value Reference Range Interpretation Comments POC-GLUCOSE METER 259 mg/dL 70-110 H TESTED AT [place] [address] ([facility]) (test code = HANSA Barreto [facility] 1538) [address] POCT-GLUCOSE [id number] 14:53:00 Test Item Value Reference Range Interpretation Comments POC-GLUCOSE METER 126 mg/dL 70-110 H TESTED AT [place] [address] ([facility]) (test code = HANSA Barreto [facility] 1538) [address] POCT-GLUCOSE [id number] 07:40:00 Test Item Value Reference Range Interpretation Comments POC-GLUCOSE METER 139 mg/dL 70-110 H TESTED AT [place] [address] ([facility]) (test code = HANSA Barreto [facility] 1538) [address] BASIC METABOLIC [id number] 04:52:00 Test Item Value Reference Range Interpretation Comments SODIUM (BEAKER) 145 meq/L 136-145 (test code = 381) POTASSIUM (BEAKER) 4.2 meq/L 3.5-5.1 (test code = 379) CHLORIDE (BEAKER) 111 meq/L 98-107 H (test code = 382) CO2 (BEAKER) (test 26 meq/L 22-29 code = 355) BLOOD UREA NITROGEN 26 mg/dL 7-21 H (BEAKER) (test code = 354) CREATININE (BEAKER) 0.79 mg/dL 0.57-1.25 (test code = 358) GLUCOSE RANDOM 134 mg/dL 70-105 H (BEAKER) (test code = 652) CALCIUM (BEAKER) 9.3 mg/dL 8.4-10.2 (test code = 697) EGFR (BEAKER) (test 76 mL/min/1.73 ESTIMA BLANK GFR IS code = 1092) sq m NOT ACCURATE CREATININE CLEARANCE IN PREDICTING GLOMERULAR FILTRATION RATE . ESTIMATED GFR I S NOT APPLICABLE FOR DIALYSIS PATIEN TS. CBC W/PLT COUNT & AUTO [id number] 04:23:00 Test Item Value Reference Range Interpretation Comments WHITE BLOOD CELL COUNT (BEAKER) 7.0 K/ L 3.5-10.5 (test code = 775) RED BLOOD CELL COUNT (BEAKER) 3.87 M/ L 3.93-5.22 L (test code = 761) HEMOGLOBIN (BEAKER) (test code = 9.4 GM/DL 11.2-15.7 L 410) HEMATOCRIT (BEAKER) (test code = 31.2 % 34.1-44.9 L 411) MEAN CORPUSCULAR VOLUME (BEAKER) 80.6 fL 79.4-94.8 (test code = 753) MEAN CORPUSCULAR HEMOGLOBIN 24.3 pg 25.6-32.2 L (BEAKER) (test code = 751) MEAN CORPUSCULAR HEMOGLOBIN CONC 30.1 GM/DL 32.2-35.5 L (BEAKER) (test code = 752) RED CELL DISTRIBUTION WIDTH 17.9 % 11.7-14.4 H (BEAKER) (test code = 412) PLATELET COUNT (BEAKER) (test 281 K/CU MM 150-450 code = 756) MEAN PLATELET VOLUME (BEAKER) 11.3 fL 9.4-12.3 (test code = 754) NUCLEATED RED BLOOD CELLS 0 /100 WBC 0-0 (BEAKER) (test code = 413) NEUTROPHILS RELATIVE PERCENT 62 % (BEAKER) (test code = 429) LYMPHOCYTES RELATIVE PERCENT 23 % (BEAKER) (test code = 430) MONOCYTES RELATIVE PERCENT 10 % (BEAKER) (test code = 431) EOSINOPHILS RELATIVE PERCENT 4 % (BEAKER) (test code = 432) BASOPHILS RELATIVE PERCENT 0 % (BEAKER) (test code = 437) NEUTROPHILS ABSOLUTE COUNT 4.33 K/ L 1.56-6.13 (BEAKER) (test code = 670) LYMPHOCYTES ABSOLUTE COUNT 1.61 K/ L 1.18-3.74 (BEAKER) (test code = 414) MONOCYTES ABSOLUTE COUNT (BEAKER) 0.71 K/ L 0.24-0.36 H (test code = 415) EOSINOPHILS ABSOLUTE COUNT 0.26 K/ L 0.04-0.36 (BEAKER) (test code = 416) BASOPHILS ABSOLUTE COUNT (AKER) 0.03 K/ L 0.01-0.08 (test code = 417) IMMATURE GRANULOCYTES-RELATIVE 0 % 0-1 PERCENT (AKER) (test code = 2801) POCT-GLUCOSE [id number] 22:08:00 Test Item Value Reference Range Interpretation Comments POC-GLUCOSE METER 187 mg/dL 70-110 H TESTED AT [facility] 6720 ([facility]) (test code = HANSA Barreto [facility] 1538) [address] POCT-GLUCOSE [id number] 18:33:00 Test Item Value Reference Range Interpretation Comments POC-GLUCOSE METER 201 mg/dL 70-110 H TESTED AT [facility] 6720 ([facility]) (test code = [facility] [place] [facility] 1538) [address] TROPONIN [id number] 17:45:00 Test Item Value Reference Range Interpretation Comments TROPONIN I ([facility]) (test code = 397) < ng/mL 0.00-0.03 Troponin I (TnI) levels [...] neurological disease, and persistent tachyarrhythmia.CT, BRAIN, WITHOUT [id number] 16:49:00FINAL REPORT CT, BRAIN, WITHOUT CONTRAST CLINICAL INDICATION: stroke COMPARISON: 14 hours prior TECHNIQUE: Noncontrast axial CT imaging of the brain and skull. DOSE REDUCTION: Dosemodulation, iterative reconstruction, and/or weight-based adjustment of the mA/kV was utilized to red uce the radiation dose to as low as reasonably achievable. FINDINGS:Evolving large right MCA territory infarction with associated edema and effacement of the right lateral ventricle without zohra midline shift. Hyperattenuation in the cortical sulci representing either petechial hemorrhage or pseudosubarachnoid hemorrhage. No new infarct has developed. Osseous structures are stable. IMPRESSION: Evolving right MCA infarct with petechial hemorrhaging versus pseudosubarachnoid hemorrhage involving the cortical sulci. Mass effect effacing the right lateral ventricle without herniation. Signed: JR Kelly, Ochoa Ackerman Verified Date/Time: 10/23/2018 16:49:13 Reading Location: [facility] [id number] Neuro Reading Room POCT-GLUCOSE [id number] 11:57:00 Test Item Value Reference Range Interpretation Comments POC-GLUCOSE METER 146 mg/dL 70-110 H TESTED AT [facility] 67 (BEAKER) (test code = [facility] [place] [facility] 1538) [id number] TROPONIN [id number] 10:26:00 Test Item Value Reference Range Interpretation Comments TROPONIN I (BEAKER) (test code = 0.02 ng/mL 0.00-0.03 397) Troponin I (TnI) levels must be interpreted [...] failure, acidosis, acute neurological disease, and persistent tachyarrhythmia.[id number] 09:56:00 Test Item Value Reference Range Interpretation Comments PHOSPHORUS (BEAKER) (test code = 4.6 mg/dL 2.3-4.7 604) [id number] 09:56:00 Test Item Value Reference Range Interpretation Comments MAGNESIUM (BEAKER) (test code = 1.7 mg/dL 1.6-2.6 627) POCT-GLUCOSE [id number] 05:34:00 Test Item Value Reference Range Interpretation Comments POC-GLUCOSE METER 116 mg/dL 70-110 H TESTED AT [facility] 6720 (BEAKER) (test code = [facility] 1538) [address] BASIC METABOLIC [id number] 04:23:00 Test Item Value Reference Range Interpretation Comments SODIUM (BEAKER) 140 meq/L 136-145 (test code = 381) POTASSIUM (BEAKER) 3.9 meq/L 3.5-5.1 (test code = 379) CHLORIDE (BEAKER) 105 meq/L 98-107 (test code = 382) CO2 (BEAKER) (test 26 meq/L 22-29 code = 355) BLOOD UREA NITROGEN 39 mg/dL 7-21 H (BEAKER) (test code = 354) CREATININE (BEAKER) 0.89 mg/dL 0.57-1.25 (test code = 358) GLUCOSE RANDOM 110 mg/dL 70-105 H (BEAKER) (test code = 652) CALCIUM (BEAKER) 8.8 mg/dL 8.4-10.2 (test code = 697) EGFR (BEAKER) (test 67 mL/min/1.73 ESTIMA BLANK GFR IS code = 1092) sq m NOT ACCURATE CREATININE CLEARANCE IN PREDICTING GLOMERULAR FILTRATION RATE . ESTIMATED GFR I S NOT APPLICABLE FOR DIALYSIS PATIEN TS. PROTHROMBIN TIME/[id number] 04:14:00 Test Item Value Reference Range Interpretation Comments PROTIME (BEAKER) (test code = 12.8 seconds 11.9-14.2 759) INR (BEAKER) (test code = 370) 1.0 <=5.9 Effective 10/05/2018: PT Reference Range ChangeNew: 11.9-14.2 Previous: 11.7- 14.7RECOMMENDED COUMADIN/WARFARIN INR THERAPY RANGESSTANDARD DOSE: 2.0-3.0 Includes: PROPHYLAXIS for venous thrombosis, systemic embolization; TREATMENT for venous thrombosis and/or pulmonary embolus.HIGH RISK: Target INR is 2.5-3.5 for patients wiht mechanical heart valves.CBC W/PLT COUNT & AUTO [id number] 04:05:00 Test Item Value Reference Range Interpretation Comments WHITE BLOOD CELL COUNT (BEAKER) 7.8 K/ L 3.5-10.5 (test code = 775) RED BLOOD CELL COUNT (BEAKER) 3.87 M/ L 3.93-5.22 L (test code = 761) HEMOGLOBIN (BEAKER) (test code = 9.1 GM/DL 11.2-15.7 L 410) HEMATOCRIT (BEAKER) (test code = 31.4 % 34.1-44.9 L 411) MEAN CORPUSCULAR VOLUME (BEAKER) 81.1 fL 79.4-94.8 (test code = 753) MEAN CORPUSCULAR HEMOGLOBIN 23.5 pg 25.6-32.2 L (BEAKER) (test code = 751) MEAN CORPUSCULAR HEMOGLOBIN CONC 29.0 GM/DL 32.2-35.5 L (BEAKER) (test code = 752) RED CELL DISTRIBUTION WIDTH 18.2 % 11.7-14.4 H (BEAKER) (test code = 412) PLATELET COUNT (BEAKER) (test 285 K/CU MM 150-450 code = 756) MEAN PLATELET VOLUME (BEAKER) 11.8 fL 9.4-12.3 (test code = 754) NUCLEATED RED BLOOD CELLS 0 /100 WBC 0-0 (BEAKER) (test code = 413) NEUTROPHILS RELATIVE PERCENT 71 % (BEAKER) (test code = 429) LYMPHOCYTES RELATIVE PERCENT 18 % (BEAKER) (test code = 430) MONOCYTES RELATIVE PERCENT 8 % (BEAKER) (test code = 431) EOSINOPHILS RELATIVE PERCENT 3 % (BEAKER) (test code = 432) BASOPHILS RELATIVE PERCENT 0 % (BEAKER) (test code = 437) NEUTROPHILS ABSOLUTE COUNT 5.52 K/ L 1.56-6.13 (BEAKER) (test code = 670) LYMPHOCYTES ABSOLUTE COUNT 1.40 K/ L 1.18-3.74 (BEAKER) (test code = 414) MONOCYTES ABSOLUTE COUNT (BEAKER) 0.61 K/ L 0.24-0.36 H (test code = 415) EOSINOPHILS ABSOLUTE COUNT 0.23 K/ L 0.04-0.36 (BEAKER) (test code = 416) BASOPHILS ABSOLUTE COUNT (BEAKER) 0.03 K/ L 0.01-0.08 (test code = 417) IMMATURE GRANULOCYTES-RELATIVE 0 % 0-1 PERCENT (BEAKER) (test code = 2801) CT, CTANGIO [id number] 02:46:00FINAL REPORT CT, CTANGIO BRAIN, CT, CAROTID, [...] A- comm.Basilar system: Patent vertebrobasilar system.Posterior cerebral arteries:Patent beyondthe quadrigeminal segments.Venous opacification: Major dural sinuses unremarkable for bolus timing.Additional findings: None. CTA NECK:Common carotid arteries: The common carotid arteries are normal insize. Bifurcations: No flow-limiting stenosis. Cervical internal carotid arteries: No flow limiting stenosis.Vertebral arteries: Codominant. No origin stenosis.Arch anatomy: Normal variant. Nonvascularfindings:Osseous structures: No acute osseous abnormality. Intact calvarium and skull base. Poor dentition.Cervical soft tissues: Multinodular thyromegaly with dominant 3.8 cm isthmic nodule.Lung apices: No apical consolidation or pneumothorax. IMPRESSION:Interval enlargement of right MCA territory acute infarct with worsening right cerebral edema. Right MCA, M1 segment, focal occlusion with distal reconstitution. Distal right MCA branches are attenuated in caliber in the region of cerebral edema. Multinodular thyromegaly with dominant 3.8 cm nodule for which ultrasound characterization is recommended. Signed: Nicanor Coates MDReport Verified Date/Time: 10/23/2018 02:46:45 [facility] [place], [id number] 02:46:00FINAL REPORT CT, CTANGIO BRAIN, CT, CAROTID, [...] A- comm.Basilar system: Patent vertebrobasilar system.Posterior cerebral arteries:Patent beyondthe quadrigeminal segments.Venous opacification: Major dural sinuses unremarkable for bolus timing.Additional findings: None. CTA NECK:Common carotid arteries: The common carotid arteries are normal insize. Bifurcations: No flow-limiting stenosis. Cervical internal carotid arteries: No flow limiting stenosis.Vertebral arteries: Codominant. No origin stenosis.Arch anatomy: Normal variant. Nonvascularfindings:Osseous structures: No acute osseous abnormality. Intact calvarium and skull base. Poor dentition.Cervical soft tissues: Multinodular thyromegaly with dominant 3.8 cm isthmic nodule.Lung apices: No apical consolidation or pneumothorax. IMPRESSION:Interval enlargement of right MCA territory acute infarct with worsening right cerebral edema. Right MCA, M1 segment, focal occlusion with distal reconstitution. Distal right MCA branches are attenuated in caliber in the region of cerebral edema. Multinodular thyromegaly with dominant 3.8 cm nodule for which ultrasound characterization is recommended. Signed: Nicanor Coates Verified Date/Time: 10/23/2018 02:46:45 RAD, CHEST, 1 VIEW, NON [id number] 02:10:00Reason for exam:->facial droopShould this be performed at the bedside?->YesFINAL REPORT EXAMINATION: AP PORTABLE CHEST RADIOGRAPH CLINICAL INDICATION: Facial droop IMPRESSION: No comparison studies are available. No evidence of focal lung consolidation, pulmonary edema or pleural effusion. The heart size is borderline enlarged for this projection. Mediastinal contours are sharp and smooth. No evidence of an acute osseous abnormality or pneumothorax. Signed: Ashkan May Verified Date/Time: 10/23/2018 02:10:47 Reading Location: [address] Reading Room TROPONIN [id number] 01:46:00 Test Item Value Reference Range Interpretation Comments TROPONIN I (BEAKER) (test code = 0.01 ng/mL 0.00-0.03 397) Troponin I (TnI) levels must be interpreted [...] acute neurological disease, and persistent tachyarrhythmia.BASIC METABOLIC [id number] 01:40:00 Test Item Value Reference Range Interpretation Comments SODIUM (BEAKER) 141 meq/L 136-145 (test code = 381) POTASSIUM (BEAKER) 4.0 meq/L 3.5-5.1 (test code = 379) CHLORIDE (BEAKER) 106 meq/L 98-107 (test code = 382) CO2 (BEAKER) (test 25 meq/L 22-29 code = 355) BLOOD UREA NITROGEN 39 mg/dL 7-21 H (BEAKER) (test code = 354) CREATININE (BEAKER) 0.89 mg/dL 0.57-1.25 (test code = 358) GLUCOSE RANDOM 100 mg/dL 70-105 (BEAKER) (test code = 652) CALCIUM (BEAKER) 8.8 mg/dL 8.4-10.2 (test code = 697) EGFR (BEAKER) (test 67 mL/min/1.73 ESTIMA BLANK GFR IS code = 1092) sq m NOT ACCURATE CREATININE CLEARANCE IN PREDICTING GLOMERULAR FILTRATION RATE . ESTIMATED GFR I S NOT APPLICABLE FOR DIALYSIS PATIEN TS. CREATINE KINASE (CK)2018-10-23 01:40:00 Test Item Value Reference Range Interpretation Comments CREATINE KINASE TOTAL (BEAKER) (test 69 U/L 29-200 code = 380) [id number] 01:30:00 Test Item Value Reference Range Interpretation Comments PROTIME (BEAKER) (test code = 12.9 seconds 11.9-14.2 759) INR (BEAKER) (test code = 370) 1.0 <=5.9 PARTIAL THROMBOPLASTIN TIME 24.0 seconds 22.5-36.0 (BEAKER) (test code = 760) Effective 10/05/2018: PT Reference Range ChangeNew: 11.9-14.2 Previous: 11.7- 14.7RECOMMENDED COUMADIN/WARFARIN INR THERAPY RANGESSTANDARD DOSE: 2.0-3.0 Includes: PROPHYLAXIS for venous thrombosis, systemic embolization; TREATMENT for venous thrombosis and/or pulmonary embolus.HIGH RISK: Target INR is 2.5-3.5 for patients wiht mechanical heart valves.CBC W/PLT COUNT & AUTO [id number] 00:58:00 Test Item Value Reference Range Interpretation Comments WHITE BLOOD CELL COUNT (BEAKER) 9.9 K/ L 3.5-10.5 (test code = 775) RED BLOOD CELL COUNT (BEAKER) 3.95 M/ L 3.93-5.22 (test code = 761) HEMOGLOBIN (BEAKER) (test code = 9.5 GM/DL 11.2-15.7 L 410) HEMATOCRIT (BEAKER) (test code = 32.0 % 34.1-44.9 L 411) MEAN CORPUSCULAR VOLUME (BEAKER) 81.0 fL 79.4-94.8 (test code = 753) MEAN CORPUSCULAR HEMOGLOBIN 24.1 pg 25.6-32.2 L (BEAKER) (test code = 751) MEAN CORPUSCULAR HEMOGLOBIN CONC 29.7 GM/DL 32.2-35.5 L (BEAKER) (test code = 752) RED CELL DISTRIBUTION WIDTH 18.3 % 11.7-14.4 H (BEAKER) (test code = 412) PLATELET COUNT (BEAKER) (test 293 K/CU MM 150-450 code = 756) MEAN PLATELET VOLUME (BEAKER) 11.1 fL 9.4-12.3 (test code = 754) NUCLEATED RED BLOOD CELLS 0 /100 WBC 0-0 (BEAKER) (test code = 413) NEUTROPHILS RELATIVE PERCENT 71 % (BEAKER) (test code = 429) LYMPHOCYTES RELATIVE PERCENT 18 % (BEAKER) (test code = 430) MONOCYTES RELATIVE PERCENT 8 % (BEAKER) (test code = 431) EOSINOPHILS RELATIVE PERCENT 3 % (BEAKER) (test code = 432) BASOPHILS RELATIVE PERCENT 0 % (BEAKER) (test code = 437) NEUTROPHILS ABSOLUTE COUNT 7.01 K/ L 1.56-6.13 H (BEAKER) (test code = 670) LYMPHOCYTES ABSOLUTE COUNT 1.77 K/ L 1.18-3.74 (BEAKER) (test code = 414) MONOCYTES ABSOLUTE COUNT (BEAKER) 0.83 K/ L 0.24-0.36 H (test code = 415) EOSINOPHILS ABSOLUTE COUNT 0.26 K/ L 0.04-0.36 (BEAKER) (test code = 416) BASOPHILS ABSOLUTE COUNT (BEAKER) 0.03 K/ L 0.01-0.08 (test code = 417) IMMATURE GRANULOCYTES-RELATIVE 0 % 0-1 PERCENT (BEAKER) (test code = 2801) CT, BRAIN/STROKE [id number] 00:47:00Reason for exam:->stroke like symptomsIs the patient ?->NoWhat is the patient's sedation requirement?->No SedationFINAL REPORT CT, BRAIN/STROKE PROTOCOL CLINICAL INDICATION: Facial muscle weakness/paralysisstroke like symptoms COMPARISON: MRI October 12, 2018. TECHNIQUE: Noncontrast axial CT imaging of the brain and skull. Coronal axial sagittal reformats obtained. DOSE REDUCTION: Dose modulation, iterative reconstruction, and/or weight-based adjustment of the mA/kV was utilized to reduce the radiation dose to as low as reasonably achievable. FINDINGS:Cerebral parenchyma: Right MCA territory cer ebral edema with well-demarcated margins has significantly increased in size since the prior examination, with estimated involvement of greater than one half the right MCA territory. There are areas offine petechial cortical hemorrhage but no zohra hemorrhagic transformation. No acute intracranial hemorrhage. Left cerebral hemisphere is unremarkable..Midline structures: New right to left midline shift of 4 mm with compression of right lateral ventricle.Cerebellum and brainstem: Normal.Ventricles: Partial compression of the right ventricle. No hydrocephalus.Extra-axial spaces: Unremarkable. Calvarium and skull base: Intact.Paranasal sinuses and mastoid air cells: Visible chambers are clear.Orbitalcontents: Included portions unremarkable. Additional findings: None. IMPRESSION: Interval expansion of the right MCA territory acute cerebral infarction as compared to October 12, 2018 exam. Progressive right cerebral edema with new leftward subfalcine herniation, 4 mm right to left midline shift. No zohra hemorrhagic transformation. There is minimal cortical petechial hemorrhage within the right MCA territory. The findings were discussed with Dr. Tsang,10/23/2018 12:41 AM. Signed: Nicanor Coates MDReport Verified Date/Time: 10/23/2018 00:47:39 BETA-2 GLYCOPROTEIN [id number] 10:49:00 Test Item Value Reference Range Interpretation Comments B2 GLYCOPROTEIN Refer to individual AUTOVERIFICATION COMPONENT B2-Glycoprotein (test code = 2557) IgG, IgM and IgA results. POCT-GLUCOSE [id number] 07:54:00 Test Item Value Reference Range Interpretation Comments POC-GLUCOSE METER 226 mg/dL 70-110 H TESTED AT [facility] 6720 (BEAKER) (test code = [place] 1538) [id number] 05:33:00 Test Item Value Reference Range Interpretation Comments PHOSPHORUS (BEAKER) (test code = 3.8 mg/dL 2.3-4.7 604) [id number] 05:33:00 Test Item Value Reference Range Interpretation Comments MAGNESIUM (BEAKER) (test code = 1.7 mg/dL 1.6-2.6 627) BASIC METABOLIC [id number] 05:33:00 Test Item Value Reference Range Interpretation Comments SODIUM (BEAKER) 140 meq/L 136-145 (test code = 381) POTASSIUM (BEAKER) 3.8 meq/L 3.5-5.1 (test code = 379) CHLORIDE (BEAKER) 103 meq/L 98-107 (test code = 382) CO2 (BEAKER) (test 29 meq/L 22-29 code = 355) BLOOD UREA NITROGEN 34 mg/dL 7-21 H (BEAKER) (test code = 354) CREATININE (BEAKER) 0.83 mg/dL 0.57-1.25 (test code = 358) GLUCOSE RANDOM 184 mg/dL 70-105 H (BEAKER) (test code = 652) CALCIUM (BEAKER) 9.0 mg/dL 8.4-10.2 (test code = 697) EGFR (BEAKER) (test 72 mL/min/1.73 ESTIMA BLANK GFR IS code = 1092) sq m NOT ACCURATE CREATININE CLEARANCE IN PREDICTING GLOMERULAR FILTRATION RATE . ESTIMATED GFR I S NOT APPLICABLE FOR DIALYSIS PATIEN TS. CBC W/PLT COUNT & AUTO [id number] 05:13:00 Test Item Value Reference Range Interpretation Comments WHITE BLOOD CELL COUNT (BEAKER) 9.6 K/ L 3.5-10.5 (test code = 775) RED BLOOD CELL COUNT (BEAKER) 4.18 M/ L 3.93-5.22 (test code = 761) HEMOGLOBIN (BEAKER) (test code = 9.8 GM/DL 11.2-15.7 L 410) HEMATOCRIT (BEAKER) (test code = 33.1 % 34.1-44.9 L 411) MEAN CORPUSCULAR VOLUME (BEAKER) 79.2 fL 79.4-94.8 L (test code = 753) MEAN CORPUSCULAR HEMOGLOBIN 23.4 pg 25.6-32.2 L (BEAKER) (test code = 751) MEAN CORPUSCULAR HEMOGLOBIN CONC 29.6 GM/DL 32.2-35.5 L (BEAKER) (test code = 752) RED CELL DISTRIBUTION WIDTH 18.5 % 11.7-14.4 H (BEAKER) (test code = 412) PLATELET COUNT (BEAKER) (test 290 K/CU MM 150-450 code = 756) MEAN PLATELET VOLUME (BEAKER) 11.2 fL 9.4-12.3 (test code = 754) NUCLEATED RED BLOOD CELLS 0 /100 WBC 0-0 (BEAKER) (test code = 413) NEUTROPHILS RELATIVE PERCENT 77 % (BEAKER) (test code = 429) LYMPHOCYTES RELATIVE PERCENT 12 % (BEAKER) (test code = 430) MONOCYTES RELATIVE PERCENT 9 % (BEAKER) (test code = 431) EOSINOPHILS RELATIVE PERCENT 2 % (BEAKER) (test code = 432) BASOPHILS RELATIVE PERCENT 0 % (BEAKER) (test code = 437) NEUTROPHILS ABSOLUTE COUNT 7.38 K/ L 1.56-6.13 H (BEAKER) (test code = 670) LYMPHOCYTES ABSOLUTE COUNT 1.15 K/ L 1.18-3.74 L (BEAKER) (test code = 414) MONOCYTES ABSOLUTE COUNT (BEAKER) 0.90 K/ L 0.24-0.36 H (test code = 415) EOSINOPHILS ABSOLUTE COUNT 0.14 K/ L 0.04-0.36 (BEAKER) (test code = 416) BASOPHILS ABSOLUTE COUNT (BEAKER) 0.02 K/ L 0.01-0.08 (test code = 417) IMMATURE GRANULOCYTES-RELATIVE 0 % 0-1 PERCENT (BEAKER) (test code = 2801) POCT-GLUCOSE [id number] 21:03:00 Test Item Value Reference Range Interpretation Comments POC-GLUCOSE METER 310 mg/dL 70-110 H Notified R Jovana MD/TESTED (BEAKER) (test code = AT [address] 15[address]) [facility] [address] 0 POCT-GLUCOSE [id number] 13:50:00 Test Item Value Reference Range Interpretation Comments POC-GLUCOSE METER 241 mg/dL 70-110 H TESTED AT [place] [address] ([facility]) (test code = HANSA Barreto [facility] 1538) [id number] POCT-GLUCOSE [id number] 09:35:00 Test Item Value Reference Range Interpretation Comments POC-GLUCOSE METER 234 mg/dL 70-110 H [facility] [place] [address] [facility] (test code = HANSA Barreto [facility] 1538) [id number] 06:19:00 Test Item Value Reference Range Interpretation Comments PHOSPHORUS (BEAKER) (test code = 3.6 mg/dL 2.3-4.7 604) [id number] 06:19:00 Test Item Value Reference Range Interpretation Comments MAGNESIUM (BEAKER) (test code = 1.8 mg/dL 1.6-2.6 627) BASIC METABOLIC [id number] 06:19:00 Test Item Value Reference Range Interpretation Comments SODIUM (BEAKER) 142 meq/L 136-145 (test code = 381) POTASSIUM (BEAKER) 4.1 meq/L 3.5-5.1 (test code = 379) CHLORIDE (BEAKER) 104 meq/L 98-107 (test code = 382) CO2 (BEAKER) (test 30 meq/L 22-29 H code = 355) BLOOD UREA NITROGEN 30 mg/dL 7-21 H (BEAKER) (test code = 354) CREATININE (BEAKER) 0.82 mg/dL 0.57-1.25 (test code = 358) GLUCOSE RANDOM 207 mg/dL 70-105 H (BEAKER) (test code = 652) CALCIUM (BEAKER) 9.6 mg/dL 8.4-10.2 (test code = 697) EGFR (BEAKER) (test 73 mL/min/1.73 ESTIMA BLANK GFR IS code = 1092) sq m NOT ACCURATE CREATININE CLEARANCE IN PREDICTING GLOMERULAR FILTRATION RATE . ESTIMATED GFR I S NOT APPLICABLE FOR DIALYSIS PATIEN TS. CBC W/PLT COUNT & AUTO [id number] 06:14:00 Test Item Value Reference Range Interpretation Comments WHITE BLOOD CELL COUNT (BEAKER) 8.9 K/ L 3.5-10.5 (test code = 775) RED BLOOD CELL COUNT (BEAKER) 4.42 M/ L 3.93-5.22 (test code = 761) HEMOGLOBIN (BEAKER) (test code = 10.5 GM/DL 11.2-15.7 L 410) HEMATOCRIT (BEAKER) (test code = 35.4 % 34.1-44.9 411) MEAN CORPUSCULAR VOLUME (BEAKER) 80.1 fL 79.4-94.8 (test code = 753) MEAN CORPUSCULAR HEMOGLOBIN 23.8 pg 25.6-32.2 L (BEAKER) (test code = 751) MEAN CORPUSCULAR HEMOGLOBIN CONC 29.7 GM/DL 32.2-35.5 L (BEAKER) (test code = 752) RED CELL DISTRIBUTION WIDTH 18.3 % 11.7-14.4 H (BEAKER) (test code = 412) PLATELET COUNT (BEAKER) (test 284 K/CU MM 150-450 code = 756) MEAN PLATELET VOLUME (BEAKER) 11.8 fL 9.4-12.3 (test code = 754) NUCLEATED RED BLOOD CELLS 0 /100 WBC 0-0 (BEAKER) (test code = 413) NEUTROPHILS RELATIVE PERCENT 77 % (BEAKER) (test code = 429) LYMPHOCYTES RELATIVE PERCENT 13 % (BEAKER) (test code = 430) MONOCYTES RELATIVE PERCENT 8 % (BEAKER) (test code = 431) EOSINOPHILS RELATIVE PERCENT 2 % (BEAKER) (test code = 432) BASOPHILS RELATIVE PERCENT 0 % (BEAKER) (test code = 437) NEUTROPHILS ABSOLUTE COUNT 6.84 K/ L 1.56-6.13 H (BEAKER) (test code = 670) LYMPHOCYTES ABSOLUTE COUNT 1.12 K/ L 1.18-3.74 L (BEAKER) (test code = 414) MONOCYTES ABSOLUTE COUNT (BEAKER) 0.70 K/ L 0.24-0.36 H (test code = 415) EOSINOPHILS ABSOLUTE COUNT 0.18 K/ L 0.04-0.36 (BEAKER) (test code = 416) BASOPHILS ABSOLUTE COUNT (BEAKER) 0.03 K/ L 0.01-0.08 (test code = 417) IMMATURE GRANULOCYTES-RELATIVE 0 % 0-1 PERCENT (BEAKER) (test code = 2801) POCT-GLUCOSE [id number] 17:28:00 Test Item Value Reference Range Interpretation Comments POC-GLUCOSE METER 184 mg/dL 70-110 H TESTED AT [facility] 67 [facility] ([facility] = [facility] 1538) [id number] POCT-GLUCOSE [id number] 13:37:00 Test Item Value Reference Range Interpretation Comments POC-GLUCOSE METER 198 mg/dL 70-110 H TESTED AT [place] [address] ([facility] (test [facility] = [facility] 1538) [id number] POCT-GLUCOSE [id number] 10:09:00 Test Item Value Reference Range Interpretation Comments POC-GLUCOSE METER 236 mg/dL 70-110 H TESTED AT [place] [address] ([facility] (test code = [facility] Estevan [facility] 1538) [id number] POCT-GLUCOSE [id number] 08:51:00 Test Item Value Reference Range Interpretation Comments POC-GLUCOSE METER 222 mg/dL 70-110 H TESTED AT [place] [address] ([facility] (test code = [facility] 1538) [id number] 08:33:00 Test Item Value Reference Range Interpretation Comments PHOSPHORUS (BEAKER) (test code = 4.3 mg/dL 2.3-4.7 604) [id number] 08:33:00 Test Item Value Reference Range Interpretation Comments MAGNESIUM (BEAKER) (test code = 1.9 mg/dL 1.6-2.6 627) BASIC METABOLIC [id number] 08:33:00 Test Item Value Reference Range Interpretation Comments SODIUM (BEAKER) 138 meq/L 136-145 (test code = 381) POTASSIUM (BEAKER) 3.8 meq/L 3.5-5.1 (test code = 379) CHLORIDE (BEAKER) 101 meq/L 98-107 (test code = 382) CO2 (BEAKER) (test 31 meq/L 22-29 H code = 355) BLOOD UREA NITROGEN 26 mg/dL 7-21 H (BEAKER) (test code = 354) CREATININE (BEAKER) 0.88 mg/dL 0.57-1.25 (test code = 358) GLUCOSE RANDOM 201 mg/dL 70-105 H (BEAKER) (test code = 652) CALCIUM (BEAKER) 9.1 mg/dL 8.4-10.2 (test code = 697) EGFR (BEAKER) (test 67 mL/min/1.73 ESTIMA BLANK GFR IS code = 1092) sq m NOT ACCURATE CREATININE CLEARANCE IN PREDICTING GLOMERULAR FILTRATION RATE . ESTIMATED GFR I S NOT APPLICABLE FOR DIALYSIS PATIEN TS. CBC W/PLT COUNT & AUTO [id number] 05:44:00 Test Item Value Reference Range Interpretation Comments WHITE BLOOD CELL COUNT (BEAKER) 6.3 K/ L 3.5-10.5 (test code = 775) RED BLOOD CELL COUNT (BEAKER) 4.52 M/ L 3.93-5.22 (test code = 761) HEMOGLOBIN (BEAKER) (test code = 10.5 GM/DL 11.2-15.7 L 410) HEMATOCRIT (BEAKER) (test code = 36.3 % 34.1-44.9 411) MEAN CORPUSCULAR VOLUME (BEAKER) 80.3 fL 79.4-94.8 (test code = 753) MEAN CORPUSCULAR HEMOGLOBIN 23.2 pg 25.6-32.2 L (BEAKER) (test code = 751) MEAN CORPUSCULAR HEMOGLOBIN CONC 28.9 GM/DL 32.2-35.5 L (BEAKER) (test code = 752) RED CELL DISTRIBUTION WIDTH 18.4 % 11.7-14.4 H (BEAKER) (test code = 412) PLATELET COUNT (BEAKER) (test 253 K/CU MM 150-450 code = 756) MEAN PLATELET VOLUME (BEAKER) 11.2 fL 9.4-12.3 (test code = 754) NUCLEATED RED BLOOD CELLS 0 /100 WBC 0-0 (BEAKER) (test code = 413) NEUTROPHILS RELATIVE PERCENT 66 % (BEAKER) (test code = 429) LYMPHOCYTES RELATIVE PERCENT 21 % (BEAKER) (test code = 430) MONOCYTES RELATIVE PERCENT 10 % (BEAKER) (test code = 431) EOSINOPHILS RELATIVE PERCENT 2 % (BEAKER) (test code = 432) BASOPHILS RELATIVE PERCENT 0 % (BEAKER) (test code = 437) NEUTROPHILS ABSOLUTE COUNT 4.21 K/ L 1.56-6.13 (BEAKER) (test code = 670) LYMPHOCYTES ABSOLUTE COUNT 1.33 K/ L 1.18-3.74 (BEAKER) (test code = 414) MONOCYTES ABSOLUTE COUNT (BEAKER) 0.61 K/ L 0.24-0.36 H (test code = 415) EOSINOPHILS ABSOLUTE COUNT 0.15 K/ L 0.04-0.36 (BEAKER) (test code = 416) BASOPHILS ABSOLUTE COUNT (BEAKER) 0.02 K/ L 0.01-0.08 (test code = 417) IMMATURE GRANULOCYTES-RELATIVE 0 % 0-1 PERCENT (BEAKER) (test code = 2801) POCT-GLUCOSE [id number] 21:40:00 Test Item Value Reference Range Interpretation Comments POC-GLUCOSE METER 232 mg/dL 70-110 H TESTED AT [facility] 6720 (BEAKER) (test code = HANSA Barreto [facility] 1538) [id number] POCT-GLUCOSE [id number] 17:51:00 Test Item Value Reference Range Interpretation Comments POC-GLUCOSE METER 287 mg/dL 70-110 H TESTED AT [facility] 6720 (BEAKER) (test code = HANSA Barreto [facility] 1538) [id number] POCT-GLUCOSE [id number] 12:25:00 Test Item Value Reference Range Interpretation Comments POC-GLUCOSE METER 214 mg/dL 70-110 H TESTED AT [facility] 6720 (BEAKER) (test code = HANSA Barreto [place] 1538) [id number] POCT-GLUCOSE [id number] 08:39:00 Test Item Value Reference Range Interpretation Comments POC-GLUCOSE METER 213 mg/dL 70-110 H TESTED AT [facility] 6720 (BEAKER) (test code = HANSA Barreto [place] 1538) [address] BASIC METABOLIC [id number] 08:05:00 Test Item Value Reference Range Interpretation Comments SODIUM (BEAKER) 142 meq/L 136-145 (test code = 381) POTASSIUM (BEAKER) 4.1 meq/L 3.5-5.1 (test code = 379) CHLORIDE (BEAKER) 105 meq/L 98-107 (test code = 382) CO2 (BEAKER) (test 29 meq/L 22-29 code = 355) BLOOD UREA NITROGEN 22 mg/dL 7-21 H (BEAKER) (test code = 354) CREATININE (BEAKER) 0.78 mg/dL 0.57-1.25 (test code = 358) GLUCOSE RANDOM 170 mg/dL 70-105 H (BEAKER) (test code = 652) CALCIUM (BEAKER) 8.8 mg/dL 8.4-10.2 (test code = 697) EGFR (BEAKER) (test 78 mL/min/1.73 ESTIMA BLANK GFR IS code = 1092) sq m NOT ACCURATE CREATININE CLEARANCE IN PREDICTING GLOMERULAR FILTRATION RATE . ESTIMATED GFR I S NOT APPLICABLE FOR DIALYSIS PATIEN TS. [id number] 07:11:00 Test Item Value Reference Range Interpretation Comments PHOSPHORUS (BEAKER) (test code = 4.4 mg/dL 2.3-4.7 604) [id number] 07:11:00 Test Item Value Reference Range Interpretation Comments MAGNESIUM (BEAKER) (test code = 1.7 mg/dL 1.6-2.6 627) CBC W/PLT COUNT & AUTO [id number] 06:29:00 Test Item Value Reference Range Interpretation Comments WHITE BLOOD CELL COUNT (BEAKER) 6.8 K/ L 3.5-10.5 (test code = 775) RED BLOOD CELL COUNT (BEAKER) 4.42 M/ L 3.93-5.22 (test code = 761) HEMOGLOBIN (BEAKER) (test code = 10.4 GM/DL 11.2-15.7 L 410) HEMATOCRIT (BEAKER) (test code = 35.4 % 34.1-44.9 411) MEAN CORPUSCULAR VOLUME (BEAKER) 80.1 fL 79.4-94.8 (test code = 753) MEAN CORPUSCULAR HEMOGLOBIN 23.5 pg 25.6-32.2 L (BEAKER) (test code = 751) MEAN CORPUSCULAR HEMOGLOBIN CONC 29.4 GM/DL 32.2-35.5 L (BEAKER) (test code = 752) RED CELL DISTRIBUTION WIDTH 18.4 % 11.7-14.4 H (BEAKER) (test code = 412) PLATELET COUNT (BEAKER) (test 238 K/CU MM 150-450 code = 756) MEAN PLATELET VOLUME (BEAKER) 12.0 fL 9.4-12.3 (test code = 754) NUCLEATED RED BLOOD CELLS 0 /100 WBC 0-0 (BEAKER) (test code = 413) NEUTROPHILS RELATIVE PERCENT 68 % (BEAKER) (test code = 429) LYMPHOCYTES RELATIVE PERCENT 20 % (BEAKER) (test code = 430) MONOCYTES RELATIVE PERCENT 9 % (BEAKER) (test code = 431) EOSINOPHILS RELATIVE PERCENT 2 % (BEAKER) (test code = 432) BASOPHILS RELATIVE PERCENT 0 % (BEAKER) (test code = 437) NEUTROPHILS ABSOLUTE COUNT 4.62 K/ L 1.56-6.13 (BEAKER) (test code = 670) LYMPHOCYTES ABSOLUTE COUNT 1.35 K/ L 1.18-3.74 (BEAKER) (test code = 414) MONOCYTES ABSOLUTE COUNT (BEAKER) 0.64 K/ L 0.24-0.36 H (test code = 415) EOSINOPHILS ABSOLUTE COUNT 0.15 K/ L 0.04-0.36 (BEAKER) (test code = 416) BASOPHILS ABSOLUTE COUNT (BEAKER) 0.02 K/ L 0.01-0.08 (test code = 417) IMMATURE GRANULOCYTES-RELATIVE 0 % 0-1 PERCENT (BEAKER) (test code = 2801) POCT-GLUCOSE [id number] 21:14:00 Test Item Value Reference Range Interpretation Comments POC-GLUCOSE METER 272 mg/dL 70-110 H TEST[facility] AT [place] [address] [facility] (test code = [place] 15[address]) [id number] POCT-GLUCOSE [id number] 17:14:00 Test Item Value Reference Range Interpretation Comments POC-GLUCOSE METER 261 mg/dL 70-110 H TESTED AT [place] [address] ([facility]) (test code = [place] 15[address]) [id number] POCT-GLUCOSE [id number] 12:12:00 Test Item Value Reference Range Interpretation Comments POC-GLUCOSE METER 220 mg/dL 70-110 H TESTED AT [facility] 67[address] (BEAKER) (test code = [place] Barre[place] [facility] 1538) [id number] POCT-GLUCOSE [id number] 08:40:00 Test Item Value Reference Range Interpretation Comments POC-GLUCOSE METER 196 mg/dL 70-110 H TESTED AT [facility] (BEAKER) (test code = [place]AN[place] [facility] 1538) [id number] 06:37:00 Test Item Value Reference Range Interpretation Comments MAGNESIUM (BEAKER) 1.8 mg/dL 1.6-2.6 Specimen slightly (test code = 627) hemolyzed [id number] 06:37:00 Test Item Value Reference Range Interpretation Comments PHOSPHORUS (BEAKER) 4.1 mg/dL 2.3-4.7 Specimen slightly (test code = 604) hemolyzed BASIC METABOLIC [id number] 06:37:00 Test Item Value Reference Range Interpretation Comments SODIUM (BEAKER) 141 meq/L 136-145 (test code = 381) POTASSIUM (BEAKER) 4.3 meq/L 3.5-5.1 Specimen slightly (test code = 379) hemolyzed CHLORIDE (BEAKER) 108 meq/L 98-107 H (test code = 382) CO2 (BEAKER) (test 25 meq/L 22-29 code = 355) BLOOD UREA NITROGEN 19 mg/dL 7-21 (BEAKER) (test code = 354) CREATININE (BEAKER) 0.72 mg/dL 0.57-1.25 Specimen slightly (test code = 358) hemolyzed GLUCOSE RANDOM 184 mg/dL 70-105 H (BEAKER) (test code = 652) CALCIUM (BEAKER) 8.8 mg/dL 8.4-10.2 (test code = 697) EGFR (BEAKER) (test 85 mL/min/1.73 ESTIMA BLANK GFR IS code = 1092) sq m NOT ACCURATE CREATININE CLEARANCE IN PREDICTING GLOMERULAR FILTRATION RATE . ESTIMATED GFR I S NOT APPLICABLE FOR DIALYSIS PATIEN TS. CBC W/PLT COUNT & AUTO [id number] 05:54:00 Test Item Value Reference Range Interpretation Comments WHITE BLOOD CELL COUNT (BEAKER) 6.6 K/ L 3.5-10.5 (test code = 775) RED BLOOD CELL COUNT (BEAKER) 4.07 M/ L 3.93-5.22 (test code = 761) HEMOGLOBIN (BEAKER) (test code = 9.7 GM/DL 11.2-15.7 L 410) HEMATOCRIT (BEAKER) (test code = 32.0 % 34.1-44.9 L 411) MEAN CORPUSCULAR VOLUME (BEAKER) 78.6 fL 79.4-94.8 L (test code = 753) MEAN CORPUSCULAR HEMOGLOBIN 23.8 pg 25.6-32.2 L (BEAKER) (test code = 751) MEAN CORPUSCULAR HEMOGLOBIN CONC 30.3 GM/DL 32.2-35.5 L (BEAKER) (test code = 752) RED CELL DISTRIBUTION WIDTH 18.2 % 11.7-14.4 H (BEAKER) (test code = 412) PLATELET COUNT (BEAKER) (test 238 K/CU MM 150-450 code = 756) MEAN PLATELET VOLUME (BEAKER) 11.5 fL 9.4-12.3 (test code = 754) NUCLEATED RED BLOOD CELLS 0 /100 WBC 0-0 (BEAKER) (test code = 413) NEUTROPHILS RELATIVE PERCENT 70 % (BEAKER) (test code = 429) LYMPHOCYTES RELATIVE PERCENT 18 % (BEAKER) (test code = 430) MONOCYTES RELATIVE PERCENT 9 % (BEAKER) (test code = 431) EOSINOPHILS RELATIVE PERCENT 2 % (BEAKER) (test code = 432) BASOPHILS RELATIVE PERCENT 0 % (BEAKER) (test code = 437) NEUTROPHILS ABSOLUTE COUNT 4.58 K/ L 1.56-6.13 (BEAKER) (test code = 670) LYMPHOCYTES ABSOLUTE COUNT 1.18 K/ L 1.18-3.74 (BEAKER) (test code = 414) MONOCYTES ABSOLUTE COUNT (BEAKER) 0.58 K/ L 0.24-0.36 H (test code = 415) EOSINOPHILS ABSOLUTE COUNT 0.16 K/ L 0.04-0.36 (BEAKER) (test code = 416) BASOPHILS ABSOLUTE COUNT (BEAKER) 0.02 K/ L 0.01-0.08 (test code = 417) IMMATURE GRANULOCYTES-RELATIVE 1 % 0-1 PERCENT (BEAKER) (test code = 2801) POCT-GLUCOSE [id number] 21:11:00 Test Item Value Reference Range Interpretation Comments POC-GLUCOSE METER 212 mg/dL 70-110 H TESTED AT [place] [address] (BEAKER) (test code = HANSA Barreto [place] 1538) [address] POCT-GLUCOSE [id number] 18:23:00 Test Item Value Reference Range Interpretation Comments POC-GLUCOSE METER 250 mg/dL 70-110 H TESTED AT [place] [address] (BEAKER) (test code = HANSA Barreto [place] 1538) [address] POCT-GLUCOSE [id number] 11:14:00 Test Item Value Reference Range Interpretation Comments POC-GLUCOSE METER 145 mg/dL 70-110 H TESTED AT [place] [address] (BEAKER) (test code = HANSA Barreto [place] 1538) [address] POCT-GLUCOSE [id number] 08:38:00 Test Item Value Reference Range Interpretation Comments POC-GLUCOSE METER 157 mg/dL 70-110 H TESTED AT [place] [address] (BEAKER) (test code = HANSA Barreto [facility] 1538) [address] [id number] 05:53:00 Test Item Value Reference Range Interpretation Comments PHOSPHORUS (BEAKER) (test code = 3.6 mg/dL 2.3-4.7 604) [id number] 05:53:00 Test Item Value Reference Range Interpretation Comments MAGNESIUM (BEAKER) (test code = 1.8 mg/dL 1.6-2.6 627) BASIC METABOLIC [id number] 05:53:00 Test Item Value Reference Range Interpretation Comments SODIUM (BEAKER) 142 meq/L 136-145 (test code = 381) POTASSIUM (BEAKER) 4.0 meq/L 3.5-5.1 (test code = 379) CHLORIDE (BEAKER) 108 meq/L 98-107 H (test code = 382) CO2 (BEAKER) (test 25 meq/L 22-29 code = 355) BLOOD UREA NITROGEN 18 mg/dL 7-21 (BEAKER) (test code = 354) CREATININE (BEAKER) 0.76 mg/dL 0.57-1.25 (test code = 358) GLUCOSE RANDOM 139 mg/dL 70-105 H (BEAKER) (test code = 652) CALCIUM (BEAKER) 8.9 mg/dL 8.4-10.2 (test code = 697) EGFR (BEAKER) (test 80 mL/min/1.73 ESTIMA BLANK GFR IS code = 1092) sq m NOT ACCURATE CREATININE CLEARANCE IN PREDICTING GLOMERULAR FILTRATION RATE . ESTIMATED GFR I S NOT APPLICABLE FOR DIALYSIS PATIEN TS. CBC W/PLT COUNT & AUTO [id number] 05:51:00 Test Item Value Reference Range Interpretation Comments WHITE BLOOD CELL COUNT (BEAKER) 6.8 K/ L 3.5-10.5 (test code = 775) RED BLOOD CELL COUNT (BEAKER) 4.05 M/ L 3.93-5.22 (test code = 761) HEMOGLOBIN (BEAKER) (test code = 9.4 GM/DL 11.2-15.7 L 410) HEMATOCRIT (BEAKER) (test code = 31.4 % 34.1-44.9 L 411) MEAN CORPUSCULAR VOLUME (BEAKER) 77.5 fL 79.4-94.8 L (test code = 753) MEAN CORPUSCULAR HEMOGLOBIN 23.2 pg 25.6-32.2 L (BEAKER) (test code = 751) MEAN CORPUSCULAR HEMOGLOBIN CONC 29.9 GM/DL 32.2-35.5 L (BEAKER) (test code = 752) RED CELL DISTRIBUTION WIDTH 18.1 % 11.7-14.4 H (BEAKER) (test code = 412) PLATELET COUNT (BEAKER) (test 245 K/CU MM 150-450 code = 756) MEAN PLATELET VOLUME (BEAKER) 10.9 fL 9.4-12.3 (test code = 754) NUCLEATED RED BLOOD CELLS 0 /100 WBC 0-0 (BEAKER) (test code = 413) NEUTROPHILS RELATIVE PERCENT 68 % (BEAKER) (test code = 429) LYMPHOCYTES RELATIVE PERCENT 21 % (BEAKER) (test code = 430) MONOCYTES RELATIVE PERCENT 8 % (BEAKER) (test code = 431) EOSINOPHILS RELATIVE PERCENT 2 % (BEAKER) (test code = 432) BASOPHILS RELATIVE PERCENT 0 % (BEAKER) (test code = 437) NEUTROPHILS ABSOLUTE COUNT 4.67 K/ L 1.56-6.13 (BEAKER) (test code = 670) LYMPHOCYTES ABSOLUTE COUNT 1.43 K/ L 1.18-3.74 (BEAKER) (test code = 414) MONOCYTES ABSOLUTE COUNT (BEAKER) 0.55 K/ L 0.24-0.36 H (test code = 415) EOSINOPHILS ABSOLUTE COUNT 0.13 K/ L 0.04-0.36 (BEAKER) (test code = 416) BASOPHILS ABSOLUTE COUNT (BEAKER) 0.03 K/ L 0.01-0.08 (test code = 417) IMMATURE GRANULOCYTES-RELATIVE 0 % 0-1 PERCENT (BEAKER) (test code = 2801) POCT-GLUCOSE [id number] 21:57:00 Test Item Value Reference Range Interpretation Comments POC-GLUCOSE METER 207 mg/dL 70-110 H TESTED AT [facility] 67 (BEAKER) (test code = [facility] 1538) [address] POCT-GLUCOSE [id number] 19:01:00 Test Item Value Reference Range Interpretation Comments POC-GLUCOSE METER 286 mg/dL 70-110 H [facility] [place] [address] [facility] (test code = [facility] 1538) [address] LUPUS ANTICOAGULANT SCREEN WITH REFLEX TO [id number] 14:56:00 Test Item Value Reference Range Interpretation Comments DRVV SCREEN RATIO 1.11 <1.20 (BEAKER) (test code = 2707) DRVV INTERPRETATION Prolonged lupus (BEAKER) (test code = sensitive PTT (PTT-La) 2406) DRVV INTERPRETATION Positive Hexagonal (BEAKER) (test code = Phospholipid 38422) DRVV INTERPRETATION Positive screen for (BEAKER) (test code = Lupus Anticoagulant. 28410) Suggest repeat testing in 12 weeks and when patient not receiving anticoagulant therapy. PROTIME (BEAKER) (test 13.7 seconds 11.9-14.2 code = 759) INR (BEAKER) (test code 1.1 <=5.9 = 370) PARTIAL THROMBOPLASTIN 35.9 seconds 22.5-36.0 TIME (BEAKER) (test code = 760) PTT-LA (BEAKER) (test 43.7 32.0-41.8 H code = [id number]) [id number] Sumit Vega M.D. (BEAKER) (test code = (electonic signature) 2528) HEXAGONAL [id number] 14:47:00 Test Item Value Reference Range Interpretation Comments HEXAGONAL PHOSPHOLIPID (BEAKER) Positive (test code = 1790) POCT-GLUCOSE [id number] 12:23:00 Test Item Value Reference Range Interpretation Comments POC-GLUCOSE METER 245 mg/dL 70-110 H TESTED AT [facility] 6720 (BEAKER) (test code = HANSA Barreto [place] 1538) [address] FACTOR 8 [id number] 11:27:00 Test Item Value Reference Range Interpretation Comments FACTOR VIII ACTIVITY (BEAKER) (test 324.0 % 45.0-150.0 H code = 663) POCT-GLUCOSE [id number] 08:30:00 Test Item Value Reference Range Interpretation Comments POC-GLUCOSE METER 166 mg/dL 70-110 H TESTED AT [facility] 6720 (BEAKER) (test code = HANSA Barreto [place] 1538) [address] [id number] 06:51:00 Test Item Value Reference Range Interpretation Comments PHOSPHORUS (BEAKER) (test code = 4.6 mg/dL 2.3-4.7 604) [id number] 06:51:00 Test Item Value Reference Range Interpretation Comments MAGNESIUM (BEAKER) (test code = 2.1 mg/dL 1.6-2.6 627) BASIC METABOLIC [id number] 06:51:00 Test Item Value Reference Range Interpretation Comments SODIUM (BEAKER) 141 meq/L 136-145 (test code = 381) POTASSIUM (BEAKER) 3.7 meq/L 3.5-5.1 (test code = 379) CHLORIDE (BEAKER) 109 meq/L 98-107 H (test code = 382) CO2 (BEAKER) (test 26 meq/L 22-29 code = 355) BLOOD UREA NITROGEN 22 mg/dL 7-21 H (BEAKER) (test code = 354) CREATININE (BEAKER) 0.85 mg/dL 0.57-1.25 (test code = 358) GLUCOSE RANDOM 168 mg/dL 70-105 H (BEAKER) (test code = 652) CALCIUM (BEAKER) 8.7 mg/dL 8.4-10.2 (test code = 697) EGFR (BEAKER) (test 70 mL/min/1.73 ESTIMA BLANK GFR IS code = 1092) sq m NOT ACCURATE CREATININE CLEARANCE IN PREDICTING GLOMERULAR FILTRATION RATE . ESTIMATED GFR I S NOT APPLICABLE FOR DIALYSIS PATIEN TS. CBC W/PLT COUNT & AUTO [id number] 06:32:00 Test Item Value Reference Range Interpretation Comments WHITE BLOOD CELL COUNT (BEAKER) 6.7 K/ L 3.5-10.5 (test code = 775) RED BLOOD CELL COUNT (BEAKER) 3.94 M/ L 3.93-5.22 (test code = 761) HEMOGLOBIN (BEAKER) (test code = 9.3 GM/DL 11.2-15.7 L 410) HEMATOCRIT (BEAKER) (test code = 30.7 % 34.1-44.9 L 411) MEAN CORPUSCULAR VOLUME (BEAKER) 77.9 fL 79.4-94.8 L (test code = 753) MEAN CORPUSCULAR HEMOGLOBIN 23.6 pg 25.6-32.2 L (BEAKER) (test code = 751) MEAN CORPUSCULAR HEMOGLOBIN CONC 30.3 GM/DL 32.2-35.5 L (BEAKER) (test code = 752) RED CELL DISTRIBUTION WIDTH 17.9 % 11.7-14.4 H (BEAKER) (test code = 412) PLATELET COUNT (BEAKER) (test 252 K/CU MM 150-450 code = 756) MEAN PLATELET VOLUME (BEAKER) 11.1 fL 9.4-12.3 (test code = 754) NUCLEATED RED BLOOD CELLS 0 /100 WBC 0-0 (BEAKER) (test code = 413) NEUTROPHILS RELATIVE PERCENT 66 % (BEAKER) (test code = 429) LYMPHOCYTES RELATIVE PERCENT 23 % (BEAKER) (test code = 430) MONOCYTES RELATIVE PERCENT 8 % (BEAKER) (test code = 431) EOSINOPHILS RELATIVE PERCENT 2 % (BEAKER) (test code = 432) BASOPHILS RELATIVE PERCENT 1 % (BEAKER) (test code = 437) NEUTROPHILS ABSOLUTE COUNT 4.40 K/ L 1.56-6.13 (BEAKER) (test code = 670) LYMPHOCYTES ABSOLUTE COUNT 1.54 K/ L 1.18-3.74 (BEAKER) (test code = 414) MONOCYTES ABSOLUTE COUNT (BEAKER) 0.55 K/ L 0.24-0.36 H (test code = 415) EOSINOPHILS ABSOLUTE COUNT 0.11 K/ L 0.04-0.36 (BEAKER) (test code = 416) BASOPHILS ABSOLUTE COUNT (BEAKER) 0.03 K/ L 0.01-0.08 (test code = 417) IMMATURE GRANULOCYTES-RELATIVE 1 % 0-1 PERCENT ([facility]) (test code = 2801) POCT-GLUCOSE [id number] 06:22:00 Test Item Value Reference Range Interpretation Comments POC-GLUCOSE METER 173 mg/dL 70-110 H TESTED AT [facility] 6720 ([facility]) (test code = HANSA Barreto [place] 1538) [address] [id number] 13:55:00 Test Item Value Reference Range Interpretation Comments RPR SCREEN ([facility]) (test code = Nonreactive Nonreactive 420) PROTEIN C [id number] 12:17:00 Test Item Value Reference Range Interpretation Comments PROTEIN C ACTIVITY ([facility]) (test 104.0 % 70.0-130.0 code = 582) CARDIOLIPIN ANTIBODIES, IGG AND [id number] 12:00:00 Test Item Value Reference Range Interpretation Comments ANTICARDIOLIPIN IGG ANTIBODY 108.2 GPL <20.0 H ([facility]) (test code = 712) ANTICARDIOLIPIN IGM ANTIBODY 1.8 MPL <20.0 ([facility]) (test code = 713) Anticardiolipin IgG Result Interpretation: <20.0 GPL Normal>/= 20.0 GPL PositiveAnticardiolipin IgM Result Interpretation: <20.0 MPL Normal>/= 20.0 MPL PositiveANTITHROMBIN [id number] 10:54:00 Test Item Value Reference Range Interpretation Comments ANTITHROMBIN III ACTIVITY ([facility]) 124.0 % 80.0-120.0 H (test code = 711) POCT-GLUCOSE [id number] 06:23:00 Test Item Value Reference Range Interpretation Comments POC-GLUCOSE METER 164 mg/dL 70-110 H TESTED AT [facility] 6720 ([facility]) (test code = HANSA Barreto [place] 1538) [address] [id number] 05:44:00 Test Item Value Reference Range Interpretation Comments PHOSPHORUS (BEAKER) (test code = 4.1 mg/dL 2.3-4.7 604) [id number] 05:44:00 Test Item Value Reference Range Interpretation Comments MAGNESIUM ([facility]) (test code = 1.6 mg/dL 1.6-2.6 627) BASIC METABOLIC [id number] 05:44:00 Test Item Value Reference Range Interpretation Comments SODIUM (BEAKER) 141 meq/L 136-145 (test code = 381) POTASSIUM (BEAKER) 3.9 meq/L 3.5-5.1 (test code = 379) CHLORIDE (BEAKER) 109 meq/L 98-107 H (test code = 382) CO2 (BEAKER) (test 23 meq/L 22-29 code = 355) BLOOD UREA NITROGEN 16 mg/dL 7-21 (BEAKER) (test code = 354) CREATININE (BEAKER) 0.78 mg/dL 0.57-1.25 (test code = 358) GLUCOSE RANDOM 177 mg/dL 70-105 H (BEAKER) (test code = 652) CALCIUM (BEAKER) 8.7 mg/dL 8.4-10.2 (test code = 697) EGFR (BEAKER) (test 78 mL/min/1.73 ESTIMA BLANK GFR IS code = 1092) sq m NOT ACCURATE CREATININE CLEARANCE IN PREDICTING GLOMERULAR FILTRATION RATE . ESTIMATED GFR I S NOT APPLICABLE FOR DIALYSIS PATIEN TS. CBC W/PLT COUNT & AUTO [id number] 04:34:00 Test Item Value Reference Range Interpretation Comments WHITE BLOOD CELL COUNT (BEAKER) 7.0 K/ L 3.5-10.5 (test code = 775) RED BLOOD CELL COUNT (BEAKER) 3.99 M/ L 3.93-5.22 (test code = 761) HEMOGLOBIN (BEAKER) (test code = 9.3 GM/DL 11.2-15.7 L 410) HEMATOCRIT (BEAKER) (test code = 31.5 % 34.1-44.9 L 411) MEAN CORPUSCULAR VOLUME (BEAKER) 78.9 fL 79.4-94.8 L (test code = 753) MEAN CORPUSCULAR HEMOGLOBIN 23.3 pg 25.6-32.2 L (BEAKER) (test code = 751) MEAN CORPUSCULAR HEMOGLOBIN CONC 29.5 GM/DL 32.2-35.5 L (BEAKER) (test code = 752) RED CELL DISTRIBUTION WIDTH 17.8 % 11.7-14.4 H (BEAKER) (test code = 412) PLATELET COUNT (BEAKER) (test 259 K/CU MM 150-450 code = 756) MEAN PLATELET VOLUME (BEAKER) 11.4 fL 9.4-12.3 (test code = 754) NUCLEATED RED BLOOD CELLS 0 /100 WBC 0-0 (BEAKER) (test code = 413) NEUTROPHILS RELATIVE PERCENT 68 % (BEAKER) (test code = 429) LYMPHOCYTES RELATIVE PERCENT 22 % (BEAKER) (test code = 430) MONOCYTES RELATIVE PERCENT 9 % (BEAKER) (test code = 431) EOSINOPHILS RELATIVE PERCENT 1 % (BEAKER) (test code = 432) BASOPHILS RELATIVE PERCENT 0 % (BEAKER) (test code = 437) NEUTROPHILS ABSOLUTE COUNT 4.74 K/ L 1.56-6.13 (BEAKER) (test code = 670) LYMPHOCYTES ABSOLUTE COUNT 1.52 K/ L 1.18-3.74 (BEAKER) (test code = 414) MONOCYTES ABSOLUTE COUNT (BEAKER) 0.61 K/ L 0.24-0.36 H (test code = 415) EOSINOPHILS ABSOLUTE COUNT 0.07 K/ L 0.04-0.36 (BEAKER) (test code = 416) BASOPHILS ABSOLUTE COUNT (BEAKER) 0.03 K/ L 0.01-0.08 (test code = 417) IMMATURE GRANULOCYTES-RELATIVE 1 % 0-1 PERCENT (BEAKER) (test code = 2801) POCT-GLUCOSE [id number] 23:58:00 Test Item Value Reference Range Interpretation Comments POC-GLUCOSE METER 180 mg/dL 70-110 H TESTED AT [facility] 6720 (BEAKER) (test code = HANSA Barreto [facility] 1538) [address] T4, [id number] 18:22:00 Test Item Value Reference Range Interpretation Comments FREE T4 (BEAKER) (test code = 655) 1.03 ng/dL 0.70-1.48 VITAMIN [id number] 15:25:00 Test Item Value Reference Range Interpretation Comments VITAMIN B12 (BEAKER) (test code = < pg/mL 213-816 L 774) TSH/FREE T4 IF [id number] 15:25:00 Test Item Value Reference Range Interpretation Comments THYROID STIMULATING HORMONE 0.20 uIU/mL 0.35-4.94 L (BEAKER) (test code = 772) [id number] 15:25:00 Test Item Value Reference Range Interpretation Comments HOMOCYSTEINE (BEAKER) (test code 37.7 umol/L 5.1-15.4 H = 642) TROPONIN [id number] 14:59:00 Test Item Value Reference Range Interpretation Comments TROPONIN I (MADELEINE) (test code = 0.02 ng/mL 0.00-0.03 397) Troponin I (TnI) levels must be interpreted [...] 2018-10-12 14:56:00 Test Item Value Reference Range Interpretation Comments IRON (MADELEINE) (test code = 547) 33.0 ug/dL 40.0-160.0 L TOTAL IRON BINDING CAPACITY 290 ug/dL 250-450 (MADELEINE) (test code = 769) IRON % SATURATION (2) ([facility]) 11 % 20-55 L (test code = 2590) POCT-GLUCOSE [id number] 12:45:00 Test Item Value Reference Range Interpretation Comments POC-GLUCOSE METER 215 mg/dL 70-110 H TESTED AT [facility] 6720 ([facility]) (test code = HANSA Barreto [facility] 1538) [address] MR, BRAIN, WITHOUT [id number] 12:22:00Reason for exam:->Ischemic Stroke EvaluationFINAL REPORT MRI Brain without contrast Clinical History: Stroke Technique: MRIof the brain utilizing axial T2, FLAIR, GRE, DWI; sagittal and coronal T1-weighted images. Comparisons: CT 10/12/2018 Findings: Acute infarction of the right corpus striatum is again seen with additionalsmall acute infarcts of the right external capsule, right frontal operculum and right temporal occipital lobes. There is no acute hemorrhage. Ischemic edema narrows right lateral ventricle. There is mild generalized sulcal prominence without hydrocephalus or midline shift. There are no extra-axial flui d collections. The craniocervical junction is preserved. The major intracranial flow-voids appear patent. IMPRESSION: Acute infarction in the right-sided corpus striatum, internal capsule, frontal operculum, and temporal occipital lobes. No hemorrhage. Signed: Gilma Reddy MDReport Verified Date/Time: 10/12/2018 12:22:38 Reading Location: [facility] C013V Neuro Reading Room HEMOGLOBIN [id number] 08:24:00 Test Item Value Reference Range Interpretation Comments HEMOGLOBIN A1C (BEAKER) (test code = 11.8 % 4.3-6.1 H 368) POCT-GLUCOSE [id number] 06:12:00 Test Item Value Reference Range Interpretation Comments POC-GLUCOSE METER 271 mg/dL 70-110 H TESTED AT [facility] 6720 [facility] (test code = [place] 1538) [address] TROPONIN [id number] 05:12:00 Test Item Value Reference Range Interpretation Comments TROPONIN I (BEAKER) (test code = 0.01 ng/mL 0.00-0.03 397) Troponin I (TnI) levels must be interpreted [...] failure, acidosis, acute neurological disease, and persistent tachyarrhythmia.[id number] 05:07:00 Test Item Value Reference Range Interpretation Comments PHOSPHORUS (BEAKER) (test code = 3.6 mg/dL 2.3-4.7 604) [id number] 05:07:00 Test Item Value Reference Range Interpretation Comments MAGNESIUM (BEAKER) (test code = 1.5 mg/dL 1.6-2.6 L 627) FastingBASIC METABOLIC [id number] 05:07:00 Test Item Value Reference Range Interpretation Comments SODIUM (BEAKER) 138 meq/L 136-145 (test code = 381) POTASSIUM (BEAKER) 3.9 meq/L 3.5-5.1 (test code = 379) CHLORIDE (BEAKER) 104 meq/L 98-107 (test code = 382) CO2 (BEAKER) (test 24 meq/L 22-29 code = 355) BLOOD UREA NITROGEN 22 mg/dL 7-21 H (BEAKER) (test code = 354) CREATININE (BEAKER) 0.81 mg/dL 0.57-1.25 (test code = 358) GLUCOSE RANDOM 277 mg/dL 70-105 H (BEAKER) (test code = 652) CALCIUM (BEAKER) 9.2 mg/dL 8.4-10.2 (test code = 697) EGFR (BEAKER) (test 74 mL/min/1.73 ESTIMA BLANK GFR IS code = 1092) sq m NOT ACCURATE CREATININE CLEARANCE IN PREDICTING GLOMERULAR FILTRATION RATE . ESTIMATED GFR I S NOT APPLICABLE FOR DIALYSIS PATICARLOS TS. FastingLIPID [id number] 05:07:00 Test Item Value Reference Range Interpretation Comments TRIGLYCERIDES (BEAKER) (test code = 277 mg/dL 540) CHOLESTEROL (BEAKER) (test code = 284 mg/dL 631) HDL CHOLESTEROL (BEAKER) (test code 42 mg/dL = 976) LDL CHOLESTEROL CALCULATED (BEAKER) 187 mg/dL (test code = 633) Triglyceride Reference Range: Low Risk <150 Borderline 150-199 High Risk 200- 499 Very High Risk >=500Cholesterol Reference Range: Low Risk <200 Borderline 200-239 High Risk >240HDL Cholesterol Reference Range: Low Risk >=60 High Risk <40LDL Cholesterol Reference Range: Optimal <100 Near Optimal 100-129 Borderline 130-159 High 160-189 Very High >=190 Fasting HEPATIC FUNCTION [id number] 05:07:00 Test Item Value Reference Range Interpretation Comments TOTAL PROTEIN (BEAKER) (test code = 7.1 gm/dL 6.0-8.3 770) ALBUMIN (BEAKER) (test code = 1145) 3.3 g/dL 3.5-5.0 L BILIRUBIN TOTAL (BEAKER) (test code 0.2 mg/dL 0.2-1.2 = 377) BILIRUBIN DIRECT (BEAKER) (test 0.1 mg/dL 0.1-0.5 code = 706) ALKALINE PHOSPHATASE (BEAKER) (test 108 U/L 40-150 code = 346) AST (SGOT) (BEAKER) (test code = 15 U/L 5-34 353) ALT (SGPT) (BEAKER) (test code = 10 U/L 6-55 347) FastingCBC W/PLT COUNT & AUTO [id number] 04:52:00 Test Item Value Reference Range Interpretation Comments WHITE BLOOD CELL COUNT (BEAKER) 8.3 K/ L 3.5-10.5 (test code = 775) RED BLOOD CELL COUNT (BEAKER) 4.29 M/ L 3.93-5.22 (test code = 761) HEMOGLOBIN (BEAKER) (test code = 10.0 GM/DL 11.2-15.7 L 410) HEMATOCRIT (BEAKER) (test code = 32.8 % 34.1-44.9 L 411) MEAN CORPUSCULAR VOLUME (BEAKER) 76.5 fL 79.4-94.8 L (test code = 753) MEAN CORPUSCULAR HEMOGLOBIN 23.3 pg 25.6-32.2 L (BEAKER) (test code = 751) MEAN CORPUSCULAR HEMOGLOBIN CONC 30.5 GM/DL 32.2-35.5 L (BEAKER) (test code = 752) RED CELL DISTRIBUTION WIDTH 17.4 % 11.7-14.4 H (BEAKER) (test code = 412) PLATELET COUNT (BEAKER) (test 273 K/CU MM 150-450 code = 756) MEAN PLATELET VOLUME (BEAKER) 11.1 fL 9.4-12.3 (test code = 754) NUCLEATED RED BLOOD CELLS 0 /100 WBC 0-0 (BEAKER) (test code = 413) NEUTROPHILS RELATIVE PERCENT 77 % (BEAKER) (test code = 429) LYMPHOCYTES RELATIVE PERCENT 16 % (BEAKER) (test code = 430) MONOCYTES RELATIVE PERCENT 6 % (BEAKER) (test code = 431) EOSINOPHILS RELATIVE PERCENT 1 % (BEAKER) (test code = 432) BASOPHILS RELATIVE PERCENT 0 % (BEAKER) (test code = 437) NEUTROPHILS ABSOLUTE COUNT 6.42 K/ L 1.56-6.13 H (BEAKER) (test code = 670) LYMPHOCYTES ABSOLUTE COUNT 1.30 K/ L 1.18-3.74 (BEAKER) (test code = 414) MONOCYTES ABSOLUTE COUNT (BEAKER) 0.47 K/ L 0.24-0.36 H (test code = 415) EOSINOPHILS ABSOLUTE COUNT 0.04 K/ L 0.04-0.36 (BEAKER) (test code = 416) BASOPHILS ABSOLUTE COUNT (BEAKER) 0.02 K/ L 0.01-0.08 (test code = 417) IMMATURE GRANULOCYTES-RELATIVE 1 % 0-1 PERCENT (BEAKER) (test code = 2801) CT, CTANGIO [id number] 03:50:00FINAL REPORT CT, CAROTID, ANGIO, CT, CTANGIO BRAINCTA HEAD AND NECK INDICATION:Stroke COMPARISON: CT head of the same date TECHNIQUE:Rapid acquisition spiral images were obtained between the aortic arch and the cranial vertex during intravenous contrast infusion to reconstruct axial images and angiographic 3D maximum intensity projections (MIP). 3-D volumetric reformatted imageswere created at a dedicated workstation.Stenosis evaluation reported in compliance with NASCET criteria. DOSE REDUCTION: Dose modulation, iterative reconstruction, and/or weight-based adjustment of themA/kV was utilized to reduce the radiation dose [...] stenosis.Vertebral arteries: Codominant. No origin stenosis.Arch anatomy: Conventional. Nonvascular findings:Osseous structures: No acute osseous abnormality. Intact calvarium and skull base.Cervical soft tissues: No adenopathy. Patent aerodigestive tract. Multinodular thyroid goiter with each lobe measuring approximately 6.5 cm and dominant isthmus nodule measures 3.8 cm, which alternatively may representconfluent nodules.Lung apices: No apical consolidation or pneumothorax. IMPRESSION:Right MCA, M1 segment, acute thrombus, resulting in severe focal stenosis. Collaterals contribute to distal reconstitut ion of the right MCA. Multinodular thyroid goiter with dominant 3.8 cm nodule. Thyroid ultrasound characterization recommended. Major cervical arteries are patent. Preliminary findings discussed with the patient's care provider, Dr. Pittman, on 10/12/2018 3:21 AM. Signed: Nicanor Coates MDReport Verified Date/Time: 10/12/2018 03:50:41 CT, CAROTID, [id number] 03:50:00FINAL REPORT CT, CAROTID, ANGIO, CT, CTANGIO BRAINCTA HEAD AND NECK INDICATION:Stroke COMPARISON: CT head of the same date TECHNIQUE:Rapid acquisition spiral images were obtained between the aortic arch and the cranial vertex during intravenous contrast infusion to reconstruct axial images and angiographic 3D maximum intensity projections (MIP). 3-D volumetric reformatted imageswere created at a dedicated workstation.Stenosis evaluation reported in compliance with NASCET criteria. DOSE REDUCTION: Dose modulation, iterative reconstruction, and/or weight-based adjustment of themA/kV was utilized to reduce the radiation dose to as low as reasonably achievable. FINDINGS: CTA BRA IN:Internal carotid arteries: Petrous, cavernous and supraclinoid portions [...] stenosis.Vertebral arteries: Codominant. No origin stenosis.Arch anatomy: Conventional. [...] with dominant 3.8 cm nodule. Thyroid ultrasound mitch racterization recommended. Major cervical arteries are patent. Preliminary findings discussed with the patient's care provider, Dr. Pittman, on 10/12/2018 3:21 AM. Signed: Nicanor Coates Verified Date/Time: 10/12/2018 03:50:41 CT, BRAIN/STROKE [id number] 03:21:00FINAL REPORT CT, BRAIN/STROKE PROTOCOL CLINICAL INDICATION: Stroke COMPARISON: None TECHNIQUE: Noncontrast axial CT imaging of the brain and skull. Coronal axial sagittal reformatsobtained. DOSE REDUCTION: Dose modulation, iterative reconstruction, and/or [...] intracranial hemorrhage. No significant midline shift.Midline structures: Normally positioned.Cerebellum and brainstem: Normal.Ventricles: Normal volume.Extra-axial spaces: Unremarkable. Calvarium and skull base: Intact.Paranasal sinuses and mastoid air cells: Visible chambers are clear.Orbital contents: Included portions unremarkable. Additional findings: None. IMPRESSION:Right corpus striatum acute ischemic infarct. Regional edema with mild compression of the right lateral ventricle without midline shift. The findings were discussed with Dr. Pittman, stroke team,10/12/2018 3:12 AM. Signed: Nicanor Coatesort Verified Date/Time: 10/12/2018 03:21:47 POCT-GLUCOSE [id number] 02:34:00 Test Item Value Reference Range Interpretation Comments POC-GLUCOSE METER 267 mg/dL 70-110 H TESTED AT [place] [address] ([facility]) (test code = [place] [address]) [id number] Notes Date/Time Note Provider Source 2022-12-24 17:29:01 [id number]:29:01Formmiguel Barger ch RN [facility] g of this note might be different from the original.Pt discharged with diagnosis of L leg swelling and contusion of L tibia. Printed and verbal instructions reviewed with and given to pt and sister. Pt and sister verbalized understanding of teaching and recommended follow-up. Denies questions or concerns at this time. Pt assisted to POV in wheelchair via ED RN at discharge. Appears in no apparent distress. Accompanied by sister. [id number] department [id number]:29:58[facility] [id number] Available for patient [id number] chad [address] LyazGnrwtihxsYzvxxotidGNKA55 [id number] [id number]:29:[id number] .[id number]|1.2.840.11 [id number] 2022-12-24 14:44:25 [id number]:44:25Formmiguel palomo RN [facility] g of this note might be different from the original.Patient has left leg swelling and bruising that started yesterday. Went to urgent care and they advised to go to ED to rule out blood clot. Patient has had a stroke before in the past and has minimal feeling to left leg. [id number] department Triage [id number]:45:22[facility] department Triage [id number] Available for patient [id number] department [id number] Urena RNUTMBUT - [address] DvusKapyyiuvaMmkjfsfuaHKGW41 [id number] [id number]:45:221.2.840 .[id number]|1.2.840.11 [id number]"
[2023-04-04] MEDS ORDERED: MORPHINE 4 MG/ML SYR ONE ×2 (00:43→03:12)
[2023-04-04] MEDS ORDERED: ONDANSETRON 4 MG/2 ML VIAL ONE (00:43)
[2023-04-04] MEDS ORDERED: NA CHLORIDE 0.9% 500 ML ONE (00:43)
[2023-04-04] MEDS ORDERED: MIDAZOLAM HCL 2 MG/2 ML INJ ONE (02:53)
--- NOTE | 2023-04-04 03:31 | ER ---
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 km8 Coronavirus screen: Client denies travel out of the [place] in the last 14 days. Ebola Screen: No symptoms or risks identified at this time. Initial Sepsis Screen: Does the patient meet any 2 criteria? No. Patient's initial sepsis screen is negative. Does the patient have a suspected source of infection? No. Patient's initial sepsis screen is negative. Risk Assessment: Do you want to hurt yourself or someone else? Patient reports no desire to harm self or others. Onset of symptoms was April 03, 2023 at 23:00. Care prior to arrival: Splint applied. Medication(s) given: Toradol 30mg IM Glucose check: 280. Mechanism of Injury: Fall. 00:14 Method Of Arrival: EMS: [facility] km8 00:14 Acuity: SOLITARIO 3 km8 Triage Assessment: 00:14 General: Appears in no apparent distress. uncomfortable, Behavior is calm, cooperative, km8 appropriate for age. Pain: Complains of pain in left ankle Pain currently is 5 out of 10 on a pain scale. EENT: No signs and/or symptoms were reported regarding the EENT system. Neuro: George Agitation-Sedation Scale (RASS): 0 - Alert and Calm Level of Consciousness is awake, alert, obeys commands, Oriented to person, place, time, situation, Reports weakness in left side. Cardiovascular: Denies chest pain, shortness of breath, Capillary refill < 3 seconds Patient's skin is warm and dry. Respiratory: Airway is patent Respiratory effort is even, unlabored, Respiratory pattern is regular, symmetrical. GI: No signs and/or symptoms were reported involving the gastrointestinal system. : No signs and/or symptoms were reported regarding the genitourinary system. Derm: Skin is intact, is healthy with good turgor, Skin is dry, Skin is pink, warm \T\ dry. normal, Skin temperature is warm. Musculoskeletal: left ankle Reports weakness in left side. Historical: - Allergies: 00:21 No Known Allergies; km8 - Home Meds: 00:21 amlodipine 10 mg tab 1 tab once daily [Active]; atorvastatin 40 mg Oral tab 1 tab once km8 daily [Active]; aspirin 81 mg Oral chew 1 tab once daily [Active]; gabapentin 100 mg Oral cap 1 caps 3 times per day [Active]; metformin 1 Oral tab 1 tab 2 times per day [Active]; Iron CR Oral 65 mg twice a day [Active]; - PMHx: 00:21 CVA; LEFT SIDED DEFICITS; Diabetes - NIDDM; Hypertension; km8 - Immunization history:: Client reports receiving the 2nd dose of the Covid vaccine, Flu vaccine is up to date. - Social history:: Smoking status: Patient denies any tobacco usage or history of. Patient/guardian denies using alcohol, street drugs. - Family history:: not pertinent. Screenin:19 [facility] ED Fall Risk Assessment (Adult) History of falling in the last 3 months, km8 including since admission Yes- single mechanical fall (1 pt) Confusion or Disorientation No (0 pts) Intoxicated or Sedated No (0 pts) Mobility Assist Device Used Yes (1 pt) Altered Elimination No (0 pt) Score/Fall Risk Level 0 - 2 = Low Risk Oriented to surroundings, Maintained a safe environment, Educated pt \T\ family on fall prevention, incl call for assistance when getting out of bed, Assessed \T\ reinforced patient's understanding of fall precautions. Abuse screen: Denies threats or abuse. Denies injuries from another. Nutritional screening: No deficits noted. Tuberculosis screening: No symptoms or risk factors identified. Assessment: 00:19 General: see triage notes/assessment. km8 01:47 Reassessment: Patient appears in no apparent distress at this time. Patient and/or jb4 family updated on plan of care and expected duration. Pain level reassessed. Patient is alert, oriented x 3, equal unlabored respirations, skin warm/dry/pink. 01:47 Cardiovascular: Capillary refill < 3 seconds in left toes. jb4 02:30 Reassessment: Patient appears in no apparent distress at this time. Patient and/or jb4 family updated on plan of care and expected duration. Pain level reassessed. Patient is alert, oriented x 3, equal unlabored respirations, skin warm/dry/pink. 03:30 Reassessment: Patient appears in no apparent distress at this time. Patient and/or jb4 family updated on plan of care and expected duration. Pain level reassessed. Patient is alert, oriented x 3, equal unlabored respirations, skin warm/dry/pink. Cardiovascular: Capillary refill < 3 seconds in left toes. Vital Signs: 00:15 BP 122 / 64; Pulse 103; Resp 16; Pulse Ox 96% on R/A; Pain 5/10; km8 00:24 Weight 51.26 kg (R); Height 5 ft. 4 in. (R); km8 01:00 BP 112 / 63; Pulse 77; Resp 16; Pulse Ox 98% on R/A; km8 01:47 BP 97 / 72; Pulse 72; Resp 16; Pulse Ox 98% on R/A; jb4 02:00 BP 106 / 61; Pulse 69; Resp 16; Pulse Ox 97% on R/A; km8 02:30 BP 107 / 60; Pulse 69; Resp 16; Pulse Ox 98% on R/A; km8 03:15 BP 102 / 58; Pulse 65; Resp 14; Pulse Ox 100% on 2 lpm NC; jb4 00:24 Body Mass Index 19.40 (51.26 kg, 162.56 cm) km8 00:15 Pain Scale: Adult km8 Dexter Coma Score: 00:19 Eye Response: spontaneous(4). Motor Response: obeys commands(6). Verbal Response: km8 oriented(5). Total: 15. ED Course: 00:00 Patient arrived in ED. rv1 00:02 Jabier Coleman MD is Attending Physician. sp4 00:14 Arm band placed on right wrist. km8 00:16 Triage completed. km8 00:18 Dario Ahumada RN is Primary Nurse. jb4 00:19 Patient has correct armband on for positive identification. Bed in low position. Call km8 light in reach. Side rails up X 1. Client placed on continuous cardiac and pulse oximetry monitoring. NIBP monitoring applied. Door closed. Noise minimized. Warm blanket given. 00:19 Patient maintains SpO2 saturation greater than 95% on room air. km8 00:25 Inserted saline lock: 20 gauge in right antecubital area, using aseptic technique. km8 00:39 Foot Left 3 View XRAY In Process Unspecified. EDMS 00:39 Tib Fib Left XRAY In Process Unspecified. EDMS 02:45 Provided Education on: Conscious Sedation. km8 03:18 XRAY Ankle LEFT 2 view In Process Unspecified. EDMS 03:30 Rob Meeks MD is Referral Physician. sp4 04:06 No provider procedures requiring assistance completed. IV discontinued, intact, jb4 bleeding controlled, No redness/swelling at site. Pressure dressing applied. Administered Medications: 00:39 Drug: NS 0.9% IV 500 ml IV at bolus continuous Route: IV; Rate: bolus; Site: right jb4 antecubital; 00:40 Drug: morphine IVP or IV 4 mg IVP once over 4 mins Route: IVP; Infused Over: 4 mins; jb4 Site: right antecubital; 00:40 Drug: Ondansetron IVP 4 mg IVP once; over 2 minutes Route: IVP; Site: right antecubital;jb4 00:58 Not Given (medication is unavailablee): [id number] mg IVP once jb4 02:43 Drug: Midazolam IVP or IV 4 mg IVP once Route: IVP; Site: right antecubital; jb4 03:01 Drug: morphine IVP or IV 4 mg IVP once over 4 mins Route: IVP; Infused Over: 4 mins; jb4 Site: right antecubital; Outcome: 03:31 Discharge ordered by . sp4 04:06 Discharged to home via wheelchair, with family, jb4 04:06 Condition: stable 04:06 Discharge instructions given to patient, family, Instructed on discharge instructions, follow up and referral plans. medication usage, Demonstrated understanding of instructions, follow-up care, medications, Prescriptions given X 3, 04:11 Patient left the ED. jb4 Signatures: Dispatcher [employer] Dario Hernández, RN RN jb4 Flor Glover Sergey, MD MD sp4 Twyla Keller RN RN km8
--- NOTE | 2023-04-04 03:31 | EDPHYS ---
Physician Documentation [facility] Name: Angelic Appiah Age: 57 yrs Sex: Female : 1965 Arrival Date: 04/03/2023 Time: 23:58 Bed 2 Private MD: ED Physician Jabier Coleman HPI: 04/04 00:02 This 57 yrs old Female presents to ER via Unassigned with complaints of injury sp4 . 03:34 Acute left ankle fracture with displacement. Patient arrives with EMS. sp4 Historical: - Allergies: 00:21 No Known Allergies; km8 - Home Meds: 00:21 amlodipine 10 mg tab 1 tab once daily [Active]; atorvastatin 40 mg Oral tab 1 tab once km8 daily [Active]; aspirin 81 mg Oral chew 1 tab once daily [Active]; gabapentin 100 mg Oral cap 1 caps 3 times per day [Active]; metformin 1 Oral tab 1 tab 2 times per day [Active]; Iron CR Oral 65 mg twice a day [Active]; - PMHx: 00:21 CVA; LEFT SIDED DEFICITS; Diabetes - NIDDM; Hypertension; km8 - Immunization history:: Client reports receiving the 2nd dose of the Covid vaccine, Flu vaccine is up to date. - Social history:: Smoking status: Patient denies any tobacco usage or history of. Patient/guardian denies using alcohol, street drugs. - Family history:: not pertinent. ROS: 03:34 Constitutional: Negative for fever, chills, and weight loss, MS/Extremity: Positive for sp4 left ankle pain positive left ankle swelling positive for left ankle injury 03:34 All other systems are negative, Exam: 03:34 Constitutional: This is a well developed, well nourished patient who is awake, alert, sp4 and in no acute distress. Head/Face: Normocephalic, atraumatic. Eyes: Pupils equal round and reactive to light, extra-ocular motions intact. Lids and lashes normal. Conjunctiva and sclera are not injected. Cornea within normal limits. Periorbital areas with no swelling, redness, or edema. ENT: Nares patent. No nasal discharge, no septal abnormalities noted. Tympanic membranes are normal and external auditory canals are clear. Oropharynx with no redness, swelling, or masses, exudates, or evidence of obstruction, uvula midline. Mucous membranes moist. Neck: Trachea midline, no thyromegaly or masses palpated, and no cervical lymphadenopathy. Supple, full range of motion without nuchal rigidity, or vertebral point tenderness. Chest/axilla: Normal chest wall appearance and motion. Nontender with no deformity. No lesions are appreciated. Cardiovascular: Regular rate and rhythm with a normal S1 and S2. No gallops, murmurs, or rubs. Normal PMI, no JVD. No pulse deficits. Respiratory: Lungs have equal breath sounds bilaterally, clear to auscultation and percussion. No rales, rhonchi or wheezes noted. No increased work of breathing, no retractions or nasal flaring. Abdomen/GI: Soft, non-tender, with normal bowel sounds. No distension or tympany. No guarding or rebound. No evidence of tenderness throughout. Back: No spinal tenderness. No costovertebral tenderness. Skin: Warm, dry with normal turgor. Normal color with no rashes, no lesions, and no evidence of cellulitis. MS/ Extremity: Pulses equal, no cyanosis. Neurovascular intact. There is left ankle swelling, left ankle pain, left ankle displacement medially Neuro: Awake and alert, GCS 15, oriented to person, place, time, and situation. Cranial nerves II-XII grossly intact. Motor strength 5/5 in all extremities. Sensory grossly intact. Psych: Awake, alert, with orientation to person, place and time. Behavior, mood, and affect are within normal limits Vital Signs: 00:15 BP 122 / 64; Pulse 103; Resp 16; Pulse Ox 96% on R/A; Pain 5/10; km8 00:24 Weight 51.26 kg (R); Height 5 ft. 4 in. (R); km8 01:00 BP 112 / 63; Pulse 77; Resp 16; Pulse Ox 98% on R/A; km8 01:47 BP 97 / 72; Pulse 72; Resp 16; Pulse Ox 98% on R/A; jb4 02:00 BP 106 / 61; Pulse 69; Resp 16; Pulse Ox 97% on R/A; km8 02:30 BP 107 / 60; Pulse 69; Resp 16; Pulse Ox 98% on R/A; km8 03:15 BP 102 / 58; Pulse 65; Resp 14; Pulse Ox 100% on 2 lpm NC; jb4 00:24 Body Mass Index 19.40 (51.26 kg, 162.56 cm) km8 00:15 Pain Scale: Adult km8 Gray Coma Score: 00:19 Eye Response: spontaneous(4). Motor Response: obeys commands(6). Verbal Response: km8 oriented(5). Total: 15. Procedures: 03:12 Splinting: Splint applied to left calf, left Achilles and left heel using Orthoglass sp4 splint, Left posterior short leg splint with U part . applied by myself. post reduction film - reveals improved alignment, Examined by me, post splint application: neurovascular intact, 2+ distal pulses palpable, brisk capillary refill noted, Patient tolerated well, Splint placed with Moderate sedation . 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 MDM: 00:11 Patient medically screened. sp4 02:38 ED course: X ray - TECHNIQUE: 2 views of the left lower leg are provided. COMPARISON: sp4 No prior exams provided for comparison. FINDINGS: Patient is osteoporotic. There is an acute, intra-articular fracture of the left distal tibia with slight impaction. There is an acute fracture of the left distal fibular diaphysis with slight medial angulation. No other acute fracture. No dislocation. Diffuse soft tissue swelling about the left ankle without soft tissue gas or foreign body. The talar dome is intact. Talonavicular osteoarthritis incidentally noted. IMPRESSION: Acute fractures of the left distal tibia and fibula without dislocation. ED course: X ray - TECHNIQUE: 3 views COMPARISON: Left tibia and fibula radiographs performed same time FINDINGS: BONES/JOINT: Fracture of the distal tibial metaphysis with minimal displacement. Remaining osseous structures are intact without fracture or dislocation. Joint spaces are unremarkable. Bones are demineralized. SOFT TISSUES: Unremarkable. No radiopaque foreign body. IMPRESSION: 1. Fracture of the distal tibial metaphysis with minimal displacement. . 03:12 Differential Diagnosis Fracture, dislocation, fracture with displacement. . Data sp4 reviewed: vital signs, nurses notes, EMS record, old medical records, radiologic studies, plain films. Consideration of Admission/Observation Escalation of care including admission/observation considered. ED course: Discharge home with orthopedist follow-up. 04/04 00:10 Order name: Foot Left 3 View XRAY sp4 04/04 00:10 Order name: Tib Fib Left XRAY sp4 04/04 03:04 Order name: XRAY Ankle LEFT 2 view rv1 04/04 00:10 Order name: Moderate Sedation; Complete Time: 03:10 sp4 04/04 00:11 Order name: Saline Lock; Complete Time: 00:20 sp4 04/04 03:10 Order name: Splint Leg: Short Leg; Complete Time: 03:30 sp4 Administered Medications: 00:39 Drug: NS 0.9% IV 500 ml IV at bolus continuous Route: IV; Rate: bolus; Site: right jb4 antecubital; 00:40 Drug: morphine IVP or IV 4 mg IVP once over 4 mins Route: IVP; Infused Over: 4 mins; jb4 Site: right antecubital; 00:40 Drug: Ondansetron IVP 4 mg IVP once; over 2 minutes Route: IVP; Site: right antecubital;jb4 00:58 Not Given (medication is unavailablee): [id number] mg IVP once jb4 02:43 Drug: Midazolam IVP or IV 4 mg IVP once Route: IVP; Site: right antecubital; jb4 03:01 Drug: morphine IVP or IV 4 mg IVP once over 4 mins Route: IVP; Infused Over: 4 mins; jb4 Site: right antecubital; Disposition Summary: 04/04/23 03:31 Discharge Ordered Notes: Please see Orthopedist for office visit in 2 to 3 days Location: Home sp4 Problem: new sp4 Symptoms: have improved sp4 Condition: Stable sp4 Diagnosis - Right ankle fracture, right tibia fracture, right fibula fracture with sp4 displacement, medial displacement Followup: sp4 - With: Rob Meeks MD - When: 1 - 2 days - Reason: Recheck today's complaints Discharge Instructions: - Discharge Summary Sheet sp4 - Ankle Fracture, [id number] sp4 Forms: - Patient Portal Instructions sp4 Prescriptions: - Ibuprofen 600 mg Oral Tablet - take 1 tablet ORAL route every 6 hours As needed take with food; 30 tablet; sp4 Refills: 0, Product Selection Permitted - Cyclobenzaprine 10 mg Oral Tablet - take 1 tablet ORAL route every 8 hours As needed; 30 tablet; Refills: 0, sp4 Product Selection Permitted - Tramadol 50 mg Oral Tablet - take 1 tablet ORAL route every 8 hours as needed; 12 tablet; Refills: 0, sp4 Product Selection Permitted Signatures: Dispatcher [employer] EDDario Smith, RN RN jb4 Jabier Coleman MD MD sp4 Twyla Keller RN RN km8 Corrections: (The following items were deleted from the chart) 03:37 03:12 Moderate sedation: Pre-procedure assessment: the patient has been NPO 4 hour(s) sp4 prior to arrival, ASA physical classification: Airway assessment: able to hyperextend neck, able to maintain airway, can open mouth without difficulty, Mallampati classification of tongue size: IV - faucial pillars, soft palate, and uvula are not visualized, 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
[2023-04-04 05:39] VITALS: BP 106/61; O2SAT 97
--- NOTE | 2023-04-05 12:59 | RAD REPORT ---
EXAM DESCRIPTION: RAD - Ankle Left 2 View - 04/04/2023 3:16 am CLINICAL HISTORY: Post reduction TECHNIQUE: 2 views of the left ankle are submitted. COMPARISON: 12: 0 AM FINDINGS: Status post partial reduction of previously noted fractures of the distal tibia and fibula . There is persistent medial displacement of the distal fragments. Images obtained through the immobilization splint. IMPRESSION: Status post partial reduction of previously noted fractures of the distal tibia and fibu la. Electronically signed by: Joseph Betancourt MD 04/04/2023 03:48 AM [employer] Due to temporary technical issues with the PACS/Fluency reporting system, reports are being signed by the in house radiologist without review as a courtesy to ensure prompt reporting. The interpreting r adiologist is fully responsible for the content of the report.
--- NOTE | 2023-04-05 13:10 | RAD REPORT ---
EXAM DESCRIPTION: RAD - Foot Left 3 View - 04/04/2023 12:37 am CLINICAL HISTORY: 57 years Female, PAIN TECHNIQUE: 3 views COMPARISON: Left tibia and fibula radiographs performed same time FINDINGS: BONES/JOINT: Fracture of the distal tibial metaphysis with minimal displacement. Remaining osseous structures are intact without fracture or dislocation. Joint spaces are unremarkable. Bones are demineralized. SOFT TISSUES: Unremarkable. No radiopaque foreign body. IMPRESSION: 1. Fracture of the distal tibial metaphysis with minimal displacement. Electronically signed by: Kapil Hunt MD 04/04/2023 12:46 AM [facility] Due to temporary technical issues with the PACS/Fluency reporting system, reports are being signed by the in house radiologist without review as a courtesy to ensure prompt reporting. The interpreting r adiologist is fully responsible for the content of the report.
--- NOTE | 2023-04-05 13:43 | RAD REPORT ---
EXAM DESCRIPTION: RAD - Tib Fib Left - 04/04/2023 12:37 am CLINICAL HISTORY: 57 years Female DEFORMITY TECHNIQUE: 2 views of the left lower leg are provided. COMPARISON: No prior exams provided for comparison. FINDINGS: Patient is osteoporotic. There is an acute, intra-articular fracture of the left distal ti poncho with slight impaction. There is an acute fracture of the left distal fibular diaphysis with sligh t medial angulation. No other acute fracture. No dislocation. Diffuse soft tissue swelling about the left ankle without so ft tissue gas or foreign body. The talar dome is intact. Talonavicular osteoarthritis incidentally no blank. IMPRESSION: Acute fractures of the left distal tibia and fibula without dislocation. Electronically signed by: Elisha Moreno MD 04/04/2023 12:46 AM [employer] TECHNICIAN Due to temporary technical issues with the PACS/Fluency reporting system, reports are being signed by the in house radiologist without review as a courtesy to ensure prompt reporting. The interpreting r adiologist is fully responsible for the content of the report.
== END 2023-04-04 04:11 | disposition home or self-care (01) ==
LOC: ER 23:58
PROC: 0QSH35Z Reposition Left Tibia with External Fixation Device, Percutaneous Approach (ICD-10-PCS; principal; 2023-04-04)
PROC: 0QSK35Z Reposition Left Fibula with External Fixation Device, Percutaneous Approach (ICD-10-PCS; 2023-04-04)
DX: S82.892A Other fracture of left lower leg, initial encounter for closed fracture (principal)
CPT/HCPCS: 73630; 73590; 73600; 96375; 96374; 99285; 27788; J2250; J2405; J7040